=== PATIENT | male | born 1950 | race Caucasian/White ===

== ENCOUNTER 2020-12-28 03:52 | Emergency (ER) | payer MEDICARE, SELFPAY ==
--- NOTE | ~2020-12-28 | XR_ITS ---
EXAMINATION: XR CHEST, 2 VIEWS CLINICAL INFORMATION: Chest wall pain. COMPARISON: 08/09/2018 TECHNIQUE: PA and lateral views of the chest were obtained. FINDINGS: Lungs are clear. No consolidation, pneumothorax, or pleural effusion. Cardiac and mediastinal contours are normal. Pulmonary vasculature is unremarkable. Trachea is midline. Degenerative disc disease and diffuse idiopathic skeletal hyperostosis are evident in the thoracic spine. Chest wall appears intact. XR/XR chest 2V IMPRESSION: No acute cardiopulmonary findings.
[2020-12-28 03:58] VITALS: BP 173/79; PULSE 88; RESP 16; TEMP 36.6; O2SAT 87; BMI 29.4
--- NOTE | 2020-12-28 04:06 | ECG_ITS ---
Test Reason : FEVER Blood Pressure : / mmHG Vent. Rate : 078 BPM Atrial Rate : 078 BPM P-R Int : 200 ms QRS Dur : 082 ms QT Int : 374 ms P-R-T Axes : 055 006 034 degrees QTc Int : 426 ms Normal sinus rhythm Normal ECG When compared with ECG of 09-AUG-2018 10:19, No significant change was found Referred By: Generic ED Physician Electronically Signed By:JASON OLVERA MD
[2020-12-28 04:59] VITALS: RESP 16; TEMP 36.4; O2SAT 98
--- NOTE | 2020-12-28 05:00 | PC.NURSE ---
PT C/O MERI SHOULDER PAIN AND PAIN LIFTING UP ARM X WEEKS. PT ALSO C/O FEVER. PT'S TEMP WAS 97.5 ORAL UPON ARRIVAL. PT A&OX3, SKIN WARM/DRY, RESPIRATIONS N/L. AT BEDSIDE WITH PT..
--- NOTE | 2020-12-28 05:01 | PC.NURSE ---
PT TO XRAY FOR CXR.
--- NOTE | 2020-12-28 05:28 | PC.NURSE ---
EKG OBTAINED TO MD AND LABS DRAWN TO LAB. VS OBTAINED. PT IN NAD.
[2020-12-28 05:42] LABS: MANUAL DIFF FLAG NO
[2020-12-28 05:43] LABS: Basophils Absolute Auto 0.1 X10*3/uL (0.0-0.2); Basophils Percent Auto 0.7 % (0-2); Eosinophils Absolute Auto 0.1 X10*3/uL (0.0-0.4); Hematocrit 44.9 % (42-52); Hemoglobin 15.1 g/dl (14.0-18.0); Imm Gran Abs Auto 0.01 X10*3/uL (0.00-0.03); Imm Gran Pct Auto 0.1 % (0.0-0.4); Lymphocytes Absolute Auto 1.8 X10*3/uL (1.2-4.9); Lymphocytes Percent Auto 25.6 % (20-40); Mean Corpuscular HGB Conc 33.6 g/dl (31.0-36.0); Mean Corpuscular Hemoglobin 31.6 pg (27.0-33.0); Mean Corpuscular Volume 93.9 fL (80-98); Mean Platelet Volume 8.8 fL (9.4-12.4); Monocytes Absolute Auto 0.6 X10*3/uL (0.1-1.2); Monocytes Percent Auto 8.1 % (2-11); Neutrophils Absolute Auto 4.4 X10*3/uL (2.0-8.3); Neutrophils Percent Auto 63.5 % (45-73); Platelet Count 227 X10*3/uL (160-400); Red Blood Count 4.78 X10*6/uL (4.60-5.80); White Blood Count 6.9 X10*3/uL (4.8-10.8)
[2020-12-28 06:09] VITALS: BP 156/86; PULSE 77; RESP 16; O2SAT 97
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
[2020-12-28 06:39] LABS: Anion Gap 14 (12-20); Calcium 9.2 mg/dL (8.4-10.2); Carbon Dioxide 26 mmol/L (22-29); Chloride 107 mmol/L (96-108); Sodium 142 mmol/L (135-145)
[2020-12-28 06:51] LABS: Blood Urea Nitrogen 18 mg/dL (9-16); Creatinine Clr Calc Pharmacy 81.7; Estimated Glomerular Filt Rate > 60; Glucose Random 133 mg/dL (60-115)
[2020-12-28 06:55] LABS: Glucose Urine UA NEG (NEG); Leukocyte Esterase Urine NEG (NEG); Nitrite Urine NEG (NEG); Specific Gravity - Urine 1.025 (1.005-1.025); Urine Blood TRACE (NEG); Urine Ketones NEG (NEG); Urine Protein NEG (NEG-TRACE)
[2020-12-28 06:56] LABS: Alanine Aminotransferase 25 U/L (0-40); Albumin Level 4.3 g/dL (3.5-5.0); Alkaline Phosphatase 73 U/L (39-117); Aspartate Amino Transferase 19 U/L (5-37); Bilirubin Direct 0.3 mg/dL (0.0-0.5); Bilirubin Total 0.8 mg/dL (0.0-1.0); Total Protein 6.7 g/dL (6.5-8.0)
[2020-12-28 06:56] LABS: Appearance Urine CLEAR; Color Urine YELLOW
[2020-12-28 07:01] VITALS: BP 146/88; PULSE 75; RESP 16; TEMP 36.8; O2SAT 97
--- NOTE | 2020-12-28 07:03 | PC.NURSE ---
report taken from Angelique BAKER. patient resting on stretcher comfortably. reports he is feeling improved. vitals updated. waiting re eval from .
[2020-12-28 07:10] LABS: COVID-19 Test Negative (Negative); IDNOW Serial# 9DD0AD1C
[2020-12-28 07:17] LABS: Mucus Urine 2+ /LPF; WBC Urine 0 /HPF (0-4)
== END 2020-12-28 07:58 | disposition home or self-care (01) ==
PROVIDERS: Emergency Provider Emergency Medicine Emergency Medical Services; PCP Internal Medicine
DX: B34.9 Viral infection, unspecified (principal); Z20.822 Contact with and (suspected) exposure to COVID-19; R50.9 Fever, unspecified
CPT/HCPCS: 36415; 71046; 80048; 80076; 81001; 85025; 87635; 93005; 99283; 99284

== ENCOUNTER 2021-12-03 13:59 | Emergency (ER) | payer MEDICARE, SELFPAY ==
[2021-12-03 14:03] VITALS: BP 140/69; PULSE 90; RESP 18; TEMP 36; O2SAT 99; BMI 29.4
--- NOTE | 2021-12-03 14:06 | ECG_ITS ---
Test Reason : diff breathing Blood Pressure : / mmHG Vent. Rate : 087 BPM Atrial Rate : 087 BPM P-R Int : 188 ms QRS Dur : 094 ms QT Int : 366 ms P-R-T Axes : 063 022 041 degrees QTc Int : 440 ms Normal sinus rhythm Normal ECG When compared with ECG of 28-DEC-2020 05:24, No significant change was found Referred By: Generic ED Physician Electronically Signed By:JEWEL PINEDA
== END 2021-12-03 19:23 | disposition left against medical advice (07) ==
PROVIDERS: Emergency Provider Emergency Medicine; PCP Hospitalist
DX: R06.02 Shortness of breath (principal); I10 Essential (primary) hypertension; Z87.891 Personal history of nicotine dependence
CPT/HCPCS: 93005; 99282; 99283

== ENCOUNTER 2021-12-04 15:06 | Outpatient (REF) | payer MEDICARE, SELFPAY ==
--- NOTE | ~2021-12-04 | XR_ITS ---
EXAMINATION: XR CHEST CLINICAL INFORMATION: Shortness of breath COMPARISON: 12/28/2020 TECHNIQUE: Frontal view of the chest was obtained. FINDINGS: The lungs are well expanded. There is no focal consolidation, edema, or effusion. No pneumothorax. The cardiomediastinal silhouette is within normal limits. No acute osseous abnormality. Degenerative changes of the spine. XR/XR chest 1V IMPRESSION: No acute pulmonary finding.
[2021-12-04 15:51] LABS: Hematocrit 44.8 % (42.0-52.0); Hemoglobin 15.4 g/dl (14.0-18.0); Mean Corpuscular HGB Conc 34.4 g/dl (31.0-36.0); Mean Corpuscular Hemoglobin 31.4 pg (27.0-33.0); Mean Corpuscular Volume 91.2 fL (80.0-98.0); Mean Platelet Volume 8.9 fL (9.4-12.4); Platelet Count 285 X10*3/uL (160-400); Red Blood Count 4.91 X10*6/uL (4.60-5.80); Red Cell Distribution Width 12.9 % (11.0-16.0); White Blood Count 8.4 X10*3/uL (4.8-10.8)
[2021-12-04 16:16] LABS: Alanine Aminotransferase 29 U/L (0-40); Albumin Level 4.4 g/dL (3.5-5.0); Alkaline Phosphatase 85 U/L (39-117); Anion Gap 13 (12-20); Aspartate Amino Transferase 23 U/L (5-37); Bilirubin Total 1.4 mg/dL (0.0-1.0); Blood Urea Nitrogen 13 mg/dL (9-16); Calcium 9.4 mg/dL (8.4-10.2); Carbon Dioxide 27 mmol/L (22-29); Chloride 104 mmol/L (96-108); Estimated Glomerular Filt Rate > 60; Glucose Random 126 mg/dL (60-115); Potassium 4.3 mmol/L (3.3-5.1); Sodium 140 mmol/L (135-145); Total Protein 6.9 g/dL (6.5-8.0)
[2021-12-04 16:36] LABS: TSH reflex Free T4 0.81 uIU/mL (0.32-4.0)
== END 2021-12-04 15:07 | disposition home or self-care (01) ==
LOC: HO.LAB 15:06
PROVIDERS: Visit Provider Hospitalist
DX: R06.02 Shortness of breath (principal); E03.9 Hypothyroidism, unspecified
CPT/HCPCS: 36415; 71045; 80053; 84443; 85027

== ENCOUNTER 2022-01-28 08:55 | Outpatient (REF) | payer MEDICARE, SELFPAY ==
[2022-01-28 14:36] LABS: TSH reflex Free T4 0.57 uIU/mL (0.32-4.0)
[2022-01-28 15:16] LABS: Cholesterol 213 mg/dL; HDL Cholesterol 43 mg/dL; LDL Cholesterol Calculated 137 mg/dl; Triglycerides 165 mg/dL
== END 2022-01-28 08:56 | disposition home or self-care (01) ==
LOC: HO.WFDLDS 08:55
PROVIDERS: Visit Provider Hospitalist
DX: I10 Essential (primary) hypertension (principal); E03.9 Hypothyroidism, unspecified; Z87.891 Personal history of nicotine dependence
CPT/HCPCS: 36415; 80061; 84443

== ENCOUNTER 2022-04-29 12:26 | Outpatient (REF) | payer MEDICARE, SELFPAY ==
[2022-04-29 15:19] LABS: TSH reflex Free T4 0.39 uIU/mL (0.32-4.0)
== END 2022-04-29 12:27 | disposition home or self-care (01) ==
LOC: HO.WFDLDS 12:26
PROVIDERS: Visit Provider Hospitalist
DX: E03.9 Hypothyroidism, unspecified (principal)
CPT/HCPCS: 36415; 84443

== ENCOUNTER 2022-05-19 08:30 | Emergency (ER) | payer MEDICARE, SELFPAY ==
--- NOTE | ~2022-05-19 | MR_ITS ---
MRI OF THE BRAIN WITHOUT IV CONTRAST INDICATION: Dizziness. Rule out stroke. COMPARISON: Head CT 05/19/2022. TECHNIQUE: Multiplanar multisequence MR imaging of the brain was obtained without IV contrast. FINDINGS: Artifact versus a punctate acute infarct within the upper right insular ribbon on image 22 of series 3. There is no mass effect and there is no hemorrhagic transformation. No posterior fossa infarcts. There is no hydrocephalus, extra-axial surface collection, or herniation. The major flow voids at the skull base are preserved. 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 The midline structures are normal. The cerebellar tonsils are normally positioned. The cerebellum and brainstem are normal. The craniocervical junction is normal. Osseous marrow signal intensity is homogenous. The visualized soft tissues are unremarkable. MR/MR head/brain wo con IMPRESSION: - Artifact versus a punctate acute infarct within the upper right insular ribbon on image 22 of series 3. There is no mass effect and there is no hemorrhagic transformation. No posterior fossa infarcts. - There is global cerebral volume loss and there is mild chronic microangiopathy. 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
--- NOTE | ~2022-05-19 | CT_ITS ---
CT HEAD WITHOUT CONTRAST CLINICAL INFORMATION: Dizziness and near-syncope. COMPARISON: Brain MRI 05/19/2022. TECHNIQUE: Contiguous axial imaging was performed from the skull base to vertex without intravenous administration of contrast. This CT examination was performed using dose optimization techniques as appropriate, variously including the following: *Automated exposure control *Adjustment of mA and/or kV according to patient size (this includes techniques or standardized protocols for targeted exams where dose is matched to indication/reason for exam; i.e. extremities or head) *Use of iterative reconstruction technique FINDINGS: There is no intracranial hemorrhage, hydrocephalus, extra-axial surface collection, midline shift, or other herniation pattern. Ro to white matter differentiation is diffusely maintained without evidence of an evolved acute territorial infarct. The basilar cisterns are preserved. No significant soft tissue abnormality. No acute osseous abnormality. There is mild mucosal thickening within the left maxillary sinus and the remaining paranasal sinuses are well-aerated. The mastoid air cells are clear. CT/CT head/brain wo IV con IMPRESSION: No acute intracranial abnormality.
--- NOTE | ~2022-05-19 | CT_ITS ---
EXAMINATION: CT ANGIOGRAM NECK WITH CONTRAST CT ANGIOGRAM BRAIN WITH CONTRAST CLINICAL INFORMATION: Dizziness. Abnormal MRI. COMPARISON: Head CT and brain MRI 05/19/2022. TECHNIQUE: Test bolus sequences followed by intravenous administration 70 mL of Omnipaque 350. Helical imaging was performed in the axial plane from the thoracic inlet to the skull vertex. Delayed postcontrast imaging of the head was also performed. The data was processed at the dairy manufacturing technologist workstation for generation of MIP sequences. Angled MIPs and volume rendered reformatted images were also generated at an offline 3D workstation under concurrent supervision. Stenoses are assessed in accordance with NASCET criteria unless otherwise indicated. This CT examination was performed using dose optimization techniques as appropriate, variously including the following: *Automated exposure control *Adjustment of mA and/or kV according to patient size (this includes techniques or standardized protocols for targeted exams where dose is matched to indication/reason for exam; i.e. extremities or head) *Use of iterative reconstruction technique FINDINGS: BRAIN: Artifact versus a punctate acute infarct within the upper right insular ribbon is better demonstrated on the earlier MRI of the brain. 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 There is no intracranial hemorrhage, hydrocephalus, extra-axial surface collection, midline shift, or other herniation pattern. Ro to white matter differentiation is diffusely maintained without evidence of an evolved acute territorial infarct. The basilar cisterns are preserved. No significant soft tissue abnormality. No acute osseous abnormality. The paranasal sinuses and the mastoid air cells are well aerated.] CERVICAL SOFT TISSUES AND LUNG APICES: Imaged upper lungs are clear. Advanced multilevel cervical spondylosis. No significant soft tissue findings are appreciated within the neck. NECK CTA: [There is a classic 3 vessel configuration of the aortic arch. Proximal arch vessels are non-stenotic. The vertebral arteries are codominant. No significant ostial stenosis is visualized on either side. Both vertebral arteries are widely patent throughout their extracranial cervical course. 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 BRAIN CTA: [There is normal opacification of major intracranial arteries. No focal flow-limiting stenosis nor discrete proximal large artery occlusion. No aneurysm. Timing of the contrast bolus allows assessment of the major dural venous sinuses, which all opacify normally] CT/CT angio head neck IMPRESSION: - Artifact versus a punctate acute infarct within the upper right insular ribbon is better demonstrated on the earlier MRI of the brain. - There is global cerebral volume loss and there is mild chronic microangiopathy. - No acute arterial occlusions and no significant arterial stenoses within the head or neck. 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
--- NOTE | ~2022-05-19 | XR_ITS ---
EXAMINATION: XR CHEST CLINICAL INFORMATION: Near syncope COMPARISON: None TECHNIQUE: Frontal view of the chest was obtained. FINDINGS: The lungs are well-expanded and clear. The heart size and pulmonary vascularity is normal. There is moderate spondylosis dorsal spine. XR/XR chest 1V IMPRESSION: Unremarkable chest examination.
[2022-05-19 08:33] VITALS: BP 179/98; PULSE 96; RESP 18; TEMP 36.1; O2SAT 97; BMI 27.9
--- NOTE | 2022-05-19 08:54 | ECG_ITS ---
Test Reason : NEAR SYNC Blood Pressure : / mmHG Vent. Rate : 085 BPM Atrial Rate : 085 BPM P-R Int : 200 ms QRS Dur : 084 ms QT Int : 368 ms P-R-T Axes : 060 004 043 degrees QTc Int : 437 ms Normal sinus rhythm Normal ECG When compared with ECG of 03-DEC-2021 14:02, No significant change was found Referred By: Justin Santos Electronically Signed By:JOÃO BISHOP MD
--- NOTE | 2022-05-19 08:56 | ED.DIZZY ---
HPI - Dizziness General Chief Complaint: Dizziness Stated Complaint: Dizziness Time Seen by Provider: 05/19/22 08:44 Source: patient and family (Spouse) Mode of arrival: ambulatory Limitations: no limitations History of Present Illness HPI Narrative: 72-year-old male came in with his family for evaluation of being dizzy. Patient last known normal was last night went to bed when he woke up trying to get out of bed felt dizzy and lightheaded, patient had near syncopal episode but never syncopized, no CP, no shortness of breath. Patient never had these symptoms in the past. Patient now is complaining of no dizziness, no weakness, no numbness. Related Data Home Medications Medication Instructions Recorded Confirmed levothyroxine 137 mcg capsule 137 mcg PO DAILY 12/04/21 05/04/22 Previous Rx's Medication Instructions Recorded albuterol sulfate 90 mcg/actuation 2 puff inhalation Q4-6H PRN 12/04/21 aerosol inhaler (ProAir HFA) shortness of breath or wheezing 1 month #8.5 grams blood pressure monitor #1 ea 12/10/21 cyclobenzaprine 10 mg tablet 10 mg PO BID PRN muscle spasm 10 02/20/22 days #14 tabs gabapentin 100 mg capsule 100 mg PO BID 3 months #180 caps 03/30/22 losartan 25 mg tablet 50 mg PO DAILY #30 tabs 04/17/22 cephalexin 500 mg capsule 500 mg PO Q12H 7 days #14 caps 05/04/22 Allergies Allergy/AdvReac Type Severity Reaction Status Date / Time amoxicillin [From AUGMENTIN] Allergy Intermediate RASH Verified 05/04/22 10:50 clavulanic acid Allergy Intermediate RASH Verified 05/04/22 10:50 [From AUGMENTIN] Sulfa (Sulfonamide AdvReac Intermediate Rash Verified 05/04/22 10:50 Antibiotics) Review of Systems Review of Systems: All other systems are reviewed and are negative Constitutional: Reports as per HPI and Reports no additional constitutional complaints Eyes: Reports as per HPI and Reports no additional eye complaints Reports system reviewed and no additional complaints, except as documented Cardiovascular: Reports as per HPI and Reports no additional cardiovascular complaints Respiratory: Reports as per HPI and Reports no additional respiratory complaints Gastrointestinal: Reports as per HPI and Reports no additional gastrointestinal complaints Genitourinary: Reports no additional female genitourinary complaints Musculoskeletal: Reports no additional musculoskeletal complaints Skin/Breast: Reports system reviewed and no additional complaints, except as docu Psychiatric: Reports no additional psychiatric complaints Endocrine: Reports no additional endocrine complaints Hematologic/Lymphatic: Reports no additional hematologic/lymphatic complaints Allergic/Immunologic: Reports no additional allergic/immunologic complaints Reports system reviewed and no additional complaints, except as documented and Reports Abnormal speech present [facility] Past Medical History Medical History Anxiety Hypothyroid Pericarditis Social History Social History Housing: House Patient Tobacco Use Status: Former Tobacco user e-Cigarette/Vaping Use: Never Used Second Hand Smoke Exposure: No Advance Directives: Yes Advance Directives Information Provided: Yes Advance Directives on File: No service: Yes Current occupational status: retired Current occupational exposures/hazards: No Cognitive needs: No Hearing needs: No Vision needs: Yes Physical Exam Vital Signs: Vital Signs: Last Vital Signs Temp 98.2 F 05/19/22 13:57 Pulse 94 05/19/22 13:57 Resp 14 05/19/22 13:57 BP 162/90 H 05/19/22 13:57 Pulse Ox 98 05/19/22 13:57 O2 Del Method 05/19/22 13:57 BMI result Body Mass Index 27.9 Vital signs have been reviewed as appeared to be correct. Blood pressure normal. Heart rate normal. Respiration rate normal. Temperature normal. Oxygen saturation normal. Appearance: Alert. Oriented X3. No acute distress. Head: Normal external exam. Normocephalic. Atraumatic. No Nixon signs noted. No raccoon eyes noted Eyes: PERRLA. EOMI. Conjunctiva and sclera normal. Eyelids normal. ENT: TM's Normal. Pharynx normal. Uvula midline. Moist mucous membranes. No trismus noted. No drooling noted. No muffled voice noted. Neck: Normal inspection. Neck supple. FROM. No adenopathy. Thyroid Normal. No meningeal signs. No neck mass noted. CVS: Normal heart rate and rhythm. Heart sound normal. No murmurs noted. Pulses normal throughout. Respiratory: No respiratory distress. Painless inspiration. Breath sounds normal. No wheezes/rales/rhonchi noted. Chest nontender. No accessory muscle usage noted or decreased air movement noted. Abdomen: Soft and nontender. Bowel sounds normal in all 4 quadrants. No distention noted. No organomegaly noted. No visible injury noted. Back: No CVA tenderness. Full range of motion noted. Skin: Skin warm and dry. Normal skin color. Normal skin turgor. No rashes/lesions/lacerations noted. Extremities: No lower extremity edema. Extremities exhibit normal range of motion. Extremities nontender. Neuro: Oriented X 3. Cranial nerve exam: II-XII are grossly intact No motor deficit. No sensory deficit. Reflexes normal. NIH Stroke Scale Level of Consciousness: Alert Level of Consciousness Questions: Answers both questions correctly Level of Consciousness Commands: Performs both tasks correctly Best Gaze: Normal Visual: No visual loss Facial Palsy: Normal Motor Arm (Right): No drift Motor Arm (Left): No drift Motor Leg (Right): No drift Motor Leg (Left): No drift Limb Ataxia: Absent Sensory: Normal Best Language: No aphasia Dysarthia: Normal Extinction and Inattention: No abnormality Score: 0 Course Course Course Narrative: 72-year-old male came in for evaluation of dizziness that raised concern of acute stroke, patient's symptoms has improved while in the emergency department, there was a concern of acute infarction on the MRI, the case and concerns was discussed with Dr. Parker who recommended CT angiogram of head and neck which appears to be unremarkable, no indication for tPA at this point and patient is not a candidate for tPA therapy for equivocal minor neurological symptoms with normal neuro exam and unclear onset of symptoms. Patient received aspirin in the emergency department, patient will be seen by Dr. Parker. Disposition is pending after Dr. Parker evaluation in the emergency department. Medications Administered Discontinued Medications Generic Name Dose Route Start Last Admin Trade Name Freq PRN Reason Stop Dose Admin Aspirin 81 mg 05/19/22 11:44 05/19/22 11:59 Aspirin Enteric Coated 81 Mg Tablet. PO 05/19/22 11:45 81 mg ONCE ONE Administration Sodium Chloride 1,000 mls @ 999 mls/hr 05/19/22 08:50 05/19/22 11:48 Ns IV 05/19/22 09:50 Infused .Q1H1M ONE Infusion Iohexol 70 ml 05/19/22 12:25 05/19/22 12:26 Iohexol 350 Mg/Ml 100 Ml Infus..Btl IV 05/19/22 12:26 70 ml ONCE ONE Administration Meclizine HCl 25 mg 05/19/22 11:41 05/19/22 11:59 Meclizine Hcl 25 Mg Tablet PO 05/19/22 11:42 25 mg ONCE ONE Administration MDM - Dizziness Medical Records Attestation: I reviewed the patient's medical records. Lab Data Attestation: I reviewed the patient's lab results. Result diagrams: 05/19/22 09:32 05/19/22 09:32 Labs: Lab Results 05/19/22 05/19/22 05/19/22 Range/Units 09:32 09:32 09:32 WBC 9.8 (4.8-10.8) X10*3/uL RBC 5.04 (4.60-5.80) X10*6/uL Hgb 15.5 (14.0-18.0) g/dl Hct 46.0 (42.0-52.0) % MCV 91.3 (80.0-98.0) fL MCH 30.8 (27.0-33.0) pg MCHC 33.7 (31.0-36.0) g/dl RDW 13.1 (11.0-16.0) % Plt Count 257 (160-400) X10*3/uL MPV 8.8 L (9.4-12.4) fL Immature Gran % (Auto) 0.2 (0.0-0.4) % Neut % (Auto) 72.6 (45-73) % Lymph % (Auto) 19.3 L (20-40) % [place] % (Auto) 6.1 (2-11) % Eos % (Auto) 1.3 (0-4) % Baso % (Auto) 0.5 (0-2) % Lymph # (Auto) 1.9 (1.2-4.9) X10*3/uL [place] # (Auto) 0.6 (0.1-1.2) X10*3/uL Eos # (Auto) 0.1 (0.0-0.4) X10*3/uL Baso # (Auto) 0.1 (0.0-0.2) X10*3/uL Abs Immat Gran (auto) 0.02 (0.00-0.03) X10*3/uL Absolute Neuts (auto) 7.1 (2.0-8.3) x10*3/uL Absolute Nucleated RBC 0.000 (0.0-0.012) X10*3/uL Nucleated RBC % (auto) 0.0 (0.0-0.2) /100WBC Sodium 140 (135-145) mmol/L Potassium 4.4 (3.3-5.1) mmol/L Chloride 104 (96-108) mmol/L Carbon Dioxide 26 (22-29) mmol/L Anion Gap 14 (12-20) BUN 13 (9-16) mg/dL Creatinine 0.86 (0.5-1.4) mg/dL Estim Creat Clear Calc 85.6 Estimated GFR > 60 Random Glucose 113 (60-115) mg/dL Calcium 9.4 (8.4-10.2) mg/dL Total Bilirubin 1.4 H (0.0-1.0) mg/dL Direct Bilirubin 0.4 (0.0-0.5) mg/dL AST 19 (5-37) U/L ALT 21 (0-40) U/L Alkaline Phosphatase 84 (39-117) U/L Troponin I High Sens < 3.5 (<3.5-35.0) ng/L B-Natriuretic Peptide (<100) pg/mL Total Protein 6.8 (6.5-8.0) g/dL Albumin 4.3 (3.5-5.0) g/dL Lipase 43 (8-78) U/L Urine Color Urine Appearance Urine pH (5.0-9.0) Ur Specific [place] (1.005-1.025) Urine Protein (Neg-Trace) mg/dL Urine Glucose (UA) (Negative) mg/dL Urine Ketones (Negative) mg/dL Urine Blood (Negative) Urine Nitrite (Negative) Ur Leukocyte Esterase (Negative) 05/19/22 05/19/22 Range/Units 09:32 11:02 WBC (4.8-10.8) X10*3/uL RBC (4.60-5.80) X10*6/uL Hgb (14.0-18.0) g/dl Hct (42.0-52.0) % MCV (80.0-98.0) fL MCH (27.0-33.0) pg MCHC (31.0-36.0) g/dl RDW (11.0-16.0) % Plt Count (160-400) X10*3/uL MPV (9.4-12.4) fL Immature Gran % (Auto) (0.0-0.4) % Neut % (Auto) (45-73) % Lymph % (Auto) (20-40) % [place] % (Auto) (2-11) % Eos % (Auto) (0-4) % Baso % (Auto) (0-2) % Lymph # (Auto) (1.2-4.9) X10*3/uL [place] # (Auto) (0.1-1.2) X10*3/uL Eos # (Auto) (0.0-0.4) X10*3/uL Baso # (Auto) (0.0-0.2) X10*3/uL Abs Immat Gran (auto) (0.00-0.03) X10*3/uL Absolute Neuts (auto) (2.0-8.3) x10*3/uL Absolute Nucleated RBC (0.0-0.012) X10*3/uL Nucleated RBC % (auto) (0.0-0.2) /100WBC Sodium (135-145) mmol/L Potassium (3.3-5.1) mmol/L Chloride (96-108) mmol/L Carbon Dioxide (22-29) mmol/L Anion Gap (12-20) BUN (9-16) mg/dL Creatinine (0.5-1.4) mg/dL Estim Creat Clear Calc Estimated GFR Random Glucose (60-115) mg/dL Calcium (8.4-10.2) mg/dL Total Bilirubin (0.0-1.0) mg/dL Direct Bilirubin (0.0-0.5) mg/dL AST (5-37) U/L ALT (0-40) U/L Alkaline Phosphatase (39-117) U/L Troponin I High Sens (<3.5-35.0) ng/L B-Natriuretic Peptide < 10 (<100) pg/mL Total Protein (6.5-8.0) g/dL Albumin (3.5-5.0) g/dL Lipase (8-78) U/L Urine Color Yellow Urine Appearance Clear Urine pH 7.5 (5.0-9.0) Ur Specific [place] 1.010 (1.005-1.025) Urine Protein Negative (Neg-Trace) mg/dL Urine Glucose (UA) Negative (Negative) mg/dL Urine Ketones Negative (Negative) mg/dL Urine Blood Negative (Negative) Urine Nitrite Negative (Negative) Ur Leukocyte Esterase Negative (Negative) Imaging Data CT scan - head: Attestation: I personally reviewed and interpreted this imaging study as follows: Radiologist's impression: No acute intracranial abnormality. Chest x-ray: Attestation: I personally reviewed and interpreted this imaging study as follows: Radiologist's impression: Unremarkable chest examination. Brain MRI: Attestation: I personally reviewed and interpreted this imaging study as follows: Radiologist's impression: - Artifact versus a punctate acute infarct within the upper right insular ribbon on image 22 of series 3. There is no mass effect and there is no hemorrhagic transformation. No posterior fossa infarcts. ? - There is global cerebral volume loss and there is mild chronic microangiopathy. ? 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 ECG Data Attestation: I personally reviewed and interpreted this ECG as follows: Interpretation: Normal sinus rhythm at 85 beats per minutes, normal intervals, no ST-T changes. Discharge Plan Discharge Clinical Impression: Dizziness Patient Disposition: Home, Self-Care Instructions: Lightheadedness (ED), Dizziness (ED) Prescriptions: No Action gabapentin 100 mg capsule 100 mg PO BID 90 Days Qty: 180 1RF losartan 25 mg tablet 50 mg PO DAILY Qty: 30 4RF levothyroxine 137 mcg capsule 137 mcg PO DAILY albuterol sulfate [ProAir HFA] 90 mcg/actuation HFA aerosol inhaler 2 puff inhalation Q4-6H PRN (Reason: shortness of breath or wheezing) 30 Days Qty: 8.5 0RF (DME) blood pressure monitor Kit See Rx Instructions .Route Qty: 1 0RF Rx Instructions: As directed cyclobenzaprine 10 mg tablet 10 mg PO BID PRN (Reason: muscle spasm) 10 Days Qty: 14 0RF cephalexin 500 mg capsule 500 mg PO Q12H 7 Days Qty: 14 0RF Referrals: Bailee Swartz, [employer] [Primary Care Provider] -
[2022-05-19 09:20] VITALS: BP 139/85; PULSE 83; RESP 14; TEMP 36.7; O2SAT 96
[2022-05-19] MEDS: 0.9 % Sodium Chloride 1,000 ML 999 ML IV (09:35)
[2022-05-19 09:38] LABS: MANUAL DIFF FLAG NO
[2022-05-19 09:40] LABS: Basophils Absolute Auto 0.1 X10*3/uL (0.0-0.2); Basophils Percent Auto 0.5 % (0-2); Eosinophils Absolute Auto 0.1 X10*3/uL (0.0-0.4); Eosinophils Percent Auto 1.3 % (0-4); Hemoglobin 15.5 g/dl (14.0-18.0); Imm Gran Abs Auto 0.02 X10*3/uL (0.00-0.03); Imm Gran Pct Auto 0.2 % (0.0-0.4); Lymphocytes Absolute Auto 1.9 X10*3/uL (1.2-4.9); Lymphocytes Percent Auto 19.3 % (20-40); Mean Corpuscular HGB Conc 33.7 g/dl (31.0-36.0); Mean Corpuscular Hemoglobin 30.8 pg (27.0-33.0); Mean Corpuscular Volume 91.3 fL (80.0-98.0); Mean Platelet Volume 8.8 fL (9.4-12.4); Monocytes Absolute Auto 0.6 X10*3/uL (0.1-1.2); Monocytes Percent Auto 6.1 % (2-11); Neutrophils Absolute Auto 7.1 x10*3/uL (2.0-8.3); Neutrophils Percent Auto 72.6 % (45-73); Platelet Count 257 X10*3/uL (160-400); Red Blood Count 5.04 X10*6/uL (4.60-5.80); Red Cell Distribution Width 13.1 % (11.0-16.0); White Blood Count 9.8 X10*3/uL (4.8-10.8)
[2022-05-19 09:49] VITALS: BP 152/72
--- NOTE | 2022-05-19 09:54 | PC.NURSE ---
PT [facility] 8A, ATAXIA, PASSED NURSING SWALLOW, MRI SCREENING FORM FAXED [phone]
[2022-05-19 09:58] LABS: Alanine Aminotransferase 21 U/L (0-40); Albumin Level 4.3 g/dL (3.5-5.0); Alkaline Phosphatase 84 U/L (39-117); Anion Gap 14 (12-20); Aspartate Amino Transferase 19 U/L (5-37); Bilirubin Direct 0.4 mg/dL (0.0-0.5); Bilirubin Total 1.4 mg/dL (0.0-1.0); Blood Urea Nitrogen 13 mg/dL (9-16); Calcium 9.4 mg/dL (8.4-10.2); Carbon Dioxide 26 mmol/L (22-29); Chloride 104 mmol/L (96-108); Creatinine Clr Calc Pharmacy 85.6; Estimated Glomerular Filt Rate > 60; Glucose Random 113 mg/dL (60-115); Lipase 43 U/L (8-78); Potassium 4.4 mmol/L (3.3-5.1); Sodium 140 mmol/L (135-145); Total Protein 6.8 g/dL (6.5-8.0)
--- NOTE | 2022-05-19 10:02 | MHC.STROKE ---
Addendum entered by Charline Abdi RN 05/19/22 14:46: I REMAINED WITH THE PATIENT THROUGHOUT THE MRI, DR. MADDEN AND I REVIEWED THE MRI, ? ARTIFACT VS INFARCT, NO TPA-ALTEPLASE DUE TO LOW NIHSS AND MILD NON-DISABLING SYMPTOMS. DR. MADDEN SPOKE WITH DR. HALL. CTA H/N ORDERED AND DONE, NO LVO, SEE REPORT. I AMBULATED THE PATIENT AGAIN, SLOW BUT DOING MUCH BETTER WITH STANDBY SUPERVISION. HE DID MENTION THAT HE HAS NOT BEEN TAKING HIS BP MEDICATION LORSARTAN SINCE WHEN HE HAD A SKIN CANCER REMOVED FROM HIS NOSE. I REPORTED THIS TO DR. HALL AND DR. MADDEN. WE ARE DETERMINING IF THE PATIENT HAS TO ADMITTED OR NOT. NEUROLOGY CONSULT ENTERED AND DR MADDEN WILL SEE THE PATIENT AND COMMENT. PATIENT WAS SCREENED AND PASSED SWALLOW SCREEN PRIOR TO ANY PO, A DIET WAS ORDERED AND I CONFIRMED WITH THE PATIENT NO DIETARY RESTRICTIONS OR SPECIFIC DIET AND CONTACT THE KITCHEN. Original Note: WALK-IN AT 0830. PATIENT STATES HE WENT TO BED AT 2130. WAOKE AT 0600 AND LAYED IN BED WATCHING TV. GOT UP AT 0800 AND LIFTED THE SHADE AND HAD SUDDEN ONSET DIZZINESS. CAME TO THE ED. THIS DID HAPPEN ONCE BEFORE ACCORDING TO HIS . I WALKED HIM IN THE WELCH AND HE WAS UNABLE TO DO TOE TO HEAL, NIHSS = 2. CT DONE AND STAT MRI BEING DONE TO R/O CEREBELLAR STROKE.
--- NOTE | 2022-05-19 10:04 | PC.NURSE ---
CURRENTLY GOING TO MRI
[2022-05-19 10:05] LABS: B Type Natriuretic Peptide < 10 pg/mL (<100)
[2022-05-19 10:24] LABS: Troponin-I High Sensitivity < 3.5 ng/L (<3.5-35.0)
[2022-05-19 11:11] LABS: Appearance Urine Clear; Color Urine Yellow; Glucose Urine UA Negative (Negative); Leukocyte Esterase Urine Negative (Negative); Nitrite Urine Negative (Negative); PH 7.5 (5.0-9.0); Urine Blood Negative (Negative); Urine Ketones Negative (Negative); Urine Protein Negative (Neg-Trace)
[2022-05-19] MEDS: Meclizine HCl 25 MG TABLET PO (11:59)
[2022-05-19] MEDS: Aspirin Enteric Coated 81 MG TABLET.DR PO (11:59)
[2022-05-19] MEDS: iohexoL 350 MG/ML 100 ML INFUS..BTL 70 ML IV (12:26)
[2022-05-19 12:47] VITALS: BP 162/91; PULSE 94; RESP 14; TEMP 36.9; O2SAT 96
[2022-05-19 13:57] VITALS: BP 162/90; PULSE 94; RESP 14; TEMP 36.8; O2SAT 98
[2022-05-19 17:08] VITALS: BP 165/100
--- NOTE | 2022-05-19 17:12 | P.CNNE_ITS ---
History of Present Illness Data of Consult Service Date: 05/19/22 Primary Care Provider: Bailee Swartz NP HPI Reason for consult: dizziness and ataxia This is a 70-year-old male who presented to the emergency department for evaluation of Dizziness with vertigo and disequilibrium that came on suddenly shortly after he got up and was pulling the shades down. The room started to spin and he had to grab onto something to keep from falling. His symptoms continued but got gradually better and now he feels much better. He had an MRI of the brain which I reviewed and thought that it was normal although there may have been some punctate diffusion abnormality in the right insular cortex. There was no posterior fossa abnormality. He had a CTA of the head and neck which did not reveal any vertebrobasilar disease. He's had one similar episode of vertigo many years ago. His hearing is intact and he has no tinnitus. Review of Systems Review of Systems: All other systems are reviewed and are negative Constitutional: Reports as per HPI and Reports no additional constitutional complaints Eyes: Reports as per HPI and Reports no additional eye complaints Reports system reviewed and no additional complaints, except as documented Cardiovascular: Reports as per HPI and Reports no additional cardiovascular complaints Respiratory: Reports as per HPI and Reports no additional respiratory complaints Gastrointestinal: Reports as per HPI and Reports no additional gastrointestinal complaints Genitourinary: Reports no additional female genitourinary complaints Musculoskeletal: Reports no additional musculoskeletal complaints Skin/Breast: Reports system reviewed and no additional complaints, except as docu Psychiatric: Reports no additional psychiatric complaints Endocrine: Reports no additional endocrine complaints Hematologic/Lymphatic: Reports no additional hematologic/lymphatic complaints Allergic/Immunologic: Reports no additional allergic/immunologic complaints Reports system reviewed and no additional complaints, except as documented and Reports Abnormal speech present [facility] Past Medical History Medical History Anxiety Hypothyroid Pericarditis Social History Social History Housing: House Patient Tobacco Use Status: Former Tobacco user e-Cigarette/Vaping Use: Never Used Second Hand Smoke Exposure: No Advance Directives: Yes Advance Directives Information Provided: Yes Advance Directives on File: No service: Yes Current occupational status: retired Current occupational exposures/hazards: No Cognitive needs: No Hearing needs: No Vision needs: Yes Meds Allergies Allergy/AdvReac Type Severity Reaction Status Date / Time amoxicillin [From AUGMENTIN] Allergy Intermediate RASH Verified 05/04/22 10:50 clavulanic acid Allergy Intermediate RASH Verified 05/04/22 10:50 [From AUGMENTIN] Sulfa (Sulfonamide AdvReac Intermediate Rash Verified 05/04/22 10:50 Antibiotics) Home Medications Medication Instructions Recorded Confirmed Last Taken Type levothyroxine 137 mcg capsule 137 mcg PO DAILY 12/04/21 05/04/22 Unknown History Physical Exam Vital Signs: Vital Signs: Last Vital Signs Temp 98.2 F 05/19/22 13:57 Pulse 94 05/19/22 13:57 Resp 14 05/19/22 13:57 BP 165/100 H 05/19/22 17:08 Pulse Ox 98 05/19/22 13:57 O2 Del Method 05/19/22 13:57 BMI result Body Mass Index 27.9 Neuro: Other: Alert and oriented with normal intellectual functions. No nystagmus. Full visual triplett. Muscle tone and strength are normal. Aidynp-rb-rqpi test jbjq-aufg-wydi tests are normal. There is minimal truncal ataxia on tandem walking only Results Labs CBC & Chem 7: 05/19/22 09:32 05/19/22 09:32 Labs: Short CBC 05/19/22 Range/Units 09:32 WBC 9.8 (4.8-10.8) X10*3/uL Hgb 15.5 (14.0-18.0) g/dl Hct 46.0 (42.0-52.0) % Plt Count 257 (160-400) X10*3/uL BMP 05/19/22 09:32 Sodium 140 Potassium 4.4 Chloride 104 Carbon Dioxide 26 BUN 13 Creatinine 0.86 Calcium 9.4 Liver Function 05/19/22 Range/Units 09:32 Total Bilirubin 1.4 H (0.0-1.0) mg/dL Direct Bilirubin 0.4 (0.0-0.5) mg/dL AST 19 (5-37) U/L ALT 21 (0-40) U/L Alkaline Phosphatase 84 (39-117) U/L Albumin 4.3 (3.5-5.0) g/dL Urine 05/19/22 Range/Units 11:02 Urine Color Yellow Urine Appearance Clear Urine pH 7.5 (5.0-9.0) Ur Specific [place] 1.010 (1.005-1.025) Urine Protein Negative (Neg-Trace) mg/dL Urine Glucose (UA) Negative (Negative) mg/dL Assessment and Plan (1) Dizziness: Status: Acute Probable labyrinthine dysfunction. No evidence of vascular disease or acute vertebral basilar syndrome. Recommendation he can be discharged on meclizine 25 mg twice a day. He can restart his valsartan 50 mg a day. Procedures Date of Service Date of Service: 05/19/22
--- NOTE | 2022-05-20 09:52 | MHC.STROKE ---
I RECEIVED A CALL FROM THE PATIENT REGARDING A PRESCRIPTION HE DID NOT GET. I DID CLARIFY WITH DR MADDEN THAT THE PATIENT SHOULD BE ON MECLIZINE. I COMMUNICATED THIS TO DR GATICA, CONFIRMED THE PHARMACY WITH THE PATIENT, DR GATICA ELECTRONICALLY SENT THE SCRIPT AND I DID CALL THE PATIENT AND LET HIM KNOW THE PRESCRIPTION WILL BE AT HIS [facility] ON [facility].
== END 2022-05-19 17:13 | disposition home or self-care (01) ==
PROVIDERS: Emergency Provider Emergency Medicine; PCP Hospitalist
DX: R42 Dizziness and giddiness (principal); R06.02 Shortness of breath; M54.2 Cervicalgia; R51.9 Headache, unspecified; Z79.899 Other long term (current) drug therapy
CPT/HCPCS: 36415; 70450; 70496; 70498; 70551; 71045; 80048; 80076; 81003; 83690; 83880; 84484; 85025; 93005; 96360; 96361; 99284; 99285; Q9967

== ENCOUNTER 2022-07-15 13:40 | Emergency (ER) | payer MEDICARE, SELFPAY ==
[2022-07-15] VITALS (7 sets, daily range): BP systolic 127–168; BP diastolic 70–88; PULSE 85–110; RESP 15–19; TEMP 36.6–36.8; O2SAT 96–98; BMI 27.9
--- NOTE | ~2022-07-15 | CT_ITS ---
EXAMINATION: CT ANGIOGRAM OF THE CHEST WITH AND WITHOUT CONTRAST (CT PULMONARY ANGIOGRAM FOR PE) CLINICAL INFORMATION: Dyspnea COMPARISON: CXR from 07/15/2022 TECHNIQUE: Prior to contrast administration, noncontrast localization images were obtained. Subsequently, multidetector volumetric imaging was performed from the thoracic inlet to below the diaphragms following the administration of 65 mL Omnipaque 350 intravenous contrast. Sagittal, coronal, and MIP oblique sagittal reformatted images were obtained on the CT workstation, uploaded to PACS, and reviewed. This CT examination was performed using dose optimization techniques as appropriate, variously including the following: *Automated exposure control *Adjustment of mA and/or kV according to patient size (this includes techniques or standardized protocols for targeted exams where dose is matched to indication/reason for exam; i.e. extremities or head) *Use of iterative reconstruction technique Total exam dose-length product 341 mGy-cm FINDINGS: LUNGS AND PLEURA: Mild paraseptal emphysema at the lung apices. A few linear opacities of mild atelectasis are present in lower lung zones. No pulmonary consolidation or pleural effusion. No suspicious lung nodule or mass. QUALITY OF STUDY/CONTRAST BOLUS: Satisfactory. CARDIOVASCULAR: The pulmonary arteries are normal in size. No embolic filling defects are identified within the main, lobar or segmental vessels. The heart size is normal. No pericardial effusion. Mild atherosclerotic calcification of the thoracic aorta without aneurysm or dissection. MEDIASTINUM/LOWER NECK: No mediastinal mass. The esophagus has normal wall thickness. Thyroid gland is not well seen and is either chronically severely atrophied or absent. LYMPHATICS: No pathologic sized axillary, hilar or mediastinal lymph nodes. UPPER ABDOMEN: Cholecystectomy. No acute abnormalities in the visualized upper abdomen. Adrenal glands are unremarkable. There is mild atrophy, partial fatty replacement of the pancreas. 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 No suspicious bone lesions. CT/CT angio chest PE protocol IMPRESSION: * No evidence of pulmonary embolism. * No acute pulmonary abnormality. No pulmonary edema, pneumonia or pleural effusion.
--- NOTE | ~2022-07-15 | XR_ITS ---
EXAMINATION: XR CHEST CLINICAL INFORMATION: Cough with shortness of breath and palpitations. COMPARISON: May 19, 2022 TECHNIQUE: 2 views of the chest were obtained. FINDINGS: There is no evidence of significant acute parenchymal disease, pneumothorax, or pleural effusion. Heart normal size. No evidence of pulmonary edema. There is calcification of the anterior longitudinal ligament throughout the thoracic spine consistent with DISH. XR/XR chest 2V IMPRESSION: No significant acute parenchymal disease.
--- NOTE | 2022-07-15 13:42 | ED_ITS ---
HPI - SOB/Dyspnea General Chief Complaint: Upper Respiratory Symptoms Stated Complaint: Heavy breathing/Low o2 Time Seen by Provider: 07/15/22 14:12 Related Data Home Medications Medication Instructions Recorded Confirmed fluorouracil 5 % topical cream appl topical 3XW 06/15/22 06/15/22 Previous Rx's Medication Instructions Recorded albuterol sulfate 90 mcg/actuation 2 puff inhalation Q4-6H PRN 12/04/21 aerosol inhaler (ProAir HFA) shortness of breath or wheezing 1 month #8.5 grams blood pressure monitor #1 ea 12/10/21 cyclobenzaprine 10 mg tablet 10 mg PO BID PRN muscle spasm 10 02/20/22 days #14 tabs gabapentin 100 mg capsule 100 mg PO BID 3 months #180 caps 03/30/22 losartan 25 mg tablet 50 mg PO DAILY #30 tabs 04/17/22 cephalexin 500 mg capsule 500 mg PO Q12H 7 days #14 caps 05/04/22 meclizine 25 mg tablet 25 mg PO TID PRN dizziness #20 tabs 05/20/22 levothyroxine 137 mcg capsule 137 mcg PO DAILY 30 days #30 caps 06/08/22 meloxicam 7.5 mg tablet 7.5 mg PO DAILY 14 days #14 tabs 06/15/22 albuterol sulfate 90 mcg/actuation 1 inh inhalation QID PRN shortness 07/15/22 aerosol inhaler of breath or wheezing #8.5 grams prednisone 20 mg tablet 40 mg PO DAILY #10 tabs 07/15/22 Allergies Allergy/AdvReac Type Severity Reaction Status Date / Time amoxicillin [From AUGMENTIN] Allergy Intermediate RASH Verified 06/15/22 15:26 clavulanic acid Allergy Intermediate RASH Verified 06/15/22 15:26 [From AUGMENTIN] Sulfa (Sulfonamide AdvReac Intermediate Rash Verified 06/15/22 15:26 Antibiotics) [facility] Past Medical History Medical History Anxiety Hypothyroid Pericarditis Social History Social History Housing: House Alcohol intake: former Patient Tobacco Use Status: Former Tobacco user Smoked in Last 30 Days: No e-Cigarette/Vaping Use: Never Used Second Hand Smoke Exposure: No Advance Directives: Yes Advance Directives Information Provided: Yes Advance Directives on File: No service: Yes Current occupational status: retired Current occupational exposures/hazards: No Cognitive needs: No Hearing needs: No Vision needs: Yes Physical Exam Vital Signs: Vital Signs: Last Vital Signs Temp 97.8 F 07/15/22 19:56 Pulse 92 07/15/22 19:56 Resp 16 07/15/22 19:56 BP 127/81 07/15/22 19:56 Pulse Ox 97 07/15/22 19:56 O2 Del Method 07/15/22 19:56 BMI result Body Mass Index 27.9 Course Course Course Narrative: RME- 13:50pm 72yoM c PMHx c PMHx of HTN, prediabetic, thyroid disease, anxiety and skin cancer presenting to the ED c c/o 1 week of SOB, fast heart rate sensation with associated epigastric abd discomfort/chest discomfort c an intermittent cough. Is currently on topical skin cancer medication. Not on radiation or chemo. Denies having any other cancer. Denies fevers, DONNELLY, Orthopnea, leg swelling, calf tenderness, recent travel, hx of DNH or DVT or PE. Plan: Labs, CXR, EKG pt sent to to be evaluated in the ED. Medications Administered Discontinued Medications Generic Name Dose Route Start Last Admin Trade Name Freq PRN Reason Stop Dose Admin Albuterol Sulfate 5 mg/ 0 mg 07/15/22 16:46 07/15/22 17:09 Ipratropium [place] 0.5 mg INHALE 07/15/22 16:47 2.5 each ONCE ONE Administration Iohexol 100 ml 07/15/22 15:49 07/15/22 15:49 Iohexol 350 Mg/Ml 100 Ml Infus..Btl IV 07/15/22 15:50 65 ml ONCE ONE Administration Methylprednisolone Sodium Succinate 125 mg 07/15/22 16:46 07/15/22 19:00 Methylprednisolone Sod Succ 125 Mg/2 Ml Vial IVPUSH 07/15/22 16:47 125 mg ONCE ONE Administration Medical Decision Making Lab Data 07/15/22 13:54 07/15/22 13:54 Labs: Lab Results 07/15/22 07/15/22 07/15/22 Range/Units 13:53 13:53 13:54 WBC 10.1 (4.8-10.8) X10*3/uL RBC 5.21 (4.60-5.80) X10*6/uL Hgb 15.7 (14.0-18.0) g/dl Hct 47.1 (42.0-52.0) % MCV 90.4 (80.0-98.0) fL MCH 30.1 (27.0-33.0) pg MCHC 33.3 (31.0-36.0) g/dl RDW 12.6 (11.0-16.0) % Plt Count 293 (160-400) X10*3/uL MPV 8.7 L (9.4-12.4) fL Immature Gran % (Auto) 0.2 (0.0-0.4) % Neut % (Auto) 68.0 (45-73) % Lymph % (Auto) 21.6 (20-40) % [place] % (Auto) 8.6 (2-11) % Eos % (Auto) 0.9 (0-4) % Baso % (Auto) 0.7 (0-2) % Lymph # (Auto) 2.2 (1.2-4.9) X10*3/uL [place] # (Auto) 0.9 (0.1-1.2) X10*3/uL Eos # (Auto) 0.1 (0.0-0.4) X10*3/uL Baso # (Auto) 0.1 (0.0-0.2) X10*3/uL Abs Immat Gran (auto) 0.02 (0.00-0.03) X10*3/uL Absolute Neuts (auto) 6.9 (2.0-8.3) x10*3/uL Absolute Nucleated RBC 0.000 (0.0-0.012) X10*3/uL Nucleated RBC % (auto) 0.0 (0.0-0.2) /100WBC PT (10.0-13.1) SEC INR (0.9-1.1) Sodium (135-145) mmol/L Potassium (3.3-5.1) mmol/L Chloride (96-108) mmol/L Carbon Dioxide (22-29) mmol/L Anion Gap (12-20) BUN (9-16) mg/dL Creatinine (0.5-1.4) mg/dL Estim Creat Clear Calc Estimated GFR Random Glucose (60-115) mg/dL Calcium (8.4-10.2) mg/dL Magnesium (1.6-2.6) mg/dL Total Bilirubin (0.0-1.0) mg/dL AST (5-37) U/L ALT (0-40) U/L Alkaline Phosphatase (39-117) U/L Troponin I High Sens (<3.5-35.0) ng/L B-Natriuretic Peptide < 10 (<100) pg/mL Total Protein (6.5-8.0) g/dL Albumin (3.5-5.0) g/dL TSH (0.32-4.0) uIU/mL Influenza Type A (PCR) NEGATIVE (Negative) Influenza Type B (PCR) NEGATIVE (Negative) RSV RNA Qual (PCR) NEGATIVE (Negative) SARS-CoV-2 RNA (RT-PCR) NEGATIVE (Negative) 07/15/22 07/15/22 07/15/22 Range/Units 13:54 13:54 13:54 WBC (4.8-10.8) X10*3/uL RBC (4.60-5.80) X10*6/uL Hgb (14.0-18.0) g/dl Hct (42.0-52.0) % MCV (80.0-98.0) fL MCH (27.0-33.0) pg MCHC (31.0-36.0) g/dl RDW (11.0-16.0) % Plt Count (160-400) X10*3/uL MPV (9.4-12.4) fL Immature Gran % (Auto) (0.0-0.4) % Neut % (Auto) (45-73) % Lymph % (Auto) (20-40) % [place] % (Auto) (2-11) % Eos % (Auto) (0-4) % Baso % (Auto) (0-2) % Lymph # (Auto) (1.2-4.9) X10*3/uL [place] # (Auto) (0.1-1.2) X10*3/uL Eos # (Auto) (0.0-0.4) X10*3/uL Baso # (Auto) (0.0-0.2) X10*3/uL Abs Immat Gran (auto) (0.00-0.03) X10*3/uL Absolute Neuts (auto) (2.0-8.3) x10*3/uL Absolute Nucleated RBC (0.0-0.012) X10*3/uL Nucleated RBC % (auto) (0.0-0.2) /100WBC PT 11.2 (10.0-13.1) SEC INR 1.0 (0.9-1.1) Sodium 142 (135-145) mmol/L Potassium 4.3 (3.3-5.1) mmol/L Chloride 104 (96-108) mmol/L Carbon Dioxide 27 (22-29) mmol/L Anion Gap 15 (12-20) BUN 16 (9-16) mg/dL Creatinine 1.03 (0.5-1.4) mg/dL Estim Creat Clear Calc 71.5 Estimated GFR > 60 Random Glucose 118 H (60-115) mg/dL Calcium 9.9 (8.4-10.2) mg/dL Magnesium 2.3 (1.6-2.6) mg/dL Total Bilirubin 1.5 H (0.0-1.0) mg/dL AST 22 (5-37) U/L ALT 28 (0-40) U/L Alkaline Phosphatase 91 (39-117) U/L Troponin I High Sens < 3.5 (<3.5-35.0) ng/L B-Natriuretic Peptide (<100) pg/mL Total Protein 6.9 (6.5-8.0) g/dL Albumin 4.3 (3.5-5.0) g/dL TSH (0.32-4.0) uIU/mL Influenza Type A (PCR) (Negative) Influenza Type B (PCR) (Negative) RSV RNA Qual (PCR) (Negative) SARS-CoV-2 RNA (RT-PCR) (Negative) 07/15/22 Range/Units 13:54 WBC (4.8-10.8) X10*3/uL RBC (4.60-5.80) X10*6/uL Hgb (14.0-18.0) g/dl Hct (42.0-52.0) % MCV (80.0-98.0) fL MCH (27.0-33.0) pg MCHC (31.0-36.0) g/dl RDW (11.0-16.0) % Plt Count (160-400) X10*3/uL MPV (9.4-12.4) fL Immature Gran % (Auto) (0.0-0.4) % Neut % (Auto) (45-73) % Lymph % (Auto) (20-40) % [place] % (Auto) (2-11) % Eos % (Auto) (0-4) % Baso % (Auto) (0-2) % Lymph # (Auto) (1.2-4.9) X10*3/uL [place] # (Auto) (0.1-1.2) X10*3/uL Eos # (Auto) (0.0-0.4) X10*3/uL Baso # (Auto) (0.0-0.2) X10*3/uL Abs Immat Gran (auto) (0.00-0.03) X10*3/uL Absolute Neuts (auto) (2.0-8.3) x10*3/uL Absolute Nucleated RBC (0.0-0.012) X10*3/uL Nucleated RBC % (auto) (0.0-0.2) /100WBC PT (10.0-13.1) SEC INR (0.9-1.1) Sodium (135-145) mmol/L Potassium (3.3-5.1) mmol/L Chloride (96-108) mmol/L Carbon Dioxide (22-29) mmol/L Anion Gap (12-20) BUN (9-16) mg/dL Creatinine (0.5-1.4) mg/dL Estim Creat Clear Calc Estimated GFR Random Glucose (60-115) mg/dL Calcium (8.4-10.2) mg/dL Magnesium (1.6-2.6) mg/dL Total Bilirubin (0.0-1.0) mg/dL AST (5-37) U/L ALT (0-40) U/L Alkaline Phosphatase (39-117) U/L Troponin I High Sens (<3.5-35.0) ng/L B-Natriuretic Peptide (<100) pg/mL Total Protein (6.5-8.0) g/dL Albumin (3.5-5.0) g/dL TSH 0.36 (0.32-4.0) uIU/mL Influenza Type A (PCR) (Negative) Influenza Type B (PCR) (Negative) RSV RNA Qual (PCR) (Negative) SARS-CoV-2 RNA (RT-PCR) (Negative) Discharge Plan Discharge Clinical Impression: Upper respiratory infection, Acute dyspnea Patient Disposition: Home, Self-Care Instructions: Upper Respiratory Infection (ED), Dyspnea (ED) Additional Instructions: Your workup in the emergency department today was reassuring. It showed no signs of heart attack or blood clots or other life-threatening condition. If symptoms persist, be sure to follow-up with her PCP. In the meantime I am starting you on prednisone which is a steroid for inflammation and inhaler to help open up your airways. Prescriptions: New albuterol sulfate 90 mcg/actuation HFA aerosol inhaler 1 inh inhalation QID PRN (Reason: shortness of breath or wheezing) Qty: 8.5 0RF prednisone 20 mg tablet 40 mg PO DAILY Qty: 10 0RF No Action gabapentin 100 mg capsule 100 mg PO BID 90 Days Qty: 180 1RF losartan 25 mg tablet 50 mg PO DAILY Qty: 30 4RF levothyroxine 137 mcg capsule 137 mcg PO DAILY 30 Days Qty: 30 3RF meclizine 25 mg tablet 25 mg PO TID PRN (Reason: dizziness) Qty: 20 0RF albuterol sulfate [ProAir HFA] 90 mcg/actuation HFA aerosol inhaler 2 puff inhalation Q4-6H PRN (Reason: shortness of breath or wheezing) 30 Days Qty: 8.5 0RF (DME) blood pressure monitor Kit See Rx Instructions .Route Qty: 1 0RF Rx Instructions: As directed cyclobenzaprine 10 mg tablet 10 mg PO BID PRN (Reason: muscle spasm) 10 Days Qty: 14 0RF cephalexin 500 mg capsule 500 mg PO Q12H 7 Days Qty: 14 0RF fluorouracil 5 % cream topical 3XW meloxicam 7.5 mg tablet 7.5 mg PO DAILY 14 Days Qty: 14 0RF
--- NOTE | 2022-07-15 13:42 | ECG_ITS ---
Test Reason : sob Blood Pressure : / mmHG Vent. Rate : 105 BPM Atrial Rate : 105 BPM P-R Int : 186 ms QRS Dur : 082 ms QT Int : 328 ms P-R-T Axes : 056 005 059 degrees QTc Int : 433 ms Sinus tachycardia Inferior infarct , age undetermined Cannot rule out Anterior infarct , age undetermined Abnormal ECG When compared with ECG of 19-MAY-2022 09:58, No significant change was found Referred By: Maddi Montes Electronically Signed By:JASON OLVERA MD
[2022-07-15 14:05] LABS: MANUAL DIFF FLAG NO
[2022-07-15 14:08] LABS: Basophils Absolute Auto 0.1 X10*3/uL (0.0-0.2); Basophils Percent Auto 0.7 % (0-2); Eosinophils Absolute Auto 0.1 X10*3/uL (0.0-0.4); Eosinophils Percent Auto 0.9 % (0-4); Hematocrit 47.1 % (42.0-52.0); Hemoglobin 15.7 g/dl (14.0-18.0); Imm Gran Abs Auto 0.02 X10*3/uL (0.00-0.03); Imm Gran Pct Auto 0.2 % (0.0-0.4); Lymphocytes Absolute Auto 2.2 X10*3/uL (1.2-4.9); Lymphocytes Percent Auto 21.6 % (20-40); Mean Corpuscular HGB Conc 33.3 g/dl (31.0-36.0); Mean Corpuscular Hemoglobin 30.1 pg (27.0-33.0); Mean Corpuscular Volume 90.4 fL (80.0-98.0); Mean Platelet Volume 8.7 fL (9.4-12.4); Monocytes Absolute Auto 0.9 X10*3/uL (0.1-1.2); Monocytes Percent Auto 8.6 % (2-11); Neutrophils Absolute Auto 6.9 x10*3/uL (2.0-8.3); Platelet Count 293 X10*3/uL (160-400); Red Blood Count 5.21 X10*6/uL (4.60-5.80); Red Cell Distribution Width 12.6 % (11.0-16.0); White Blood Count 10.1 X10*3/uL (4.8-10.8)
[2022-07-15 14:15] LABS: Prothrombin Time 11.2 SEC (10.0-13.1)
[2022-07-15 14:25] LABS: Alanine Aminotransferase 28 U/L (0-40); Albumin Level 4.3 g/dL (3.5-5.0); Alkaline Phosphatase 91 U/L (39-117); Anion Gap 15 (12-20); Aspartate Amino Transferase 22 U/L (5-37); Bilirubin Total 1.5 mg/dL (0.0-1.0); Blood Urea Nitrogen 16 mg/dL (9-16); Calcium 9.9 mg/dL (8.4-10.2); Carbon Dioxide 27 mmol/L (22-29); Chloride 104 mmol/L (96-108); Creatinine Clr Calc Pharmacy 71.5; Estimated Glomerular Filt Rate > 60; Glucose Random 118 mg/dL (60-115); Magnesium 2.3 mg/dL (1.6-2.6); Potassium 4.3 mmol/L (3.3-5.1); Sodium 142 mmol/L (135-145); Total Protein 6.9 g/dL (6.5-8.0)
[2022-07-15 14:29] LABS: B Type Natriuretic Peptide < 10 pg/mL (<100)
--- NOTE | 2022-07-15 14:39 | ED_ITS ---
HPI - General Adult General Chief complaint: Upper Respiratory Symptoms Stated complaint: Heavy breathing/Low o2 Time Seen by Provider: 07/15/22 14:12 Source: patient and old records reviewed Limitations: no limitations History of Present Illness HPI narrative: Patient presents with shortness of breath starting approximately 1 week ago. It has been getting progressively worse. No chest pain other than mild discomfort when he presses on his xiphoid process area. No prior history of similar issues. Some cough in the beginning but no sputum production. No fevers or chills. No extremity swelling. No precipitating factors of which he is aware. No recent known respiratory infections. No change to diet or activity. No history of cardiac disease. No history of COPD, bronchitis, asthma. Former smoker but quit 40 years ago. He states he is typically fairly active and walks 2 miles a day. But now he is short of breath on minimal ambulation. He takes levothyroxine, gabapentin, losartan. No other medications chronically. His last hospitalization was in April, 3 months ago with an episode of dizziness. He had a stroke workup at that time which was negative. Related Data Home Medications Medication Instructions Recorded Confirmed fluorouracil 5 % topical cream appl topical 3XW 06/15/22 06/15/22 Previous Rx's Medication Instructions Recorded albuterol sulfate 90 mcg/actuation 2 puff inhalation Q4-6H PRN 12/04/21 aerosol inhaler (ProAir HFA) shortness of breath or wheezing 1 month #8.5 grams blood pressure monitor #1 ea 12/10/21 cyclobenzaprine 10 mg tablet 10 mg PO BID PRN muscle spasm 10 02/20/22 days #14 tabs gabapentin 100 mg capsule 100 mg PO BID 3 months #180 caps 03/30/22 losartan 25 mg tablet 50 mg PO DAILY #30 tabs 04/17/22 cephalexin 500 mg capsule 500 mg PO Q12H 7 days #14 caps 05/04/22 meclizine 25 mg tablet 25 mg PO TID PRN dizziness #20 tabs 05/20/22 levothyroxine 137 mcg capsule 137 mcg PO DAILY 30 days #30 caps 06/08/22 meloxicam 7.5 mg tablet 7.5 mg PO DAILY 14 days #14 tabs 06/15/22 albuterol sulfate 90 mcg/actuation 1 inh inhalation QID PRN shortness 01/18/23 aerosol inhaler of breath or wheezing #8.5 grams prednisone 20 mg tablet 40 mg PO DAILY #10 tabs 07/15/22 Allergies Allergy/AdvReac Type Severity Reaction Status Date / Time amoxicillin [From AUGMENTIN] Allergy Intermediate RASH Verified 06/15/22 15:26 clavulanic acid Allergy Intermediate RASH Verified 06/15/22 15:26 [From AUGMENTIN] Sulfa (Sulfonamide AdvReac Intermediate Rash Verified 06/15/22 15:26 Antibiotics) Review of Systems Constitutional: Comments: No fevers chills or malaise Cardiovascular: Comments: Mild discomfort when he presses on his xiphoid area but no other chest pain noted. He does feel like his heart is racing however. His fit bit told him his heart rate was 130 prior to arrival Respiratory: Comments: Dyspnea as described Gastrointestinal: Comments: No GI symptoms Musculoskeletal: Comments: No calf pain or peripheral edema Integumentary/Breasts: Comments: No rash or skin change Neurologic: Comments: No weakness numbness or paresthesias [facility] Past Medical History Medical History Anxiety Hypothyroid Pericarditis Social History Social History Housing: House Alcohol intake: former Patient Tobacco Use Status: Former Tobacco user Smoked in Last 30 Days: No e-Cigarette/Vaping Use: Never Used Second Hand Smoke Exposure: No Advance Directives: Yes Advance Directives Information Provided: Yes Advance Directives on File: No service: Yes Current occupational status: retired Current occupational exposures/hazards: No Cognitive needs: No Hearing needs: No Vision needs: Yes Physical Exam ED Vital Signs: Vital Signs - 24 hr 07/15/22 13:42 07/15/22 14:11 07/15/22 14:28 Temperature 98 F 97.9 F Pulse Rate 110 H 97 Respiratory Rate 19 15 Blood Pressure 140/86 H 168/88 H Pulse Oximetry 96 97 97 Oxygen Delivery Method Room Air Room Air Room Air 07/15/22 16:00 Temperature 97.8 F Pulse Rate 93 Respiratory Rate 16 Blood Pressure 136/77 Pulse Oximetry 97 Oxygen Delivery Method Room Air BMI result Body Mass Index 27.9 Const Other: Awake and alert. Mildly tachypneic. Mildly tachycardic. No acute distress Chest Other: Xiphoid area tenderness. No other abnormality Resp Other: Clear and equal bilaterally without wheezes rales or rhonchi Cardio Other: Mildly tachycardic. Regular rhythm. No murmurs rubs or gallops GI Other: Soft nontender nondistended Skin Other: Warm pink and dry without rash Neuro Other: Neurologically nonfocal Extrem Other: No pedal edema Medications Administered Discontinued Medications Generic Name Dose Route Start Last Admin Trade Name Jordanq PRN Reason Stop Dose Admin Iohexol 100 ml 07/15/22 15:49 07/15/22 15:49 Iohexol 350 Mg/Ml 100 Ml Infus..Btl IV 07/15/22 15:50 65 ml ONCE ONE Administration Medical Decision Making Medical Decision Making MDM Narrative: Dyspnea progressively worse over 1 week. Differential diagnosis would include Pneumonia Bronchitis Viral respiratory infection Reactive airways Congestive heart failure Dysrhythmia Pulmonary embolism EKG shows sinus tachycardia without other dysrhythmia or ischemia Labs show a normal CBC. Chemistry significant for normal BNP. Troponin is normal. TSH is pending. Remainder of chemistries with no significant abnormalities. Await chest x-ray. If normal, will order CT angiography 15:19. Chest x-ray is normal on my interpretation. Still awaiting Radiology interpretation. In the meantime will order a chest CT angiography to rule out thromboembolic cause of his dyspnea 16:50. CT scan is negative for pulmonary embolism or infiltrate. Will at this point treat with a nebulizer and Solu-Medrol. If feeling okay will discharge home to follow-up with PCP Lab Data 07/15/22 13:54 07/15/22 13:54 Labs: Lab Results 07/15/22 07/15/22 07/15/22 Range/Units 13:53 13:53 13:54 WBC 10.1 (4.8-10.8) X10*3/uL RBC 5.21 (4.60-5.80) X10*6/uL Hgb 15.7 (14.0-18.0) g/dl Hct 47.1 (42.0-52.0) % MCV 90.4 (80.0-98.0) fL MCH 30.1 (27.0-33.0) pg MCHC 33.3 (31.0-36.0) g/dl RDW 12.6 (11.0-16.0) % Plt Count 293 (160-400) X10*3/uL MPV 8.7 L (9.4-12.4) fL Immature Gran % (Auto) 0.2 (0.0-0.4) % Neut % (Auto) 68.0 (45-73) % Lymph % (Auto) 21.6 (20-40) % [place] % (Auto) 8.6 (2-11) % Eos % (Auto) 0.9 (0-4) % Baso % (Auto) 0.7 (0-2) % Lymph # (Auto) 2.2 (1.2-4.9) X10*3/uL [place] # (Auto) 0.9 (0.1-1.2) X10*3/uL Eos # (Auto) 0.1 (0.0-0.4) X10*3/uL Baso # (Auto) 0.1 (0.0-0.2) X10*3/uL Abs Immat Gran (auto) 0.02 (0.00-0.03) X10*3/uL Absolute Neuts (auto) 6.9 (2.0-8.3) x10*3/uL Absolute Nucleated RBC 0.000 (0.0-0.012) X10*3/uL Nucleated RBC % (auto) 0.0 (0.0-0.2) /100WBC PT (10.0-13.1) SEC INR (0.9-1.1) Sodium (135-145) mmol/L Potassium (3.3-5.1) mmol/L Chloride (96-108) mmol/L Carbon Dioxide (22-29) mmol/L Anion Gap (12-20) BUN (9-16) mg/dL Creatinine (0.5-1.4) mg/dL Estim Creat Clear Calc Estimated GFR Random Glucose (60-115) mg/dL Calcium (8.4-10.2) mg/dL Magnesium (1.6-2.6) mg/dL Total Bilirubin (0.0-1.0) mg/dL AST (5-37) U/L ALT (0-40) U/L Alkaline Phosphatase (39-117) U/L Troponin I High Sens (<3.5-35.0) ng/L B-Natriuretic Peptide < 10 (<100) pg/mL Total Protein (6.5-8.0) g/dL Albumin (3.5-5.0) g/dL TSH (0.32-4.0) uIU/mL Influenza Type A (PCR) NEGATIVE (Negative) Influenza Type B (PCR) NEGATIVE (Negative) RSV RNA Qual (PCR) NEGATIVE (Negative) SARS-CoV-2 RNA (RT-PCR) NEGATIVE (Negative) 07/15/22 07/15/22 07/15/22 Range/Units 13:54 13:54 13:54 WBC (4.8-10.8) X10*3/uL RBC (4.60-5.80) X10*6/uL Hgb (14.0-18.0) g/dl Hct (42.0-52.0) % MCV (80.0-98.0) fL MCH (27.0-33.0) pg MCHC (31.0-36.0) g/dl RDW (11.0-16.0) % Plt Count (160-400) X10*3/uL MPV (9.4-12.4) fL Immature Gran % (Auto) (0.0-0.4) % Neut % (Auto) (45-73) % Lymph % (Auto) (20-40) % [place] % (Auto) (2-11) % Eos % (Auto) (0-4) % Baso % (Auto) (0-2) % Lymph # (Auto) (1.2-4.9) X10*3/uL [place] # (Auto) (0.1-1.2) X10*3/uL Eos # (Auto) (0.0-0.4) X10*3/uL Baso # (Auto) (0.0-0.2) X10*3/uL Abs Immat Gran (auto) (0.00-0.03) X10*3/uL Absolute Neuts (auto) (2.0-8.3) x10*3/uL Absolute Nucleated RBC (0.0-0.012) X10*3/uL Nucleated RBC % (auto) (0.0-0.2) /100WBC PT 11.2 (10.0-13.1) SEC INR 1.0 (0.9-1.1) Sodium 142 (135-145) mmol/L Potassium 4.3 (3.3-5.1) mmol/L Chloride 104 (96-108) mmol/L Carbon Dioxide 27 (22-29) mmol/L Anion Gap 15 (12-20) BUN 16 (9-16) mg/dL Creatinine 1.03 (0.5-1.4) mg/dL Estim Creat Clear Calc 71.5 Estimated GFR > 60 Random Glucose 118 H (60-115) mg/dL Calcium 9.9 (8.4-10.2) mg/dL Magnesium 2.3 (1.6-2.6) mg/dL Total Bilirubin 1.5 H (0.0-1.0) mg/dL AST 22 (5-37) U/L ALT 28 (0-40) U/L Alkaline Phosphatase 91 (39-117) U/L Troponin I High Sens < 3.5 (<3.5-35.0) ng/L B-Natriuretic Peptide (<100) pg/mL Total Protein 6.9 (6.5-8.0) g/dL Albumin 4.3 (3.5-5.0) g/dL TSH (0.32-4.0) uIU/mL Influenza Type A (PCR) (Negative) Influenza Type B (PCR) (Negative) RSV RNA Qual (PCR) (Negative) SARS-CoV-2 RNA (RT-PCR) (Negative) 07/15/22 Range/Units 13:54 WBC (4.8-10.8) X10*3/uL RBC (4.60-5.80) X10*6/uL Hgb (14.0-18.0) g/dl Hct (42.0-52.0) % MCV (80.0-98.0) fL MCH (27.0-33.0) pg MCHC (31.0-36.0) g/dl RDW (11.0-16.0) % Plt Count (160-400) X10*3/uL MPV (9.4-12.4) fL Immature Gran % (Auto) (0.0-0.4) % Neut % (Auto) (45-73) % Lymph % (Auto) (20-40) % [place] % (Auto) (2-11) % Eos % (Auto) (0-4) % Baso % (Auto) (0-2) % Lymph # (Auto) (1.2-4.9) X10*3/uL [place] # (Auto) (0.1-1.2) X10*3/uL Eos # (Auto) (0.0-0.4) X10*3/uL Baso # (Auto) (0.0-0.2) X10*3/uL Abs Immat Gran (auto) (0.00-0.03) X10*3/uL Absolute Neuts (auto) (2.0-8.3) x10*3/uL Absolute Nucleated RBC (0.0-0.012) X10*3/uL Nucleated RBC % (auto) (0.0-0.2) /100WBC PT (10.0-13.1) SEC INR (0.9-1.1) Sodium (135-145) mmol/L Potassium (3.3-5.1) mmol/L Chloride (96-108) mmol/L Carbon Dioxide (22-29) mmol/L Anion Gap (12-20) BUN (9-16) mg/dL Creatinine (0.5-1.4) mg/dL Estim Creat Clear Calc Estimated GFR Random Glucose (60-115) mg/dL Calcium (8.4-10.2) mg/dL Magnesium (1.6-2.6) mg/dL Total Bilirubin (0.0-1.0) mg/dL AST (5-37) U/L ALT (0-40) U/L Alkaline Phosphatase (39-117) U/L Troponin I High Sens (<3.5-35.0) ng/L B-Natriuretic Peptide (<100) pg/mL Total Protein (6.5-8.0) g/dL Albumin (3.5-5.0) g/dL TSH 0.36 (0.32-4.0) uIU/mL Influenza Type A (PCR) (Negative) Influenza Type B (PCR) (Negative) RSV RNA Qual (PCR) (Negative) SARS-CoV-2 RNA (RT-PCR) (Negative) Discharge Plan Discharge Clinical Impression: Upper respiratory infection, Acute dyspnea Patient Disposition: Home, Self-Care Instructions: Upper Respiratory Infection (ED), Dyspnea (ED) Additional Instructions: Your workup in the emergency department today was reassuring. It showed no signs of heart attack or blood clots or other life-threatening condition. If symptoms persist, be sure to follow-up with her PCP. In the meantime I am starting you on prednisone which is a steroid for inflammation and inhaler to help open up your airways. Prescriptions: New albuterol sulfate 90 mcg/actuation HFA aerosol inhaler 1 inh inhalation QID PRN (Reason: shortness of breath or wheezing) Qty: 8.5 0RF prednisone 20 mg tablet 40 mg PO DAILY Qty: 10 0RF No Action gabapentin 100 mg capsule 100 mg PO BID 90 Days Qty: 180 1RF losartan 25 mg tablet 50 mg PO DAILY Qty: 30 4RF levothyroxine 137 mcg capsule 137 mcg PO DAILY 30 Days Qty: 30 3RF meclizine 25 mg tablet 25 mg PO TID PRN (Reason: dizziness) Qty: 20 0RF albuterol sulfate [ProAir HFA] 90 mcg/actuation HFA aerosol inhaler 2 puff inhalation Q4-6H PRN (Reason: shortness of breath or wheezing) 30 Days Qty: 8.5 0RF (DME) blood pressure monitor Kit See Rx Instructions .Route Qty: 1 0RF Rx Instructions: As directed cyclobenzaprine 10 mg tablet 10 mg PO BID PRN (Reason: muscle spasm) 10 Days Qty: 14 0RF cephalexin 500 mg capsule 500 mg PO Q12H 7 Days Qty: 14 0RF fluorouracil 5 % cream topical 3XW meloxicam 7.5 mg tablet 7.5 mg PO DAILY 14 Days Qty: 14 0RF
[2022-07-15 14:40] LABS: Troponin-I High Sensitivity < 3.5 ng/L (<3.5-35.0)
[2022-07-15 14:46] LABS: TSH reflex Free T4 0.36 uIU/mL (0.32-4.0)
[2022-07-15 14:48] LABS: Influenza A PCR NEGATIVE (Negative); Influenza B PCR NEGATIVE (Negative); Resp Syncy Virus RNA Qual PCR NEGATIVE (Negative); SARS COV2 PCR INHOUSE NEGATIVE (Negative)
--- NOTE | 2022-07-15 15:39 | PC.NURSE ---
Patient to C.T for images . patient aware of plan of care .
[2022-07-15] MEDS: iohexoL 350 MG/ML 100 ML INFUS..BTL IV (15:49)
--- NOTE | 2022-07-15 17:00 | PC.NURSE ---
patient a/ox4 . sidney . heart rate regular at 92 beats per minute . breathing even and slightly labored . patient reports labored breathing started a week ago . lungs clear throughout . abdomen soft . non tender . skin pink warm and dry . patient on case monitor . IV . placed in right A.C . patient aware of plan of care.
[2022-07-15] MEDS: methylPREDNISolone Sod Succ 125 MG/2 ML VIAL IVPUSH (19:00)
--- NOTE | 2022-07-15 19:15 | PC.NURSE ---
This nurse just got the assessment, Melissa lily's spouse [phone].
== END 2022-07-15 21:11 | disposition home or self-care (01) ==
PROVIDERS: Physician Assistant Medical; Emergency Provider Emergency Medicine; PCP Hospitalist
DX: J06.9 Acute upper respiratory infection, unspecified (principal); R06.00 Dyspnea, unspecified; R06.02 Shortness of breath; R00.0 Tachycardia, unspecified; Z20.822 Contact with and (suspected) exposure to COVID-19; Z20.828 Contact with and (suspected) exposure to other viral communicable diseases; Z87.891 Personal history of nicotine dependence; Z86.711 Personal history of pulmonary embolism
CPT/HCPCS: 0241U; 36415; 71046; 71275; 80053; 83735; 83880; 84443; 84484; 85025; 85610; 93005; 94640; 96374; 99284; 99285; J2930; Q9967

== ENCOUNTER 2022-11-10 09:23 | Outpatient (REF) | payer MEDICARE, SELFPAY ==
[2022-11-10 11:48] LABS: Alanine Aminotransferase 54 U/L (0-40); Albumin Level 4.7 g/dL (3.5-5.0); Alkaline Phosphatase 98 U/L (39-117); Anion Gap 13 (12-20); Aspartate Amino Transferase 36 U/L (5-37); Bilirubin Total 1.7 mg/dL (0.0-1.0); Blood Urea Nitrogen 11 mg/dL (9-16); Calcium 10.3 mg/dL (8.4-10.2); Carbon Dioxide 28 mmol/L (22-29); Chloride 105 mmol/L (96-108); Estimated Glomerular Filt Rate > 60; Glucose Random 122 mg/dL (60-115); Potassium 5.1 mmol/L (3.3-5.1); Sodium 141 mmol/L (135-145); Total Protein 7.3 g/dL (6.5-8.0)
[2022-11-10 11:55] LABS: B Type Natriuretic Peptide < 10 pg/mL (<100)
== END 2022-11-10 09:24 | disposition home or self-care (01) ==
LOC: HO.HMGCLDS 09:23
PROVIDERS: PCP Hospitalist; Visit Provider Physician Assistant
DX: R60.0 Localized edema (principal)
CPT/HCPCS: 36415; 80053; 83880

== ENCOUNTER 2022-11-26 08:04 | Outpatient (REF) | payer MEDICARE, SELFPAY ==
[2022-11-26 11:37] LABS: Alanine Aminotransferase 39 U/L (0-40)
== END 2022-11-26 08:05 | disposition home or self-care (01) ==
LOC: HO.WFDLDS 08:04
PROVIDERS: Visit Provider Nurse Practitioner Family
DX: R74.01 Elevation of levels of liver transaminase levels (principal)
CPT/HCPCS: 36415; 84460

== ENCOUNTER 2023-02-22 07:00 | Emergency (ER) | payer MEDICARE, SELFPAY ==
--- NOTE | ~2023-02-22 | CT_ITS ---
EXAMINATION: CT ANGIOGRAM OF THE CHEST WITH AND WITHOUT CONTRAST (CT PULMONARY ANGIOGRAM FOR PE) CLINICAL INFORMATION: Reason for Exam r/o PE pleuritic chest pain COMPARISON: 07/15/2022 TECHNIQUE: Prior to contrast administration, noncontrast localization images were obtained. Subsequently, multidetector volumetric imaging was performed from the thoracic inlet to below the diaphragms following the administration of 65 mL Omnipaque 350 intravenous contrast. No contrast reaction reported Sagittal, coronal, and MIP oblique sagittal reformatted images were obtained on the CT workstation, uploaded to PACS, and reviewed. This CT examination was performed using dose optimization techniques as appropriate, variously including the following: *Automated exposure control *Adjustment of mA and/or kV according to patient size (this includes techniques or standardized protocols for targeted exams where dose is matched to indication/reason for exam; i.e. extremities or head) *Use of iterative reconstruction technique Total exam dose-length product 265 mGy-cm FINDINGS: QUALITY OF STUDY/CONTRAST BOLUS: Satisfactory. PULMONARY ARTERIES: No pulmonary emboli. THORACIC AORTA: No aneurysm. LUNG: No focal consolidation, nodules or masses. There is linear atelectasis in the right lower lobe PLEURA: No pleural effusion or pneumothorax. MEDIASTINUM: Normal heart size. No pericardial effusion. No hilar or mediastinal lymphadenopathy. No evidence of septal bowing or right heart strain. CORONARY ARTERY CALCIFICATION: None visualized on this study. CHEST WALL/AXILLA: No axillary or internal mammary lymphadenopathy. 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 CT/CT angio chest PE protocol IMPRESSION: No abnormal findings including no evidence of pulmonary embolism to explain chest pain VTE: negative
[2023-02-22 07:18] VITALS: BP 144/80; PULSE 103; RESP 20; TEMP 36.6; O2SAT 95; BMI 26.3
--- NOTE | 2023-02-22 07:24 | ECG_ITS ---
Test Reason : chest pain Blood Pressure : / mmHG Vent. Rate : 100 BPM Atrial Rate : 100 BPM P-R Int : 196 ms QRS Dur : 086 ms QT Int : 340 ms P-R-T Axes : 065 030 060 degrees QTc Int : 438 ms Normal sinus rhythm Normal ECG When compared with ECG of 15-JUL-2022 13:57, Criteria for Inferior infarct are no longer Present Referred By: Generic ED Physician Electronically Signed By:CHRISTIAN WEISS
--- NOTE | 2023-02-22 07:46 | ED.CHESTPAIN ---
HPI - Chest Pain General Chief Complaint: Chest Pain Stated Complaint: SOB Time Seen by Provider: 02/22/23 07:36 Source: patient Mode of arrival: ambulatory Limitations: no limitations History of Present Illness HPI narrative: This is a 72 years old male with history of hypertension presented to the emergency department with a chief complaint of pleuritic chest pain since last night. Denies any diaphoresis denies any exertional symptoms. Pain is worse when he takes a deep breath. complaint: chest pain Onset (ago): day(s) (1) Timing of current episode: constant Onset: during rest Pain location: left chest Pain radiation: back Quality: sharp Relieving factors: nothing Exacerbating factors: inspiration Risk Factors Coronary artery disease risk factors: none Thoracic aortic dissection risk factors: none Related Data Home Medications Medication Instructions Recorded Confirmed albuterol sulfate 90 mcg/actuation 1 inh inhalation QID 10/15/22 11/17/22 aerosol inhaler aspirin 81 mg tablet,delayed 81 mg PO DAILY 10/15/22 11/17/22 release Previous Rx's Medication Instructions Recorded blood pressure monitor #1 ea 12/10/21 amlodipine 5 mg tablet 5 mg PO DAILY 90 days #90 tabs 09/17/22 levothyroxine 137 mcg capsule 137 mcg PO DAILY 90 days #90 caps 09/17/22 gabapentin 100 mg capsule See Rx Instructions PO BID 90 days 11/30/22 #360 caps Allergies Allergy/AdvReac Type Severity Reaction Status Date / Time amoxicillin [From AUGMENTIN] Allergy Intermediate RASH Verified 02/22/23 07:18 clavulanic acid Allergy Intermediate RASH Verified 02/22/23 07:18 [From AUGMENTIN] losartan AdvReac Severe Shortness Verified 02/22/23 07:18 of Breath Sulfa (Sulfonamide AdvReac Intermediate Rash Verified 02/22/23 07:18 Antibiotics) Review of Systems Constitutional: Constitutional: Reports no additional constitutional complaints ENT: Reports system reviewed and no additional complaints, except as documented Cardiovascular: Cardiovascular: Reports no additional cardiovascular complaints Respiratory: Respiratory: Reports no additional respiratory complaints PMFSH Past Medical History Medical History Anxiety Hypothyroid Pericarditis Social History Social History Housing: House Alcohol intake: former Patient Tobacco Use Status: Former Tobacco user Smoked in Last 30 Days: No e-Cigarette/Vaping Use: Never Used Second Hand Smoke Exposure: No Use of substances other than those prescribed or required for medical reasons: No Advance Directives: Yes Advance Directives Information Provided: No Advance Directives on File: No service: Yes Current occupational status: retired Current occupational exposures/hazards: No Cognitive needs: No Hearing needs: No Vision needs: No Physical Exam Vital Signs: Vital Signs: Last Vital Signs Temp 97.7 F 02/22/23 08:40 Pulse 92 02/22/23 08:40 Resp 16 02/22/23 08:40 BP 130/80 02/22/23 08:40 Pulse Ox 95 02/22/23 08:40 O2 Del Method Room Air 02/22/23 08:40 BMI result Body Mass Index 26.3 Const: General: cooperative and healthy appearing Nutritional Appearance: average body habitus and well nourished Orientation/consciousness: patient oriented x3 Limitations: no limitations HEENT: Head: Yes normal to inspection Ears: hearing grossly normal bilaterally General nose exam: Normal external nose present Face and sinus: Yes normal facial exam Mouth: Normal oral and palatal mucosa present Throat: Yes posterior oropharynx normal Neck: Neck: Yes normal visual inspection Chest: Chest palpation & inspection: normal inspection of the chest Resp: Effort & Inspection: normal respiratory effort Auscultation: clear to auscultation bilaterally Cardio: Jugular venous distension: no JVD Rate: regular rate Rhythm: regular rhythm GI: Inspection: Yes normal to inspection Palpation (GI): Soft to palpation, not firm, nontender and no guarding Auscultation: normal bowel sounds Skin: General skin exam: no rashes or lesions noted Lesions: no lesions Rashes: no rashes Neuro: General: patient oriented x3 Cranial nerves: Yes CN's II-XII intact bilaterally Motor exam (neuro): 5/5 motor strength present throughout Course Reevaluation(s) Reevaluation #1: Doing much better CTA negative troponin is normal will discharge home Time: 10:41 Medications Administered Discontinued Medications Generic Name Dose Route Start Last Admin Trade Name Eric PRN Reason Stop Dose Admin Iohexol 100 ml 02/22/23 09:20 02/22/23 09:21 Iohexol 350 Mg/Ml 100 Ml Infus..Btl IV 02/22/23 09:21 65 ml ONCE ONE Administration Medical Decision Making Medical Decision Making [facility] Narrative: Patient presented with pleuritic chest pain he has a normal electrocardiogram a pain is since last night we could do a CTA, which will do a high sensitive troponin. @12:41 AM patient is doing much better pain is gone patient was pleuritic in nature, CTA was negative for PE /dissection. Negative high sensitive troponin after 1 day of chest pain unlikely ACS Differential Diagnosis Differential Diagnoses: The differential diagnosis associated with the presentation includes Pulmonary emboli/dissecting aortic aneurysm/ ACS unlikely Admission/Observation Consideration of admission/observation: Escalation of care including admission/observation considered Lab Data [facility] Lab Attestation statement: I reviewed the patient's lab results. 02/22/23 07:46 02/22/23 07:46 Labs: Lab Results 02/22/23 02/22/23 02/22/23 Range/Units 07:46 07:46 07:46 WBC 12.0 H (4.8-10.8) X10*3/uL RBC 5.50 (4.60-5.80) X10*6/uL Hgb 16.8 (14.0-18.0) g/dl Hct 49.6 (42.0-52.0) % MCV 90.2 (80.0-98.0) fL MCH 30.5 (27.0-33.0) pg MCHC 33.9 (31.0-36.0) g/dl RDW 12.9 (11.0-16.0) % Plt Count 273 (160-400) X10*3/uL MPV 8.8 L (9.4-12.4) fL Immature Gran % (Auto) 0.2 (0.0-0.4) % Neut % (Auto) 67.1 (45-73) % Lymph % (Auto) 24.6 (20-40) % Swain % (Auto) 7.1 (2-11) % Eos % (Auto) 0.7 (0-4) % Baso % (Auto) 0.3 (0-2) % Lymph # (Auto) 3.0 (1.2-4.9) X10*3/uL Swain # (Auto) 0.9 (0.1-1.2) X10*3/uL Eos # (Auto) 0.1 (0.0-0.4) X10*3/uL Baso # (Auto) 0.0 (0.0-0.2) X10*3/uL Abs Immat Gran (auto) 0.03 (0.00-0.03) X10*3/uL Absolute Neuts (auto) 8.1 (2.0-8.3) x10*3/uL Absolute Nucleated RBC 0.000 (0.0-0.012) X10*3/uL Nucleated RBC % (auto) 0.0 (0.0-0.2) /100WBC Sodium 141 (135-145) mmol/L Potassium 4.1 (3.3-5.1) mmol/L Chloride 104 (96-108) mmol/L Carbon Dioxide 26 (22-29) mmol/L Anion Gap 15 (12-20) BUN 11 (9-16) mg/dL Creatinine 0.82 (0.5-1.4) mg/dL Estim Creat Clear Calc 82.8 Estimated GFR > 60 Random Glucose 129 H (60-115) mg/dL Calcium 10.1 (8.4-10.2) mg/dL Total Bilirubin 1.8 H (0.0-1.0) mg/dL AST 20 (5-37) U/L ALT 29 (0-40) U/L Alkaline Phosphatase 102 (39-117) U/L Troponin I High Sens < 2.7 (<3.5-35.0) ng/L Total Protein 7.8 (6.5-8.0) g/dL Albumin 4.7 (3.5-5.0) g/dL Independent Interpretation I performed an independent interpretation of an: EKG (Normal sinus rhythm a no ST-T changes) and CT Scan (No PE by CT scan) Radiology Impression Discussion of test interpretation with radiology: I have reviewed the radiologist's reading. Independent Historian MEDIASTINUM: Normal heart size.? No pericardial effusion.? No hilar or mediastinal lymphadenopathy.? No evidence of septal bowing or right heart strain. CORONARY ARTERY CALCIFICATION: None visualized on this study. CHEST WALL/AXILLA: No axillary or internal mammary lymphadenopathy. 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 UPPER ABDOMEN: Patient is status post cholecystectomy? No reflux of contrast into the hepatic veins to suggest elevated right heart pressures. CT/CT angio chest PE protocol IMPRESSION: No abnormal findings including no evidence of pulmonary embolism to explain chest pain ? VTE: negative Dictated By: Scar Morales MD Signed By: <Electronically signed by Scar Morales MD in OV> 02/22/23 0954 External Record Review External record reviewed: Inpatient record Discharge Plan Discharge Clinical Impression: Chest pain, pleuritic Patient Disposition: Home, Self-Care Instructions: Chest Pain (ED) Additional Instructions: Follow-up with your primary care physician return to the emergency room if you are worse any concern Prescriptions: No Action gabapentin 100 mg capsule See Rx Instructions PO BID 90 Days Qty: 360 2RF Rx Instructions: 100mg AM and 300mg PM orally 2 times a day; amlodipine 5 mg tablet 5 mg PO DAILY 90 Days Qty: 90 2RF Rx Instructions: hold for bp of less than 100/50 levothyroxine 137 mcg capsule 137 mcg PO DAILY 90 Days Qty: 90 3RF aspirin 81 mg tablet,delayed release (DR/EC) 81 mg PO DAILY albuterol sulfate 90 mcg/actuation HFA aerosol inhaler 1 inh inhalation QID (DME) blood pressure monitor Kit See Rx Instructions .Route Qty: 1 0RF Rx Instructions: As directed Referrals: Bailee Swartz NP [Primary Care Provider] - 2 days
[2023-02-22 08:21] LABS: MANUAL DIFF FLAG NO
[2023-02-22 08:25] LABS: Basophils Percent Auto 0.3 % (0-2); Eosinophils Absolute Auto 0.1 X10*3/uL (0.0-0.4); Eosinophils Percent Auto 0.7 % (0-4); Hematocrit 49.6 % (42.0-52.0); Hemoglobin 16.8 g/dl (14.0-18.0); Imm Gran Abs Auto 0.03 X10*3/uL (0.00-0.03); Imm Gran Pct Auto 0.2 % (0.0-0.4); Lymphocytes Percent Auto 24.6 % (20-40); Mean Corpuscular HGB Conc 33.9 g/dl (31.0-36.0); Mean Corpuscular Hemoglobin 30.5 pg (27.0-33.0); Mean Corpuscular Volume 90.2 fL (80.0-98.0); Mean Platelet Volume 8.8 fL (9.4-12.4); Monocytes Absolute Auto 0.9 X10*3/uL (0.1-1.2); Monocytes Percent Auto 7.1 % (2-11); Neutrophils Absolute Auto 8.1 x10*3/uL (2.0-8.3); Neutrophils Percent Auto 67.1 % (45-73); Platelet Count 273 X10*3/uL (160-400); Red Cell Distribution Width 12.9 % (11.0-16.0)
[2023-02-22 08:40] VITALS: BP 130/80; PULSE 92; RESP 16; TEMP 36.5; O2SAT 95
[2023-02-22 08:52] LABS: Alanine Aminotransferase 29 U/L (0-40); Albumin Level 4.7 g/dL (3.5-5.0); Alkaline Phosphatase 102 U/L (39-117); Anion Gap 15 (12-20); Aspartate Amino Transferase 20 U/L (5-37); Bilirubin Total 1.8 mg/dL (0.0-1.0); Blood Urea Nitrogen 11 mg/dL (9-16); Calcium 10.1 mg/dL (8.4-10.2); Carbon Dioxide 26 mmol/L (22-29); Chloride 104 mmol/L (96-108); Creatinine Clr Calc Pharmacy 82.8; Estimated Glomerular Filt Rate > 60; Glucose Random 129 mg/dL (60-115); Potassium 4.1 mmol/L (3.3-5.1); Sodium 141 mmol/L (135-145); Total Protein 7.8 g/dL (6.5-8.0)
[2023-02-22] MEDS: iohexoL 350 MG/ML 100 ML INFUS..BTL IV (09:21)
[2023-02-22 09:43] LABS: Troponin-I High Sensitivity < 2.7 ng/L (<3.5-35.0)
== END 2023-02-22 11:02 | disposition home or self-care (01) ==
PROVIDERS: Emergency Provider Emergency Medicine; PCP Hospitalist
DX: R07.89 Other chest pain (principal); R07.81 Pleurodynia; I10 Essential (primary) hypertension; Z79.899 Other long term (current) drug therapy
CPT/HCPCS: 36415; 71275; 80053; 84484; 85025; 93005; 99284; 99285; Q9967

== ENCOUNTER 2023-03-02 08:09 | Outpatient (AMB) | payer MEDICARE, SELFPAY ==
--- NOTE | 2023-03-02 08:15 | A.OFFPC_ITS ---
Vital Signs 03/02/23 08:21 Height 5 ft 10 in Weight 187 lb 2 oz BMI 26.8 BP 132/70 Blood Pressure Location Lt brachial Position Sitting Respiration 14 Pulse 101 H Pulse Source Pulse Oximeter Temp 98.6 F Temp Source Oral Pulse Oximetry (%) 96 Oxygen Delivery Method Room Air Intake Visit Reasons: 3 month follow up , [facility] [place] follow up 02/22/23 Intake Note: Patient is here today for a 3 month follow up, however patient reveals he was seen in the ER at [facility] [place] on 02/22/23 for difficulty breathing. Patient reports he was diagnosed with pleurisy and he was not educated very well on how to manage this. Patient also reports he went to refill his amlodipine through the pharmacy and was unable to do this as pharmacy informed him they did not have any refills left. Patient's primary care provider is Bailee Swartz DNP. Demolitionist Required: No Accompanied by: Self / Same As Patient Allergies amoxicillin [From AUGMENTIN] Allergy (Intermediate, Verified 03/02/23 08:49) RASH clavulanic acid [From AUGMENTIN] Allergy (Intermediate, Verified 03/02/23 08:49) RASH losartan Adverse Reaction (Severe, Verified 03/02/23 08:49) Shortness of Breath Sulfa (Sulfonamide Antibiotics) Adverse Reaction (Intermediate, Verified 03/02/23 08:49) Rash Medication List - Last Reconciled 03/02/23 by Jaimie Topete CNP albuterol sulfate 90 mcg/actuation 1 inh inhalation QID amlodipine 5 mg PO DAILY 90 days aspirin 81 mg PO DAILY blood pressure monitor As directed gabapentin 100mg AM and 300mg PM orally 2 times a day; 90 days levothyroxine 137 mcg PO DAILY 90 days Tobacco use date assessed: 03/02/23 Fall risk assessment: No Falls in past year Last assessed Fall Risk: 03/02/23 Dental Screening Dental Screen Date: 03/02/23 Did you have a dental visit in the last 12 months?: Yes Did you have a dental problem in the last 6 months where you did not have access to dental care?: No Was dental information given to patient?: Patient has dentist HPI HPI Comments History of Present Illness Details 73-year-old male presents for a complete physical exam. He is on albuterol inhaler, amlodipine, aspirin, gabapentin, and levothyroxine. He notes he takes his medications as prescribed. He reports intermittent nonproductive cough for the past 2 days. He was evaluated at [facility] [place] ED on 02/22/2023 for complaints of chest pain. EKG, labs, and chest CT were unrevealing. He was diagnosed with pleuritic chest pain and discharged home with self-care instructions. He states that his symptoms have completely resolved. He notes that his last colonoscopy was 3-4 years ago: normal. He states he was advised he no longer needs to have colonoscopy. He is unsure if he had the PNA vaccines. He states he never had the shingrix vaccines. He notes he has an appointment to establish with a new PCP at [facility] [place], [facility]. [facility] Medical History Anxiety Hypothyroid Pericarditis Social History Housing: House Alcohol intake: former Patient Tobacco Use Status: Former Tobacco user e-Cigarette/Vaping Use: Never Used Second Hand Smoke Exposure: No service: Yes Current occupational status: retired Current occupational exposures/hazards: No Cognitive needs: No Hearing needs: No Vision needs: No Questionnaire Thrive Questionnaire Date Thrive assessed: 12/10/21 DOMINGO-7 AMB Questionnaire DOMINGO-7 Date DOMINGO - 7 assessed: 08/07/22 Source: Developed by Drs. Danis Witt, Mavis Emaunel, Mike Nelson and colleagues, with an educational paolo from [employer]. Review of Systems Const Details: Denies chills, Denies fatigue, Denies fever(s), Denies headache(s) and Denies weakness HEENT Denies change in vision, Denies dizziness, Denies headache(s), Denies hearing loss, Denies nasal congestion, Denies sinus pain, Denies sinus pressure and Denies sore throat Card Denies chest pain, Denies lightheadedness, Denies dyspnea and Denies other (palpitations) Resp Reports cough, Denies dyspnea and Denies wheezing GI Denies abdominal pain, Denies melena, Denies hematochezia, Denies change in bowel habits, Denies dyspepsia and Denies nausea Denies hematuria and Denies dysuria Musc Denies abnormal gait, Denies myalgias, Denies arthralgias, Denies numbness and Denies tingling Skin/Breast Denies rash, Denies unusual bruising and Denies wounds Neuro Denies abnormal gait, Denies dizziness, Denies headache(s), Denies memory loss, Denies numbness, Denies Sensory deficit (Neuro), Denies tingling and Denies weakness Psych Denies anxiety, Denies depression and Denies memory loss Endo Denies cold intolerance, Denies fatigue, Denies heat intolerance, Denies polydipsia and Denies polyuria Ronald/Lymph Denies easy bleeding and Denies easy bruising Aller/Immun Denies wheezing Physical exam (Primary Care) Vital Signs: Last Vital Signs Temp 98.6 F 03/02/23 08:21 Pulse 101 H 03/02/23 08:21 Resp 14 03/02/23 08:21 BP 132/70 03/02/23 08:21 Pulse Ox 96 03/02/23 08:21 Oxygen Delivery Method Room Air 03/02/23 08:21 BMI result Body Mass Index 26.8 Tobacco/Smoking Status: Tobacco use Status Tobacco use date assessed 03/02/23 03/02/23 08:26 Patient Tobacco Use Status Former Tobacco user 03/02/23 08:17 e-Cigarette/Vaping Use Never Used 03/02/23 08:17 Thrive Assessment: Date of Thrive Assessment Date Thrive assessed 12/10/21 03/02/23 08:17 Const Other: General: no acute distress, well developed, alert and awake Nutritional Appearance: well nourished Orientation/consciousness: patient oriented x3 HENMT Head: Yes normocephalic and Yes atraumatic Ears: hearing grossly normal bilaterally and TM's normal bilaterally General nose exam: Normal external nose present and Normal nares present Mouth: Normal oral and palatal mucosa present and moist mucous membranes Teeth and gingiva: dentition normal Throat: Yes oropharynx normal Eyes Pupils: Equal, round and reactive pupils present and Pupil accommodation reflex normal EOM: EOMs intact bilaterally Neck Neck: Yes normal visual inspection, Yes no lymphadenopathy and Yes trachea midline Thyroid: Thyroid normal Carotids: no bruits Lymphatic: no lymphadenopathy noted Chest Chest palpation & inspection: normal inspection of the chest Resp Effort & Inspection: normal respiratory effort Auscultation: clear to auscultation bilaterally Cardio Rate: regular rate Rhythm: regular rhythm Heart sounds: S1 normal heart sound present, S2 normal heart sound present, no gallops, no murmurs and no rubs Bruits: no abdominal aortic bruits and no carotid bruits GI Palpation (GI): No Abdominal aortic bruit present, Soft to palpation, nontender, No hepatosplenomegaly present and No Rebound tenderness present Auscultation: normal bowel sounds General: Yes no CVA tenderness Back/Spine/Pelvis Back: no CVA tenderness Cervical Spine: cervical ROM normal and No Cervical spine tenderness Thoracic/Lumbar Spine: thoraco-lumbar ROM normal, No pain with thoraco-lumbar ROM, No thoracic spinal tenderness and No lumbar spinal tenderness Skin General: warm and dry. Normal skin color. Normal skin turgor Lesions: no lesions Rashes: no rashes Trauma: no lacerations or abrasions Wounds: no wounds Nails: normal Neuro General: patient oriented x3, gait normal and CN's II-XI intact bilaterally Cranial nerves: Yes Equal, round and reactive pupils present Cognition (Neuro): normal cognition Gait exam (Neuro): Normal gait present Motor exam (neuro): 5/5 motor strength present throughout Sensory Exam: No Sensory deficit (Neuro) Deep tendon reflexes (DTR's): Right patellar reflex intensity grade: 2+ and Left patellar reflex intensity grade: 2+ Extrem General: Yes normal to inspection, No edema and No calf tenderness Psych Appearance: grossly normal Affect: normal affect Attitude: cooperative Thought process: Normal thought process present Assessment and Plan Assessment & Plan (1) Normal physical exam: Code(s): Z00.00 - Encounter for general adult medical examination without abnormal findings Plan: No significant physical restrictions or limitations noted Recent lab results are unremarkable except for slightly elevated WBC which may be due to pleurisy at the time Will check PSA, TSH/T4, and lipid levels Follow-up with new PCP as planned Verbalized understanding and agreed with the treatment plan. (2) HTN (hypertension): Code(s): I10 - Essential (primary) hypertension Plan: Blood pressures control, 132/70, within goal of less than 140/90 Continue to take amlodipine as prescribed Low-sodium diet encouraged Follow-up with new PCP as planned Verbalized understanding and agreed with treatment plan. (3) Cough: Code(s): R05.9 - Cough, unspecified Plan: Reports intermittent nonproductive cough for the past 2 days Lung sounds clear bilaterally May be attributed to allergies Benzonatate as prescribed Adequate hydration encouraged Follow-up with new PCP as planned Return with new or worsening symptoms Verbalized understanding and agreed with treatment plan. (4) Vaccine counseling: Code(s): Z71.85 - Encounter for immunization safety counseling Plan: He notes he has never had the Shingrix vaccines. He is unsure whether he had pneumonia vaccines Instructed on the importance of vaccinations and encouraged to be vaccinated against shingles and pneumonia Verbalized understanding and agreed with treatment plan. Orders: Orders PSA, Ultra Sensitive Today Z00.00 - Encounter for general adult medical examination without abnormal findings TSH reflex Free T4 Today Z00.00 - Encounter for general adult medical examination without abnormal findings Lipid Panel Today Z00.00 - Encounter for general adult medical examination without abnormal findings Medications: New benzonatate 200 mg PO BID PRN 20 caps 0RF cough Coding Level of Care Code Est Pt Prev Care >65y(64086) Diagnoses Normal physical exam Z00.00 HTN (hypertension) I10 Cough R05.9 Vaccine counseling Z71.85
[2023-03-02 08:21] VITALS: BP 132/70; PULSE 101; RESP 14; TEMP 37; O2SAT 96; BMI 26.8
== END 2023-03-02 09:11 | disposition home or self-care (01) ==
PROVIDERS: PCP Hospitalist; Visit Provider Nurse Practitioner Family
DX: I10 Essential (primary) hypertension (principal); R05.9 Cough, unspecified; Z71.85 Encounter for immunization safety counseling
CPT/HCPCS: 99214

== ENCOUNTER 2023-03-02 09:12 | Outpatient (REF) | payer MEDICARE, SELFPAY ==
[2023-03-02 14:42] LABS: Cholesterol 185 mg/dL (<200); HDL Cholesterol 46 mg/dL (>40); LDL Cholesterol Calculated 114 mg/dL (<100); Triglycerides 128 mg/dL (<150)
[2023-03-02 15:03] LABS: TSH reflex Free T4 0.11 uIU/mL (0.32-4.0)
[2023-03-06 18:49] LABS: PSA, Ultra Sensitive 0.27 ng/mL
== END 2023-03-02 09:13 | disposition home or self-care (01) ==
LOC: HO.WFDLDS 09:12
PROVIDERS: Visit Provider Nurse Practitioner Family
DX: Z00.00 Encounter for general adult medical examination without abnormal findings (principal); Z12.5 Encounter for screening for malignant neoplasm of prostate
CPT/HCPCS: 36415; 80061; 84153; 84439; 84443

== ENCOUNTER 2023-03-22 10:54 | Outpatient (AMB) | payer MEDICARE, SELFPAY ==
--- NOTE | 2023-03-22 10:49 | A.OFFVIS_ITS ---
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 Pain on both legs-confirmed Intake Note: NPV for Neuropathy bilateral legs Funeral Home Assistant Required: No Allergies amoxicillin [From AUGMENTIN] Allergy (Intermediate, Verified 03/22/23 10:50) RASH clavulanic acid [From AUGMENTIN] Allergy (Intermediate, Verified 03/22/23 10:50) RASH losartan Adverse Reaction (Severe, Verified 03/22/23 10:50) Shortness of Breath Sulfa (Sulfonamide Antibiotics) Adverse Reaction (Intermediate, Verified 03/22/23 10:50) Rash Medication List - Last Reconciled 03/22/23 by Rosemary Moulton MD albuterol sulfate 90 mcg/actuation 1 inh inhalation QID amlodipine 5 mg PO DAILY 90 days aspirin 81 mg PO DAILY blood pressure monitor As directed gabapentin 100mg AM and 300mg PM orally 2 times a day; 90 days levothyroxine 137 mcg PO DAILY HPI HPI Comments History of Present Illness Details 73y/o male comes for evaluation of bilat eral feet and leg pain. It started over 9 years ago and it was mild but has worsened. It is usually activity . He walks 3-4 miles in AM and 1-2 miles later in the day .It starts usually after he walks a mile. He describes the sensation as burning in his lower leg and feet. sometimes he also has numbness. Rest usually helps.He has chronic back issues. No shooting pain from his back.No paresthesias or creepy crawly sensation. Now he has noticed numbness in his feet and has some abnormal leg movements. He is using a patch with magnesium which is helping.He is on gabapentin 400mg bid and is not sure if its helping. [facility] Medical History (Updated 03/22/23 @ 11:19 by Rosemary Moulton MD) Neurogenic claudication Pericarditis Hypothyroid Anxiety Surgical History Hx of cholecystectomy Social History Housing: House Alcohol intake: former Patient Tobacco Use Status: Former Tobacco user e-Cigarette/Vaping Use: Never Used Second Hand Smoke Exposure: No service: Yes Current occupational status: retired Current occupational exposures/hazards: No Cognitive needs: No Hearing needs: No Vision needs: No Review of Systems Const Details: Denies chills, Denies fatigue, Denies fever(s), Denies headache(s) and Denies weakness HEENT Denies change in vision, Denies dizziness, Denies headache(s), Denies hearing loss, Denies nasal congestion, Denies sinus pain, Denies sinus pressure and Denies sore throat Card Denies chest pain, Denies lightheadedness, Denies dyspnea and Denies other (palpitations) Resp Reports cough, Denies dyspnea and Denies wheezing GI Denies abdominal pain, Denies melena, Denies hematochezia, Denies change in bowel habits, Denies dyspepsia and Denies nausea Denies hematuria and Denies dysuria Musc Denies abnormal gait, Denies myalgias, Denies arthralgias, Denies numbness and Denies tingling Skin/Breast Denies rash, Denies unusual bruising and Denies wounds Neuro Denies abnormal gait, Denies dizziness, Denies headache(s), Denies memory loss, Denies numbness, Denies Sensory deficit (Neuro), Denies tingling and Denies weakness Psych Denies anxiety, Denies depression and Denies memory loss Endo Denies cold intolerance, Denies fatigue, Denies heat intolerance, Denies polydipsia and Denies polyuria Ronald/Lymph Denies easy bleeding and Denies easy bruising Aller/Immun Denies wheezing Physical Exam Vital Signs: Last Vital Signs Pulse 89 03/22/23 10:53 BP 120/60 03/22/23 10:53 Pulse Ox 98 03/22/23 10:53 Oxygen Delivery Method Room Air 03/22/23 10:53 BMI result Body Mass Index 26.3 Const General: cooperative, healthy appearing and comfortable Nutritional Appearance: average body habitus Orientation/consciousness: patient oriented x3 Eyes Pupils: Equal, round and reactive pupils present Neuro Other: restricted range of motion in his neck Gait- mild slowness with antalgic gait General: patient oriented x3 and moves all extremities Cranial nerves: Yes Facial sensation intact/muscles of mastication intact, Yes Equal, round and reactive pupils present, Yes Bilaterally intact EOM present, Yes Nystagmus not present, Yes Normal facial strength present and Yes Midline tongue present Cognition (Neuro): normal cognition Gait exam (Neuro): Antalgic gait present Motor exam (neuro): 5/5 motor strength present throughout and Normal motor muscle tone present throughout Deep tendon reflexes (DTR's): Right triceps reflex intensity grade: 3+, Left triceps reflex intensity grade: 3+, Rt Biceps (C5, C6): 3+, Left biceps reflex intensity grade: 3+, Right brachioradialis reflex intensity grade: 3+, Left brachioradialis reflex intensity grade: 3+, Right patellar reflex intensity grade: 4+, Left patellar reflex intensity grade: 4+, Right ankle reflex intensity grade: 0 and Left ankle reflex intensity grade: 3+ Coordination: [id number] test normal Assessment & Plan Assessment & Plan (1) Neurogenic claudication: Code(s): R29.818 - Other symptoms and signs involving the nervous system (2) Neuropathic pain of both legs: Code(s): G57.93 - Unspecified mononeuropathy of bilateral lower limbs Plan I will do a MRI LS spine to r/o spinal stenosis ? cord compression - patient is claustrophobic and needs an OPEN MRI continue gabapentin 400mg bid EMG NCS LE Orders: Orders MR lumbar spine wo con 03/22/23 I73.9 - Peripheral vascular disease, unspecified, G57.93 - Unspecified mononeuropathy of bilateral lower limbs, M54.9 - Dorsalgia, unspecified Rosemary Moulton MD NE electromyogram (EMG) 03/22/23 G57.93 - Unspecified mononeuropathy of bilateral lower limbs Rosemary Moulton MD Medications: New lorazepam 1 tab 60 min prior to MRI can repeat in 30minutes 0.5 mg PO DAILY PRN 2 tabs 0RF anxiety Rosemary Moulton MD Changed From levothyroxine 125 mcg PO DAILY 30 days 30 tabs 2RF To levothyroxine 137 mcg PO DAILY Sherine Longoria CNP Coding Level of Care Code New Pt Level 4 (70743) Diagnoses Neurogenic claudication R29.818 Neuropathic pain of both legs G57.93
[2023-03-22 10:53] VITALS: BP 120/60; PULSE 89; O2SAT 98; BMI 26.3
== END 2023-03-22 11:25 | disposition home or self-care (01) ==
PROVIDERS: Visit Provider Psychiatry & Neurology Neurology
DX: R29.818 Other symptoms and signs involving the nervous system (principal); G57.93 Unspecified mononeuropathy of bilateral lower limbs
CPT/HCPCS: 99204

== ENCOUNTER → 2023-03-22 10:54 | Outpatient (BNVA) | payer MEDICARE, SELFPAY | PROVIDERS: Visit Provider Psychiatry & Neurology Neurology ==

== ENCOUNTER 2023-03-29 09:32 | Outpatient (REF) | payer MEDICARE, SELFPAY ==
[2023-03-29 10:59] LABS: TSH reflex Free T4 0.31 uIU/mL (0.32-4.0)
[2023-03-29 12:12] LABS: Free T4 (Free Thyroxine) 1.54 ng/dL (0.71-1.85)
== END 2023-03-29 09:33 | disposition home or self-care (01) ==
LOC: HO.LAB 09:32
PROVIDERS: PCP Nurse Practitioner Family; Visit Provider Nurse Practitioner Family
DX: E03.9 Hypothyroidism, unspecified (principal)
CPT/HCPCS: 36415; 84439; 84443

== ENCOUNTER 2023-04-13 12:23 | Outpatient (AMB) | payer MEDICARE, SELFPAY ==
[2023-04-13 13:07] VITALS: BP 120/68; PULSE 68; TEMP 36.7; O2SAT 96; BMI 26.3
--- NOTE | 2023-04-13 13:07 | MHC.OFFWIV ---
Intake Vital Signs 04/13/23 13:07 Height 5 ft 10 in Weight 183 lb BMI 26.3 BP 120/68 Blood Pressure Location Lt brachial Position Sitting Pulse 68 Pulse Source Pulse Oximeter Temp 98.0 F Temp Source Temporal Artery Scan Pulse Oximetry (%) 96 Intake Visit Reasons: EP, cough, congestion (masked) Intake Note: pt is here for c/o cough and congestion Patient Tobacco Use Status: Former Tobacco user Allergies amoxicillin [From AUGMENTIN] Allergy (Intermediate, Verified 04/13/23 13:08) RASH clavulanic acid [From AUGMENTIN] Allergy (Intermediate, Verified 04/13/23 13:08) RASH losartan Adverse Reaction (Severe, Verified 04/13/23 13:08) Shortness of Breath Sulfa (Sulfonamide Antibiotics) Adverse Reaction (Intermediate, Verified 04/13/23 13:08) Rash Do you need a note to return to daycare/school/sports/work: Yes HPI HPI Comments History of Present Illness Details This is a 73-year-old male with past medical history of arthritis, hypertension and hypothyroidism presenting for evaluation of rhinorrhea and a cough this started over 7 days ago. Patient states that his had similar symptoms and hers have now resolved. Patient has been taking Mucinex only without relief of his symptoms. Patient denies having any fevers, chills, ear pain, chest pain or shortness of breath. Patient has tested for COVID-19 and has been negative at home. [facility] Medical History Neurogenic claudication Pericarditis Hypothyroid Anxiety Surgical History Hx of cholecystectomy Social History Housing: House Alcohol intake: former Patient Tobacco Use Status: Former Tobacco user e-Cigarette/Vaping Use: Never Used Second Hand Smoke Exposure: No service: Yes Current occupational status: retired Current occupational exposures/hazards: No Cognitive needs: No Hearing needs: No Vision needs: No Review of Systems Const Denies chills, Denies fatigue and Denies fever(s) Eyes Reports no additional complaints ENT Reports nasal congestion ( With rhinorrhea), Denies post nasal drip, Denies sinus pain and Reports sore throat Card Reports no additional complaints and Denies dyspnea Resp Reports cough, Denies hemoptysis and Denies dyspnea Musc Reports no additional complaints Neuro Reports no additional complaints Endo Denies fatigue Physical Exam Const General: cooperative, healthy appearing, comfortable, no acute distress and well developed Nutritional Appearance: average body habitus Orientation/consciousness: patient oriented x3 Limitations: no limitations HEENT Head: Yes normal to inspection and Yes normocephalic Ears: hearing grossly normal bilaterally, external ears normal, EAC's normal and TM abnormal bulging bilateral; not erythematous and with no fluid behind the TM General nose exam: Normal external nose present Face and sinus: Yes normal facial exam Mouth: Normal oral and palatal mucosa present and moist mucous membranes Throat: Yes posterior oropharynx normal Neck Lymphatic: no lymphadenopathy noted Resp Effort & Inspection: normal respiratory effort, able to speak in complete sentences, no cough, no respiratory distress and no stridor Auscultation: clear to auscultation bilaterally Cardio Rate: regular rate Rhythm: regular rhythm Neuro General: patient oriented x3 Psych Appearance: grossly normal Mental Status: mental status grossly normal Insight: Good insight present (Psych) Judgement: Good judgement present (Psych) Assessment & Plan Assessment & Plan (1) Upper respiratory infection: Comment: patient will continue to use Mucinex and increase his fluids daily. Code(s): J06.9 - Acute upper respiratory infection, unspecified (2) Acute sinusitis: Comment: Patient will obtain loratadine to take daily for the next 10-14 days. Patient is to follow up with his primary care physician within 2 weeks if his symptoms persist. Code(s): J01.90 - Acute sinusitis, unspecified Coding Level of Care Code Est Pt Level 3 (26575) Diagnoses Upper respiratory infection J06.9 Acute sinusitis J01.90 Time Spent (min) 20
== END 2023-04-13 14:08 | disposition home or self-care (01) ==
PROVIDERS: PCP Nurse Practitioner Family; Visit Provider Physician Assistant
DX: J06.9 Acute upper respiratory infection, unspecified (principal); J01.90 Acute sinusitis, unspecified
CPT/HCPCS: 99213

== ENCOUNTER 2023-04-21 12:41 | Outpatient (REF) | payer MEDICARE, SELFPAY ==
--- NOTE | 2023-04-21 | EMG_ITS ---
Chief complaint: Chronic several years of bilateral feet pain, numbness, burning. Back pain. No footdrop on exam. No previous diagnosis of diabetes. Reason for referral: Evaluate for neuropathy versus radiculopathy Referred by: Dr. Moulton Procedure done: Bilateral lower extremity NCS/EMG Precautions and/or limitations: None The limb temperature was monitored continuously and remained between 32-36 degrees C during the performance of the NCS. Nerve Conduction Studies Anti Sensory Summary Table ?Stim Site NR Onset (ms) Norm Onset (ms) Peak (ms) Norm Peak (ms) O-P Amp (?V) Norm O-P Amp Site1 Site2 Delta-0 (ms) Dist (cm) Santo (m/s) Norm Santo (m/s) Left Sural Anti Sensory (Lat Mall) Calf ? 2.7 3.0 <4.0 2.0 >5.0 Calf Lat Mall 2.7 14.0 52 Right Sural Anti Sensory (Lat Mall) Calf NR <4.0 >5.0 Calf Lat Mall 14.0 Motor Summary Table ?Stim Site NR Onset (ms) Norm Onset (ms) O-P Amp (mV) Norm O-P Amp iAmp (mV) Amp (1st) (%) Site1 Site2 Delta-0 (ms) Dist (cm) Santo (m/s) Norm Santo (m/s) Left Peroneal Motor (Ext Dig Brev) Ankle NR <4.0 >2.5 Ankle Ext Dig Brev 0.0 B Fib NR B Fib Ankle 0.0 >40 Poplt NR Poplt B Fib 0.0 >40 Right Peroneal Motor (Ext Dig Brev) Ankle NR <4.0 >2.5 Ankle Ext Dig Brev 0.0 B Fib NR B Fib Ankle 0.0 >40 Poplt ? 13.8 0.0 0.0 Poplt B Fib 0.0 >40 Left Tibial Motor (Abd Novoa Brev) Ankle NR <5 >2.5 Ankle Abd Novoa Brev 0.0 Knee NR Knee Ankle 0.0 >40 Right Tibial Motor (Abd Novoa Brev) Ankle NR <5 >2.5 Ankle Abd Novoa Brev 0.0 Knee NR Knee Ankle 0.0 >40 EMG ?Side Muscle Nerve Root Ins Act Fibs Psw Amp Dur Poly Recrt Int Pat Comment Right AbdHallucis MedPlantar S1-2 Nml Nml Nml Nml Nml 0 Nml Complete Right AntTibialis Dp Br Peron L4-5 Nml Nml Nml Nml Nml 0 Nml Complete Right PostTibialis Tibial L5, S1 Nml Nml Nml Nml Nml 0 Nml Complete Right MedGastroc Tibial S1-2 Nml Nml Nml Incr Incr 0 Nml Complete Right VastusMed Femoral L2-4 Nml Nml Nml Nml Nml 0 Nml Complete Left AbdHallucis MedPlantar S1-2 Nml Nml Nml Nml Nml 0 Nml Complete Left AntTibialis Dp Br Peron L4-5 Nml Nml Nml Incr Incr 1+ Nml Complete Left PostTibialis Tibial L5, S1 Nml Nml Nml Nml Nml 0 Nml Complete Left MedGastroc Tibial S1-2 Nml Nml Nml Nml Nml 1+ Nml Complete Left VastusMed Femoral L2-4 Nml Nml Nml Nml Nml 0 Nml Complete Paraspinal EMG ?Side Muscle Nerve Root Ins Act Fibs Psw Comment Right Lumbar Upper Rami Nml Nml Nml Right Lumbar Mid Rami Nml Nml Nml Right Lumbar Lower Rami Nml Nml Nml Left Lumbar Upper Rami Nml Nml Nml Left Lumbar Mid Rami Nml Nml Nml Left Lumbar Lower Rami Nml Nml Nml FINDINGS: Could not get any responses from any motor or sensory nerves tested in both lower extremities except for left sural nerve. Left sural nerve was present but showed small amplitude. Concentric needle EMG was performed in selected muscles of the bilateral lower extremity and lumbar paraspinals. Study revealed Signs of electric abnormalities as shown in the table below. Right medial gastrocnemius showed increased duration and amplitude. Left tibialis anterior showed increased duration and amplitude, polyphasia. Left gastrocnemius showed polyphasia. IMPRESSION: 1. This is an abnormal study. 2. There is electrodiagnostic findings showing a combination of sensorimotor polyneuropathy and chronic L5-S1 radiculopathy. CLINICAL COMMENT: Advise caution interpreting results of NCS due to age. Leaning towards radiculopathy since more motor abnormalities were seen rather than sensory. Findings appear chronic. Thank you for your kind referral. Brittany Yanez MD, ALIVIA Board Certified, [place] [employer] and [employer] (ABPMR) Board Certified, [place] Board [employer] Electrodiagnostic [employer] (ABEM) CODIN [id number] x 2 MTDD
== END 2023-04-21 12:42 | disposition home or self-care (01) ==
LOC: HO.NEURO 12:41
PROVIDERS: PCP Nurse Practitioner Family; Visit Provider Psychiatry & Neurology Neurology
DX: G57.93 Unspecified mononeuropathy of bilateral lower limbs (principal)
CPT/HCPCS: 95886; 95909

== ENCOUNTER → 2023-04-21 12:44 | Outpatient (BNV) | payer MEDICARE, SELFPAY | PROVIDERS: PCP Nurse Practitioner Family; Visit Provider Physical Medicine & Rehabilitation | DX: G62.9 Polyneuropathy, unspecified (principal); M54.17 Radiculopathy, lumbosacral region | CPT/HCPCS: 95886; 95909 ==

== ENCOUNTER 2023-05-25 15:48 | Outpatient (AMB) | payer MEDICARE, SELFPAY ==
[2023-05-25 15:50] VITALS: BP 112/64; PULSE 96; RESP 13; TEMP 36.6; O2SAT 99; BMI 27.2
--- NOTE | 2023-05-25 15:50 | MHC.PC.OV ---
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 Required: No Accompanied by: Self / Same As Patient Allergies amoxicillin [From AUGMENTIN] Allergy (Intermediate, Verified 05/25/23 15:56) RASH clavulanic acid [From AUGMENTIN] Allergy (Intermediate, Verified 05/25/23 15:56) RASH losartan Adverse Reaction (Severe, Verified 05/25/23 15:56) Shortness of Breath Sulfa (Sulfonamide Antibiotics) Adverse Reaction (Intermediate, Verified 05/25/23 15:56) Rash Tobacco use date assessed: 03/02/23 Last assessed Fall Risk: 05/25/23 Dental Screening Dental Screen Date: 05/25/23 Did you have a dental visit in the last 12 months?: Yes Did you have a dental problem in the last 6 months where you did not have access to dental care?: No Was dental information given to patient?: Patient has dentist HPI HPI Comments History of Present Illness Details 73-year-old male presents for review of blood work His last office visit was on 03/20/2023. PSA, TSH, and lipid panel were ordered He [place] an appointment to [place] [facility] [place] He is followed by Neurology and has a appointment in June. An MRI of the lumbar spine was ordered by Neurology and done on 02/2023. He notes that he also had nerve conduction study done. [facility] Medical History Neurogenic claudication Pericarditis Hypothyroid Anxiety Surgical History Hx of cholecystectomy Social History Housing: House Alcohol intake: former Patient Tobacco Use Status: Former Tobacco user e-Cigarette/Vaping Use: Never Used Second Hand Smoke Exposure: No service: Yes Current occupational status: retired Current occupational exposures/hazards: No Cognitive needs: No Hearing needs: No Vision needs: No Questionnaire Thrive Questionnaire Date Thrive assessed: 12/10/21 DOMINGO-7 AMB Questionnaire DOMINGO-7 Date DOMINGO - 7 assessed: 08/07/22 Source: Developed by Drs. Danis Witt, Mavis Emanuel, Mike Nelson and colleagues, with an educational paolo from [employer]. Review of Systems Const Details: Const Denies chills, Denies fatigue, Denies fever(s), Denies headache(s) and Denies weakness ENT Denies dizziness and Denies headache(s) Card Denies chest pain, Denies lightheadedness, Denies dyspnea and Denies other (Palpitations) Resp Denies cough, Denies dyspnea, Denies wheezing and Denies other ( shortness of breath) GI Denies abdominal pain, Denies melena, Denies hematochezia, Denies change in bowel habits, Denies dyspepsia and Denies nausea Denies hematuria and Denies dysuria Musc Denies abnormal gait, Denies myalgias, Denies arthralgias, Denies numbness and Denies tingling Skin/Breast Denies rash, Denies unusual bruising and Denies wounds Neuro Denies abnormal gait, Denies dizziness, Denies headache(s), Denies memory loss, Denies numbness, Denies Sensory deficit (Neuro), Denies tingling and Denies weakness Psych Denies anxiety, Denies depression, Denies memory loss Endo Denies cold intolerance, Denies fatigue, Denies heat intolerance, Denies polydipsia and Denies polyuria Aller/Immun Denies wheezing Physical exam (Primary Care) Vital Signs: Last Vital Signs Temp 97.8 F 05/25/23 15:50 Pulse 96 05/25/23 15:50 Resp 13 05/25/23 15:50 BP 112/64 05/25/23 15:50 Pulse Ox 99 05/25/23 15:50 Oxygen Delivery Method Room Air 05/25/23 15:50 BMI result Body Mass Index 27.2 Tobacco/Smoking Status: Tobacco use Status Tobacco use date assessed 03/02/23 05/25/23 15:55 Patient Tobacco Use Status Former Tobacco user 05/25/23 15:55 e-Cigarette/Vaping Use Never Used 05/25/23 15:55 Thrive Assessment: Date of Thrive Assessment Date Thrive assessed 12/10/21 05/25/23 15:55 Const Other: General: no acute distress and well developed Nutritional Appearance: well nourished Orientation/consciousness: patient oriented x3 [facility] Head: Yes normocephalic and Yes atraumatic Eyes General: appearance normal, both eyes and all related structures Pupils: Equal, round and reactive pupils present EOM: EOMs intact bilaterally Resp Effort & Inspection: normal respiratory effort Auscultation: clear to auscultation bilaterally Cardio Rate: regular rate Rhythm: regular rhythm Heart sounds: S1 normal heart sound present, S2 normal heart sound present, no gallops, no murmurs and no rubs GI Palpation (GI): No Abdominal aortic bruit present, Soft to palpation, nontender, No hepatosplenomegaly present and No Rebound tenderness present Auscultation: normal bowel sounds General: Yes no CVA tenderness Back/Spine/Pelvis Back: no CVA tenderness Cervical Spine: cervical ROM normal and No Cervical spine tenderness Thoracic/Lumbar Spine: thoraco-lumbar ROM normal, No pain with thoraco-lumbar ROM, No thoracic spinal tenderness and No lumbar spinal tenderness Extrem General: Yes normal to inspection, No edema and No calf tenderness Skin General: warm and dry. Normal skin color. Normal skin turgor Lesions: no lesions Rashes: no rashes Trauma: no lacerations or abrasions Wounds: no wounds Nails: normal Neuro General: patient oriented x3, gait normal and no focal neuro deficit Cranial nerves: Yes Equal, round and reactive pupils present Cognition (Neuro): normal cognition Gait exam (Neuro): Normal gait present Sensory Exam: No Sensory deficit (Neuro) Psych Appearance: grossly normal Affect: normal affect Attitude: cooperative Thought process: Normal thought process present Assessment and Plan Assessment & Plan (1) Hypothyroid: Code(s): E03.9 - Hypothyroidism, unspecified Plan: Recent labs reviewed with the patient. Recent PSA and TSH levels were normal His TSH in February of was low, 0.11, free T4 was normal. Levothyroxine was decreased to 125 mcg daily. Recent TSH in March was low, 0.31, free T4 was normal He notes his appointment to establish with his new PCP was canceled Advised to get repeat TSH/T4 blood work done. Will review results and make changes as needed Continue current treatment regimen Verbalized understanding and agreed with treatment plan Advised to follow-up with Neurology for review of MRI and nerve conduction study results Coding Level of Care Code Est Pt Level 3 (47303) Diagnoses Hypothyroid E03.9
== END 2023-05-25 16:24 | disposition home or self-care (01) ==
PROVIDERS: PCP Nurse Practitioner Family; Visit Provider Nurse Practitioner Family
DX: E03.9 Hypothyroidism, unspecified (principal)
CPT/HCPCS: 99213

== ENCOUNTER 2023-05-26 06:52 | Outpatient (REF) | payer MEDICARE, SELFPAY ==
[2023-05-26 08:30] LABS: TSH reflex Free T4 0.31 uIU/mL (0.32-4.0)
[2023-05-26 09:05] LABS: Free T4 (Free Thyroxine) 1.47 ng/dL (0.71-1.85)
== END 2023-05-26 06:53 | disposition home or self-care (01) ==
LOC: HO.LAB 06:52
PROVIDERS: PCP Nurse Practitioner Family; Visit Provider Nurse Practitioner Family
DX: E03.9 Hypothyroidism, unspecified (principal); M54.16 Radiculopathy, lumbar region
CPT/HCPCS: 36415; 84439; 84443; 99212

== ENCOUNTER 2023-05-26 12:50 | Outpatient (AMB) | payer MEDICARE, SELFPAY ==
--- NOTE | 2023-05-26 13:03 | MHC.OFFVIS ---
Intake Vital Signs 05/26/23 13:04 Height 5 ft 10 in Weight 188 lb 2 oz BMI 27.0 BP 128/72 Blood Pressure Location Lt brachial Position Sitting Respiration 16 Pulse 87 Pulse Source Pulse Oximeter Pulse Oximetry (%) 97 Oxygen Delivery Method Room Air Intake Visit Reasons: 3 mo f/u -Neuropathy on both legs Intake Note: Pt presents for 3 month follow up for neuropathy. 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 EMG of lower extremities result was combination of sensorimotor polyneuropathy and chronic L5-S1 radiculopathy. Pt reports the burning sensation in lower extremities starts after he walks a mile. Rest usually helps to relieve the burning pain. He walks 3-4 miles in AM and 1-2 miles later in the day. He takes gabapentin 100 mg, 1-4 capsules daily, mostly at night time. His legs and feet jumps at night and it bothers his sleep mostly. [facility] Medical History Neurogenic claudication Pericarditis Hypothyroid Anxiety Surgical History Hx of cholecystectomy Social History Housing: House Alcohol intake: former Patient Tobacco Use Status: Former Tobacco user e-Cigarette/Vaping Use: Never Used Second Hand Smoke Exposure: No service: Yes Current occupational status: retired Current occupational exposures/hazards: No Cognitive needs: No Hearing needs: No Vision needs: No Review of Systems Const All systems reviewed & are unremarkable except as noted in HPI and below Physical Exam Vital Signs: Last Vital Signs Pulse 87 05/26/23 13:04 Resp 16 05/26/23 13:04 BP 128/72 05/26/23 13:04 Pulse Ox 97 05/26/23 13:04 Oxygen Delivery Method Room Air 05/26/23 13:04 BMI result Body Mass Index 27.0 Const General: cooperative, healthy appearing and comfortable Nutritional Appearance: average body habitus Orientation/consciousness: patient oriented x3 Eyes Pupils: Equal, round and reactive pupils present Neuro Other: restricted range of motion in his neck Gait- mild slowness with antalgic gait General: patient oriented x3 and moves all extremities Cranial nerves: Yes Facial sensation intact/muscles of mastication intact, Yes Equal, round and reactive pupils present, Yes Bilaterally intact EOM present, Yes Nystagmus not present, Yes Normal facial strength present and Yes Midline tongue present Cognition (Neuro): normal cognition Gait exam (Neuro): Antalgic gait present Motor exam (neuro): 5/5 motor strength present throughout and Normal motor muscle tone present throughout Deep tendon reflexes (DTR's): Right triceps reflex intensity grade: 3+, Left triceps reflex intensity grade: 3+, Rt Biceps (C5, C6): 3+, Left biceps reflex intensity grade: 3+, Right brachioradialis reflex intensity grade: 3+, Left brachioradialis reflex intensity grade: 3+, Right patellar reflex intensity grade: 4+, Left patellar reflex intensity grade: 4+, Right ankle reflex intensity grade: 0 and Left ankle reflex intensity grade: 3+ Coordination: [id number] test normal Assessment & Plan Assessment & Plan (1) Lumbar radiculopathy: Code(s): M54.16 - Radiculopathy, lumbar region (2) Neuropathic pain of both legs: Code(s): G57.93 - Unspecified mononeuropathy of bilateral lower limbs Plan Advised patient to try gabapentin 300 mg qHS for leg and feet abnormal movement and help him sleep. Try gabapentin 100 mg, 1-3 capsules as needed for burning pain during daytime. Monitor the side effects, drowsiness or mood changes. Refer patient to physical therapy and pain management for back pain and leg burning pain. Orders: Orders PT Evaluation and Treatment 12 Weeks G57.93 - Unspecified mononeuropathy of bilateral lower limbs, M54.16 - Radiculopathy, lumbar region Referrals Pain Management Referral G57.93 - Unspecified mononeuropathy of bilateral lower limbs, M54.16 - Radiculopathy, lumbar region Medications: Discontinued levothyroxine Discontinued Reason: Doctor's Order 125 mcg PO DAILY 30 days 30 tabs 2RF Coding Level of Care Code Est Pt Level 3 (64143) Diagnoses Lumbar radiculopathy M54.16 Neuropathic pain of both legs G57.93
[2023-05-26 13:04] VITALS: BP 128/72; PULSE 87; RESP 16; O2SAT 97; BMI 27.0
== END 2023-05-26 13:34 | disposition home or self-care (01) ==
PROVIDERS: Absent Provider Nurse Practitioner Family; PCP Hospitalist; Visit Provider Nurse Practitioner Family
DX: M54.16 Radiculopathy, lumbar region (principal)
CPT/HCPCS: 99213

== ENCOUNTER 2023-06-12 09:51 | Emergency (ER) | payer MEDICARE, SELFPAY ==
--- NOTE | ~2023-06-12 | XR_ITS ---
EXAMINATION: XR CHEST CLINICAL INFORMATION: SOB. COMPARISON: Chest x-ray 07/15/2022 TECHNIQUE: Frontal view of the chest was obtained. FINDINGS: Both lungs are fairly well-expanded and clear. The heart size and pulmonary vascularity is normal. There is mild right para midline spondylosis throughout dorsal spine. No aggressive lytic or sclerotic process seen. XR/XR chest 1V IMPRESSION: Unremarkable chest examination.
[2023-06-12 10:04] VITALS: BP 151/80; PULSE 93; RESP 18; TEMP 36.3; O2SAT 98; BMI 27.0
--- NOTE | 2023-06-12 10:18 | ECG_ITS ---
Test Reason : SOB Blood Pressure : / mmHG Vent. Rate : 090 BPM Atrial Rate : 090 BPM P-R Int : 214 ms QRS Dur : 086 ms QT Int : 358 ms P-R-T Axes : 060 004 046 degrees QTc Int : 437 ms Sinus rhythm with 1st degree A-V block Possible Left atrial enlargement Cannot rule out Inferior infarct , age undetermined Abnormal ECG When compared with ECG of 22-FEB-2023 07:28, Minimal criteria for Inferior infarct are now Present Referred By: Rosina Pitt Electronically Signed By:Baron Conway
--- NOTE | 2023-06-12 10:20 | ED.GENADULT ---
HPI - General Adult General Chief complaint: General Medical Stated complaint: SOB Time Seen by Provider: 06/12/23 10:20 Source: patient Mode of arrival: ambulatory Limitations: no limitations History of Present Illness HPI narrative: 73 year old male with pmhx significant for HTN and hypothyroid presents to the ED for evaluation of dyspnea on exertion x1 day. Patient states that while on a walk yesterday began to feel short of breath. He looked down at his watch in his heart rate was noted to be elevated and he began to have chest palpitations which only lasted a few seconds. Since this time he has had anxiety surrounding the shortness of breath. States that it occurs every time he exerts himself. Does not have any complaints at present. Denies headache, dizziness, fever, chest pain, wheezing, cough, hemoptysis, nausea, vomiting, lower extremity pain or swelling. Denies recent travel or long car rides. Patient states that he was evaluated by his primary care provider so. His TSH was noted to be low and as a result his PCP decreased his dose of levothyroxine. Patient does not remember what dose he is currently taking. Related Data Home Medications Medication Instructions Recorded Confirmed albuterol sulfate 90 mcg/actuation 1 inh inhalation QID 10/15/22 03/22/23 aerosol inhaler aspirin 81 mg tablet,delayed 81 mg PO DAILY 10/15/22 03/22/23 release Previous Rx's Medication Instructions Recorded blood pressure monitor #1 ea 12/10/21 gabapentin 100 mg capsule See Rx Instructions PO BID 90 days 11/30/22 #360 caps amlodipine 5 mg tablet 5 mg PO DAILY 90 days #90 tabs 03/02/23 levothyroxine 112 mcg capsule 112 mcg PO DAILY 30 days #30 caps 05/26/23 Allergies Allergy/AdvReac Type Severity Reaction Status Date / Time amoxicillin [From AUGMENTIN] Allergy Intermediate RASH Verified 06/12/23 10:03 clavulanic acid Allergy Intermediate RASH Verified 06/12/23 10:03 [From AUGMENTIN] losartan AdvReac Severe Shortness Verified 06/12/23 10:03 of Breath Sulfa (Sulfonamide AdvReac Intermediate Rash Verified 06/12/23 10:03 Antibiotics) Review of Systems Review of Systems: Constitutional: No fever, chills, fatigue, night sweats, weight changes ENT/Mouth: No ear pain, hearing loss, nasal congestion, sinus pain, rhinorrhea, sore throat Eyes: No eye pain, swelling, redness, vision changes, discharge Cardio: No chest pain, palpitations, +DONNELLY, No orthopnea, peripheral edema Pulm: No SOB, cough, sputum, wheezing, dyspnea, hemoptysis GI: No nausea, vomiting, hematemesis, abdominal pain, diarrhea, constipation, hematochezia, melena : No irregular bleeding, dysuria, frequency, urgency, hesitancy, hematuria, flank pain, urinary flow changes, urinary incontinence or retention MSK: No back pain, neck pain, joint pain, myalgias Skin: No lesions, rashes Neuro: No weakness, numbness, paresthesias, LOC, dizziness, headache All other systems reviewed and are negative. [facility] Past Medical History Attestation statement: The following information was validated with the patient. Source: old records reviewed and nursing notes reviewed Medical History Neurogenic claudication Pericarditis Hypothyroid Anxiety Surgical History Hx of cholecystectomy Social History Social History Housing: House Unable to assess alcohol history related to: Unknown Alcohol intake: former Patient Tobacco Use Status: Former Tobacco user Smoked in Last 30 Days: No e-Cigarette/Vaping Use: Never Used Second Hand Smoke Exposure: No Use of substances other than those prescribed or required for medical reasons: Unknown Advance Directives: No Advance Directives Information Provided: No service: Yes Current occupational status: retired Current occupational exposures/hazards: No Cognitive needs: No Hearing needs: No Vision needs: No Physical Exam ED Vital Signs: Vital Signs - 24 hr 06/12/23 10:04 Temperature 97.3 F Pulse Rate 93 Respiratory Rate 18 Blood Pressure 151/80 H Pulse Oximetry 98 Oxygen Delivery Method Room Air BMI result Body Mass Index 27.0 Vital signs stable, not tachycardic. Const General: cooperative, healthy appearing, comfortable, no acute distress, alert and awake Orientation/consciousness: patient oriented x3 Limitations: no limitations HENMT Head: Yes normal to inspection Ears: hearing grossly normal bilaterally Eyes General: appearance normal, both eyes and all related structures Conjunctivae: conjunctivae normal Sclerae: sclerae normal Pupils: Equal, round and reactive pupils present EOM: EOMs intact bilaterally Direct Ophthalmoscopy: normal light reflex, no photophobia and no papilledema Neck Neck: Yes normal visual inspection, Yes full ROM, Yes no lymphadenopathy and Yes no JVD Resp Effort & Inspection: normal respiratory effort, able to speak in complete sentences, no respiratory distress, no tripod positioning and no use of accessory muscles Auscultation: clear to auscultation bilaterally and no wheezes Cardio Jugular venous distension: no JVD Rate: regular rate Rhythm: regular rhythm Heart sounds: no rubs Peripheral pulses: radial pulses present GI Inspection: Yes normal to inspection Palpation (GI): Soft to palpation, nontender, no pulsatile masses and no aortic enlargement Skin General skin exam: no rashes or lesions noted Neuro Other: + appears anxious, perseverating over heart rate, staring at monitor. General: patient oriented x3, gait normal and moves all extremities Cranial nerves: Yes Equal, round and reactive pupils present Extrem General: Yes normal to inspection and Yes full ROM Course Course Course Narrative: CBC without leukocytosis or anemia. Chemistry without acute electrolyte abnormality requiring intervention. TSH noted to be low > likely secondary to patient's levothyroxine. D-dimer undetectable > unlikely DVT/PE. Serology negative for flu, RSV, COVID. Chest x-ray unremarkable. EKG showing sinus rhythm with 1st degree AV block, rate of 90 beats per minute, QT 358, no acute ischemic changes or ST elevations. Troponin undetectable > unlikely acute coronary syndrome. > discussed unremarkable results with patient. Informed him that his TSH is low. He states that his primary care provider is aware of this as he recently had lab work drawn and his medications adjusted. I informed him that he needs to follow up with his primary care provider regarding low TSH. States he has an upcoming appointment with him next week. Patient has remained stable throughout ED visit today. Discussed strict return precautions. All questions answered at this time. Patient is agreeable with disposition and stable for discharge. Medical Decision Making Medical Decision Making [facility] Narrative: 73 year old male with pmhx significant for HTN and hypothyroid presents to the ED for evaluation of dyspnea on exertion x1 day. Vital signs stable. Not tachycardic. Patient is nontoxic appearing in no acute distress. Lying comfortably in bed. Thyroid WNL. RRR. Lungs CTA b/l. Speaking in full sentences. No signs of respiratory distress. No JVD. No calf tenderness bilaterally. Ambulating with steady gait. Clinical concern for arrhythmia, ACS, PE, electrolyte abnormality, anemia, hyperthyroid. Plan for labs, trop, D-dimer, EKG, chest x-ray. Differential Diagnosis Differential Diagnoses: The differential diagnosis associated with the presentation includes As above Admission/Observation Not indicated. Lab Data MDM Lab Attestation statement: I reviewed the patient's lab results. As above 06/12/23 11:12 06/12/23 11:12 Labs: Lab Results 06/12/23 06/12/23 Range/Units 10:19 11:12 WBC 8.7 (4.8-10.8) X10*3/uL RBC 4.96 (4.60-5.80) X10*6/uL Hgb 15.4 (14.0-18.0) g/dl Hct 44.9 (42.0-52.0) % MCV 90.5 (80.0-98.0) fL MCH 31.0 (27.0-33.0) pg MCHC 34.3 (31.0-36.0) g/dl RDW 13.2 (11.0-16.0) % Plt Count 251 (160-400) X10*3/uL MPV 9.0 L (9.4-12.4) fL Immature Gran % (Auto) 0.2 (0.0-0.4) % Neut % (Auto) 74.5 H (45-73) % Lymph % (Auto) 17.7 L (20-40) % Carlton % (Auto) 6.3 (2-11) % Eos % (Auto) 0.7 (0-4) % Baso % (Auto) 0.6 (0-2) % Lymph # (Auto) 1.5 (1.2-4.9) X10*3/uL Carlton # (Auto) 0.6 (0.1-1.2) X10*3/uL Eos # (Auto) 0.1 (0.0-0.4) X10*3/uL Baso # (Auto) 0.1 (0.0-0.2) X10*3/uL Abs Immat Gran (auto) 0.02 (0.00-0.03) X10*3/uL Absolute Neuts (auto) 6.5 (2.0-8.3) x10*3/uL Absolute Nucleated RBC 0.000 (0.0-0.012) X10*3/uL Nucleated RBC % (auto) 0.0 (0.0-0.2) /100WBC PT 11.1 (11.1-13.3) SEC INR 0.9 (0.9-1.1) D-Dimer High Sensitivty < 150 NG/ML Sodium 142 (135-145) mmol/L Potassium 4.2 (3.3-5.1) mmol/L Chloride 106 (96-108) mmol/L Carbon Dioxide 27 (22-29) mmol/L Anion Gap 13 (12-20) BUN 15 (9-16) mg/dL Creatinine 0.98 (0.5-1.4) mg/dL Estim Creat Clear Calc 68.2 Estimated GFR > 60 Random Glucose 153 H (60-115) mg/dL Calcium 9.5 (8.4-10.2) mg/dL Magnesium 2.4 (1.6-2.6) mg/dL Troponin I High Sens < 2.7 (<3.5-35.0) ng/L Lipase 24 (8-78) U/L TSH 0.27 L (0.32-4.0) uIU/mL Free T4 1.39 (0.71-1.85) ng/dL Influenza Type A (PCR) NEGATIVE (Negative) Influenza Type B (PCR) NEGATIVE (Negative) RSV RNA Qual (PCR) NEGATIVE (Negative) SARS-CoV-2 RNA (RT-PCR) NEGATIVE (Negative) Independent Interpretation I performed an independent interpretation of an: EKG Interpretation: EKG showing sinus rhythm with 1st degree AV block with a rate of 90 beats per minute, QT 358, no acute ischemic changes or ST elevations. Chest x-ray without infiltrate or consolidation, agree with radiologist's interpretation. Radiology Impression Discussion of test interpretation with radiology: I have reviewed the radiologist's reading. Radiologist Impression: XR chest 1V IMPRESSION: Unremarkable chest examination. External Record Review External record reviewed: Inpatient record Chronic Conditions Patient?s care impacted by: Other (Hypothyroidism) Critical Care Time Critical Care Time Critical Care Time: No Discharge Plan Discharge Clinical Impression: Hyperthyroidism Patient Disposition: Home, Self-Care Instructions: Hyperthyroidism (ED) Additional Instructions: Your EKG showed a first-degree AV block. Present treatment for this and is likely not the cause of your symptoms. Your cardiac enzyme was within normal limits. Your chest x-ray was normal. Your TSH was low. This may indicate too much levothyroxine for your hypothyroidism. Your primary care physician is managing this and recently lowered your dose of levothyroxine. Continue taking this new lower dose. Call your PCP on Wednesday and let them know that you were evaluated in the ED. You have also been provided a referral to a lean six sigma black belt. You may call them to make an appointment. They will not call you. If symptoms persist or worsen please return to the emergency department. The case of an emergency call 911. Prescriptions: No Action gabapentin 100 mg capsule See Rx Instructions PO BID 90 Days Qty: 360 2RF Rx Instructions: 100mg AM and 300mg PM orally 2 times a day; levothyroxine 112 mcg capsule 112 mcg PO DAILY 30 Days Qty: 30 3RF aspirin 81 mg tablet,delayed release (DR/EC) 81 mg PO DAILY albuterol sulfate 90 mcg/actuation HFA aerosol inhaler 1 inh inhalation QID (DME) blood pressure monitor Kit See Rx Instructions .Route Qty: 1 0RF Rx Instructions: As directed amlodipine 5 mg tablet 5 mg PO DAILY 90 Days Qty: 90 1RF Rx Instructions: hold for bp of less than 100/50 Referrals: [facility] Cardiovascular Services [Provider Group] Interventions: ED Discharge Assessment Last Done: 06/12/23 13:02 Discharge Date/Time: 06/12/23 13:02
--- NOTE | 2023-06-12 10:22 | PC.NURSE ---
Pt reporting starting 2 days ago he developed a heaviness in his chest which in turn is causing SOB, denies CP/Santiago/N/V/D. Pt reporting even if he sits down he has an increase in time it takes him to recover. Pt also reporting when he was feeling SOB walking his fitbit was showing HR or 120-150. Pt currently 98% on RA, able to talk in full sentences. Hr 100-105 EKG ordered, nasal swab obtained and sent to lab at this time.
[2023-06-12 11:04] LABS: Influenza A PCR NEGATIVE (Negative); Influenza B PCR NEGATIVE (Negative); Resp Syncy Virus RNA Qual PCR NEGATIVE (Negative); SARS COV2 PCR INHOUSE NEGATIVE (Negative)
[2023-06-12 11:19] LABS: MANUAL DIFF FLAG NO
[2023-06-12 11:21] LABS: Basophils Absolute Auto 0.1 X10*3/uL (0.0-0.2); Basophils Percent Auto 0.6 % (0-2); Eosinophils Absolute Auto 0.1 X10*3/uL (0.0-0.4); Eosinophils Percent Auto 0.7 % (0-4); Hematocrit 44.9 % (42.0-52.0); Hemoglobin 15.4 g/dl (14.0-18.0); Imm Gran Abs Auto 0.02 X10*3/uL (0.00-0.03); Imm Gran Pct Auto 0.2 % (0.0-0.4); Lymphocytes Absolute Auto 1.5 X10*3/uL (1.2-4.9); Lymphocytes Percent Auto 17.7 % (20-40); Mean Corpuscular HGB Conc 34.3 g/dl (31.0-36.0); Mean Corpuscular Volume 90.5 fL (80.0-98.0); Monocytes Absolute Auto 0.6 X10*3/uL (0.1-1.2); Monocytes Percent Auto 6.3 % (2-11); Neutrophils Absolute Auto 6.5 x10*3/uL (2.0-8.3); Neutrophils Percent Auto 74.5 % (45-73); Platelet Count 251 X10*3/uL (160-400); Red Blood Count 4.96 X10*6/uL (4.60-5.80); Red Cell Distribution Width 13.2 % (11.0-16.0); White Blood Count 8.7 X10*3/uL (4.8-10.8)
[2023-06-12 11:34] LABS: INTERNATIONAL NORM RATIO 0.9 (0.9-1.1); Prothrombin Time 11.1 SEC (11.1-13.3)
[2023-06-12 11:40] LABS: D Dimer High Sensitivity < 150 NG/ML
[2023-06-12 11:55] LABS: Anion Gap 13 (12-20); Blood Urea Nitrogen 15 mg/dL (9-16); Calcium 9.5 mg/dL (8.4-10.2); Carbon Dioxide 27 mmol/L (22-29); Chloride 106 mmol/L (96-108); Creatinine Clr Calc Pharmacy 68.2; Estimated Glomerular Filt Rate > 60; Glucose Random 153 mg/dL (60-115); Lipase 24 U/L (8-78); Magnesium 2.4 mg/dL (1.6-2.6); Potassium 4.2 mmol/L (3.3-5.1); Sodium 142 mmol/L (135-145)
[2023-06-12 12:04] LABS: Troponin-I High Sensitivity < 2.7 ng/L (<3.5-35.0)
[2023-06-12 12:16] LABS: TSH reflex Free T4 0.27 uIU/mL (0.32-4.0)
[2023-06-12 12:53] LABS: Free T4 (Free Thyroxine) 1.39 ng/dL (0.71-1.85)
== END 2023-06-12 13:02 | disposition home or self-care (01) ==
PROVIDERS: Physician Assistant Medical; Emergency Provider Emergency Medicine; PCP Nurse Practitioner Family
DX: E05.90 Thyrotoxicosis, unspecified without thyrotoxic crisis or storm (principal); I44.0 Atrioventricular block, first degree; R06.02 Shortness of breath; I10 Essential (primary) hypertension; Z87.891 Personal history of nicotine dependence; Z20.822 Contact with and (suspected) exposure to COVID-19; Z20.828 Contact with and (suspected) exposure to other viral communicable diseases; Z79.82 Long term (current) use of aspirin; Z79.899 Other long term (current) drug therapy
CPT/HCPCS: 0241U; 36415; 71045; 80048; 83690; 83735; 84439; 84443; 84484; 85025; 85379; 85610; 93005; 99283; 99284

== ENCOUNTER → 2023-06-12 10:18 | Outpatient (BNV) | payer MEDICARE, SELFPAY | PROVIDERS: Emergency Provider Emergency Medicine; PCP Nurse Practitioner Family; Visit Provider Internal Medicine Cardiovascular Disease | DX: R06.02 Shortness of breath (principal) | CPT/HCPCS: 93010 ==

== ENCOUNTER 2023-06-22 12:44 | Outpatient (AMB) | payer MEDICARE, SELFPAY ==
--- NOTE | 2023-06-22 12:47 | MHC.PC.OV ---
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 Required: No Accompanied by: Self / Same As Patient Allergies amoxicillin [From AUGMENTIN] Allergy (Intermediate, Verified 06/22/23 13:05) RASH clavulanic acid [From AUGMENTIN] Allergy (Intermediate, Verified 06/22/23 13:05) RASH losartan Adverse Reaction (Severe, Verified 06/22/23 13:05) Shortness of Breath Sulfa (Sulfonamide Antibiotics) Adverse Reaction (Intermediate, Verified 06/22/23 13:05) Rash Medication List - Last Reconciled 06/22/23 by Jaimie Topete CNP albuterol sulfate 90 mcg/actuation 1 inh inhalation QID amlodipine 5 mg PO DAILY 90 days aspirin 81 mg PO DAILY blood pressure monitor As directed gabapentin 100mg AM and 300mg PM orally 2 times a day; 90 days levothyroxine 112 mcg PO DAILY 30 days Tobacco use date assessed: 03/02/23 Fall risk assessment: No Falls in past year Last assessed Fall Risk: 06/22/23 Dental Screening Dental Screen Date: 06/22/23 Did you have a dental visit in the last 12 months?: Yes Did you have a dental problem in the last 6 months where you did not have access to dental care?: No Was dental information given to patient?: Patient has dentist HPI HPI Comments History of Present Illness Details 73-year-old male presents for follow-up visit He was evaluated at [facility] on 06/12/2023 for dyspnea with exertion and associated palpitations Labs and chest x-ray were unremarkable. EKG revealed NSR with first-degree AV block He was discharged home with recommendations to follow up with Cardiology and his PCP He admits to taking his medications as prescribed without adverse reactions He offers no complaints and denies acute symptoms at this time [facility] Medical History Neurogenic claudication Pericarditis Hypothyroid Anxiety Surgical History Hx of cholecystectomy Social History Housing: House Unable to assess alcohol history related to: Unknown Alcohol intake: former Patient Tobacco Use Status: Former Tobacco user e-Cigarette/Vaping Use: Never Used Second Hand Smoke Exposure: No service: Yes Current occupational status: retired Current occupational exposures/hazards: No Cognitive needs: No Hearing needs: No Vision needs: No Questionnaire Thrive Questionnaire Date Thrive assessed: 12/10/21 DOMINGO-7 AMB Questionnaire DOMINGO-7 Date DOMINGO - 7 assessed: 08/07/22 Source: Developed by Drs. Danis Witt, Mavis Emanuel, Mike Nelson and colleagues, with an educational paolo from [employer]. Review of Systems Const Details: Const Denies chills, Denies fatigue, Denies fever(s), Denies headache(s) and Denies weakness ENT Denies dizziness and Denies headache(s) Card Denies chest pain, Denies lightheadedness, Denies dyspnea and Denies other (Palpitations) Resp Denies cough, Denies dyspnea, Denies wheezing and Denies other ( shortness of breath) GI Denies abdominal pain, Denies melena, Denies hematochezia, Denies change in bowel habits, Denies dyspepsia and Denies nausea Denies hematuria and Denies dysuria Musc Denies abnormal gait, Denies myalgias, Denies arthralgias, Denies numbness and Denies tingling Skin/Breast Denies rash, Denies unusual bruising and Denies wounds Neuro Denies abnormal gait, Denies dizziness, Denies headache(s), Denies memory loss, Denies numbness, Denies Sensory deficit (Neuro), Denies tingling and Denies weakness Psych Denies anxiety, Denies depression, Denies memory loss Endo Denies cold intolerance, Denies fatigue, Denies heat intolerance, Denies polydipsia and Denies polyuria Aller/Immun Denies wheezing Physical exam (Primary Care) Vital Signs: Last Vital Signs Temp 97.1 F 06/22/23 12:48 Pulse 83 06/22/23 12:48 BP 132/66 06/22/23 12:48 Pulse Ox 99 06/22/23 12:48 Oxygen Delivery Method Room Air 06/22/23 12:48 BMI result Body Mass Index 27.4 Tobacco/Smoking Status: Tobacco use Status Tobacco use date assessed 03/02/23 06/22/23 12:54 Patient Tobacco Use Status Former Tobacco user 06/22/23 12:54 e-Cigarette/Vaping Use Never Used 06/22/23 12:54 Thrive Assessment: Date of Thrive Assessment Date Thrive assessed 12/10/21 06/22/23 12:54 Const Other: General: no acute distress and well developed Nutritional Appearance: well nourished Orientation/consciousness: patient oriented x3 HENMT Head: Yes normocephalic and Yes atraumatic Eyes General: appearance normal, both eyes and all related structures Pupils: Equal, round and reactive pupils present EOM: EOMs intact bilaterally Resp Effort & Inspection: normal respiratory effort Auscultation: clear to auscultation bilaterally Cardio Rate: regular rate Rhythm: regular rhythm Heart sounds: S1 normal heart sound present, S2 normal heart sound present, no gallops, no murmurs and no rubs GI Palpation (GI): No Abdominal aortic bruit present, Soft to palpation, nontender, No hepatosplenomegaly present and No Rebound tenderness present Auscultation: normal bowel sounds General: Yes no CVA tenderness Back/Spine/Pelvis Back: no CVA tenderness Cervical Spine: cervical ROM normal and No Cervical spine tenderness Thoracic/Lumbar Spine: thoraco-lumbar ROM normal, No pain with thoraco-lumbar ROM, No thoracic spinal tenderness and No lumbar spinal tenderness Extrem General: Yes normal to inspection, No edema and No calf tenderness Skin General: warm and dry. Normal skin color. Normal skin turgor Neuro General: patient oriented x3, gait normal and no focal neuro deficit Cranial nerves: Yes Equal, round and reactive pupils present Cognition (Neuro): normal cognition Gait exam (Neuro): Normal gait present Sensory Exam: No Sensory deficit (Neuro) Psych Appearance: grossly normal Affect: normal affect Attitude: cooperative Thought process: Normal thought process present Assessment and Plan Assessment & Plan (1) Palpitations: Code(s): R00.2 - Palpitations Plan: No acute symptoms at this time Referred to Cardiology for follow-up Advised to get TSH/T4 blood work done in 2 weeks. Will review results and make changes as needed Follow-up with PCP as planned or return sooner with worsening or new symptoms Verbalized understanding and agreed with treatment plan Orders: Referrals Cardiology Referral R00.2 - Palpitations Coding Level of Care Code Est Pt Level 3 (17454) Diagnoses Palpitations R00.2
[2023-06-22 12:48] VITALS: BP 132/66; PULSE 83; TEMP 36.2; O2SAT 99; BMI 27.4
== END 2023-06-22 13:18 | disposition home or self-care (01) ==
PROVIDERS: PCP Nurse Practitioner Family; Visit Provider Nurse Practitioner Family
DX: R00.2 Palpitations (principal)
CPT/HCPCS: 99213

== ENCOUNTER 2023-07-07 10:53 | Outpatient (AMB) | payer MEDICARE, SELFPAY ==
--- NOTE | 2023-07-07 10:59 | MHC.OFFVIS ---
Intake Vital Signs 07/07/23 11:00 Height 5 ft 10 in Weight 188 lb 6 oz BMI 27.0 BP 136/90 H Blood Pressure Location Lt brachial Position Sitting Respiration 12 Pulse 102 H Pulse Source Pulse Oximeter Pulse Oximetry (%) 97 Oxygen Delivery Method Room Air Intake Visit Reasons: Radiculopathy, lumbar region/lvm Intake Note: Patient comes in for initial visit was referred by [facility] Neurology. Reports pain level 2-3/10. Allergies amoxicillin [From AUGMENTIN] Allergy (Intermediate, Verified 07/07/23 11:01) RASH clavulanic acid [From AUGMENTIN] Allergy (Intermediate, Verified 07/07/23 11:01) RASH losartan Adverse Reaction (Severe, Verified 07/07/23 11:01) Shortness of Breath Sulfa (Sulfonamide Antibiotics) Adverse Reaction (Intermediate, Verified 07/07/23 11:01) Rash HPI HPI Comments History of Present Illness Details Arturo is very pleasant 73 years old gentleman who presents in my office with complains on pain on the right side of the lower back without radiation into the right lower extremity and with the sensation of burning in the left calf as well as numbing sensation in the left lower extremity and and sharp intermittent pain sensation in the left foot. All pain sensations are intermittent in nature. At the moment of the exam patient reports pain in the back to to 3/10 and pain in the leg 2/10. He reports that burning sensation in the calf appears only when he is walking more than 3 miles. He can sleep normally. He can do activities of daily living. He can take care of himself he can not function normally. He is self mobile. 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 The Gauri severe pain he feels at night. It he reports his pain sensation as hot burning aching numbing sensation. He tried gabapentin and NSAIDs for his pain with no significant results. He tried physical therapy and received significant alleviation of his pain. He had x-rays and MRIs of the lumbar spine as well as EMG by Neurology office who referred patient to us. In past medical history he reports only gallstones, he had surgeries for gallbladder and skin graft. [facility] Medical History Neurogenic claudication Pericarditis Hypothyroid Anxiety Surgical History Hx of cholecystectomy Social History Housing: House Unable to assess alcohol history related to: Unknown Alcohol intake: former Patient Tobacco Use Status: Former Tobacco user e-Cigarette/Vaping Use: Never Used Second Hand Smoke Exposure: No service: Yes Current occupational status: retired Current occupational exposures/hazards: No Cognitive needs: No Hearing needs: No Vision needs: No Review of Systems Const Denies chills and Denies fever(s) Eyes Denies blurry vision, Denies exophthalmos and Denies diplopia ENT Reports Normal hearing present, Denies vertigo and Denies dizziness Card Denies chest pain, Denies chest pain at rest, Denies chest pain with activity, Reports diaphoresis, Denies syncope, Denies rapid heart rate, Denies pedal edema and Denies edema Resp Denies chest congestion, Denies cough, Denies hemoptysis, Denies excessive phlegm production, Denies pain on inspiration and Denies pain with cough GI Denies abdominal pain, Denies belching, Denies melena and Denies bloating Denies urinary incontinence Musc Denies as per HPI, Denies back pain and Denies tingling Neuro Reports Normal hearing present, Denies Abnormal speech present, Denies vertigo, Denies dizziness, Denies syncope, Denies lack of coordination, Denies Sensory deficit (Neuro) and Denies tingling Psych Denies no additional complaints Physical Exam Vital Signs: Last Vital Signs Pulse 102 H 07/07/23 11:00 Resp 12 07/07/23 11:00 BP 136/90 H 07/07/23 11:00 Pulse Ox 97 07/07/23 11:00 Oxygen Delivery Method Room Air 07/07/23 11:00 BMI result Body Mass Index 27.0 Const General: no acute distress Orientation/consciousness: patient oriented x3 Eyes General: appearance normal, both eyes and all related structures Pupils: Equal, round and reactive pupils present EOM: EOMs intact bilaterally Neck Neck: Yes full ROM Chest Chest palpation & inspection: normal inspection of the chest Resp Effort & Inspection: normal respiratory effort, able to speak in complete sentences, normal respiratory pattern, no audible wheezes and no cough Cardio Jugular venous distension: no JVD GI Inspection: Yes normal to inspection Back/Spine/Pelvis Other: Able to stand on bilateral tiptoes and bilateral heels without difficulty. Able to lift the great toe bilaterally in separation of the rest of the toes however with significant difficulty. This may point out on to bilateral L4 radiculopathy. Pedro Pablo test, Gaenslen test negative bilaterally. Stinchfield test is negative bilaterally. SLR test is negative bilaterally. Lassegue is negative bilaterally. Loading test is positive on the left. There is tenderness on palpation in paraspinal region of the left lumbar spine. Flexing forward and flexing backwards aggravate pain minimally but flexing backwards aggravate pain more than flexing forward. Neuro General: patient oriented x3 and gait normal Cranial nerves: Yes CN's II-XII intact bilaterally, Yes Equal, round and reactive pupils present, Yes Normal hearing present and Yes Ability to bilaterally elevate shoulders present Speech: No Abnormal speech present Gait exam (Neuro): Normal gait present Motor exam (neuro): 5/5 motor strength present throughout Sensory Exam: No Sensory deficit (Neuro) Extrem Other: On the examination of the left lower extremity I detected very strong and distinctive popliteal pulse however dorsalis pedis and posterior tibial pulses a hardly palpable at all. General: No pedal edema Psych Speech and movement: Normal speech and movement present Affect: normal affect Attitude: cooperative Thought process: Normal thought process present Thought content: Normal thought content present Insight: Good insight present (Psych) Judgement: Good judgement present (Psych) Results Reviewed Results Reviewed: In referral note there is a mention of radiculopathy of L5 without indications of whether this radiculopathy is bilateral or unilateral left. Assessment & Plan Assessment & Plan (1) Spondylosis of lumbar region without myelopathy or radiculopathy: Code(s): M47.816 - Spondylosis without myelopathy or radiculopathy, lumbar region (2) Arterial insufficiency of lower extremity: Code(s): I73.9 - Peripheral vascular disease, unspecified Plan: Plan Physical exam revealed that pain in the lower back on the right side most likely related to spondylosis of lumbar spine. Patient himself is not sure and therefore it is unlikely that burning sensation in the left lower extremity related to the pain in the right lower back. The burning sensation appears to be only when patient performs prolonged walking more than 3 miles. Absence of PT and DP pulses on physical exam make me think about peripheral vascular disease. History of previous minor stroke possibly indicate on some arterial abnormalities as well. Considering those diagnoses I offered the patient diagnostic medial branch block L2-L3 L4 does ramus L5 on the right. Also offered him to sent for arterial Doppler study of the left lower extremity to rule out or confirm peripheral vascular insufficiency. However patient stated that he is not very sure he would go to any of those procedures. He reported that physical therapy brought him some moderate to significant pain relief. He continues home exercise program. I told him if he changes his mind he may come back to us and we will start from where we ended today. Patient Instructions: I here by testify that I spent 45 minutes in conversation with this patient as well as evaluating his prior records, as well as planning this note. Coding Level of Care Code New Pt Level 4 (59724) Diagnoses Spondylosis of lumbar region without myelopathy or radiculopathy M47.816 Arterial insufficiency of lower extremity I73.9
[2023-07-07 11:00] VITALS: BP 136/90; PULSE 102; RESP 12; O2SAT 97; BMI 27.0
== END 2023-07-07 11:35 | disposition home or self-care (01) ==
PROVIDERS: PCP Nurse Practitioner Family; Visit Provider Anesthesiology
DX: M47.816 Spondylosis without myelopathy or radiculopathy, lumbar region (principal); I73.9 Peripheral vascular disease, unspecified
CPT/HCPCS: 99204

== ENCOUNTER → 2023-07-07 10:53 | Outpatient (BNVA) | payer MEDICARE, SELFPAY | PROVIDERS: PCP Nurse Practitioner Family; Visit Provider Anesthesiology | DX: M47.816 Spondylosis without myelopathy or radiculopathy, lumbar region (principal); I73.9 Peripheral vascular disease, unspecified | CPT/HCPCS: 99202 ==

== ENCOUNTER 2023-07-08 13:51 | Outpatient (REF) | payer MEDICARE, SELFPAY ==
[2023-07-08 16:32] LABS: TSH reflex Free T4 0.96 uIU/mL (0.32-4.0)
== END 2023-07-08 13:52 | disposition home or self-care (01) ==
LOC: HO.LAB 13:51
PROVIDERS: Visit Provider Nurse Practitioner Family
DX: E03.9 Hypothyroidism, unspecified (principal)
CPT/HCPCS: 36415; 84443

== ENCOUNTER 2023-07-15 14:00 | Outpatient (RCR) | payer MEDICARE, SELFPAY ==
--- NOTE | 2023-06-10 15:25 | MHC.PT.EP ---
[facility] [place] Office [place] [facility] [place] Office [address] Leila Valadez [address] [phone] F: [phone] F: [phone] F: [phone] F: [phone] Physical Therapy Plan of Care Date of Evaluation: 06/10/23 Date of Surgery: Diagnosis: lumbar radiculopathy Assessment: 73 y/o male referred to PT with lumbar radiculopathy. S/s consistent with lumbar derangement resulting in difficulty with driving long distances, walking, lifting, and transitional movements secondary to decreased lumbar/hip AROM, decreased hip/core strength, decreased HS/piriformis length, and impaired gait pattern. Of note, he has 4+ B patella reflexes and neurological gait pattern; he has had brain and lumbar MRI and neurology is aware; pt also denies saddle anesthesia of bowel/bladder changes. At this time, recommend PT 2x/week for 5 weeks to address impairments, implement HEP, and optimize functional mobility. Frequency and Duration: The patient will be seen 2x/week for 5 weeks Short Term Goals: 3 weeks Pt will demonstrate compliance with HEP Pt will demonstrate decrease in pain by 50% (IR 5/10) Half-Way Goals: 5 weeks I with HEP and self management of sx Pt will demonstrate more symmetrical arm swing and normal balance strategies during gait Pt will demonstrate HS length to 30/90 (IR 40/90) Treatment Plan: Modalities to reduce pain, spasms and effusion. Manual therapy to restore motion and function. Therapeutic exercise to improve strength and flexibility. Neuromuscular re-education for posture and balance. Therapeutic activities to return to functional activities of daily living. Electronically signed by: Angelina Watson PT Please sign and return to therapist. Thank you for your referral.
--- NOTE | 2023-07-28 08:20 | MHC.PT.DC ---
[facility] [place] Office [place] Office [place] Office [address] Leila Valadez [address] [phone] F: [phone] F: [phone] F: [phone] F: [phone] Physical Therapy Discharge Report Diagnosis: lumbar radiculopathy Date of Surgery: Date of Evaluation: 06/10/23 Date of Discharge: 07/28/23 Treatments to Date: 8 Cancellations to Date: 0 No Shows to Date: 0 Discharge Status: Improved Function Independent with HEP Discharge Summary: Pt reports feeling better overall and he feels ready for d/c. At this time, he is I with HEP and has no further questions. Electronically signed by: Angelina Watson PT Please sign and return to therapist. Thank you for your referral.
== END 2023-07-28 08:20 | disposition home or self-care (01) ==
LOC: HO.PT 14:00
PROVIDERS: PCP Nurse Practitioner Family; Visit Provider Nurse Practitioner Family
DX: M54.16 Radiculopathy, lumbar region (principal)
CPT/HCPCS: 97110; 97162

== ENCOUNTER 2023-07-29 13:49 | Outpatient (AMB) | payer MEDICARE, SELFPAY ==
--- NOTE | 2023-07-29 14:10 | MHC.PC.OV ---
Vital Signs 07/29/23 14:11 Height 5 ft 10 in Weight 193 lb 8 oz BMI 27.8 BP 150/82 H Blood Pressure Location Lt brachial Position Sitting Pulse 98 Pulse Source Pulse Oximeter Pulse Oximetry (%) 95 Oxygen Delivery Method Room Air Intake Visit Reasons: Transfer [facility]/Neuropathy, HTN Intake Note: Pt is transferring from [employer] [place] Allergies amoxicillin [From AUGMENTIN] Allergy (Intermediate, Verified 07/29/23 14:14) RASH clavulanic acid [From AUGMENTIN] Allergy (Intermediate, Verified 07/29/23 14:14) RASH losartan Adverse Reaction (Severe, Verified 07/29/23 14:14) Shortness of Breath Sulfa (Sulfonamide Antibiotics) Adverse Reaction (Intermediate, Verified 07/29/23 14:14) Rash Tobacco use date assessed: 07/29/23 Fall risk assessment: No Falls in past year Last assessed Fall Risk: 07/29/23 Dental Screening Dental Screen Date: 07/29/23 Did you have a dental visit in the last 12 months?: Yes Did you have a dental problem in the last 6 months where you did not have access to dental care?: No Was dental information given to patient?: Patient has dentist HPI Transfer Ef[place]/Neuropathy, HTN HPI Details New pt is here to establish care. Pt reports ongoing neuropathy. He is taking gabapentin for this. Recommended trying OTC vitamin B complex. He is seeing neurology as well, upcoming appt. HTN: Blood pressure is managed with amlodipine 5mg. BP is elevated today. Will have pt monitor his blood pressure at home and drop off readings in a few weeks. Denies chest pain, shortness of breath, headache, dizziness, and blurred vision. Pt has an upcoming appointment with cardiology. [facility] Medical History Neurogenic claudication Pericarditis Hypothyroid Anxiety Surgical History Hx of cholecystectomy Social History Housing: House Unable to assess alcohol history related to: Unknown Alcohol intake: former Patient Tobacco Use Status: Former Tobacco user e-Cigarette/Vaping Use: Never Used Second Hand Smoke Exposure: No service: Yes Current occupational status: retired Current occupational exposures/hazards: No Cognitive needs: No Hearing needs: No Vision needs: No Questionnaire PHQ-9 Over the last 2 weeks, how often have you been bothered by any of the following problems? 1. Little interest or pleasure in doing things: not at all 2. Feeling down, depressed, or hopeless: not at all 3. Trouble falling or staying asleep, or sleeping too much: not at all 4. Feeling tired or having little energy: not at all 5. Poor appetite or overeating: not at all 6. Feeling bad about yourself - or that you are a failure or have let yourself or your family down: not at all 7. Trouble concentrating on things, such as reading the newspaper or watching television: not at all 8. Moving or speaking so slowly that other people could have noticed. Or the opposite - being so fidgety or restless that you have been moving around a lot more than usual: not at all 9. Thoughts that you would be better off or of hurting yourself in some way: not at all Total score: 0 Source: Developed by Drs. Danis Witt, Mavis Emanuel, Mike Nelson and colleagues, with an educational paolo from [employer]. Thrive Questionnaire Date Thrive assessed: 07/29/23 I am a: Patient What is your living situation today?: I have a steady place to live Within the past 12 months, did the food you bought not last and you didn't have the money to get more?: Never true Within the past 12 months, did you worry whether your food would run out before you got money to buy more?: Never true Do you have trouble paying for medicines?: No Do you have trouble getting transportation to medical appointments?: No Do you have trouble paying your heating and electricity bill?: No Do you have trouble taking care of your child, family member or friend?: No Do you have trouble with day-to-day activities such as bathing, preparing meals, shopping, managing finances, etc.?: No Are you currently unemployed and looking for a job?: No Are you interested in more education?: No THRIVE Score: 0 AUDIT C Alcohol Use Questionnaire (AUDIT-C) 1. How often do you have a drink containing alcohol?: Never Total Score: 0 Score Reviewed/Action Taken: Yes DOMINGO-7 AMB Questionnaire DOMINGO-7 Date DOMINGO - 7 assessed: 07/29/23 Feeling nervous, anxious, or on edge: 0 = Not at all Not being able to stop or control worryin = Not at all Worrying too much about different things: 0 = Not at all Trouble relaxin = Not at all Being so restless that it is hard to sit still: 0 = Not at all Becoming easily annoyed or irritable: 0 = Not at all Feeling afraid as if something awful might happen: 0 = Not at all Total DOMINGO-7 score (0-4 normal; 5-9 mild; 10-14 moderate; 15-21 severe): 0 Source: Developed by Drs. Danis Witt, Mavis Emanuel, Mike Nelson and colleagues, with an educational paolo from [employer]. DOMINGO-7 Assessment Billing DOMINGO-7 Assessment Tool: DOMINGO-7 Assessment 36872 Review of Systems Const Reports as per HPI Physical exam (Primary Care) Vital Signs: Last Vital Signs Pulse 98 07/29/23 14:11 BP 150/82 H 07/29/23 14:11 Pulse Ox 95 07/29/23 14:11 Oxygen Delivery Method Room Air 07/29/23 14:11 BMI result Body Mass Index 27.8 Tobacco/Smoking Status: Tobacco use Status Tobacco use date assessed 07/29/23 07/29/23 14:16 Patient Tobacco Use Status Former Tobacco user 07/29/23 14:16 e-Cigarette/Vaping Use Never Used 07/29/23 14:16 PHQ-9: PHQ-9 Score PHQ-9: Total score 0 07/29/23 14:49 Thrive Assessment: Date of Thrive Assessment Date Thrive assessed 07/29/23 07/29/23 14:36 Const General: cooperative Orientation/consciousness: patient oriented x3 Resp Effort & Inspection: normal respiratory effort Auscultation: clear to auscultation bilaterally Cardio Rate: regular rate Rhythm: regular rhythm Heart sounds: S1 normal heart sound present and S2 normal heart sound present Neuro General: patient oriented x3 Extrem Right lower extremity: no edema Left lower extremity: no edema Psych Appearance: grossly normal Mental Status: mental status grossly normal Speech and movement: Normal speech and movement present Affect: normal affect Attitude: cooperative Thought process: Normal thought process present Thought content: Normal thought content present Insight: Good insight present (Psych) Judgement: Good judgement present (Psych) Assessment and Plan Assessment & Plan (1) Neuropathic pain of both legs: Code(s): G57.93 - Unspecified mononeuropathy of bilateral lower limbs Plan: Recommended vitamin B complex, will be seeing neurology (2) HTN (hypertension): Code(s): I10 - Essential (primary) hypertension Plan: Pt will monitor his BP at home Plan The patient agreed to the use of a director of medical review for this encounter. Scribed for LAURYN Gomez-DORCAS by La Tang director of medical review, on 07/29/2023 at 14:40 EST. Coding Level of Care Code New Pt Level 3 (18245) Diagnoses Neuropathic pain of both legs G57.93 HTN (hypertension) I10 Additional Codes DOMINGO-7 Assessment Billing - DOMINGO-7 Assessment Tool: DOMINGO-7 Assessment [id number] ([id number])
[2023-07-29 14:11] VITALS: BP 150/82; PULSE 98; O2SAT 95; BMI 27.8
== END 2023-07-29 14:55 | disposition home or self-care (01) ==
PROVIDERS: PCP Nurse Practitioner Family; Visit Provider Nurse Practitioner Family
DX: G57.93 Unspecified mononeuropathy of bilateral lower limbs (principal); I10 Essential (primary) hypertension
CPT/HCPCS: 99213

== ENCOUNTER 2023-08-12 10:33 | Outpatient (AMB) | payer MEDICARE, SELFPAY ==
[2023-08-12 10:39] VITALS: BP 142/80; PULSE 102; TEMP 36.6; O2SAT 98; BMI 27.5
--- NOTE | 2023-08-12 10:39 | MHC.OFFWIV ---
Intake Vital Signs 08/12/23 10:39 Height 5 ft 10 in Weight 191 lb 8 oz BMI 27.5 BP 142/80 H Blood Pressure Location Lt brachial Position Sitting Pulse 102 H Pulse Source Pulse Oximeter Temp 97.9 F Temp Source Oral Pulse Oximetry (%) 98 Intake Visit Reasons: EP groin injury lifting Intake Note: pt is here for c/o groin pain/discomfort due to lifting dishes a few days ago Patient Tobacco Use Status: Former Tobacco user Allergies amoxicillin [From AUGMENTIN] Allergy (Intermediate, Verified 08/12/23 10:40) RASH clavulanic acid [From AUGMENTIN] Allergy (Intermediate, Verified 08/12/23 10:40) RASH losartan Adverse Reaction (Severe, Verified 08/12/23 10:40) Shortness of Breath Sulfa (Sulfonamide Antibiotics) Adverse Reaction (Intermediate, Verified 08/12/23 10:40) Rash Do you need a note to return to daycare/school/sports/work: No HPI HPI Comments History of Present Illness Details This is a 73-year-old male with a past medical history of hypertension, hypothyroidism and peripheral neuropathy presenting for evaluation of right groin pain. The patient states that 2 days ago he was helping his organize the house and he bent down to pick a heavy box off the ground resulting in pain in his right inguinal region that was worse the next day. Patient has been using ice at 20 minute intervals with moderate relief of his discomfort. The patient noticed this morning after walking [address] [place] [address] [place], that his discomfort persists. Patient reports an aching pain in his right inguinal region that does not radiate. Patient has not used any [id number] medication for treatment of his discomfort. [facility] Medical History Neurogenic claudication Pericarditis Hypothyroid Anxiety Surgical History Hx of cholecystectomy Social History Housing: House Unable to assess alcohol history related to: Unknown Alcohol intake: former Patient Tobacco Use Status: Former Tobacco user e-Cigarette/Vaping Use: Never Used Second Hand Smoke Exposure: No service: Yes Current occupational status: retired Current occupational exposures/hazards: No Cognitive needs: No Hearing needs: No Vision needs: No Review of Systems Const All systems reviewed & are unremarkable except as noted in HPI and below Denies chills, Denies fever(s) and Denies malaise GI Reports no additional complaints Musc Reports no additional complaints and Reports other (right inguinal pain) Skin/Breast Reports system reviewed and no additional complaints, except as documented Physical Exam Vital Signs: Last Vital Signs Temp 97.9 F 08/12/23 10:39 Pulse 102 H 08/12/23 10:39 BP 142/80 H 08/12/23 10:39 Pulse Ox 98 08/12/23 10:39 BMI result Body Mass Index 27.5 HR 88 bpm on re.evaluation. Const General: cooperative, healthy appearing, comfortable, no acute distress, well developed, alert and awake Nutritional Appearance: average body habitus Orientation/consciousness: patient oriented x3 Limitations: no limitations Cardio Rate: regular rate Rhythm: regular rhythm GI Palpation (GI): Soft to palpation, nontender (no RLQ or suprapubic tenderness.), no guarding, not rigid and no hernias Neuro General: patient oriented x3 Extrem Right lower extremity: normal to inspection, full ROM and hip/thigh Details: tenderness (right inguinal region) and normal ROM (minimal discomfort with hip flexion against resistance; no limitations of ROM right hip); no swelling Psych Appearance: grossly normal Mental Status: mental status grossly normal Insight: Good insight present (Psych) Judgement: Good judgement present (Psych) Assessment & Plan Assessment & Plan (1) Strain of right groin: Comment: There is no clinical evidence of a hernia and no further imaging is warranted at this time. Code(s): S76.211A - Strain of adductor muscle, fascia and tendon of right thigh, initial encounter Plan: Naprosyn 500 mg b.i.d. times 10 days; patient will continue to use ice at 20 minute intervals following activity. Medications: New naproxen (Naprosyn) 500 mg PO BID 20 tabs 0RF Coding Level of Care Code Est Pt Level 3 (65952) Diagnoses Strain of right groin S76.211A Time Spent (min) 20
== END 2023-08-12 10:53 | disposition home or self-care (01) ==
PROVIDERS: PCP Nurse Practitioner Family; Visit Provider Physician Assistant
DX: S76.211A Strain of adductor muscle, fascia and tendon of right thigh, initial encounter (principal)
CPT/HCPCS: 99213

== ENCOUNTER 2023-09-20 10:45 | Outpatient (AMB) | payer MEDICARE, SELFPAY ==
--- NOTE | 2023-09-20 11:39 | MHC.OFFWIV ---
Intake Vital Signs 09/20/23 11:40 Height 5 ft 10 in Weight 192 lb 2 oz BMI 27.6 BP 136/84 Blood Pressure Location Rt brachial Position Sitting Pulse 106 H Pulse Source Pulse Oximeter Temp 97.6 F Temp Source Oral Pulse Oximetry (%) 97 Oxygen Delivery Method Room Air Intake Visit Reasons: fell Mar 2023 neck pain, head pain,loss of balance Intake Note: Pt presents to the office today for neck pain,head pain, and loss of balance. Pt states this started a few days ago. Pt states he his having head pressure and bad neck pain. Pt states yesterday he got dizzy a few times while walking and his states that she has noticed that his balance has been off for a few days. Pt denies any injury to his head and he states he didnt hit his head during his fall in Mar 2023. Patient Tobacco Use Status: Former Tobacco user Allergies amoxicillin [From AUGMENTIN] Allergy (Intermediate, Verified 09/20/23 12:35) RASH clavulanic acid [From AUGMENTIN] Allergy (Intermediate, Verified 09/20/23 12:35) RASH losartan Adverse Reaction (Severe, Verified 09/20/23 12:35) Shortness of Breath Sulfa (Sulfonamide Antibiotics) Adverse Reaction (Intermediate, Verified 09/20/23 12:35) Rash Medication List - Last Reconciled 09/20/23 by Patrick Maurice MD albuterol sulfate 90 mcg/actuation 1 inh inhalation QID amlodipine 5 mg PO DAILY 90 days aspirin 81 mg PO DAILY blood pressure monitor As directed cyclobenzaprine 10 mg PO BEDTIME gabapentin 200mg AM and 300mg PM orally 2 times a day; 90 days levothyroxine 112 mcg PO DAILY 30 days HPI fell Mar 2023 neck pain, head pain,loss of balance HPI Details 73-year-old male presents to the office for a sick visit. Patient is reporting symptoms of neck pain in the past 3 days. Moving his head [id number] is eliciting pain. No recent fall or injury. Patient had a fall in March. Slightly out of balance in the last 3 days. PFSH Medical History Neurogenic claudication Pericarditis Hypothyroid Anxiety Surgical History Hx of cholecystectomy Social History Housing: House Unable to assess alcohol history related to: Unknown Alcohol intake: former Patient Tobacco Use Status: Former Tobacco user e-Cigarette/Vaping Use: Never Used Second Hand Smoke Exposure: No service: Yes Current occupational status: retired Current occupational exposures/hazards: No Cognitive needs: No Hearing needs: No Vision needs: No Physical Exam Vital Signs: Last Vital Signs Temp 97.6 F 09/20/23 11:40 Pulse 106 H 09/20/23 11:40 BP 136/84 09/20/23 11:40 Pulse Ox 97 09/20/23 11:40 Oxygen Delivery Method Room Air 09/20/23 11:40 BMI result Body Mass Index 27.6 Const General: cooperative and healthy appearing Nutritional Appearance: well nourished Orientation/consciousness: patient oriented x3 Limitations: no limitations HEENT Other: Head: No scalp tenderness. Head: Yes normal to inspection Eyes Other: No nystagmus. General: appearance normal, both eyes and all related structures Neck Other: Neck: Bilateral trapezius muscles are tender. Limited kogv-og-fkmy motion of the head. Neck: Yes normal visual inspection Chest Chest palpation & inspection: normal palpation of entire chest wall Resp Effort & Inspection: normal respiratory effort Neuro General: patient oriented x3 Assessment & Plan Assessment & Plan (1) Strain of neck muscle: Code(s): S16.1XXA - Strain of muscle, fascia and tendon at neck level, initial encounter Plan: Cyclobenzaprine added to the regimen. After the fall in March patient has had an MRI of the brain. Current condition unrelated to the October injury. If symptoms do not improve to follow-up here. 20 minutes spent in reviewing previous imaging studies. Medications: New cyclobenzaprine 10 mg PO BEDTIME 14 tabs 0RF Coding Level of Care Code Est Pt Level 4 (72457) Diagnoses Strain of neck muscle S16.1XXA
[2023-09-20 11:40] VITALS: BP 136/84; PULSE 106; TEMP 36.4; O2SAT 97; BMI 27.6
== END 2023-09-20 14:44 | disposition home or self-care (01) ==
PROVIDERS: PCP Nurse Practitioner Family; Visit Provider Internal Medicine
DX: S16.1XXA Strain of muscle, fascia and tendon at neck level, initial encounter (principal)
CPT/HCPCS: 99214

== ENCOUNTER 2023-09-23 10:49 | Outpatient (AMB) | payer MEDICARE, SELFPAY ==
[2023-09-23 10:51] VITALS: BP 118/80; PULSE 89; O2SAT 96; BMI 27.8
--- NOTE | 2023-09-23 10:51 | MHC.OFFVIS ---
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 EMG of lower extremities result was combination of sensorimotor polyneuropathy and chronic L5-S1 radiculopathy. Pt tried gabapentin 300 mg qHS and 200 mg qAM. It helped to reduce the leg movement, pain and he can sleep better. The bilateral burning pain is not too bad, once in a while. Pt reports the burning sensation in lower extremities starts after he walks a mile. Rest usually helps to relieve the burning pain. He walks 3-4 miles in AM and 1-2 miles later in the day. He had physical therapy done and his back pain has improved a lot. [facility] Medical History Neurogenic claudication Pericarditis Hypothyroid Anxiety Surgical History Hx of cholecystectomy Social History Housing: House Unable to assess alcohol history related to: Unknown Alcohol intake: former Patient Tobacco Use Status: Former Tobacco user e-Cigarette/Vaping Use: Never Used Second Hand Smoke Exposure: No service: Yes Current occupational status: retired Current occupational exposures/hazards: No Cognitive needs: No Hearing needs: No Vision needs: No Review of Systems Const All systems reviewed & are unremarkable except as noted in HPI and below Physical Exam Vital Signs: Last Vital Signs Pulse 89 03/28/24 10:51 BP 118/80 09/23/23 10:51 Pulse Ox 96 09/23/23 10:51 Oxygen Delivery Method Room Air 09/23/23 10:51 BMI result Body Mass Index 27.8 Const General: cooperative and healthy appearing Nutritional Appearance: well nourished Orientation/consciousness: patient oriented x3 Limitations: no limitations HEENT Other: Head: No scalp tenderness. Head: Yes normal to inspection Eyes Other: No nystagmus. General: appearance normal, both eyes and all related structures Neck Other: Neck: Bilateral trapezius muscles are tender. Limited qhsb-ig-mejx motion of the head. Neck: Yes normal visual inspection Chest Chest palpation & inspection: normal palpation of entire chest wall Resp Effort & Inspection: normal respiratory effort Neuro General: patient oriented x3 Assessment & Plan Assessment & Plan (1) Lumbar radiculopathy: Code(s): M54.16 - Radiculopathy, lumbar region (2) Neuropathic pain of both legs: Code(s): G57.93 - Unspecified mononeuropathy of bilateral lower limbs Plan Continue to take gabapentin 300 mg qHS for leg and feet burning pain, abnormal movement and help him sleep. Continue gabapentin 200 mg, as needed for burning pain during daytime. Monitor the side effects, drowsiness or mood changes. Advised patient to continue to do home physical therapy for back pain. Coding Level of Care Code Est Pt Level 3 (52548) Diagnoses Lumbar radiculopathy M54.16 Neuropathic pain of both legs G57.93
== END 2023-09-23 11:11 | disposition home or self-care (01) ==
PROVIDERS: PCP Nurse Practitioner Family; Visit Provider Nurse Practitioner Family
DX: M54.16 Radiculopathy, lumbar region (principal); G57.93 Unspecified mononeuropathy of bilateral lower limbs
CPT/HCPCS: 99213

== ENCOUNTER → 2023-09-23 10:49 | Outpatient (BNVA) | payer MEDICARE, SELFPAY | PROVIDERS: PCP Nurse Practitioner Family; Visit Provider Nurse Practitioner Family | DX: M54.16 Radiculopathy, lumbar region (principal); G57.93 Unspecified mononeuropathy of bilateral lower limbs | CPT/HCPCS: 99212 ==

== ENCOUNTER 2023-09-27 11:14 | Outpatient (AMB) | payer MEDICARE, SELFPAY ==
[2023-09-27 11:23] VITALS: BP 118/68; PULSE 78; BMI 27.8
--- NOTE | 2023-09-27 11:23 | MHC.OFFVIS ---
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 Allergies amoxicillin [From AUGMENTIN] Allergy (Intermediate, Verified 09/23/23 10:56) RASH clavulanic acid [From AUGMENTIN] Allergy (Intermediate, Verified 09/23/23 10:56) RASH losartan Adverse Reaction (Severe, Verified 09/23/23 10:56) Shortness of Breath Sulfa (Sulfonamide Antibiotics) Adverse Reaction (Intermediate, Verified 09/23/23 10:56) Rash Medication List - Last Reconciled 09/27/23 by Torsten Chaudhary MD albuterol sulfate 90 mcg/actuation 1 inh inhalation QID amlodipine 5 mg PO DAILY 90 days aspirin 81 mg PO DAILY blood pressure monitor As directed cyclobenzaprine 10 mg PO BEDTIME gabapentin 200mg AM and 300mg PM orally 2 times a day; 90 days levothyroxine 112 mcg PO DAILY HPI HPI Comments History of Present Illness Details Arturo is here for consultation. The referral states palpitations but when I questioned him regarding symptoms, he states he has absolutely no cardiac symptoms at all. No angina or shortness of breath or palpitations or in fact anything cardiac sounding. No previous history of any cardiac issues either. No coronary disease or myocardial infarction or cardiomyopathy. Unlimited exercise tolerance with normal lifestyle otherwise. [facility] Medical History Neurogenic claudication Pericarditis Hypothyroid Anxiety Surgical History Hx of cholecystectomy Family History Father No problems noted. Social History Housing: House Unable to assess alcohol history related to: Unknown Alcohol intake: former Patient Tobacco Use Status: Former Tobacco user e-Cigarette/Vaping Use: Never Used Second Hand Smoke Exposure: No service: Yes Current occupational status: retired Current occupational exposures/hazards: No Cognitive needs: No Hearing needs: No Vision needs: No Review of Systems Const Denies weakness ENT Denies dizziness Card Denies chest pain, Denies chest pain with activity, Denies syncope, Denies rapid heart rate, Denies pedal edema, Denies edema, Denies leg edema, Denies lightheadedness, Denies palpitations, Denies dyspnea, Denies dyspnea on exertion and Denies orthopnea Resp Denies cough, Denies dyspnea and Denies dyspnea on exertion GI Denies hematochezia and Denies change in stool character Musc Denies abnormal gait, Denies muscle cramps, Denies muscle weakness, Denies numbness, Denies radiating pain into limb and Denies tingling Neuro Denies abnormal gait, Denies dizziness, Denies syncope, Denies numbness, Denies tingling and Denies weakness Endo Denies palpitations Physical Exam Vital Signs: Last Vital Signs Pulse 78 09/27/23 11:23 BP 118/68 09/27/23 11:23 BMI result Body Mass Index 27.8 Const General: comfortable and no acute distress Orientation/consciousness: patient oriented x3 HEENT Other: Unremarkable Head: Yes normal to inspection Neck Neck: Yes normal visual inspection Chest Chest palpation & inspection: normal inspection of the chest Resp Auscultation: clear to auscultation bilaterally Cardio Palpation: normal PMI Heart sounds: S1 normal heart sound present, S2 normal heart sound present, no gallops, no murmurs and no rubs GI Palpation (GI): Soft to palpation Back/Spine/Pelvis Other: unremarkable Skin General skin exam: no rashes or lesions noted Neuro General: patient oriented x3 Extrem General: Yes normal to inspection Psych Mental Status: mental status grossly normal Assessment & Plan Assessment & Plan (1) First degree heart block: Code(s): I44.0 - Atrioventricular block, first degree (2) Abnormal EKG: Code(s): R94.31 - Abnormal electrocardiogram [ECG] [EKG] Plan EKG from May with sinus rhythm at 90/Min; NV prolongation 214 millisecond; normal corrected QT. cannot exclude old inferior infarct. However, that change has been present for many years. Possible left atrial enlargement. On review of many EKGs from the last 10 years or so, no major changes. Echocardiogram from 2017-LVEF of 60-65%. No wall motion abnormalities and otherwise unremarkable. Last myocardial perfusion imaging study from 2017 showed normal perfusion. Clinically, he has got absolutely no symptoms. Overall, in the absence of symptoms, stable EKG findings for many years, can follow clinically. If any concerns, advised him to contact us. Coding Level of Care Code New Pt Level 3 (51100) Diagnoses First degree heart block I44.0 Abnormal EKG R94.31
== END 2023-09-27 11:47 | disposition home or self-care (01) ==
PROVIDERS: PCP Nurse Practitioner Family; Visit Provider Internal Medicine
DX: I44.0 Atrioventricular block, first degree (principal); R94.31 Abnormal electrocardiogram [ECG] [EKG]
CPT/HCPCS: 99213

== ENCOUNTER → 2023-09-27 11:14 | Outpatient (BNVA) | payer MEDICARE, SELFPAY | PROVIDERS: PCP Nurse Practitioner Family; Visit Provider Internal Medicine | DX: R00.2 Palpitations (principal); I44.0 Atrioventricular block, first degree; R94.31 Abnormal electrocardiogram [ECG] [EKG] | CPT/HCPCS: 99212 ==

== ENCOUNTER 2023-10-23 09:03 | Outpatient (AMB) | payer MEDICARE, SELFPAY ==
[2023-10-23 09:05] VITALS: BP 134/78; PULSE 94; TEMP 36.5; O2SAT 96; BMI 27.8
--- NOTE | 2023-10-23 09:05 | AM.OFFWIN_ITS ---
Intake Vital Signs 3 10/23/23 09:05 Height 5 ft 10 in Weight 194 lb BMI 27.8 BP 134/78 Blood Pressure Location Rt brachial Position Sitting Pulse 94 Pulse Source Pulse Oximeter Temp 97.7 F Temp Source Oral Pulse Oximetry (%) 96 Oxygen Delivery Method Room Air Intake Visit Reasons: EP groin area red inflamed Intake Note: Pt is here today c/o Rt groin area inflammed Patient Tobacco Use Status: Former Tobacco user Allergies amoxicillin [From AUGMENTIN] Allergy (Intermediate, Verified 10/23/23 09:20) RASH clavulanic acid [From AUGMENTIN] Allergy (Intermediate, Verified 10/23/23 09:20) RASH losartan Adverse Reaction (Severe, Verified 10/23/23 09:20) Shortness of Breath Sulfa (Sulfonamide Antibiotics) Adverse Reaction (Intermediate, Verified 10/23/23 09:20) Rash Medication List - Last Reconciled 10/23/23 by Sarah Medina, INSTRUCTIONAL SERVICES SPECIALIST- albuterol sulfate 90 mcg/actuation 1 inh inhalation QID amlodipine 5 mg PO DAILY 90 days aspirin 81 mg PO DAILY blood pressure monitor As directed gabapentin 200mg AM and 300mg PM orally 2 times a day; 90 days levothyroxine 112 mcg PO DAILY HPI HPI Comments 2 History of Present Illness0 Details Here today with complaints of a red inflamed rash on the inside of his right thigh that he noticed yesterday while showering. He has not tried any at home treatments. Denies any constitutional symptoms. [facility] Medical History Neurogenic claudication Pericarditis Hypothyroid Anxiety Surgical History Hx of cholecystectomy Family History (Updated 09/27/23 @ 11:42 by Torsten Chaudhary MD) Father No problems noted. Social History Housing: House Unable to assess alcohol history related to: Unknown Alcohol intake: former Patient Tobacco Use Status: Former Tobacco user e-Cigarette/Vaping Use: Never Used Second Hand Smoke Exposure: No service: Yes Current occupational status: retired Current occupational exposures/hazards: No Cognitive needs: No Hearing needs: No Vision needs: No Review of Systems Const All systems reviewed & are unremarkable except as noted in HPI and below Physical Exam Vital Signs: Last Vital Signs Temp 97.7 F 10/23/23 09:05 Pulse 94 10/23/23 09:05 BP 134/78 10/23/23 09:05 Pulse Ox 96 10/23/23 09:05 Oxygen Delivery Method Room Air 10/23/23 09:05 BMI result Body Mass Index 27.8 Skin Full body images: 2 1. Tinea cruris noted Assessment & Plan Assessment & Plan (1) Tinea cruris: Code(s): B35.6 - Tinea cruris Plan: . Medications: New 2 nystatin (Nystop) 1 appl topical BID 30 grams 2RF nystatin apply to affected area 1 appl topical TID 30 days 30 grams 2RF Patient Instructions: Advised to keep skin clean and dry. Apply the topical cream 3 times a day until healed. No vtyf-lvr-nfzjatz powders. Okay to use the nystatin powder during the day if the cream is bothersome. Discontinue use of the cream and powder once the area is healed. Educated about recurrence and reasons to return to the office for further evaluation and treatment. Coding Level of Care Code Est Pt Level 3 (11354) Diagnoses Tinea cruris B35.6
== END 2023-10-23 09:19 | disposition home or self-care (01) ==
PROVIDERS: PCP Nurse Practitioner Family; Visit Provider Nurse Practitioner Family
DX: B35.6 Tinea cruris (principal)
CPT/HCPCS: 99213

== ENCOUNTER 2023-11-17 14:56 | Outpatient (AMB) | payer MEDICARE, SELFPAY ==
--- NOTE | 2023-11-17 15:00 | MHC.OFFWIV ---
Intake Vital Signs 11/17/23 15:01 Height 5 ft 10 in Weight 194 lb BMI 27.8 BP 132/80 Blood Pressure Location Rt brachial Position Sitting Pulse 76 Pulse Source Pulse Oximeter Temp 99.0 F Temp Source Oral Pulse Oximetry (%) 96 Oxygen Delivery Method Room Air Intake Visit Reasons: est/inf on right pointer fngr(lobby) Intake Note: pt is here for infection on right pointer finger Patient Tobacco Use Status: Former Tobacco user Allergies amoxicillin [From AUGMENTIN] Allergy (Intermediate, Verified 11/17/23 15:01) RASH clavulanic acid [From AUGMENTIN] Allergy (Intermediate, Verified 11/17/23 15:01) RASH losartan Adverse Reaction (Severe, Verified 11/17/23 15:01) Shortness of Breath Sulfa (Sulfonamide Antibiotics) Adverse Reaction (Intermediate, Verified 11/17/23 15:01) Rash Do you need a note to return to daycare/school/sports/work: No HPI HPI Comments History of Present Illness Details 73 y/o male patient who presents to walk in clinic with c/o injury to the right index finger ~ 1 week ago. He was working on his Yard, cutting grass and injured himself. He has been doing wound care at home and looks like wound is healing well. He recently noticed that his right hand and fingers swelling. Denies any pain. [facility] Medical History Neurogenic claudication Pericarditis Hypothyroid Anxiety Surgical History Hx of cholecystectomy Family History (Updated 09/27/23 @ 11:42 by Torsten Chaudhary MD) Father No problems noted. Social History Housing: House Unable to assess alcohol history related to: Unknown Alcohol intake: former Patient Tobacco Use Status: Former Tobacco user e-Cigarette/Vaping Use: Never Used Second Hand Smoke Exposure: No service: Yes Current occupational status: retired Current occupational exposures/hazards: No Cognitive needs: No Hearing needs: No Vision needs: No Review of Systems Const All systems reviewed & are unremarkable except as noted in HPI and below Physical Exam Vital Signs: Last Vital Signs Temp 99.0 F 11/17/23 15:01 Pulse 76 11/17/23 15:01 BP 132/80 11/17/23 15:01 Pulse Ox 96 11/17/23 15:01 Oxygen Delivery Method Room Air 11/17/23 15:01 BMI result Body Mass Index 27.8 Const General: comfortable and no acute distress Nutritional Appearance: well nourished Orientation/consciousness: patient oriented x3 Neuro General: patient oriented x3, gait normal and moves all extremities Extrem Right upper extremity: Extremity exam: right hand Details: normal capillary refill, normal ROM of fingers, swelling Location: of the dorsal hand and laceration (well healed scar on right index finger. Wound well approximated, no redness no drainage.) Left upper extremity: normal to inspection and full ROM Psych Speech and movement: Normal speech and movement present Assessment & Plan Assessment & Plan (1) Cellulitis of right index finger: Code(s): L03.011 - Cellulitis of right finger Plan: - Prescribed Abx - Continue with wound care at home - RTC if pain and drainage from hand Medications: New doxycycline hyclate 100 mg PO BID 7 days 14 caps 0RF L03.011 - Cellulitis of right finger Coding Level of Care Code Est Pt Level 3 (14663) Diagnoses Cellulitis of right index finger L03.011 Time Spent (min) 15
[2023-11-17 15:01] VITALS: BP 132/80; PULSE 76; TEMP 37.2; O2SAT 96; BMI 27.8
== END 2023-11-17 15:39 | disposition home or self-care (01) ==
PROVIDERS: PCP Nurse Practitioner Family; Visit Provider Nurse Practitioner Family
DX: L03.011 Cellulitis of right finger (principal)
CPT/HCPCS: 99213

== ENCOUNTER 2023-11-24 08:04 | Outpatient (AMB) | payer MEDICARE, SELFPAY ==
[2023-11-24 08:14] VITALS: BP 140/88; PULSE 95; TEMP 36.4; O2SAT 95; BMI 28.0
--- NOTE | 2023-11-24 08:14 | AM.OFFWIN_ITS ---
Intake Vital Signs 3 11/24/23 08:14 Height 5 ft 10 in Weight 195 lb BMI 28.0 BP 140/88 H Blood Pressure Location Lt brachial Position Sitting Pulse 95 Pulse Source Pulse Oximeter Temp 97.5 F Temp Source Temporal Artery Scan Pulse Oximetry (%) 95 Oxygen Delivery Method Room Air Intake Visit Reasons: EST/rash on outside of both legs(lobby) Intake Note: pt is here today for on outside of both legs started yesterday Patient Tobacco Use Status: Former Tobacco user Allergies amoxicillin [From AUGMENTIN] Allergy (Intermediate, Verified 11/24/23 08:16) RASH clavulanic acid [From AUGMENTIN] Allergy (Intermediate, Verified 11/24/23 08:16) RASH losartan Adverse Reaction (Severe, Verified 11/24/23 08:16) Shortness of Breath Sulfa (Sulfonamide Antibiotics) Adverse Reaction (Intermediate, Verified 11/24/23 08:16) Rash Do you need a note to return to daycare/school/sports/work: No HPI HPI Comments 2 History of Present Illness0 Details 73 y/o male patient who presents to walk in clinic with c/o Rash on his lower legs. pt reports noticing this rash this morning. Denies itching or pain. [facility] Medical History Neurogenic claudication Pericarditis Hypothyroid Anxiety Surgical History Hx of cholecystectomy Family History (Updated 09/27/23 @ 11:42 by Torsten Chaudhary MD) Father No problems noted. Social History Housing: House Unable to assess alcohol history related to: Unknown Alcohol intake: former Patient Tobacco Use Status: Former Tobacco user e-Cigarette/Vaping Use: Never Used Second Hand Smoke Exposure: No service: Yes Current occupational status: retired Current occupational exposures/hazards: No Cognitive needs: No Hearing needs: No Vision needs: No Review of Systems Const All systems reviewed & are unremarkable except as noted in HPI and below Physical Exam Vital Signs: Last Vital Signs Temp 97.5 F 11/24/23 08:14 Pulse 95 11/24/23 08:14 BP 140/88 H 11/24/23 08:14 Pulse Ox 95 11/24/23 08:14 Oxygen Delivery Method Room Air 11/24/23 08:14 BMI result Body Mass Index 28.0 Const General: comfortable and no acute distress Orientation/consciousness: patient oriented x3 Skin General skin exam: dry skin and erythema Rashes: rashes noted (Left/right lower legs, small skin area of erythema. ) Full body images: 2 1. Small skin area with erythema and dry 2. Small skin area with erythema and dry Neuro General: patient oriented x3, gait normal and moves all extremities Psych Speech and movement: Normal speech and movement present Assessment & Plan Assessment & Plan (1) Rash and nonspecific skin eruption: Code(s): R21 - Rash and other nonspecific skin eruption Plan: - Apply cream BID for 7 days - Keep area clean and dry - Dermatitis vs Fungal vs Eczema. Medications: New 2 clotrimazole-betamethasone 1-0.05 % 1 appl topical BID 45 grams 0RF 2 weeks R21 - Rash and other nonspecific skin eruption Coding Level of Care Code Est Pt Level 3 (09069) Diagnoses Rash and nonspecific skin eruption R21 Time Spent (min) 5
== END 2023-11-24 08:40 | disposition home or self-care (01) ==
PROVIDERS: PCP Nurse Practitioner Family; Visit Provider Nurse Practitioner Family
DX: R21 Rash and other nonspecific skin eruption (principal)
CPT/HCPCS: 99213

== ENCOUNTER 2023-12-01 09:23 | Outpatient (AMB) | payer MEDICARE, SELFPAY ==
--- NOTE | 2023-12-01 09:35 | MHC.PC.OV ---
Vital Signs 12/01/23 09:38 Height 5 ft 10 in Weight 196 lb BMI 28.1 BP 118/74 Blood Pressure Location Rt brachial Position Sitting Pulse 88 Pulse Source Pulse Oximeter Pulse Oximetry (%) 98 Oxygen Delivery Method Room Air Intake Visit Reasons: 4 month follow up Intake Note: Patient here for HTN f/u. Allergies amoxicillin [From AUGMENTIN] Allergy (Intermediate, Verified 12/01/23 10:20) RASH clavulanic acid [From AUGMENTIN] Allergy (Intermediate, Verified 12/01/23 10:20) RASH losartan Adverse Reaction (Severe, Verified 12/01/23 10:20) Shortness of Breath Sulfa (Sulfonamide Antibiotics) Adverse Reaction (Intermediate, Verified 12/01/23 10:20) Rash Medication List - Last Reconciled 12/01/23 by LAURYN Muñiz-DORCAS albuterol sulfate 90 mcg/actuation 1 inh inhalation QID amlodipine 5 mg PO DAILY 90 days aspirin 81 mg PO DAILY blood pressure monitor As directed clotrimazole-betamethasone 1-0.05 % 1 appl topical BID 2 weeks gabapentin 200mg AM and 300mg PM orally 2 times a day; 90 days levothyroxine 112 mcg PO DAILY nystatin (Nystop) 1 appl topical BID nystatin 1 appl topical TID 30 days Tobacco use date assessed: 07/29/23 Fall risk assessment: No Falls in past year Last assessed Fall Risk: 12/01/23 Dental Screening Dental Screen Date: 07/29/23 HPI 4 month follow up HPI Details HTN: Blood pressure is stable, managed with amlodipine 5mg. Denies chest pain, shortness of breath, headache, dizziness, and blurred vision. Pt c/o cervical neck pain. He reports pain with turning his head, though denies any radicular symptoms down his BUE. Will order XR. Pt started taking Nervive for approximately 2 months. He is not sure if this is helping his neuropathy. Encouraged pt to keep taking this for 2 months and reassess. Pt is following up with neurology. NOTE: pt reports he no longer needs colon screens, that's what the gi doctor told me . [facility] Medical History Neurogenic claudication Pericarditis Hypothyroid Anxiety Surgical History Hx of cholecystectomy Family History (Updated 09/27/23 @ 11:42 by Torsten Chaudhary MD) Father No problems noted. Social History Housing: House Unable to assess alcohol history related to: Unknown Alcohol intake: former Patient Tobacco Use Status: Former Tobacco user e-Cigarette/Vaping Use: Never Used Second Hand Smoke Exposure: No service: Yes Current occupational status: retired Current occupational exposures/hazards: No Cognitive needs: No Hearing needs: No Vision needs: No Questionnaire PHQ-9 Over the last 2 weeks, how often have you been bothered by any of the following problems? 53948 - PHQ-9 Billing: Patient declined-do not bill Source: Developed by Drs. Danis Witt, Mike Wan and colleagues, with an educational paolo from [employer]. Thrive Questionnaire Date Thrive assessed: 07/29/23 DOMINGO-7 AMB Questionnaire DOMINGO-7 Date DOMINGO - 7 assessed: 07/29/23 Source: Developed by Drs. Danis Witt, Mavis Emanuel, Mike Nelson and colleagues, with an educational paolo from [employer]. DOMINGO-7 Assessment Billing DOMINGO-7 Assessment Tool: pt declined-do not bill Review of Systems Const Reports as per HPI Physical exam (Primary Care) Vital Signs: Last Vital Signs Pulse 88 12/01/23 09:38 BP 118/74 12/01/23 09:38 Pulse Ox 98 12/01/23 09:38 Oxygen Delivery Method Room Air 12/01/23 09:38 BMI result Body Mass Index 28.1 Tobacco/Smoking Status: Tobacco use Status Tobacco use date assessed 07/29/23 12/01/23 09:36 Patient Tobacco Use Status Former Tobacco user 12/01/23 09:36 e-Cigarette/Vaping Use Never Used 12/01/23 09:36 Thrive Assessment: Date of Thrive Assessment Date Thrive assessed 07/29/23 12/01/23 09:36 Const General: cooperative Orientation/consciousness: patient oriented x3 Resp Effort & Inspection: normal respiratory effort Auscultation: clear to auscultation bilaterally Cardio Rate: regular rate Rhythm: regular rhythm Heart sounds: S1 normal heart sound present and S2 normal heart sound present Back/Spine/Pelvis Other: cervical neck pain exacerbated with neck flexion and turning head side to side, - spurlings Neuro General: patient oriented x3 Psych Appearance: grossly normal Mental Status: mental status grossly normal Speech and movement: Normal speech and movement present Affect: normal affect Attitude: cooperative Thought process: Normal thought process present Thought content: Normal thought content present Insight: Good insight present (Psych) Judgement: Good judgement present (Psych) Assessment and Plan Assessment & Plan (1) Diabetic neuropathy: Code(s): E11.40 - Type 2 diabetes mellitus with diabetic neuropathy, unspecified Plan: Continue nervive (2) HTN (hypertension): Code(s): I10 - Essential (primary) hypertension Plan: Stable (3) Cervicalgia: Code(s): M54.2 - Cervicalgia Plan: XR ordered (4) Screening PSA (prostate specific antigen): Code(s): Z12.5 - Encounter for screening for malignant neoplasm of prostate Plan The patient agreed to the use of a durable medical equipment technician for this encounter. Scribed for JACE Gomez by [employer] durable medical equipment technician, on 12/01/2023 at 09:45 EST. Orders: Orders Lipid Panel Today E11.40 - Type 2 diabetes mellitus with diabetic neuropathy, unspecified, I10 - Essential (primary) hypertension Prostate Specific Antigen Scr Today Z12.5 - Encounter for screening for malignant neoplasm of prostate XR cervical spine 2V Today M54.2 - Cervicalgia Complete Blood Count Auto Diff Today E11.40 - Type 2 diabetes mellitus with diabetic neuropathy, unspecified, I10 - Essential (primary) hypertension Comprehensive [place]. Panel Fast Today E11.40 - Type 2 diabetes mellitus with diabetic neuropathy, unspecified, I10 - Essential (primary) hypertension TSH reflex Free T4 Today E11.40 - Type 2 diabetes mellitus with diabetic neuropathy, unspecified, I10 - Essential (primary) hypertension UA CC w/rflx Micro + Cult Today E11.40 - Type 2 diabetes mellitus with diabetic neuropathy, unspecified, I10 - Essential (primary) hypertension Coding Level of Care Code Est Pt Level 3 (38566) Diagnoses Diabetic neuropathy E11.40 HTN (hypertension) I10 Cervicalgia M54.2 Screening PSA (prostate specific antigen) Z12.5
[2023-12-01 09:38] VITALS: BP 118/74; PULSE 88; O2SAT 98; BMI 28.1
== END 2023-12-01 10:23 | disposition home or self-care (01) ==
PROVIDERS: PCP Nurse Practitioner Family; Visit Provider Nurse Practitioner Family
DX: E11.40 Type 2 diabetes mellitus with diabetic neuropathy, unspecified (principal); I10 Essential (primary) hypertension; M54.2 Cervicalgia; Z12.5 Encounter for screening for malignant neoplasm of prostate
CPT/HCPCS: 99214

== ENCOUNTER 2023-12-01 10:06 | Outpatient (REF) | payer MEDICARE, SELFPAY ==
--- NOTE | ~2023-12-01 | XR_ITS ---
EXAMINATION: XR CERVICAL SPINE CLINICAL INFORMATION: Cervalgia. COMPARISON: CT neck 05/19/2022. TECHNIQUE: 4 views of the cervical spine were obtained. FINDINGS: Severe degenerative changes are seen with disc space narrowing at C5-C6, C6-C7 and C7-T1. Anterior osteophytes are present at all levels. No prevertebral soft tissue swelling, fractures or subluxations seen. When comparison is made to 05/19/2022 CT scan, there has been no significant interval change. XR/XR cervical spine 2V IMPRESSION: Severe degenerative changes in the cervical spine as described above.
== END 2023-12-01 10:07 | disposition home or self-care (01) ==
LOC: HO.HMGCX 10:06
PROVIDERS: PCP Nurse Practitioner Family; Visit Provider Nurse Practitioner Family
DX: M54.2 Cervicalgia (principal)
CPT/HCPCS: 72040

== ENCOUNTER 2023-12-02 07:15 | Outpatient (REF) | payer MEDICARE, SELFPAY ==
[2023-12-02 07:38] LABS: MANUAL DIFF FLAG NO
[2023-12-02 08:20] LABS: Basophils Absolute Auto 0.1 X10*3/uL (0.0-0.2); Basophils Percent Auto 0.8 % (0-2); Eosinophils Absolute Auto 0.1 X10*3/uL (0.0-0.4); Eosinophils Percent Auto 1.8 % (0-4); Hematocrit 45.8 % (42.0-52.0); Hemoglobin 15.6 g/dl (14.0-18.0); Imm Gran Abs Auto 0.02 X10*3/uL (0.00-0.03); Imm Gran Pct Auto 0.3 % (0.0-0.4); Lymphocytes Absolute Auto 2.5 X10*3/uL (1.2-4.9); Lymphocytes Percent Auto 33.5 % (20-40); Mean Corpuscular HGB Conc 34.1 g/dl (31.0-36.0); Mean Corpuscular Hemoglobin 31.5 pg (27.0-33.0); Mean Corpuscular Volume 92.5 fL (80.0-98.0); Mean Platelet Volume 8.8 fL (9.4-12.4); Monocytes Absolute Auto 0.6 X10*3/uL (0.1-1.2); Monocytes Percent Auto 7.9 % (2-11); Neutrophils Absolute Auto 4.2 x10*3/uL (2.0-8.3); Neutrophils Percent Auto 55.7 % (45-73); Platelet Count 285 X10*3/uL (160-400); Red Blood Count 4.95 X10*6/uL (4.60-5.80); Red Cell Distribution Width 13.7 % (11.0-16.0); White Blood Count 7.6 X10*3/uL (4.8-10.8)
[2023-12-02 09:06] LABS: Alanine Aminotransferase 35 U/L (0-40); Albumin Level 4.3 g/dL (3.5-5.0); Alkaline Phosphatase 83 U/L (39-117); Anion Gap 14 (12-20); Aspartate Amino Transferase 29 U/L (5-37); Bilirubin Total 1.2 mg/dL (0.0-1.0); Blood Urea Nitrogen 11 mg/dL (9-16); Calcium 9.2 mg/dL (8.4-10.2); Carbon Dioxide 23 mmol/L (22-29); Chloride 109 mmol/L (96-108); Cholesterol 196 mg/dL (<200); Estimated Glomerular Filt Rate > 60; Glucose Fasting 113 mg/dL (60-99); HDL Cholesterol 52 mg/dL (>40); LDL Cholesterol Calculated 123 mg/dL (<100); Potassium 4.2 mmol/L (3.3-5.1); Sodium 142 mmol/L (135-145); Triglycerides 105 mg/dL (<150)
[2023-12-02 09:21] LABS: TSH reflex Free T4 7.75 uIU/mL (0.32-4.0)
[2023-12-02 09:22] LABS: Prostate Specific Antigen Scr 0.31 ng/mL (<0.05-4.0)
[2023-12-02 10:03] LABS: Free T4 (Free Thyroxine) 1.17 ng/dL (0.71-1.85)
== END 2023-12-02 07:16 | disposition home or self-care (01) ==
LOC: HO.LAB 07:15
PROVIDERS: PCP Nurse Practitioner Family; Visit Provider Nurse Practitioner Family
DX: E11.40 Type 2 diabetes mellitus with diabetic neuropathy, unspecified (principal); I10 Essential (primary) hypertension; Z12.5 Encounter for screening for malignant neoplasm of prostate
CPT/HCPCS: 36415; 80053; 80061; 84153; 84439; 84443; 85025

== ENCOUNTER 2023-12-17 16:19 | Emergency (ER) | payer MEDICARE, SELFPAY ==
--- NOTE | 2023-12-17 16:30 | ED.GENADULT ---
HPI - General Adult General Chief complaint: General Medical Stated complaint: Lightheaded, pain in back of head Time Seen by Provider: 12/17/23 18:13 History of Present Illness HPI narrative: The patient is a 73-year-old male who has been having problems with pain in the back of his neck for about 8 months. He says that in March of 2023 he was doing some outdoor work at his house when he tripped and landed on his hands. He says that he did not strike his head because he jerked his head back as he was going down to the ground landing on his front. He was able to avoid striking his head but feels that he strained his neck at the time. Ever since then he has had problems with pain in both sides of the posterior aspect of his neck. Because of this pain going on for several months he saw his primary care doctor and had plain films of his cervical spine 2 weeks ago which showed significant degenerative changes of the C-spine that were similar to findings on a CT scan of 05/19/2022. The patient says that this morning he was working at his computer at around 10:30 when he felt lightheaded. He says that he has trouble describing exactly what he means by lightheaded. Does not really feel that he felt like he was going to faint and he did not really feel like he was particularly dizzy or that things were spinning. He thought that perhaps he was dehydrated and got up and drank a big glass of water. Sometime later he and his went to jehovah[employer] witness. He felt that there was some discomfort in the back of his head as well as the back of his neck. Ultimately he decided to come to the emergency room for evaluation. He took some ibuprofen an hour prior to arrival. He is feeling somewhat better. Patient reports that he has a neuropathy in his legs and that he has a chronically mildly abnormal gait. He does not feel that he has any new problems moving his arms or his legs. He has no facial asymmetry. No speech difficulty. No fever, sweats, chills. Related Data Home Medications ?Medication ?Instructions ?Recorded ?Confirmed albuterol sulfate 90 mcg/actuation 1 inh inhalation QID 10/15/22 12/01/23 aerosol inhaler aspirin 81 mg tablet,delayed 81 mg PO DAILY 10/15/22 12/01/23 release Previous Rx's ?Medication ?Instructions ?Recorded blood pressure monitor #1 ea 12/10/21 gabapentin 100 mg capsule See Rx Instructions PO BID 90 days 08/28/23 #450 caps nystatin 100,000 unit/gram topical 1 appl topical TID 30 days #30 10/23/23 cream grams nystatin 100,000 unit/gram topical 1 appl topical BID #30 grams 10/23/23 powder (Nystop) amlodipine 5 mg tablet 5 mg PO DAILY 90 days #90 tabs 11/15/23 clotrimazole-betamethasone 1 1 appl topical BID 2 weeks #45 11/24/23 %-0.05 % topical cream grams levothyroxine 125 mcg tablet 125 mcg PO DAILY #30 tabs 12/02/23 Allergies Allergy/AdvReac Type Severity Reaction Status Date / Time amoxicillin [From AUGMENTIN] Allergy Intermediate RASH Verified 12/17/23 16:31 clavulanic acid Allergy Intermediate RASH Verified 12/17/23 16:31 [From AUGMENTIN] losartan AdvReac Severe Shortness Verified 12/17/23 16:31 of Breath Sulfa (Sulfonamide AdvReac Intermediate Rash Verified 12/17/23 16:31 Antibiotics) Review of Systems Review of Systems: Yes all other systems are reviewed and are negative PMFSH Past Medical History Medical History Neurogenic claudication Pericarditis Hypothyroid Anxiety Surgical History Hx of cholecystectomy Family History Family History (Updated 09/27/23 @ 11:42 by Torsten Chaudhary MD) Father No problems noted. Social History Social History Housing: House Unable to assess alcohol history related to: Unknown Alcohol intake: former Patient Tobacco Use Status: Former Tobacco user e-Cigarette/Vaping Use: Never Used Second Hand Smoke Exposure: No Advance Directives: No Advance Directives Information Provided: No Do you have a plan to hurt others: No Plan service: Yes Current occupational status: retired Current occupational exposures/hazards: No Cognitive needs: No Hearing needs: No Vision needs: No Physical Exam ED Vital Signs: Vital Signs - 24 hr 12/17/23 16:31 12/17/23 18:26 12/17/23 18:49 Temperature 98.0 F 97.7 F 97.7 F Pulse Rate 101 H 80 80 Respiratory Rate 18 15 15 Blood Pressure 149/80 H 158/83 H 158/83 H Pulse Oximetry 97 97 97 Oxygen Delivery Method Room Air Room Air Room Air BMI result Body Mass Index 28.1 Const Other: The patient is awake and alert. He looks like a fairly healthy 73-year-old. He has a somewhat anxious demeanor. He does not seem in acute distress. HENMT Other: Face is symmetrical. Mucous membranes moist. Tongue is midline. There is some occipital scalp tenderness. Eyes Other: Pupils are round equal, conjunctivae are clear, extraocular movements are intact, there is no nystagmus. Neck Other: The patient seems to have bilateral paraspinous muscular tenderness. Resp Effort & Inspection: normal respiratory effort Auscultation: clear to auscultation bilaterally Cardio Rate: regular rate Rhythm: regular rhythm Heart sounds: S1 normal heart sound present and S2 normal heart sound present Skin Other: The skin is dry and unremarkable Neuro Other: The patient is awake and alert with a normal mental status. He is pleasant and cooperative. Pupils are round equal, extraocular movements are intact, there is no nystagmus, his face is symmetrical, his speech is clear, his strength is intact in all 4 extremities. There is no pronator drift. He has a mildly abnormal gait but this is apparently chronic for him. Seems to be at his neurological baseline. Extrem Other: No lower extremity swelling Course Course Course Narrative: RME performed by Yen Mccullough PA-C. Patient is a 73 year old assigned male at presenting to the emergency department with neck pain and lightheadedness. Patient states that he is feeling weak, lightheaded, and having neck pain. Detailed physical exam and review of systems are deferred to the township clerk. EKG, labs, and swabs ordered. Patient placed back in the waiting room pending room availability and results. Medical Decision Making Medical Decision Making MDM Narrative: The patient is a 73-year-old male who describes having chronic neck pains since March of 2023 (approximately 8 months ago) after a fall in which he strained his neck but did not hit his head. Cervical spine x-rays done 2 weeks ago shows significant degenerative changes in the cervical spine but these have been chronic since a CT scan of 2022. Today the patient felt lightheaded while working at his computer. Found it difficult to describe exactly what he meant by lightheadedness. He also developed an occipital head discomfort that does not sound like a thunderclap headache. Clinically the patient seems to be at his neurological baseline. He does not seem acutely ill or seem to have any acute neurological problem. I think it is unlikely that his symptoms today could be the result of something like a vertebral artery dissection. His pain in his neck and his occipital scalp is definitely bilateral and his neck pain seems reproducible with palpation of the paraspinous muscles bilaterally. His EKG is unchanged. His troponin is undetectable after many hours of discomfort. Other labs are unremarkable. I do not see any clear indication for additional imaging or workup in the emergency room. Think the patient may be discharged to follow up with his regular doctor. I spoke to the patient and his about pain management with the acetaminophen and ibuprofen. Lab Data 12/17/23 17:49 12/17/23 17:49 Labs: Lab Results 12/17/23 Range/Units 17:49 WBC 8.2 (4.8-10.8) X10*3/uL RBC 4.88 (4.60-5.80) X10*6/uL Hgb 15.5 (14.0-18.0) g/dl Hct 44.8 (42.0-52.0) % MCV 91.8 (80.0-98.0) fL MCH 31.8 (27.0-33.0) pg MCHC 34.6 (31.0-36.0) g/dl RDW 13.4 (11.0-16.0) % Plt Count 266 (160-400) X10*3/uL MPV 8.8 L (9.4-12.4) fL Immature Gran % (Auto) 0.2 (0.0-0.4) % Neut % (Auto) 65.5 (45-73) % Lymph % (Auto) 23.1 (20-40) % [place] % (Auto) 8.5 (2-11) % Eos % (Auto) 1.8 (0-4) % Baso % (Auto) 0.9 (0-2) % Lymph # (Auto) 1.9 (1.2-4.9) X10*3/uL [place] # (Auto) 0.7 (0.1-1.2) X10*3/uL Eos # (Auto) 0.2 (0.0-0.4) X10*3/uL Baso # (Auto) 0.1 (0.0-0.2) X10*3/uL Abs Immat Gran (auto) 0.02 (0.00-0.03) X10*3/uL Absolute Neuts (auto) 5.3 (2.0-8.3) x10*3/uL Absolute Nucleated RBC 0.000 (0.0-0.012) X10*3/uL Nucleated RBC % (auto) 0.0 (0.0-0.2) /100WBC Sodium 142 (135-145) mmol/L Potassium 3.9 (3.3-5.1) mmol/L Chloride 107 (96-108) mmol/L Carbon Dioxide 24 (22-29) mmol/L Anion Gap 15 (12-20) BUN 12 (9-16) mg/dL Creatinine 0.90 (0.5-1.4) mg/dL Estim Creat Clear Calc 80.7 Estimated GFR > 60 Random Glucose 119 H (60-115) mg/dL Calcium 9.4 (8.4-10.2) mg/dL Magnesium 2.5 (1.6-2.6) mg/dL Total Bilirubin 1.1 H (0.0-1.0) mg/dL AST 37 (5-37) U/L ALT 46 H (0-40) U/L Alkaline Phosphatase 90 (39-117) U/L Troponin I High Sens < 2.7 (<3.5-35.0) ng/L Total Protein 7.4 (6.5-8.0) g/dL Albumin 4.5 (3.5-5.0) g/dL Influenza Type A (PCR) NEGATIVE (Negative) Influenza Type B (PCR) NEGATIVE (Negative) RSV RNA Qual (PCR) NEGATIVE (Negative) SARS-CoV-2 RNA (RT-PCR) NEGATIVE (Negative) Independent Interpretation I performed an independent interpretation of an: EKG Interpretation: EKG at 17:39 shows normal sinus rhythm at 86 beats per minute. There are no acute ischemic changes. No significant change from previous EKG. Discharge Plan Discharge Clinical Impression: Headache, Neck pain, Lightheadedness Patient Disposition: Home, Self-Care Additional Instructions: I think your testing in the emergency room today seems reassuring. I think making a plan to see physical therapy for your neck pain is a good idea. I would recommend taking 2 extra-strength acetaminophen (Tylenol) up to 3 times a day has a baseline treatment for your neck discomfort. In addition to the acetaminophen you may also take occasional ibuprofen as well. Please follow through with a plan to see physical therapy. Stay in touch with your regular doctor's office as needed for other questions. Follow up with your regular doctor. If at any point you are significantly worse please return to the emergency room for additional evaluation. Prescriptions: No Action gabapentin 100 mg capsule See Rx Instructions PO BID 90 Days Qty: 450 2RF Rx Instructions: 200mg AM and 300mg PM orally 2 times a day; amlodipine 5 mg tablet 5 mg PO DAILY 90 Days Qty: 90 1RF Rx Instructions: hold for bp of less than 100/50 levothyroxine 125 mcg tablet 125 mcg PO DAILY Qty: 30 2RF aspirin 81 mg tablet,delayed release (DR/EC) 81 mg PO DAILY albuterol sulfate 90 mcg/actuation HFA aerosol inhaler 1 inh inhalation QID (DME) blood pressure monitor Kit See Rx Instructions .Route Qty: 1 0RF Rx Instructions: As directed nystatin 100,000 unit/gram cream 1 appl topical TID 30 Days Qty: 30 2RF Rx Instructions: apply to affected area nystatin [Nystop] 100,000 unit/gram powder 1 appl topical BID Qty: 30 2RF clotrimazole-betamethasone 1-0.05 % cream 1 appl topical BID 14 Days Qty: 45 0RF Referrals: Sergei Lu, [employer] [Primary Care Provider] - (Neck pain, lightheadedness) Interventions: ED Discharge Assessment Last Done: 12/17/23 18:49 Discharge Date/Time: 12/17/23 18:51 Print Language: Tongan
[2023-12-17 16:31] VITALS: BP 149/80; PULSE 101; RESP 18; TEMP 36.7; O2SAT 97; BMI 28.1
--- NOTE | 2023-12-17 16:33 | ECG_ITS ---
Test Reason : neck pain Blood Pressure : / mmHG Vent. 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
[2023-12-17 17:55] LABS: Basophils Absolute Auto 0.1 X10*3/uL (0.0-0.2); Basophils Percent Auto 0.9 % (0-2); Eosinophils Absolute Auto 0.2 X10*3/uL (0.0-0.4); Eosinophils Percent Auto 1.8 % (0-4); Hematocrit 44.8 % (42.0-52.0); Hemoglobin 15.5 g/dl (14.0-18.0); Imm Gran Abs Auto 0.02 X10*3/uL (0.00-0.03); Imm Gran Pct Auto 0.2 % (0.0-0.4); Lymphocytes Absolute Auto 1.9 X10*3/uL (1.2-4.9); Lymphocytes Percent Auto 23.1 % (20-40); MANUAL DIFF FLAG NO; Mean Corpuscular HGB Conc 34.6 g/dl (31.0-36.0); Mean Corpuscular Hemoglobin 31.8 pg (27.0-33.0); Mean Corpuscular Volume 91.8 fL (80.0-98.0); Mean Platelet Volume 8.8 fL (9.4-12.4); Monocytes Absolute Auto 0.7 X10*3/uL (0.1-1.2); Monocytes Percent Auto 8.5 % (2-11); Neutrophils Absolute Auto 5.3 x10*3/uL (2.0-8.3); Neutrophils Percent Auto 65.5 % (45-73); Platelet Count 266 X10*3/uL (160-400); Red Blood Count 4.88 X10*6/uL (4.60-5.80); Red Cell Distribution Width 13.4 % (11.0-16.0); White Blood Count 8.2 X10*3/uL (4.8-10.8)
[2023-12-17 18:12] LABS: Alanine Aminotransferase 46 U/L (0-40); Albumin Level 4.5 g/dL (3.5-5.0); Alkaline Phosphatase 90 U/L (39-117); Anion Gap 15 (12-20); Aspartate Amino Transferase 37 U/L (5-37); Bilirubin Total 1.1 mg/dL (0.0-1.0); Blood Urea Nitrogen 12 mg/dL (9-16); Calcium 9.4 mg/dL (8.4-10.2); Carbon Dioxide 24 mmol/L (22-29); Chloride 107 mmol/L (96-108); Creatinine Clr Calc Pharmacy 80.7; Estimated Glomerular Filt Rate > 60; Glucose Random 119 mg/dL (60-115); Magnesium 2.5 mg/dL (1.6-2.6); Potassium 3.9 mmol/L (3.3-5.1); Sodium 142 mmol/L (135-145); Total Protein 7.4 g/dL (6.5-8.0)
[2023-12-17 18:26] VITALS: BP 158/83; PULSE 80; RESP 15; TEMP 36.5; O2SAT 97
[2023-12-17 18:27] LABS: Troponin-I High Sensitivity < 2.7 ng/L (<3.5-35.0)
[2023-12-17 18:33] LABS: Influenza A PCR NEGATIVE (Negative); Influenza B PCR NEGATIVE (Negative); Resp Syncy Virus RNA Qual PCR NEGATIVE (Negative); SARS COV2 PCR INHOUSE NEGATIVE (Negative)
[2023-12-17 18:49] VITALS: BP 158/83; PULSE 80; RESP 15; TEMP 36.5; O2SAT 97
== END 2023-12-17 18:51 | disposition home or self-care (01) ==
PROVIDERS: Physician Assistant Medical; Emergency Provider Emergency Medicine; PCP Nurse Practitioner Family
DX: R42 Dizziness and giddiness (principal); R51.9 Headache, unspecified; M54.2 Cervicalgia; R94.31 Abnormal electrocardiogram [ECG] [EKG]; Z03.818 Encounter for observation for suspected exposure to other biological agents ruled out; Z79.899 Other long term (current) drug therapy
CPT/HCPCS: 0241U; 80053; 83735; 84484; 85025; 93005; 99283; 99284

== ENCOUNTER → 2023-12-17 16:33 | Outpatient (BNV) | payer MEDICARE, SELFPAY | PROVIDERS: Emergency Provider Emergency Medicine; PCP Nurse Practitioner Family; Visit Provider Internal Medicine Cardiovascular Disease | DX: R94.31 Abnormal electrocardiogram [ECG] [EKG] (principal) | CPT/HCPCS: 93010 ==

== ENCOUNTER 2024-01-31 07:36 | Outpatient (REF) | payer MEDICARE, SELFPAY ==
[2024-01-31 10:11] LABS: TSH reflex Free T4 3.59 uIU/mL (0.32-4.0)
[2024-01-31 15:21] LABS: Appearance Urine Clear; Color Urine Yellow; Glucose Urine UA Negative (Negative); Leukocyte Esterase Urine Negative (Negative); Nitrite Urine Negative (Negative); PH 5.5 (5.0-9.0); Specific Gravity - Urine 1.015 (1.005-1.025); Urine Blood Negative (Negative); Urine Ketones Trace mg/dL (Negative); Urine Protein Negative (Neg-Trace)
== END 2024-01-31 07:37 | disposition home or self-care (01) ==
LOC: HO.LAB 07:36
PROVIDERS: PCP Nurse Practitioner Family; Visit Provider Nurse Practitioner Family
DX: E03.9 Hypothyroidism, unspecified (principal); E11.40 Type 2 diabetes mellitus with diabetic neuropathy, unspecified; I10 Essential (primary) hypertension
CPT/HCPCS: 36415; 81003; 84443

== ENCOUNTER 2024-02-04 13:53 | Outpatient (AMB) | payer MEDICARE, SELFPAY ==
--- NOTE | 2024-02-04 13:57 | AM.OFFWIN_ITS ---
Intake Vital Signs 02/04/24 13:58 Height 5 ft 10 in Weight 198 lb BMI 28.4 BP 118/80 Blood Pressure Location Lt brachial Position Sitting Pulse 77 Pulse Source Pulse Oximeter Temp 98.1 F Temp Source Oral Pulse Oximetry (%) 98 Oxygen Delivery Method Room Air Intake Visit Reasons: Head pressure Intake Note: pt c/o head pressure. Intermittent ongoing. Patient Tobacco Use Status: Former Tobacco user Allergies amoxicillin [From AUGMENTIN] Allergy (Intermediate, Verified 02/04/24 13:57) RASH clavulanic acid [From AUGMENTIN] Allergy (Intermediate, Verified 02/04/24 13:57) RASH losartan Adverse Reaction (Severe, Verified 02/04/24 13:57) Shortness of Breath Sulfa (Sulfonamide Antibiotics) Adverse Reaction (Intermediate, Verified 02/04/24 13:57) Rash Do you need a note to return to daycare/school/sports/work: No HPI HPI Comments History of Present Illness Details Patient is a 73-year-old male complaining of pressure in the back of his head which is worse when he moves left or right. He explains he has degenerative spine disease and he had an injury last March. He has been going to physical therapy a couple of times a week since then which has helped a little bit. But he says today he has this pressure in the back of his head and little lightheaded earlier but that resolved on its own head he denies any changes in vision or hearing, he denies any dizziness or feeling like he is going to pass out. [facility] Medical History Neurogenic claudication Pericarditis Hypothyroid Anxiety Surgical History Hx of cholecystectomy Family History (Updated 09/27/23 @ 11:42 by Torsten Chaudhary MD) Father No problems noted. Social History Housing: House Unable to assess alcohol history related to: Unknown Alcohol intake: former Patient Tobacco Use Status: Former Tobacco user e-Cigarette/Vaping Use: Never Used Second Hand Smoke Exposure: No service: Yes Current occupational status: retired Current occupational exposures/hazards: No Cognitive needs: No Hearing needs: No Vision needs: No Review of Systems Const All systems reviewed & are unremarkable except as noted in HPI and below Physical Exam Vital Signs: Last Vital Signs Temp 98.1 F 02/04/24 13:58 Pulse 77 02/04/24 13:58 BP 118/80 02/04/24 13:58 Pulse Ox 98 02/04/24 13:58 Oxygen Delivery Method Room Air 02/04/24 13:58 BMI result Body Mass Index 28.4 Const General: cooperative, healthy appearing, comfortable, no acute distress and well developed Orientation/consciousness: patient oriented x3 Limitations: no limitations HEENT Head: Yes normal to inspection, Yes normocephalic and Yes atraumatic Ears: hearing grossly normal bilaterally, external ears normal and TM's normal bilaterally General nose exam: Normal external nose present Face and sinus: Yes normal facial exam Eyes General: appearance normal, both eyes and all related structures Neck Neck: Yes normal visual inspection, Yes full ROM, Yes trachea midline and Yes supple Resp Effort & Inspection: normal respiratory effort and able to speak in complete sentences Back/Spine/Pelvis Cervical Spine: cervical ROM normal, pain with cervical ROM (with turning to left or right, opposite side cervical muscular pain) and No Cervical spine tenderness Thoracic/Lumbar Spine: thoracic and lumbar spine normal to inspection, No paraspinal muscle tenderness and No thoracic spinal tenderness Skin General skin exam: no rashes or lesions noted Neuro General: patient oriented x3 Extrem General: Yes normal to inspection Assessment & Plan Assessment & Plan (1) Cervicalgia: Code(s): M54.2 - Cervicalgia Plan: Advised will send diclofenac to pharmacy, if this works, recommended he try the diclofenac gel to see if that is enough medication to be effective for his pain. Gave him red flag warning signs and when to go to the emergency department. Plan See above Medications: New diclofenac potassium 50 mg PO TID PRN 10 tabs 0RF pain Coding Level of Care Code Est Pt Level 3 (68562) Diagnoses Cervicalgia M54.2
[2024-02-04 13:58] VITALS: BP 118/80; PULSE 77; TEMP 36.7; O2SAT 98; BMI 28.4
== END 2024-02-04 14:19 | disposition home or self-care (01) ==
PROVIDERS: PCP Nurse Practitioner Family; Visit Provider Physician Assistant
DX: M54.2 Cervicalgia (principal)
CPT/HCPCS: 99213

== ENCOUNTER 2024-02-16 10:00 | Outpatient (RCR) | payer MEDICARE, SELFPAY ==
--- NOTE | 2024-01-07 15:55 | MHC.PT.EP ---
[facility] [place] Office [place] Office [place] Office [address] Leila Valadez [address] [phone] F: [phone] F: [phone] F: [phone] F: [phone] Physical Therapy Plan of Care Date of Evaluation: 01/07/24 Date of Surgery: Diagnosis: cervicalgia. Assessment: Pt is a 73 y/o male referred to PT for cervicalgia who reports worsening 2 years of cervical pain after tripping over his garden hose and landed on his arms w/o head strike which is resulting in decreased tolerance for heavy HH chores and yard work, driving, as well as RODRIGUEZ, and AM cervical pain. Pt is deemed an appropriate candidate to receive skilled PT services to address their physical impairments in order to improve their functional ability. Frequency and Duration: The patient will be seen 2 x/ wk 3 wks. Short Term Goals: initiate home program. Pt will report only intermittent pain; initial: constant 2-3/10 pain. [place] Goals: I with home program. Pt will no longer have AM cervical pain. Pt will no longer be painful while driving. Treatment Plan: Modalities to reduce pain, spasms and effusion. Manual therapy to restore motion and function. Therapeutic exercise to improve strength and flexibility. Neuromuscular re-education for posture and balance. Therapeutic activities to return to functional activities of daily living. Electronically signed by: Vlad Mortensen PT. Please sign and return to therapist. Thank you for your referral.
--- NOTE | 2024-02-16 11:56 | MHC.PT.DC ---
[place] Office [place] Office [place] Office [address] Leila Valadez [address] [phone] F: [phone] F: [phone] F: [phone] F: [phone] Physical Therapy Discharge Report Diagnosis: cervicalgia. Date of Surgery: Date of Evaluation: 01/07/24 Date of Discharge: 02/16/24 Treatments to Date: 8 Cancellations to Date: No Shows to Date: Discharge Status: Achieved Goals Improved Function Independent with HEP Discharge Summary: Arturo has been an active participant in his therapy with good home program compliance. We are in agreement with DC today as he has met all of his therapeutic goals, is managed of his initial symptoms, and is independent with his home program for self management. Electronically signed by: Vlad Mortensen PT. Please sign and return to therapist. Thank you for your referral.
== END 2024-02-16 11:55 | disposition home or self-care (01) ==
LOC: HO.PT 10:00
PROVIDERS: PCP Nurse Practitioner Family; Visit Provider Nurse Practitioner Family
DX: M54.2 Cervicalgia (principal)
CPT/HCPCS: 97110; 97112; 97140; 97161

== ENCOUNTER 2024-03-20 11:21 | Outpatient (AMB) | payer MEDICARE, SELFPAY ==
--- NOTE | 2024-03-20 11:32 | A.OFFVIS_ITS ---
Vital Signs 03/20/24 11:34 Height 5 ft 10 in Weight 195 lb BMI 28.0 BP 130/82 Blood Pressure Location Rt brachial Position Sitting Intake Visit Reasons: 6 mo f/u Intake Note: Patient presents for 6 month follow up. pcp put him on nervive treatment per our recommendation but it did not do anything for him so he went back on the B complex Allergies amoxicillin [From AUGMENTIN] Allergy (Intermediate, Verified 03/20/24 11:35) RASH clavulanic acid [From AUGMENTIN] Allergy (Intermediate, Verified 03/20/24 11:35) RASH losartan Adverse Reaction (Severe, Verified 03/20/24 11:35) Shortness of Breath Sulfa (Sulfonamide Antibiotics) Adverse Reaction (Intermediate, Verified 03/20/24 11:35) Rash Medication List - Last Reconciled 03/20/24 by LAURYN Herrera albuterol sulfate 90 mcg/actuation 1 inh inhalation QID amlodipine 5 mg PO DAILY 90 days aspirin 81 mg PO DAILY blood pressure monitor As directed clotrimazole-betamethasone 1-0.05 % 1 appl topical BID 2 weeks diclofenac potassium 50 mg PO TID PRN gabapentin 200mg AM and 300mg PM orally 2 times a day; 90 days levothyroxine 125 mcg PO DAILY nystatin (Nystop) 1 appl topical BID nystatin 1 appl topical TID 30 days HPI Comments Details: 74-yr-old female presents for f/u visit of neuropathy. Pt was previously seen by our former colleague, Sherine Longoria NP. Pt denies any significant interval medical changes. Pt continues to have burning sensation in left calf. He can feel the ground when walking. States his low back is good. Denies weakness, numbness. [place] almost 3 miles [place] or in the [place]. He uses Gabapentin 200mg in and 300mg qhs- helps some. Tried Nervive nerve releief x's 4 months w/o effect. PT has helped in the past. Uses a foot vibration device at hime- helps some. Did see [facility] in Jun 2022- offered diagnotic intervention tx and/or LLE vascular study however pt declined. 04/21/23, LLE EMG/NCS: IMPRESSION: 1. This is an abnormal study. 2. There is electrodiagnostic findings showing a combination of sensorimotor polyneuropathy and chronic L5-S1 radiculopathy. CLINICAL COMMENT: Advise caution interpreting results of NCS due to age. Leaning towards radiculopathy since more motor abnormalities were seen rather than sensory. Findings appear chronic. 03/25/23, Lumbar MRI w/o: IMPRESSION: Mild lumbar dextroscoliotic curvature. Straightening of normal lumbar lordosis. Spondylotic changes and facet arthrosis. No findings of fracture or significant listhesis. No findings to suggest an acute posterior disc protrusion. Varying degrees of relative chronic appearing central stenosis and foraminal narrowing as detailed above. No priors are available for comparison. [facility] Medical History Neurogenic claudication Pericarditis Hypothyroid Anxiety Surgical History Hx of cholecystectomy Family History Father No problems noted. Social History Housing: House Unable to assess alcohol history related to: Unknown Alcohol intake: former Patient Tobacco Use Status: Former Tobacco user e-Cigarette/Vaping Use: Never Used Second Hand Smoke Exposure: No service: Yes Current occupational status: retired Current occupational exposures/hazards: No Cognitive needs: No Hearing needs: No Vision needs: No Physical Exam Vital Signs: Last Vital Signs BP 130/82 03/20/24 11:34 BMI result Body Mass Index 28.0 Const General: cooperative and no acute distress Orientation/consciousness: patient oriented x3 Resp Effort & Inspection: normal respiratory effort and able to speak in complete sentences Neuro General: patient oriented x3 Cranial nerves: Yes CN's II-XII intact bilaterally Cognition (Neuro): normal cognition Motor exam (neuro): 5/5 motor strength present throughout Deep tendon reflexes (DTR's): Right patellar reflex intensity grade: 2+ and Left patellar reflex intensity grade: 2+ Psych Appearance: grossly normal Mental Status: mental status grossly normal Speech and movement: Normal speech and movement present Affect: normal affect Attitude: cooperative Results Reviewed Results Reviewed: Exam Date:?03/25/2023 PROCEDURE: MR SPINE LUMBAR without CONTRAST INDICATION: Claudication of both lower extremities, neuropathic pain of bilateral legs and back pain. Symptoms for several months. Fall last year. TECHNIQUE: Unenhanced multiplanar, multisequence MR imaging of the lumbar spine. COMPARISON: None Available. FINDINGS: There is a mild lumbar dextroscoliotic curvature. Straightening of normal lumbar lordosis. No significant listhesis is identified. Loss of intervertebral disc space height throughout with prominent marginal osteophyte formation and facet arthrosis. T2 hyperintensity of the L1-L2 disc material and question a anterior disc protrusion. No associated central stenosis or foraminal narrowing. Mild edematous changes of the L5-S1 endplates of a degenerative nature. Conus and cauda equina of normal appearance. The conus tip L1-L2. No acute paraspinal abnormality identified. Examination through the L1-L2 intervertebral level revealing mild facet arthrosis and prominence of ligamentum flavum with posterior disc osteophyte. There is a mild central stenosis with mild RIGHT lateral recess encroachment. Moderate bilateral foraminal narrowing. Examination through the L2-L3 intervertebral level revealing facet arthrosis. Posterior disc osteophyte. Mild central stenosis. Bilateral lateral recess encroachment. Mild RIGHT foraminal narrowing. Moderate to severe LEFT foraminal narrowing. Examination through the L3-L4 intervertebral level revealing facet arthrosis. Prominence of ligamentum flavum. Posterior disc osteophyte. Mild to moderate central stenosis with bilateral lateral recess encroachment. Severe LEFT foraminal narrowing. Moderate RIGHT foraminal narrowing. Examination through the L4-L5 intervertebral level revealing facet arthrosis and prominence of ligamentum flavum. Posterior disc osteophyte. Minimal central stenosis. Bilateral lateral recess encroachment. Moderate bilateral foraminal narrowing. Examination through the L5-S1 intervertebral level revealing facet arthrosis. Posterior disc osteophyte. No significant central stenosis. Bilateral lateral recess encroachment, RIGHT greater than LEFT. Severe RIGHT foraminal narrowing. Moderate LEFT foraminal narrowing. IMPRESSION: Mild lumbar dextroscoliotic curvature. Straightening of normal lumbar lordosis. Spondylotic changes and facet arthrosis. No findings of fracture or significant listhesis. No findings to suggest an acute posterior disc protrusion. Varying degrees of relative chronic appearing central stenosis and foraminal narrowing as detailed above. No priors are available for comparison. Anton Alvarez MD Signed by Anton Alvarez MD Assessment & Plan Assessment & Plan (1) Lumbar radiculopathy: Code(s): M54.16 - Radiculopathy, lumbar region Category: Medical (2) Spondylosis of lumbar region without myelopathy or radiculopathy: Code(s): M47.816 - Spondylosis without myelopathy or radiculopathy, lumbar region Category: Medical Plan Trial increasing Gabapentin from 200mg in am and 300mg qhs to 200mg bid and 300mg qhs. Note pt does does not have prescription drug coverage. May try OTC neuropathy lotions/creams- such as capsaicin tx's or salon-pas. Continue daily walks and vibration device. Future considerations- LLE vascular studies, referral back to pain management. Pt to follow-up in 6 months or sooner prn. Medications: Changed From gabapentin 200mg AM and 300mg PM orally 2 times a day; 90 days 450 caps 2RF To gabapentin 200mg BID and 300mg qhs orally 90 days 630 caps 2RF Coding Level of Care Code Est Pt Level 4 (92024) Diagnoses Lumbar radiculopathy M54.16 Spondylosis of lumbar region without myelopathy or radiculopathy M47.816
[2024-03-20 11:34] VITALS: BP 130/82; BMI 28.0
== END 2024-03-20 12:29 | disposition home or self-care (01) ==
PROVIDERS: PCP Nurse Practitioner Family; Visit Provider Nurse Practitioner Family
DX: M54.16 Radiculopathy, lumbar region (principal); M47.816 Spondylosis without myelopathy or radiculopathy, lumbar region
CPT/HCPCS: 99214

== ENCOUNTER → 2024-03-20 11:21 | Outpatient (BNVA) | payer MEDICARE, SELFPAY | PROVIDERS: PCP Nurse Practitioner Family; Visit Provider Nurse Practitioner Family | DX: M47.26 Other spondylosis with radiculopathy, lumbar region (principal) | CPT/HCPCS: 99212 ==

== ENCOUNTER 2024-03-25 12:32 | Emergency (ER) | payer MEDICARE, SELFPAY ==
--- NOTE | ~2024-03-25 | CT_ITS ---
EXAMINATION: CT HEAD WITHOUT CONTRAST CT CERVICAL SPINE WITHOUT CONTRAST CLINICAL INFORMATION: Trauma. Pain. COMPARISON: None. TECHNIQUE: Imaging was performed from the skull base to vertex without intravenous administration of contrast. In addition, helical noncontrast CT imaging was acquired through the cervical spine and source images were reviewed along with axial reconstructions and sagittal and coronal MPRs. [This CT examination was performed using dose optimization techniques as appropriate, variously including the following: *Automated exposure control *Adjustment of mA and/or kV according to patient size (this includes techniques or standardized protocols for targeted exams where dose is matched to indication/reason for exam; i.e. extremities or head) *Use of iterative reconstruction technique] DLP: 1240 mGy-cm FINDINGS: HEAD: No intracranial mass, hemorrhage, or midline shift is visualized. The ventricles and sulci are proportional. No extra-axial collections are identified. The paranasal sinuses and mastoid air cells are well aerated. CERVICAL SPINE: There is no evidence of acute cervical spine fracture. Vertebral bodies remain normal in height. Cervical vertebrae have normal alignment. There is multilevel degenerative spondylosis of the cervical spine with disc height narrowing and endplate spurs and facet joint arthrosis No pre- or paravertebral soft tissue abnormality is identified. Limited assessment of the lung apices is unremarkable. CT/CT cervical spine wo IV con IMPRESSION: 1. No acute intracranial pathology. 2. No CT evidence of acute cervical spine fracture or traumatic subluxation Electronically signed by: Henrique Pickering MD 03/25/2024 05:58 PM EDT
--- NOTE | ~2024-03-25 | CT_ITS ---
EXAMINATION: CT HEAD WITHOUT CONTRAST CT CERVICAL SPINE WITHOUT CONTRAST CLINICAL INFORMATION: Trauma. Pain. COMPARISON: None. TECHNIQUE: Imaging was performed from the skull base to vertex without intravenous administration of contrast. In addition, helical noncontrast CT imaging was acquired through the cervical spine and source images were reviewed along with axial reconstructions and sagittal and coronal MPRs. [This CT examination was performed using dose optimization techniques as appropriate, variously including the following: *Automated exposure control *Adjustment of mA and/or kV according to patient size (this includes techniques or standardized protocols for targeted exams where dose is matched to indication/reason for exam; i.e. extremities or head) *Use of iterative reconstruction technique] DLP: 1240 mGy-cm FINDINGS: HEAD: No intracranial mass, hemorrhage, or midline shift is visualized. The ventricles and sulci are proportional. No extra-axial collections are identified. The paranasal sinuses and mastoid air cells are well aerated. CERVICAL SPINE: There is no evidence of acute cervical spine fracture. Vertebral bodies remain normal in height. Cervical vertebrae have normal alignment. There is multilevel degenerative spondylosis of the cervical spine with disc height narrowing and endplate spurs and facet joint arthrosis No pre- or paravertebral soft tissue abnormality is identified. Limited assessment of the lung apices is unremarkable. CT/CT head/brain wo IV con IMPRESSION: 1. No acute intracranial pathology. 2. No CT evidence of acute cervical spine fracture or traumatic subluxation Electronically signed by: Henrique Pickering MD 03/25/2024 05:58 PM EDT
[2024-03-25 12:34] VITALS: BP 142/84; PULSE 96; RESP 16; TEMP 36.6; O2SAT 99; BMI 28.3
--- NOTE | 2024-03-25 12:38 | ED.GENADULT ---
HPI - General Adult General Chief complaint: Weakness Stated complaint: weakness-burning in back of head Time Seen by Provider: 03/25/24 16:20 Source: patient Limitations: no limitations History of Present Illness ED Provider: Shasha Ortiz PA-C HPI narrative: 74-year-old male with a history of hypertension, hyperlipidemia, hypothyroidism, diabetes with neuropathy, peripheral arterial disease, presents with ongoing neck pain with new right posterior headache since earlier today. Patient states he fell during the summer, x-rays were obtained, he was noted to have significant arthritis of the cervical spine. Today, patient has developed a right-sided posterior headache. The pain originates in the right side of the neck and radiates upward. Pain worse with movement of the neck. Denies visual changes, dizziness, nausea, vomiting. Denies weakness of upper extremity or paresthesia. Patient has not had additional neck trauma. No recent cough cold symptoms or fever. Related Data Home Medications ?Medication ?Instructions ?Recorded ?Confirmed albuterol sulfate 90 mcg/actuation 1 inh inhalation QID 10/15/22 03/20/24 aerosol inhaler aspirin 81 mg tablet,delayed 81 mg PO DAILY 10/15/22 03/20/24 release Previous Rx's ?Medication ?Instructions ?Recorded blood pressure monitor #1 ea 12/10/21 nystatin 100,000 unit/gram topical 1 appl topical TID 30 days #30 10/23/23 cream grams nystatin 100,000 unit/gram topical 1 appl topical BID #30 grams 10/23/23 powder (Nystop) amlodipine 5 mg tablet 5 mg PO DAILY 90 days #90 tabs 11/15/23 clotrimazole-betamethasone 1 1 appl topical BID 2 weeks #45 11/24/23 %-0.05 % topical cream grams levothyroxine 125 mcg tablet 125 mcg PO DAILY #90 tabs 01/31/24 diclofenac potassium 50 mg tablet 50 mg PO TID PRN pain #10 tabs 02/04/24 gabapentin 100 mg capsule See Rx Instructions PO .COMPLEX 90 03/20/24 days #630 caps methocarbamol 750 mg tablet 750 mg PO QID PRN pain #20 tabs 03/25/24 methylprednisolone 4 mg tablets in 4 mg PO QAM #1 ea 03/25/24 a dose pack (Medrol ([place])) Allergies Allergy/AdvReac Type Severity Reaction Status Date / Time amoxicillin [From AUGMENTIN] Allergy Intermediate RASH Verified 03/25/24 12:37 clavulanic acid Allergy Intermediate RASH Verified 03/25/24 12:37 [From AUGMENTIN] losartan AdvReac Severe Shortness Verified 03/25/24 12:37 of Breath Sulfa (Sulfonamide AdvReac Intermediate Rash Verified 03/25/24 12:37 Antibiotics) Review of Systems Review of Systems: No all other systems are reviewed and are negative Constitutional: Constitutional: Denies fever(s) and Reports headache(s) ENT: Reports headache(s) and Reports neck pain Cardiovascular: Cardiovascular: Denies chest pain and Denies dyspnea Respiratory: Respiratory: Denies cough and Denies dyspnea Gastrointestinal: Gastrointestinal: Denies abdominal pain, Denies nausea and Denies vomiting Musculoskeletal: Musculoskeletal: Reports neck pain and Denies radiating pain into limb Neurologic: Reports headache(s) and Denies paresthesias REPLACED BY [facility] Past Medical History Attestation statement: The following information was validated with the patient. Medical History Neurogenic claudication Pericarditis Hypothyroid Anxiety Surgical History Hx of cholecystectomy Family History Family History Father No problems noted. Social History Social History Housing: House Unable to assess alcohol history related to: Unknown Alcohol intake: former Patient Tobacco Use Status: Former Tobacco user e-Cigarette/Vaping Use: Never Used Second Hand Smoke Exposure: No Use of substances other than those prescribed or required for medical reasons: No Advance Directives: No Advance Directives Information Provided: Yes Do you have a plan to hurt others: No Plan service: Yes Current occupational status: retired Current occupational exposures/hazards: No Cognitive needs: No Hearing needs: No Vision needs: No Physical Exam ED Vital Signs: Vital Signs - 24 hr 03/25/24 12:34 03/25/24 13:41 03/25/24 16:20 Temperature 97.9 F 97.5 F 98.2 F Pulse Rate 96 81 78 Respiratory Rate 16 18 16 Blood Pressure 142/84 H 153/78 H 134/78 Pulse Oximetry 99 96 99 Oxygen Delivery Method Room Air Room Air Room Air BMI result Body Mass Index 28.3 Const Other: Alert, overall well in appearance Orientation/consciousness: patient oriented x3 Neck Other: Pain elicited with range of motion of the neck, however he has full range of motion, no meningeal signs on exam Resp Effort & Inspection: normal respiratory effort Cardio Other: Normal peripheral perfusion Skin Other: Warm dry no rash Neuro General: patient oriented x3, gait normal, no focal motor deficits and CN's II-XI intact bilaterally Extrem Other: Strength 5/5 bilateral upper extremities Psych Other: Calm cooperative Course Course Course Narrative: This is an RME: Additional HPI, ROS, PE not included below will be deferred to primary provider. RME assessment and note performed by: Lidia Gutierrez PA-C This is a [id number], with a hx of neurogenic claudication, pericarditis, hypothyroid, and anxiety, who presents to the ER with complaints of generalized weakness and fatigue upon wakening this morning. No chest pain or shortness for breath. No neurologic focal deficits on examination. He reports a burning sensation to the back of his head Plan: Labs, EKG, viral swabs Medications Administered Discontinued Medications Generic Name Dose Route Start Last Admin Trade Name Freq PRN Reason Stop Dose Admin Methocarbamol 750 mg 03/25/24 16:40 03/25/24 16:50 Methocarbamol 750 Mg Tablet PO 03/25/24 16:41 750 mg ONCE ONE Administration Prednisone 60 mg 03/25/24 16:40 03/25/24 16:50 Prednisone 20 Mg Tablet PO 03/25/24 16:41 60 mg ONCE ONE Administration Medical Decision Making Medical Decision Making [facility] Narrative: 74-year-old male with a history of hypertension, hyperlipidemia, hypothyroidism, diabetes with neuropathy, peripheral arterial disease, presents with ongoing neck pain with new right posterior headache since earlier today. Patient states he fell during the summer, x-rays were obtained, he was noted to have significant arthritis of the cervical spine. Today, patient has developed a right-sided posterior headache. The pain originates in the right side of the neck and radiates upward. Pain worse with movement of the neck. Denies visual changes, dizziness, nausea, vomiting. Denies weakness of upper extremity or paresthesia. Patient has not had additional neck trauma. Problem: Known neck injury, diabetes, age History: Per patient I have considered the following differential diagnoses: Cervical radiculopathy, herniated disc, tension headache, meningitis, intracranial hemorrhage, VAD, Plan: The patient's symptoms are somewhat chronic, however the headache is new. I am considering VAD, however there was not a preceding lifting injury today, he is not having visual changes, no dizziness or nausea, and he is neurologically intact. He is also not having radicular symptoms. Perhaps he has developed a compression fracture, I will be scanning his head and neck. I do not think this is intracranial hemorrhage, again he is not altered, he is neurologically intact, no trauma today and he is not on thinners. Thought about meningitis given concurrent headache and neck pain, however again no meningeal signs, he is afebrile he is not altered and he has full range of motion of the neck. The headache is likely a tension headache from his arthritic changes in the neck. We will be giving Methocarbamol and steroid. I have independently reviewed the following tests: CT brain and cervical spine:CT HEAD WITHOUT CONTRAST CT CERVICAL SPINE WITHOUT CONTRAST CLINICAL INFORMATION: Trauma. Pain. COMPARISON: None. TECHNIQUE: Imaging was performed from the skull base to vertex without intravenous administration of contrast. In addition, helical noncontrast CT imaging was acquired through the cervical spine and source images were reviewed along with axial reconstructions and sagittal and coronal MPRs. [This CT examination was performed using dose optimization techniques as appropriate, variously including the following: *Automated exposure control *Adjustment of mA and/or kV according to patient size (this includes techniques or standardized protocols for targeted exams where dose is matched to indication/reason for exam; i.e. extremities or head) *Use of iterative reconstruction technique] DLP: 1240 mGy-cm FINDINGS: HEAD: No intracranial mass, hemorrhage, or midline shift is visualized. The ventricles and sulci are proportional. No extra-axial collections are identified. The paranasal sinuses and mastoid air cells are well aerated. CERVICAL SPINE: There is no evidence of acute cervical spine fracture. Vertebral bodies remain normal in height. Cervical vertebrae have normal alignment. There is multilevel degenerative spondylosis of the cervical spine with disc height narrowing and endplate spurs and facet joint arthrosis No pre- or paravertebral soft tissue abnormality is identified. Limited assessment of the lung apices is unremarkable. CT/CT cervical spine wo IV con IMPRESSION: 1. No acute intracranial pathology. 2. No CT evidence of acute cervical spine fracture or traumatic subluxation Electronically signed by: Henrique Pickering MD 03/25/2024 05:58 PM EDT RP Discussed findings with the patient, I advised that he likely requires an MRI as an outpatient. He will likely have physical therapy as well. He is in agreement with the plan, we will send with a steroid taper and muscle relaxant, he notes that the muscle relaxant was helpful Lab Data 03/25/24 12:51 03/25/24 12:51 Labs: Lab Results 03/25/24 Range/Units 12:51 WBC 9.4 (4.8-10.8) X10*3/uL RBC 5.02 (4.60-5.80) X10*6/uL Hgb 15.8 (14.0-18.0) g/dl Hct 46.0 (42.0-52.0) % MCV 91.6 (80.0-98.0) fL MCH 31.5 (27.0-33.0) pg MCHC 34.3 (31.0-36.0) g/dl RDW 13.1 (11.0-16.0) % Plt Count 279 (160-400) X10*3/uL MPV 8.5 L (9.4-12.4) fL Immature Gran % (Auto) 0.2 (0.0-0.4) % Neut % (Auto) 68.6 (45-73) % Lymph % (Auto) 22.9 (20-40) % [place] % (Auto) 6.7 (2-11) % Eos % (Auto) 1.1 (0-4) % Baso % (Auto) 0.5 (0-2) % Lymph # (Auto) 2.2 (1.2-4.9) X10*3/uL [place] # (Auto) 0.6 (0.1-1.2) X10*3/uL Eos # (Auto) 0.1 (0.0-0.4) X10*3/uL Baso # (Auto) 0.1 (0.0-0.2) X10*3/uL Abs Immat Gran (auto) 0.02 (0.00-0.03) X10*3/uL Absolute Neuts (auto) 6.5 (2.0-8.3) x10*3/uL Absolute Nucleated RBC 0.000 (0.0-0.012) X10*3/uL Nucleated RBC % (auto) 0.0 (0.0-0.2) /100WBC ESR 5 (0-15) MM/HR PT 10.8 L (10.9-12.4) SEC INR 0.9 (0.9-1.1) APTT 28.3 (26.0-36.8) SEC Sodium 140 (135-145) mmol/L Potassium 3.9 (3.3-5.1) mmol/L Chloride 104 (96-108) mmol/L Carbon Dioxide 26 (22-29) mmol/L Anion Gap 14 (12-20) BUN 11 (9-16) mg/dL Creatinine 0.96 (0.5-1.4) mg/dL Estim Creat Clear Calc 74.8 Estimated GFR > 60 Random Glucose 162 H (60-115) mg/dL Calcium 9.9 (8.4-10.2) mg/dL Magnesium 2.5 (1.6-2.6) mg/dL Total Bilirubin 1.3 H (0.0-1.0) mg/dL Direct Bilirubin 0.4 (0.0-0.5) mg/dL AST 32 (5-37) U/L ALT 50 H (0-40) U/L Alkaline Phosphatase 93 (39-117) U/L Troponin I High Sens < 2.7 (<3.5-35.0) ng/L C-Reactive Protein 0.56 H (< or = 0.50) mg/dL Total Protein 7.6 (6.5-8.0) g/dL Albumin 4.7 (3.5-5.0) g/dL Influenza Type A (PCR) NEGATIVE (Negative) Influenza Type B (PCR) NEGATIVE (Negative) RSV RNA Qual (PCR) NEGATIVE (Negative) SARS-CoV-2 RNA (RT-PCR) NEGATIVE (Negative) Discharge Plan Discharge Clinical Impression: Degenerative disc disease, cervical Patient Disposition: Home, Self-Care Instructions: Degenerative Disc Disease (ED) Additional Instructions: The CT scan of your brain was normal, you were found to have degenerative disc disease associated with your cervical spine, in addition to the arthritic changes you were already aware of. The next step would be for you to have an MRI as an outpatient. Call your primary care provider for follow-up. Use the Medrol Dosepak as directed, this is the steroid taper. Use of methocarbamol as needed for your discomfort. To note this medication can cause drowsiness, do not drive or operate machinery while taking the medication. To note, you were given 750 mg today in the emergency department which helped your discomfort. If you develop further discomfort, it will be appropriate for you to take 2 tablets. Prescriptions: New methylprednisolone [Medrol ([place])] 4 mg tablets,dose pack 4 mg PO QAM Qty: 1 0RF Rx Instructions: take per package instructions methocarbamol 750 mg tablet 750 mg PO QID PRN (Reason: pain) Qty: 20 0RF No Action amlodipine 5 mg tablet 5 mg PO DAILY 90 Days Qty: 90 1RF Rx Instructions: hold for bp of less than 100/50 levothyroxine 125 mcg tablet 125 mcg PO DAILY Qty: 90 1RF aspirin 81 mg tablet,delayed release (DR/EC) 81 mg PO DAILY albuterol sulfate 90 mcg/actuation HFA aerosol inhaler 1 inh inhalation QID (DME) blood pressure monitor Kit See Rx Instructions .Route Qty: 1 0RF Rx Instructions: As directed nystatin 100,000 unit/gram cream 1 appl topical TID 30 Days Qty: 30 2RF Rx Instructions: apply to affected area nystatin [Nystop] 100,000 unit/gram powder 1 appl topical BID Qty: 30 2RF clotrimazole-betamethasone 1-0.05 % cream 1 appl topical BID 14 Days Qty: 45 0RF diclofenac potassium 50 mg tablet 50 mg PO TID PRN (Reason: pain) Qty: 10 0RF gabapentin 100 mg capsule See Rx Instructions PO .COMPLEX 90 Days Qty: 630 2RF Rx Instructions: 200mg BID and 300mg qhs orally Interventions: ED Discharge Assessment Last Done: 03/25/24 18:38 Discharge Date/Time: 03/25/24 18:41 Print Language: Macanese
--- NOTE | 2024-03-25 12:41 | ECG_ITS ---
Test Reason : fatigue Blood Pressure : / mmHG Vent. Rate : 088 BPM Atrial Rate : 088 BPM P-R Int : 196 ms QRS Dur : 088 ms QT Int : 350 ms P-R-T Axes : 062 005 050 degrees QTc Int : 423 ms Normal sinus rhythm Inferior infarct (cited on or before 12-JUN-2023) Cannot rule out Anterior infarct , age undetermined Abnormal ECG When compared with ECG of 17-DEC-2023 17:39, No significant change was found Referred By: Liida Gutierrez Electronically Signed By:CHRISTIAN WEISS
[2024-03-25 12:59] LABS: MANUAL DIFF FLAG NO
[2024-03-25 13:04] LABS: Basophils Absolute Auto 0.1 X10*3/uL (0.0-0.2); Basophils Percent Auto 0.5 % (0-2); Eosinophils Absolute Auto 0.1 X10*3/uL (0.0-0.4); Eosinophils Percent Auto 1.1 % (0-4); Hemoglobin 15.8 g/dl (14.0-18.0); Imm Gran Abs Auto 0.02 X10*3/uL (0.00-0.03); Imm Gran Pct Auto 0.2 % (0.0-0.4); Lymphocytes Absolute Auto 2.2 X10*3/uL (1.2-4.9); Lymphocytes Percent Auto 22.9 % (20-40); Mean Corpuscular HGB Conc 34.3 g/dl (31.0-36.0); Mean Corpuscular Hemoglobin 31.5 pg (27.0-33.0); Mean Corpuscular Volume 91.6 fL (80.0-98.0); Mean Platelet Volume 8.5 fL (9.4-12.4); Monocytes Absolute Auto 0.6 X10*3/uL (0.1-1.2); Monocytes Percent Auto 6.7 % (2-11); Neutrophils Absolute Auto 6.5 x10*3/uL (2.0-8.3); Neutrophils Percent Auto 68.6 % (45-73); Platelet Count 279 X10*3/uL (160-400); Red Blood Count 5.02 X10*6/uL (4.60-5.80); Red Cell Distribution Width 13.1 % (11.0-16.0); White Blood Count 9.4 X10*3/uL (4.8-10.8)
[2024-03-25 13:15] LABS: Alanine Aminotransferase 50 U/L (0-40); Albumin Level 4.7 g/dL (3.5-5.0); Alkaline Phosphatase 93 U/L (39-117); Anion Gap 14 (12-20); Aspartate Amino Transferase 32 U/L (5-37); Bilirubin Direct 0.4 mg/dL (0.0-0.5); Bilirubin Total 1.3 mg/dL (0.0-1.0); Blood Urea Nitrogen 11 mg/dL (9-16); C Reactive Protein 0.56 mg/dL (< or = 0.50); Calcium 9.9 mg/dL (8.4-10.2); Carbon Dioxide 26 mmol/L (22-29); Chloride 104 mmol/L (96-108); Creatinine Clr Calc Pharmacy 74.8; Estimated Glomerular Filt Rate > 60; Glucose Random 162 mg/dL (60-115); Magnesium 2.5 mg/dL (1.6-2.6); Potassium 3.9 mmol/L (3.3-5.1); Sodium 140 mmol/L (135-145); Total Protein 7.6 g/dL (6.5-8.0)
[2024-03-25 13:23] LABS: Troponin-I High Sensitivity < 2.7 ng/L (<3.5-35.0)
[2024-03-25 13:25] LABS: INTERNATIONAL NORM RATIO 0.9 (0.9-1.1); Prothrombin Time 10.8 SEC (10.9-12.4)
[2024-03-25 13:28] LABS: Partial Thromboplastin Time 28.3 SEC (26.0-36.8)
[2024-03-25 13:41] VITALS: BP 153/78; PULSE 81; RESP 18; TEMP 36.4; O2SAT 96
[2024-03-25 13:41] LABS: Influenza A PCR NEGATIVE (Negative); Influenza B PCR NEGATIVE (Negative); Resp Syncy Virus RNA Qual PCR NEGATIVE (Negative); SARS COV2 PCR INHOUSE NEGATIVE (Negative)
--- NOTE | 2024-03-25 13:46 | PC.NURSE ---
patient presents ambulatory with steady gait through external triage, patient states he has felt generally weak for the last weak or so and he is also complaining of a burning sensation to the back of his head that radiates to the right side, states it feels as if his head is on fire but only on the right side, no rash appreciated, states he received his chicken pox vaccine when he was a child. patient alert and oriented x4, no neuro deficits appreciated, ambulatory with steady gait to ED Rm 22, patient speaking in clear and complete sentences and answering questions appropriately. patient states he has had the burning pain in the back of his head for a while now, denies any recent falls, denies fevers or chills, denies sick contacts, denies chest pain, shortness of breath, cough, difficulty or painful urination, nausea or vomiting. physical assessment WNL, patient vs WNL, changing into appropriate hospital attire, awaiting MD almaraz at this time
[2024-03-25 13:53] LABS: Erythrocyte Sedimentation Rate 5 MM/HR (0-15)
[2024-03-25 16:20] VITALS: BP 134/78; PULSE 78; RESP 16; TEMP 36.8; O2SAT 99
[2024-03-25] MEDS: predniSONE 20 MG TABLET 60 MG PO (16:50)
[2024-03-25] MEDS: methocarbamoL 750 MG TABLET PO (16:50)
[2024-03-25 18:38] VITALS: BP 134/78; PULSE 78; RESP 16; TEMP 36.8; O2SAT 99
== END 2024-03-25 18:41 | disposition home or self-care (01) ==
PROVIDERS: Physician Assistant Medical; Emergency Provider Emergency Medicine Emergency Medical Services; PCP Nurse Practitioner Family
DX: M50.30 Other cervical disc degeneration, unspecified cervical region (principal); R51.9 Headache, unspecified; E03.9 Hypothyroidism, unspecified; R53.83 Other fatigue; I10 Essential (primary) hypertension; E78.5 Hyperlipidemia, unspecified; E11.9 Type 2 diabetes mellitus without complications; Z79.899 Other long term (current) drug therapy
CPT/HCPCS: 0241U; 36415; 70450; 72125; 80048; 80076; 83735; 84484; 85025; 85610; 85652; 85730; 86140; 93005; 99284; 99285

== ENCOUNTER 2024-03-30 11:23 | Outpatient (AMB) | payer MEDICARE, SELFPAY ==
[2024-03-30 11:25] VITALS: BP 130/80; PULSE 92; O2SAT 96; BMI 28.0
--- NOTE | 2024-03-30 11:25 | MHC.PC.OV ---
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 Accompanied by: Self / Same As Patient Allergies amoxicillin [From AUGMENTIN] Allergy (Intermediate, Verified 03/30/24 11:25) RASH clavulanic acid [From AUGMENTIN] Allergy (Intermediate, Verified 03/30/24 11:25) RASH losartan Adverse Reaction (Severe, Verified 03/30/24 11:25) Shortness of Breath Sulfa (Sulfonamide Antibiotics) Adverse Reaction (Intermediate, Verified 03/30/24 11:25) Rash Medication List - Last Reconciled 03/30/24 by MIA MuñizP- albuterol sulfate 90 mcg/actuation 1 inh inhalation QID amlodipine 5 mg PO DAILY 90 days aspirin 81 mg PO DAILY blood pressure monitor As directed clotrimazole-betamethasone 1-0.05 % 1 appl topical BID 2 weeks gabapentin 200mg BID and 300mg qhs orally 90 days levothyroxine 125 mcg PO DAILY meloxicam 15 mg PO DAILY PRN 30 days methocarbamol 750 mg PO QID PRN methylprednisolone (Medrol (Burton)) 4 mg PO QAM nystatin (Nystop) 1 appl topical BID nystatin 1 appl topical TID 30 days Tobacco use date assessed: 07/29/23 Fall risk assessment: No Falls in past year Last assessed Fall Risk: 03/30/24 Dental Screening Dental Screen Date: 07/29/23 HPI 4m F/U HPI Details Pt was seen in the ER on 03/25 c/o cervical neck pain with right posterior headache. He had a previous XR which showed arthritis. CT showed no evidence of acute cervical spine fracture or traumatic subluxation. Pt was given medrol burton and methocarbamol. He reports that these are working well. Will refill methocarbamol. Will also send meloxicam. Pt has a hx of elevated liver enzymes. Encouraged pt to watch his diet and exercise. Will order US. Denies fever, chills, and dizziness. [facility] Medical History Neurogenic claudication Pericarditis Hypothyroid Anxiety Surgical History Hx of cholecystectomy Family History Father No problems noted. Social History Housing: House Unable to assess alcohol history related to: Unknown Alcohol intake: former Patient Tobacco Use Status: Former Tobacco user e-Cigarette/Vaping Use: Never Used Second Hand Smoke Exposure: No service: Yes Current occupational status: retired Current occupational exposures/hazards: No Cognitive needs: No Hearing needs: No Vision needs: No Questionnaire PHQ-9 Over the last 2 weeks, how often have you been bothered by any of the following problems? 1. Little interest or pleasure in doing things: not at all 2. Feeling down, depressed, or hopeless: not at all 3. Trouble falling or staying asleep, or sleeping too much: not at all 4. Feeling tired or having little energy: not at all 5. Poor appetite or overeating: not at all 6. Feeling bad about yourself - or that you are a failure or have let yourself or your family down: not at all 7. Trouble concentrating on things, such as reading the newspaper or watching television: not at all 8. Moving or speaking so slowly that other people could have noticed. Or the opposite - being so fidgety or restless that you have been moving around a lot more than usual: not at all 9. Thoughts that you would be better off or of hurting yourself in some way: not at all Total score: 0 Depression Screening Interpretation: Negative Depression Screening Done: Yes 52538 - PHQ-9 Billing: Yes Source: Developed by Drs. Danis Witt, Mavis Emanuel, Mike Nelson and colleagues, with an educational paolo from [employer]. Thrive Questionnaire Date Thrive assessed: 03/30/24 I am a: Patient What is your living situation today?: I have a steady place to live Within the past 12 months, did the food you bought not last and you didn't have the money to get more?: Never true Within the past 12 months, did you worry whether your food would run out before you got money to buy more?: Never true Do you have trouble paying for medicines?: No Do you have trouble getting transportation to medical appointments?: No Do you have trouble paying your heating and electricity bill?: No Do you have trouble taking care of your child, family member or friend?: No Do you have trouble with day-to-day activities such as bathing, preparing meals, shopping, managing finances, etc.?: No Are you interested in more education?: No Please select the resources that you would like help with: None Currently or been in a relationship where the following occur: No concerns reported THRIVE Score: 0 AUDIT C Alcohol Use Questionnaire (AUDIT-C) 1. How often do you have a drink containing alcohol?: Never 3. How often do you have six or more drinks on one occasion?: Never Total Score: 0 Score Reviewed/Action Taken: Yes DOMINGO-7 AMB Questionnaire DOMINGO-7 Date DOMINGO - 7 assessed: 03/30/24 Feeling nervous, anxious, or on edge: 0 = Not at all Not being able to stop or control worryin = Not at all Worrying too much about different things: 0 = Not at all Trouble relaxin = Not at all Being so restless that it is hard to sit still: 0 = Not at all Becoming easily annoyed or irritable: 0 = Not at all Feeling afraid as if something awful might happen: 0 = Not at all Total DOMINGO-7 score (0-4 normal; 5-9 mild; 10-14 moderate; 15-21 severe): 0 Source: Developed by Drs. Danis Witt, Mavis Emanuel, Mike Nelson and colleagues, with an educational paolo from [employer]. DOMINGO-7 Assessment Billing DOMINGO-7 Assessment Tool: DOMINGO-7 Assessment 99815 Review of Systems Const Reports as per HPI Physical exam (Primary Care) Vital Signs: Last Vital Signs Pulse 92 03/30/24 11:25 BP 130/80 03/30/24 11:25 Pulse Ox 96 03/30/24 11:25 BMI result Body Mass Index 28.0 Tobacco/Smoking Status: Tobacco use Status Tobacco use date assessed 07/29/23 03/30/24 11:26 Patient Tobacco Use Status Former Tobacco user 03/30/24 11:26 e-Cigarette/Vaping Use Never Used 03/30/24 11:26 PHQ-9: PHQ-9 Score PHQ-9: Total score 0 03/30/24 11:57 Depression Screening Interpretation: Negative Thrive Assessment: Date of Thrive Assessment Date Thrive assessed 03/30/24 03/30/24 11:26 Currently or been in a relationship where the following occur: No concerns reported Const General: cooperative Orientation/consciousness: patient oriented x3 Resp Effort & Inspection: normal respiratory effort Auscultation: clear to auscultation bilaterally Cardio Rate: regular rate Rhythm: regular rhythm Heart sounds: S1 normal heart sound present and S2 normal heart sound present Neuro General: patient oriented x3 Extrem Right lower extremity: no edema Left lower extremity: no edema Psych Appearance: grossly normal Mental Status: mental status grossly normal Speech and movement: Normal speech and movement present Affect: normal affect Attitude: cooperative Thought process: Normal thought process present Thought content: Normal thought content present Insight: Good insight present (Psych) Judgement: Good judgement present (Psych) Coding Level of Care Code Est Pt Level 3 (34434) Diagnoses Elevated liver enzymes R74.8 Additional Codes DOMINGO-7 Assessment Billing - DOMINGO-7 Assessment Tool: DOMINGO-7 Assessment 06803 ([id number]) Assessment & Plan Assessment & Plan (1) Elevated liver enzymes: Code(s): R74.8 - Abnormal levels of other serum enzymes Category: Medical Plan: US ordered, encouraged to watch diet and exercise Plan The patient agreed to the use of a director of medical staff services for this encounter. Scribed for JACE Gomez by La Tang director of medical staff services, on 03/30/2024 at 11:40 EST. Orders: Orders Comprehensive [place]. Panel Fast Today R74.8 - Abnormal levels of other serum enzymes TSH reflex Free T4 Today R74.8 - Abnormal levels of other serum enzymes Lipid Panel Today R74.8 - Abnormal levels of other serum enzymes US abdomen complete Today R74.8 - Abnormal levels of other serum enzymes Complete Blood Count Auto Diff Today R74.8 - Abnormal levels of other serum enzymes UA CC w/rflx Micro + Cult Today R74.8 - Abnormal levels of other serum enzymes Medications: New meloxicam 15 mg PO DAILY 30 days PRN 30 tabs 0RF pain Refilled methocarbamol 750 mg PO QID PRN 20 tabs 0RF pain
== END 2024-03-30 16:41 | disposition home or self-care (01) ==
PROVIDERS: PCP Nurse Practitioner Family; Visit Provider Nurse Practitioner Family
DX: R74.8 Abnormal levels of other serum enzymes (principal)

== ENCOUNTER → 2024-03-30 11:23 | Outpatient (BNVA) | payer MEDICARE, SELFPAY | PROVIDERS: PCP Nurse Practitioner Family; Visit Provider Nurse Practitioner Family | DX: R74.8 Abnormal levels of other serum enzymes (principal) | CPT/HCPCS: 96127; 99212 ==

== ENCOUNTER 2024-04-12 11:17 | Outpatient (REF) | payer MEDICARE, SELFPAY ==
--- NOTE | ~2024-04-12 | US_ITS ---
EXAMINATION: US ABDOMEN COMPLETE CLINICAL INFORMATION: Abnormal levels of other serum enzymes. Elevated liver enzymes. COMPARISON: CTA chest 02/14/2023. CT abdomen and pelvis 01/27/2017. TECHNIQUE: Real-time imaging of the abdominal viscera. FINDINGS: PANCREAS: Pancreas not well visualized obscured by bowel gas. ABDOMINAL AORTA: The proximal, mid, and distal segments are normal in caliber. INFERIOR VENA CAVA: Visualized portions are normal. LIVER: The liver is normal in size. The liver contour is normal. No focal hepatic lesion. There is no intrahepatic biliary duct dilatation seen. GALLBLADDER: Surgically absent. COMMON BILE DUCT: Normal in caliber measuring 0.8 cm in diameter. RIGHT KIDNEY: No hydronephrosis or renal calculi. The kidney measures 10.1 cm in maximum dimension. Cyst in the right kidney upper pole 1.4 cm. These commonly benign, no follow-up imaging is indicated. LEFT KIDNEY: Normal. No hydronephrosis. No renal calculi or focal parenchymal lesions. The kidney measures 11.6 cm in maximum dimension. SPLEEN: Normal. The spleen measures 8.7 cm in maximum dimension. FREE FLUID: None. US/US abdomen complete IMPRESSION: 1. No ultrasound explanation for patient's elevated LFTs. 2. Pancreas not well visualized obscured by bowel gas. 3. Gallbladder has been removed. 4. No ultrasound evidence of intra or extrahepatic biliary dilatation. Electronically signed by: Roberto Vizcaino MD 05/14/2024 06:50 PM MANUEL
== END 2024-04-12 11:18 | disposition home or self-care (01) ==
LOC: HO.US 11:17
PROVIDERS: Visit Provider Nurse Practitioner Family
DX: R74.8 Abnormal levels of other serum enzymes (principal)
CPT/HCPCS: 76700

== ENCOUNTER 2024-04-15 11:13 | Outpatient (AMB) | payer MEDICARE, SELFPAY ==
[2024-04-15 11:23] VITALS: BP 114/64; PULSE 90; TEMP 36.7; O2SAT 95; BMI 27.8
--- NOTE | 2024-04-15 11:23 | MHC.OFFWIV ---
Intake Vital Signs 04/15/24 11:23 Height 5 ft 10 in Weight 194 lb BMI 27.8 BP 114/64 Blood Pressure Location Rt brachial Position Sitting Pulse 90 Pulse Source Pulse Oximeter Temp 98.1 F Temp Source Oral Pulse Oximetry (%) 95 Oxygen Delivery Method Room Air Intake Visit Reasons: EP- lt foot toe nail fell Intake Note: Pt is here today Lt foot small toe nail fell Patient Tobacco Use Status: Former Tobacco user Allergies amoxicillin [From AUGMENTIN] Allergy (Intermediate, Verified 04/15/24 11:24) RASH clavulanic acid [From AUGMENTIN] Allergy (Intermediate, Verified 04/15/24 11:24) RASH losartan Adverse Reaction (Severe, Verified 04/15/24 11:24) Shortness of Breath Sulfa (Sulfonamide Antibiotics) Adverse Reaction (Intermediate, Verified 04/15/24 11:24) Rash HPI HPI Comments History of Present Illness Details Pt presents for L toe injury 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 Social History Housing: House Unable to assess alcohol history related to: Unknown Alcohol intake: former Patient Tobacco Use Status: Former Tobacco user e-Cigarette/Vaping Use: Never Used Second Hand Smoke Exposure: No service: Yes Current occupational status: retired Current occupational exposures/hazards: No Cognitive needs: No Hearing needs: No Vision needs: No Review of Systems Const Denies chills and Denies fever(s) Musc Reports numbness (chronic neuropathy), Denies stiffness and Denies tingling Skin/Breast Reports other (nail avulsion L 5th digit) Neuro Reports numbness (chronic neuropathy) and Denies tingling Physical Exam Vital Signs: Last Vital Signs Temp 98.1 F 04/15/24 11:23 Pulse 90 04/15/24 11:23 BP 114/64 04/15/24 11:23 Pulse Ox 95 04/15/24 11:23 Oxygen Delivery Method Room Air 04/15/24 11:23 BMI result Body Mass Index 27.8 General: Non-toxic, NAD. Speaking full sentences. Skin: Warm dry throughout L 5th digit: nailbed intact without bleeding, excoriations or lacerations. No active bleeding. No visualized FB. No nail present. No surrounding erythema or discharge Respiratory: No respiratory distress Cardiac: DP pulse intact L foot MSK: No bony tenderness L foot with palpation. + full ROM Neurology: A/O. No aphasia or facial droop. Gait without abnormality Psych: Good mood and affect Immunizations Boostrix Tdap 2.5 Lf unit-8 mcg-5 Lf/0.5 mL intramuscular syringe Performing Provider: Yamileth Sexton PA-C Performing Location: [facility] Administered by: Deborah Banda CMA on 04/15/24 12:00 Dose Route Admin Location Dispensed Lot Number Expiration Date NDC [employer]er 0.5 mL IM Right Deltoid 0.5 mL [id number] 05/06/26 [id number] Be my eyes VIS Given Date VIS Provided VIS Publication Date 04/15/24 Single Vaccine 21 Eligibility Eligibility Date Funding Source Not [facility] Eligible 04/15/24 Private Assessment & Plan Assessment & Plan (1) Nail avulsion of toe: Code(s): S91.209A - Unspecified open wound of unspecified toe(s) with damage to nail, initial encounter Qualifiers: Encounter type: initial encounter Qualified Code(s): S91.209A - Unspecified open wound of unspecified toe(s) with damage to nail, initial encounter Plan: Patient seen and evaluated. Verbal consent obtained and then regon clean with saline. Bactroban and xerform dressing applied with non-stick gauze. Discussed wound care instructions Monitor for signs of infection and use OTC triple antibiotic cream x 4-5 days Call with concerns Patient gave verbal understanding and had no additional questions or concerns at time of discharge All questions answered Orders: Orders TDaP Immunization Today Z23 - Encounter for immunization Coding Level of Care Code Est Pt Level 3 (99361) Diagnoses Avulsion of toenail, initial encounter S91.209A Encounter type: initial encounter
== END 2024-04-15 11:54 | disposition home or self-care (01) ==
PROVIDERS: PCP Nurse Practitioner Family; Visit Provider Physician Assistant
DX: S91.205A Unspecified open wound of left lesser toe(s) with damage to nail, initial encounter (principal)

== ENCOUNTER → 2024-04-15 11:13 | Outpatient (BNVA) | payer MEDICARE, SELFPAY | PROVIDERS: PCP Nurse Practitioner Family; Visit Provider Physician Assistant | DX: S91.205A Unspecified open wound of left lesser toe(s) with damage to nail, initial encounter (principal); X58.XXXA Exposure to other specified factors, initial encounter; Y93.9 Activity, unspecified; Y92.9 Unspecified place or not applicable; Y99.9 Unspecified external cause status; Z23 Encounter for immunization | CPT/HCPCS: 90471; 90715; 99212 ==

== ENCOUNTER 2024-05-04 14:00 | Outpatient (AMB) | payer MEDICARE, SELFPAY ==
--- NOTE | 2024-05-04 14:05 | MHC.OFFWIV ---
Intake Vital Signs 05/04/24 14:07 Weight 195 lb BP 130/80 Blood Pressure Location Lt brachial Position Sitting Pulse 84 Pulse Source Pulse Oximeter Pulse Oximetry (%) 98 Oxygen Delivery Method Room Air Intake Visit Reasons: EP severe right side lower back pain Intake Note: Patient here for severe lower back pain that has been present about 3-4 days, denies any known injuries but states he was doing yard work on Wednesday and wednesday started with pain. Patient Tobacco Use Status: Former Tobacco user Allergies amoxicillin [From AUGMENTIN] Allergy (Intermediate, Verified 05/04/24 14:08) RASH clavulanic acid [From AUGMENTIN] Allergy (Intermediate, Verified 05/04/24 14:08) RASH losartan Adverse Reaction (Severe, Verified 05/04/24 14:08) Shortness of Breath Sulfa (Sulfonamide Antibiotics) Adverse Reaction (Intermediate, Verified 05/04/24 14:08) Rash Do you need a note to return to daycare/school/sports/work: No HPI HPI Comments History of Present Illness Details Patient is a 74-year-old male complaining right-sided low back pain for the past 5 days. He tells me he was lifting heavy barrels of leaves 5 days ago in his yard. He states his pain started that evening. He tells me he has been using ice, heat and Tylenol as well as Advil with no relief. He is planning on seeing a chiropractor tomorrow for his pain. He tells me it is worse with movement or after sitting long periods of time. He currently has a Salonpas patch on the area which does not seem to be helping much. He states the pain is a throbbing pain and states it is not sharp or shooting, he denies the pain radiating in his buttocks or down the back of his legs. [facility] Medical History Neurogenic claudication Pericarditis Hypothyroid Anxiety Surgical History Hx of cholecystectomy Family History Father No problems noted. Social History Housing: House Unable to assess alcohol history related to: Unknown Alcohol intake: former Patient Tobacco Use Status: Former Tobacco user e-Cigarette/Vaping Use: Never Used Second Hand Smoke Exposure: No service: Yes Current occupational status: retired Current occupational exposures/hazards: No Cognitive needs: No Hearing needs: No Vision needs: No Review of Systems Const All systems reviewed & are unremarkable except as noted in HPI and below Physical Exam Vital Signs: Last Vital Signs Pulse 84 05/04/24 14:07 BP 130/80 05/04/24 14:07 Pulse Ox 98 05/04/24 14:07 Oxygen Delivery Method Room Air 05/04/24 14:07 Const General: cooperative, healthy appearing and comfortable Orientation/consciousness: patient oriented x3 HEENT Head: Yes normal to inspection and Yes normocephalic General nose exam: Normal external nose present Face and sinus: Yes normal facial exam Eyes General: appearance normal, both eyes and all related structures Resp Effort & Inspection: normal respiratory effort and able to speak in complete sentences Back/Spine/Pelvis Cervical Spine: normal cervical lordosis, cervical ROM normal and No Cervical spine tenderness Thoracic/Lumbar Spine: thoracic and lumbar spine normal to inspection, paraspinal muscle tenderness on the right in the lower thoracic and in the upper lumbar, thoraco-lumbar ROM limited, No thoracic spinal tenderness and No lumbar spinal tenderness Neuro General: patient oriented x3 Assessment & Plan Assessment & Plan (1) Low back pain: Code(s): M54.50 - Low back pain, unspecified Qualifiers: Chronicity: acute Back pain laterality: right Sciatica presence: without sciatica Qualified Code(s): M54.50 - Low back pain, unspecified Plan: Likely musculoskeletal, sent meloxicam to pharmacy recommended using ice and rest. If no improvement in his symptoms gradually over the next week or 2, he should follow up with his PCP Plan See above Medications: New meloxicam 15 mg PO DAILY 10 tabs 0RF Coding Level of Care Code Est Pt Level 3 (02321) Diagnoses Acute right-sided low back pain without sciatica M54.50 Chronicity: acute Back pain laterality: right Sciatica presence: without sciatica
[2024-05-04 14:07] VITALS: BP 130/80; PULSE 84; O2SAT 98
== END 2024-05-04 14:46 | disposition home or self-care (01) ==
PROVIDERS: PCP Nurse Practitioner Family; Visit Provider Physician Assistant
DX: M54.50 Low back pain, unspecified (principal)

== ENCOUNTER → 2024-05-04 14:00 | Outpatient (BNVA) | payer MEDICARE, SELFPAY | PROVIDERS: PCP Nurse Practitioner Family; Visit Provider Physician Assistant | DX: M54.50 Low back pain, unspecified (principal) | CPT/HCPCS: 99212 ==

== ENCOUNTER 2024-06-06 07:59 | Outpatient (AMB) | payer MEDICARE, SELFPAY ==
[2024-06-06 08:04] VITALS: BP 114/76; PULSE 82; O2SAT 98
--- NOTE | 2024-06-06 08:04 | MHC.OFFWIV ---
Intake Vital Signs 06/06/24 08:04 Weight 192 lb BP 114/76 Blood Pressure Location Rt brachial Position Sitting Pulse 82 Pulse Source Pulse Oximeter Pulse Oximetry (%) 98 Oxygen Delivery Method Room Air Intake Visit Reasons: EP burning sensation in both ears Intake Note: Patient here for labored breathing that started last night and hot sensation on ears and back of head. Patient Tobacco Use Status: Former Tobacco user Allergies amoxicillin [From AUGMENTIN] Allergy (Intermediate, Verified 06/06/24 08:05) RASH clavulanic acid [From AUGMENTIN] Allergy (Intermediate, Verified 06/06/24 08:05) RASH losartan Adverse Reaction (Severe, Verified 06/06/24 08:05) Shortness of Breath Sulfa (Sulfonamide Antibiotics) Adverse Reaction (Intermediate, Verified 06/06/24 08:05) Rash Do you need a note to return to daycare/school/sports/work: No HPI HPI Comments History of Present Illness Details This is a 74-year-old male with a past medical history of neuropathy, hypothyroidism and hypertension presenting for evaluation of intermittent labored breathing at night that he has had since Wednesday. Patient states that his [id number] suddenly 2 days before . Patient states he will wake up at night with ?labored breathing? that will resolve without any intervention. Patient denies having any fevers, chills, chest pain, nausea or vomiting. Patient states that he has had ?indigestion? over the past 2 days and a burning sensation in his external ears. Patient has not taken any specific medication for management of his symptoms. [facility] Medical History (Updated 06/06/24 @ 08:55 by Kristina Llanos PA-C) Neurogenic claudication Pericarditis Hypothyroid Anxiety Surgical History Hx of cholecystectomy Family History Father No problems noted. Social History Housing: House Unable to assess alcohol history related to: Unknown Alcohol intake: former Patient Tobacco Use Status: Former Tobacco user e-Cigarette/Vaping Use: Never Used Second Hand Smoke Exposure: No service: Yes Current occupational status: retired Current occupational exposures/hazards: No Cognitive needs: No Hearing needs: No Vision needs: No Review of Systems Const All systems reviewed & are unremarkable except as noted in HPI and below Denies chills, Reports fatigue and Denies fever(s) Eyes Reports no additional complaints ENT Reports no additional complaints and Reports other ( burning external ears bilaterally) Card Denies chest pain, Denies chest pain at rest, Denies chest pain with activity, Denies syncope, Denies rapid heart rate, Denies lightheadedness and Reports paroxysmal nocturnal dyspnea Resp Reports no additional complaints GI Reports no additional complaints Reports no additional complaints Musc Reports no additional complaints Skin/Breast Reports system reviewed and no additional complaints, except as documented Neuro Reports no additional complaints, Denies behavioral changes, Reports burning sensations (ears bilaterally) and Denies syncope Psych Reports anxiety, Denies behavioral changes, Denies hopelessness, Denies irritability, Denies panic attacks and Denies homicidal ideation Endo Reports no additional complaints and Reports fatigue Ronald/Lymph Reports no additional complaints Aller/Immun Reports no additional complaints Physical Exam Vital Signs: Last Vital Signs Pulse 82 06/06/24 08:04 BP 114/76 06/06/24 08:04 Pulse Ox 98 06/06/24 08:04 Oxygen Delivery Method Room Air 06/06/24 08:04 Const General: cooperative, healthy appearing, comfortable, no acute distress, well developed, alert, awake and Physically active; No acute distress or lethargic Nutritional Appearance: average body habitus Orientation/consciousness: patient oriented x3 and No lethargic Limitations: no limitations HEENT Head: Yes normal to inspection and Yes normocephalic Ears: hearing grossly normal bilaterally, external ears normal, TM's normal bilaterally, EAC's normal, mastoids normal and no periauricular adenopathy General nose exam: Normal external nose present Face and sinus: Yes normal facial exam Eyes General: appearance normal, both eyes and all related structures Resp Effort & Inspection: normal respiratory effort, able to speak in complete sentences, no audible wheezes, no pursed lip breathing, no respiratory distress and no tripod positioning Auscultation: clear to auscultation bilaterally Cardio Rate: regular rate Rhythm: regular rhythm GI Inspection: Yes normal to inspection Palpation (GI): Soft to palpation (no epigastric tenderness) and nontender Auscultation: normal bowel sounds Skin General skin exam: no rashes or lesions noted Neuro General: patient oriented x3 Psych Appearance: grossly normal Mental Status: mental status grossly normal Speech and movement: Normal speech and movement present; No Psychomotor agitation in speech present Affect: normal affect, Sad affect present and No Irritable affect present Attitude: cooperative Thought process: Normal thought process present Thought content: Normal thought content present, suicidality, no homicidality, no delusions and no hallucinations Insight: Good insight present (Psych) Judgement: Good judgement present (Psych) Results Reviewed Results Reviewed: EKG 85 bpm NSR Assessment & Plan Assessment & Plan (1) Gastroesophageal reflux disease: Code(s): K21.9 - Gastro-esophageal reflux disease without esophagitis Qualifiers: Esophagitis presence: without esophagitis Qualified Code(s): K21.9 - Gastro-esophageal reflux disease without esophagitis Plan: EKG normal sinus rhythm. (2) Anxiety: Comment: Patient reports waking up at night with shortness of breath. Patient denies having any shortness of breath at this time and has had no chest pain. Patient will be prescribed hydroxyzine. Code(s): F41.9 - Anxiety disorder, unspecified Plan: Hydroxyzine 12.5mg [id number] prn anxiety. Plan Omeprazole 40mg daily x 14 days Orders: Orders AMB EKG-In Office Today R06.00 - Dyspnea, unspecified Medications: New omeprazole 40 mg PO DAILY 14 caps 0RF hydroxyzine HCl 12.5 mg (1/2 x 25 mg) PO QID PRN 20 tabs 0RF itching Coding Level of Care Code Est Pt Level 3 (31474) Diagnoses Gastroesophageal reflux disease without esophagitis K21.9 Esophagitis presence: without esophagitis Anxiety F41.9 Time Spent (min) 25
== END 2024-06-06 09:25 | disposition home or self-care (01) ==
PROVIDERS: PCP Nurse Practitioner Family; Visit Provider Physician Assistant
DX: K21.9 Gastro-esophageal reflux disease without esophagitis (principal); F41.9 Anxiety disorder, unspecified

== ENCOUNTER → 2024-06-06 07:59 | Outpatient (BNVA) | payer MEDICARE, SELFPAY | PROVIDERS: PCP Nurse Practitioner Family; Visit Provider Physician Assistant | DX: K21.9 Gastro-esophageal reflux disease without esophagitis (principal); F41.9 Anxiety disorder, unspecified | CPT/HCPCS: 99212 ==

== ENCOUNTER 2024-09-01 15:55 | Outpatient (AMB) | payer MEDICARE, SELFPAY ==
[2024-09-01 15:57] VITALS: BP 136/80; PULSE 92; TEMP 36.6; O2SAT 97; BMI 27.5
--- NOTE | 2024-09-01 15:57 | AM.OFFWIN_ITS ---
Intake Vital Signs 09/01/24 15:57 Height 5 ft 10 in Weight 192 lb BMI 27.5 BP 136/80 Blood Pressure Location Lt brachial Position Sitting Pulse 92 Pulse Source Pulse Oximeter Temp 97.8 F Temp Source Oral Pulse Oximetry (%) 97 Intake Visit Reasons: EP Neck pain Intake Note: pt is here for neck pain Patient Tobacco Use Status: Former Tobacco user Allergies amoxicillin [From AUGMENTIN] Allergy (Intermediate, Verified 09/01/24 16:01) RASH clavulanic acid [From AUGMENTIN] Allergy (Intermediate, Verified 09/01/24 16:01) RASH losartan Adverse Reaction (Severe, Verified 09/01/24 16:01) Shortness of Breath Sulfa (Sulfonamide Antibiotics) Adverse Reaction (Intermediate, Verified 09/01/24 16:01) Rash Do you need a note to return to daycare/school/sports/work: No HPI HPI Comments History of Present Illness Details History of Present Illness - The patient is a 74-year-old male pres enting with neck pain. - The symptoms began a few days prior an d are intermittent in nature. - The patient experienced increased disc omfort after using the stairs.Denies trauma. - Previous management with ice and heat was reported, with heat being more effective. - Positional movements such as turning l eft or right exacerbate the pain, as well as flexion or extension - There is no history of recent trauma a nd the patient had a similar neck injury three years prior managed successfully with meloxicam. - No fever or muscular spasms are associ ated with the current condition. - Current medications include amlodipine , aspirin, and levothyroxine. Physical Exam General: Cooperative, healthy appearing, comfortable, no acute distress and well developed Orientation: Patient oriented x3 Limitations: Neck pain with movement, no other limitations Head: Normal to inspection Ears: Hearing grossly normal bilaterally Nose: Normal external nose present Face and sinus: Normal facial exam Eyes: Appearance normal, both eyes and all related structures Neck: full rom with pain, extension, flexion and left or right, TTP paraspinous muscles bilaterally, no spasms noted, no pain on palpation of cervical spine Respiratory: Normal respiratory effort and able to speak in complete sentences. Skin: No rashes or lesions noted Neuro: Patient oriented x3 Extremities: Normal to inspection [facility] Medical History (Updated 06/06/24 @ 08:55 by Kristina Llanos PA-C) Neurogenic claudication Pericarditis Hypothyroid Anxiety Surgical History Hx of cholecystectomy Family History Father No problems noted. Social History Housing: House Unable to assess alcohol history related to: Unknown Alcohol intake: former Patient Tobacco Use Status: Former Tobacco user e-Cigarette/Vaping Use: Never Used Second Hand Smoke Exposure: No service: Yes Current occupational status: retired Current occupational exposures/hazards: No Cognitive needs: No Hearing needs: No Vision needs: No Review of Systems Const All systems reviewed & are unremarkable except as noted in HPI and below Physical Exam Vital Signs: Last Vital Signs Temp 97.8 F 09/01/24 15:57 Pulse 92 09/01/24 15:57 BP 136/80 09/01/24 15:57 Pulse Ox 97 09/01/24 15:57 BMI result Body Mass Index 27.5 Back/Spine/Pelvis Thoracic/Lumbar Spine: No thoracic spinal tenderness and No lumbar spinal tenderness Assessment & Plan Assessment & Plan (1) Cervicalgia: Code(s): M54.2 - Cervicalgia Plan: Management includes initiating meloxicam therapy, given its previous success in managing similar neck pain. The patient is advised to use one tablet daily for a short duration of 3-4 days then use as needed. An additional muscle relaxant has been prescribed with guidance to take it around bedtime due to potential sedative effects. There is an option to obtain further imaging via cervical spine X-ray if symptoms remain unchanged. This X-ray has already been ordered to facilitate a draper follow-up process. Additional observation over the weekend is planned, with instructions to contact the primary care physician if symptoms persist. Patient was informed and verbally consented to the use of an ambient scribe for clinic note documentation during this visit. Orders: Orders XR cervical spine min 6V Today M54.2 - Cervicalgia Medications: New meloxicam 15 mg PO DAILY 15 tabs 0RF cyclobenzaprine 5 mg PO Q8H PRN 15 tabs 0RF Muscle Spasm Coding Level of Care Code Est Pt Level 4 (29179) Diagnoses Cervicalgia M54.2
== END 2024-09-01 16:41 | disposition home or self-care (01) ==
PROVIDERS: PCP Nurse Practitioner Family; Visit Provider Physician Assistant
DX: M54.2 Cervicalgia (principal)

== ENCOUNTER → 2024-09-01 15:55 | Outpatient (BNVA) | payer MEDICARE, SELFPAY | PROVIDERS: PCP Nurse Practitioner Family; Visit Provider Physician Assistant | DX: M54.2 Cervicalgia (principal) | CPT/HCPCS: 99212 ==

== ENCOUNTER 2024-09-05 08:21 | Outpatient (REF) | payer MEDICARE, SELFPAY ==
--- NOTE | ~2024-09-05 | XR_ITS ---
EXAMINATION: XR CERVICAL SPINE CLINICAL INFORMATION: M54.2 - Cervicalgia COMPARISON: CT cervical 03/17/2024. Radiographs cervical spine 12/01/2023. TECHNIQUE: 4 views of the cervical spine, inclusive of flexion and extension views, were obtained. FINDINGS: No scoliosis. Normal lordosis. No fracture, compression deformity, or suspicious bone lesion. Craniocervical junction and C1-2 articulation intact and aligned. There is a 2 mm degenerative anterolisthesis C4 on C5, unchanged. Alignment is otherwise anatomic. Multilevel disc degeneration, severe at C5-6 and C6-7. Normal facet alignment. Multilevel facet degeneration, left greater than right, at all levels. Similar multilevel uncinate spurs. Oblique views demonstrate moderate bony neural foraminal narrowing on the right at C3-4, and C5-6. Mild narrowing at C4-5. On the left, moderate bony neural foraminal narrowing at C3-4 and C5-6. Mild narrowing at C4-5, and C6-7. No prevertebral soft tissue abnormalities. Mild right carotid bulb calcifications. Lung apices clear. XR/XR cervical spine 4V IMPRESSION: 1. No acute cervical spine abnormalities. 2. Moderate degenerative spondylosis, unchanged in appearance. Electronically signed by: Boris Deras MD 09/05/2024 09:03 AM EDT
== END 2024-09-05 08:22 | disposition home or self-care (01) ==
LOC: HO.HMGCX 08:21
PROVIDERS: PCP Nurse Practitioner Family; Visit Provider Physician Assistant
DX: M54.2 Cervicalgia (principal)
CPT/HCPCS: 72050

== ENCOUNTER → 2024-09-05 08:34 | Outpatient (BNV) | payer MEDICARE, SELFPAY | PROVIDERS: PCP Nurse Practitioner Family; Visit Provider Radiology Diagnostic Radiology | DX: M54.2 Cervicalgia (principal) | CPT/HCPCS: 72050 ==

== ENCOUNTER → 2024-09-11 07:13 | Outpatient (BNV) | payer MEDICARE, SELFPAY | PROVIDERS: PCP Nurse Practitioner Family; Visit Provider Radiology Diagnostic Radiology | DX: M54.2 Cervicalgia (principal) | CPT/HCPCS: 72141 ==

== ENCOUNTER 2024-09-11 07:19 | Outpatient (REF) | payer MEDICARE, SELFPAY ==
--- NOTE | ~2024-09-11 | MR_ITS ---
EXAMINATION: MR CERVICAL SPINE WITHOUT CONTRAST CLINICAL INFORMATION: Neck pain. COMPARISON: Cervical spine 09/05/[address] cervical spine 03/17/2024. TECHNIQUE: MRI of the cervical spine was obtained using routine sequences without contrast. FINDINGS: There is mild straightening of cervical lordosis. The vertebral heights and alignment are normal. There is mild loss of C5-C6 and C6-7 disc heights with ventral spondylosis. Rest of the disc heights are normal. At C2-3 disc level there is minimal bulge without spinal canal stenosis. The neural foramina are widely patent. At C3-4 disc level there is a disc bulge/osteophyte complex with mild facet joint hypertrophic changes with minimal AP canal narrowing. The neural foramina are moderately narrowed bilaterally from uncovertebral hypertrophic changes slightly greater on the left. At C4-5 disc level there is diffuse bulge flattening the ventral thecal sac but without spinal canal stenosis. The neural foramina are narrowed bilaterally. At C5-6 disc level there is circumferential canal narrowing from combination of disc bulge/osteophyte complex resulting in mild AP canal stenosis. There is bilateral moderate to severe narrowing of neural foramina from uncovertebral hypertrophic changes. At C6-7 disc level there is a broad-based diffuse bulge/osteophyte complex flattening the ventral thecal sac and the cord and resulting in mild AP canal stenosis. There is moderate to severe left neural from narrowing and mild to moderate right neural foraminal narrowing from uncovertebral hypertrophic changes. At C7-T1 disc level there is no significant disc bulge, herniation or spinal canal stenosis. The neural foramina are bilaterally narrowed. Bone marrow signal, the cord signal and craniovertebral junction is normal. Paravertebral soft tissues are normal. MR/MR cervical spine wo con IMPRESSION: Bulge/osteophyte complex C3-4 through C6-7 disc levels with mild AP canal stenosis. Bilateral neural from narrowing from uncovertebral hypertrophic changes from C4-5 through C6/7 disc level severe bilaterally at C5-6 and on the left C6-C7 disc level disc level Electronically signed by: Lance Velasquez MD 09/12/2024 08:31 AM EDT RP
== END 2024-09-11 07:20 | disposition home or self-care (01) ==
LOC: HO.MRI 07:19
PROVIDERS: PCP Nurse Practitioner Family; Visit Provider Nurse Practitioner Family
DX: G89.29 Other chronic pain (principal); M50.30 Other cervical disc degeneration, unspecified cervical region
CPT/HCPCS: 72141

== ENCOUNTER 2024-09-15 09:13 | Outpatient (REF) | payer MEDICARE, SELFPAY ==
[2024-09-15 15:38] LABS: Influenza A PCR NEGATIVE (Negative); Influenza B PCR NEGATIVE (Negative); Resp Syncy Virus RNA Qual PCR NEGATIVE (Negative); SARS COV2 PCR INHOUSE POSITIVE (Negative)
== END 2024-09-15 09:14 | disposition home or self-care (01) ==
LOC: HO.LAB 09:13
PROVIDERS: Physician Assistant; PCP Nurse Practitioner Family
DX: J06.9 Acute upper respiratory infection, unspecified (principal); R09.89 Other specified symptoms and signs involving the circulatory and respiratory systems
CPT/HCPCS: 0241U; 99212

== ENCOUNTER 2024-09-15 09:13 | Outpatient (AMB) | payer MEDICARE, SELFPAY ==
--- NOTE | 2024-09-15 09:40 | AM.OFFWIN_ITS ---
Intake Vital Signs 09/15/24 09:42 Weight 199 lb BP 128/80 Blood Pressure Location Lt brachial Position Sitting Pulse 82 Pulse Source Pulse Oximeter Temp 97.8 F Temp Source Oral Pulse Oximetry (%) 95 Oxygen Delivery Method Room Air Intake Visit Reasons: EP-cough, body ache, sore throat Intake Note: Patient here for cough, body aches, and did have a sore throat but that has improved since wednesday. Patient Tobacco Use Status: Former Tobacco user Allergies amoxicillin [From AUGMENTIN] Allergy (Intermediate, Verified 09/15/24 09:43) RASH clavulanic acid [From AUGMENTIN] Allergy (Intermediate, Verified 09/15/24 09:43) RASH losartan Adverse Reaction (Severe, Verified 09/15/24 09:43) Shortness of Breath Sulfa (Sulfonamide Antibiotics) Adverse Reaction (Intermediate, Verified 09/15/24 09:43) Rash Do you need a note to return to daycare/school/sports/work: No HPI HPI Comments History of Present Illness Details History - The patient is a 74-year-old male pres enting with a cough x 3days - Accompanying symptoms include abdomina l soreness when coughing, sore throat without shortness of breath or wheezing. - No personal history of asthma, COPD, s moking, or vaping. - Patient's had similar symptoms, s peculated to be allergy-related but resolved independently without the use of antibiotics - Current medications include NyQuil and Dayquil and gargling with warm salt water. - Lack of expectoration or fever, with n o sinus or ear pain noted. Physical Exam General: Cooperative, healthy appearing, comfortable and no acute distress Orientation/consciousness: Patient oriented x3 Limitations: No limitations Head: Normal to inspection Ears: Hearing grossly normal bilaterally, external ears normal and TM's normal bilaterally Nose: Normal external nose present, Normal nares present and No nasal discharge present Face and sinus: Normal facial exam and Yes sinuses nontender Mouth: Normal oral and palatal mucosa present and moist mucous membranes Throat: Yes tonsils normal, Yes uvula midline. Posterior oropharynx erythema Eyes: Appearance normal, both eyes and all related structures Neck: Normal visual inspection Respiratory: Clear to auscultation bilaterally. Normal respiratory effort, able to speak in complete sentences, no respiratory distress, not tachypneic, no tripod positioning and no use of accessory muscles Cardiovascular: Regular rate and rhythm. Normal S1 and S2 Skin: No rashes or lesions noted Neuro: Patient oriented x3 Extremities: Normal to inspection and Yes no clubbing, cyanosis or edema PFSH Medical History (Updated 09/15/24 @ 10:17 by Nithya Morgan PA-C) Neurogenic claudication Pericarditis Hypothyroid Anxiety Surgical History Hx of cholecystectomy Family History Father No problems noted. Social History Housing: House Unable to assess alcohol history related to: Unknown Alcohol intake: former Patient Tobacco Use Status: Former Tobacco user e-Cigarette/Vaping Use: Never Used Second Hand Smoke Exposure: No service: Yes Current occupational status: retired Current occupational exposures/hazards: No Cognitive needs: No Hearing needs: No Vision needs: No Review of Systems Const All systems reviewed & are unremarkable except as noted in HPI and below Physical Exam Vital Signs: Last Vital Signs Temp 97.8 F 09/15/24 09:42 Pulse 82 09/15/24 09:42 BP 128/80 09/15/24 09:42 Pulse Ox 94 09/15/24 09:42 Oxygen Delivery Method Room Air 09/15/24 09:42 Assessment & Plan Assessment & Plan (1) URI, acute: Code(s): J06.9 - Acute upper respiratory infection, unspecified Plan: VSS, pt well appearing and PE unremarkable. The patient was presented with acute cough and the concern of a potential lung infection. Objective findings and clinical evaluations suggest possible viral etiology. Use of current medications such as NyQuil is encouraged, alongside prescribed cough suppressant for symptomatic relief. Influenza testing was performed, and the patient was informed about starting oseltamivir if confirmed positive. Risks and benefits, along with alternatives including Paxlovid for COVID-19, were thoroughly discussed. Radiographic examination was deemed unnecessary following a clear respiratory auscultation, focusing instead on rest, adequate hydration, and Tylenol for fever control, with instructions on when to seek further care in case of condition deterioration. Patient was informed and verbally consented to the use of an ambient scribe for clinic note documentation during this visit Plan Orders: Orders SARS-CoV2/FLU/RSV Today R09.89 - Other specified symptoms and signs involving the circulatory and respiratory systems Medications: New benzonatate 200 mg PO BEDTIME PRN 10 caps 0RF cough Coding Level of Care Code Est Pt Level 3 (94775) Diagnoses URI, acute J06.9
[2024-09-15 09:42] VITALS: BP 128/80; PULSE 82; TEMP 36.6; O2SAT 95
== END 2024-09-15 10:21 | disposition home or self-care (01) ==
PROVIDERS: PCP Nurse Practitioner Family; Visit Provider Physician Assistant
DX: J06.9 Acute upper respiratory infection, unspecified (principal)

== ENCOUNTER 2024-09-26 13:42 | Outpatient (AMB) | payer MEDICARE, SELFPAY ==
--- NOTE | 2024-09-26 13:50 | MHC.PC.OV ---
Intake Visit Reasons: SWV [id number] Allergies amoxicillin [From AUGMENTIN] Allergy (Intermediate, Verified 09/15/24 09:43) RASH clavulanic acid [From AUGMENTIN] Allergy (Intermediate, Verified 09/15/24 09:43) RASH losartan Adverse Reaction (Severe, Verified 09/15/24 09:43) Shortness of Breath Sulfa (Sulfonamide Antibiotics) Adverse Reaction (Intermediate, Verified 09/15/24 09:43) Rash Tobacco use date assessed: 07/29/23 Dental Screening Dental Screen Date: 07/29/23 [facility] Medical History (Updated 09/15/24 @ 10:17 by Nithya Morgan PA-C) Neurogenic claudication Pericarditis Hypothyroid Anxiety Surgical History Hx of cholecystectomy Family History Father No problems noted. Social History Housing: House Unable to assess alcohol history related to: Unknown Alcohol intake: former Patient Tobacco Use Status: Former Tobacco user e-Cigarette/Vaping Use: Never Used Second Hand Smoke Exposure: No service: Yes Current occupational status: retired Current occupational exposures/hazards: No Cognitive needs: No Hearing needs: No Vision needs: No Questionnaire PHQ-9 Over the last 2 weeks, how often have you been bothered by any of the following problems? 1. Little interest or pleasure in doing things: not at all 2. Feeling down, depressed, or hopeless: not at all 3. Trouble falling or staying asleep, or sleeping too much: not at all 4. Feeling tired or having little energy: not at all 5. Poor appetite or overeating: not at all 6. Feeling bad about yourself - or that you are a failure or have let yourself or your family down: not at all 7. Trouble concentrating on things, such as reading the newspaper or watching television: not at all 8. Moving or speaking so slowly that other people could have noticed. Or the opposite - being so fidgety or restless that you have been moving around a lot more than usual: not at all 9. Thoughts that you would be better off or of hurting yourself in some way: not at all Total score: 0 Source: Developed by Drs. Dnais Witt, Mavis Emanuel, Mike Nelson and colleagues, with an educational paolo from [employer]. Thrive Questionnaire Date Thrive assessed: 09/26/24 I am a: Patient What is your living situation today?: I have a steady place to live Within the past 12 months, did the food you bought not last and you didn't have the money to get more?: Never true Within the past 12 months, did you worry whether your food would run out before you got money to buy more?: Never true Do you have trouble paying for medicines?: No Do you have trouble getting transportation to medical appointments?: No Do you have trouble paying your heating and electricity bill?: No Do you have trouble taking care of your child, family member or friend?: No Do you have trouble with day-to-day activities such as bathing, preparing meals, shopping, managing finances, etc.?: No Are you interested in more education?: No Please select the resources that you would like help with: None Currently or been in a relationship where the following occur: No concerns reported THRIVE Score: 0 AUDIT C Alcohol Use Questionnaire (AUDIT-C) 3. How often do you have six or more drinks on one occasion?: Never Total Score: 0 DOMINGO-7 AMB Questionnaire DOMINGO-7 Date DOMINGO - 7 assessed: 03/30/24 Source: Developed by Drs. Danis Witt, Mavis Emanuel, Mike Nelson and colleagues, with an educational paolo from [employer]. Physical exam (Primary Care) Tobacco/Smoking Status: Tobacco use Status Tobacco use date assessed 07/29/23 05/04/24 13:58 Patient Tobacco Use Status Former Tobacco user 09/15/24 09:41 e-Cigarette/Vaping Use Never Used 05/04/24 13:58 Thrive Assessment: Date of Thrive Assessment Date Thrive assessed 09/26/24 09/26/24 13:43 Currently or been in a relationship where the following occur: No concerns reported Coding
[2024-09-26 13:51] VITALS: BP 132/86; PULSE 87; O2SAT 95; BMI 28.7
--- NOTE | 2024-09-26 13:52 | AM.OFFVISMDC ---
Intake Vital Signs 09/26/24 13:51 Height 5 ft 10 in Weight 200 lb BMI 28.7 BP 132/86 Blood Pressure Location Lt brachial Position Sitting Pulse 87 Pulse Source Pulse Oximeter Pulse Oximetry (%) 95 Intake Visit Reasons: SWV G0439 Allergies amoxicillin [From AUGMENTIN] Allergy (Intermediate, Verified 09/26/24 15:01) RASH clavulanic acid [From AUGMENTIN] Allergy (Intermediate, Verified 09/26/24 15:01) RASH losartan Adverse Reaction (Severe, Verified 09/26/24 15:01) Shortness of Breath Sulfa (Sulfonamide Antibiotics) Adverse Reaction (Intermediate, Verified 09/26/24 15:01) Rash Medication List - Last Reconciled 09/26/24 by JACE Muñiz albuterol sulfate 90 mcg/actuation 1 inh inhalation QID amlodipine 5 mg PO DAILY 90 days aspirin 81 mg PO DAILY blood pressure monitor As directed clotrimazole-betamethasone 1-0.05 % 1 appl topical BID 2 weeks gabapentin 200mg BID and 300mg qhs orally 90 days hydroxyzine HCl 12.5 mg (1/2 x 25 mg) PO QID PRN levothyroxine 125 mcg PO DAILY nystatin (Nystop) 1 appl topical BID nystatin 1 appl topical TID 30 days omeprazole 40 mg PO DAILY Do you need a note to return to daycare/school/sports/work: No HPI V G0439 HPI Details AWV: PPP in scan pile, CCC in scan pile PFSH Medical History Neurogenic claudication Pericarditis Hypothyroid Anxiety Surgical History Hx of cholecystectomy Family History Father No problems noted. Social History Housing: House Unable to assess alcohol history related to: Unknown Alcohol intake: former Patient Tobacco Use Status: Former Tobacco user e-Cigarette/Vaping Use: Never Used Second Hand Smoke Exposure: No service: Yes Current occupational status: retired Current occupational exposures/hazards: No Cognitive needs: No Hearing needs: No Vision needs: No Questionnaire Medicare Wellness Checkup [age] What gender do you identify with?: male During the past 4 weeks, how much have you been bothered by emotional problems such as feeling anxious, depressed, irritable, sad or downhearted, and blue?: slightly During the past 4 weeks, has your physical & emotional health limited your social activities with family, friends, neighbors, or groups?: not at all During the past 4 weeks, how much bodily pain have you generally had?: very mild pain During the past 4 weeks, was someone available to help you if you needed & wanted help?: yes, as much as I wanted During the past 4 weeks, what was the hardest physical activity you could do for at least 2 minutes?: heavy Can you get to places out of walking distance without help? (For eg., can you travel alone on buses, taxis or drive your car?): Yes Can you go shopping for groceries or clothes without someone's help?: Yes Can you prepare your own meals?: Yes Can you do your housework without help?: Yes Because of any health problems, do you need the help of another person with your personal care needs such as eating, bathing, dressing or getting around the house?: No Can you handle your own money without help?: Yes During the past 4 weeks, how would you rate your health in general?: good During the past 4 weeks how have things been going for you?: very well; could hardly better Are you having difficulties driving your car?: no Do you always fasten your seat belt when you are in a car?: yes, usually During past 4 weeks, have you been bothered by the following: never: Falling or dizzy when standing up, Sexual problems?, Trouble eating well?, Teeth or denture problems?, Problems using the telephone? and Tiredness or fatigue? Have you fallen 2 or more times in the past year?: No Are you afraid of falling?: No Are you a smoker?: no During the past 4 weeks, how many drinks of wine, beer, or other alcoholic beverages did you have?: no alcohol at all Do you exercise for about 20 minutes 3 or more times a week?: yes, most of the time Have you been given information to help with the following?: no: Hazards in your house that might hurt you? and no: Keeping track of your medications? How confident are you that you can control & manage most of your health problems?: very confident What is your race?: White Mini Mental State Exam (MMSE) Orientation What is the (year) (season) (date) (day) (month)?: year, season, date, day and month Where are we (state) (county) (town or city) (hospital) (floor)?: state, county, town or city, hospital/clinic and floor Registration Name of 3 unrelated objects clearly and slowly, then ask patient to repeat all 3 of them. (1st repeat determines score. Make sure they can repeat all three): object 1, object 2 and object 3 Attention & Calculation (CHOOSE ONE) Spell WORLD backwards (DLROW): 5 letters Recall Ask patient to repeat the 3 items from question #3.: object 1, object 2 and object 3 Language Show patient a wristwatch & ask what it is. Repeat for pencil.: watch and pencil Ask the patient to repeat the phrase 'No ifs, ands, or buts' after you.: correct Ask the patient to 'take a piece of paper with their right hand' 'fold paper in half' 'place paper on floor': take paper in right hand, fold paper in half and place paper on floor Print the sentence 'CLOSE YOUR EYES' on a piece. If patient actually closes eyes then score.: followed written direction Give patient a blank piece of paper & ask to write a sentence. Score if it contains a noun & verb.: sentence contains subject and verb Ask patient to copy figure of intersecting pentagons exactly. Score if all 10 angles & 2 intersects are included.: all 10 angles present & 2 are intersected Score Score: 30 Activity of Daily Living Bathing - sponge bath, tub bath or shower: receives no assistance (gets in/out by self, if usual bathing means Dressing - getting clothes from closets & drawers, including inner/outer garments & fasteners.: gets clothes & gets completely dressed without help Toileting - going to the 'toilet room' for urine/bowel elimination & cleaning self/arranging clothes: goes to toilet room, cleans self, arranges clothes without help Transfer: moves in & out of bed and chair without help (may use support object) Continence: controls urination/bowel movements completely by self Feeding: feeds self without help Total Score: 0 Information obtained from: patient Using telephone: independent Traveling: independent Shopping: independent Preparing meals: independent Housework: independent Taking medicine: independent Managing money: independent PHQ-9 Over the last 2 weeks, how often have you been bothered by any of the following problems? 1. Little interest or pleasure in doing things: not at all 2. Feeling down, depressed, or hopeless: not at all 3. Trouble falling or staying asleep, or sleeping too much: not at all 4. Feeling tired or having little energy: not at all 5. Poor appetite or overeating: not at all 6. Feeling bad about yourself - or that you are a failure or have let yourself or your family down: not at all 7. Trouble concentrating on things, such as reading the newspaper or watching television: not at all 8. Moving or speaking so slowly that other people could have noticed. Or the opposite - being so fidgety or restless that you have been moving around a lot more than usual: not at all 9. Thoughts that you would be better off or of hurting yourself in some way: not at all Total score: 0 Depression Screening Interpretation: Negative Depression Screening Done: Yes 55578 - PHQ-9 Billing: Yes Source: Developed by Drs. Danis Witt, Mavis Emanuel, Mike Nelson and colleagues, with an educational paolo from [employer]. DOMINGO-7 AMB Questionnaire DOMINGO-7 Date DOMINGO - 7 assessed: 09/26/24 Feeling nervous, anxious, or on edge: 0 = Not at all Not being able to stop or control worryin = Not at all Worrying too much about different things: 0 = Not at all Trouble relaxin = Not at all Being so restless that it is hard to sit still: 0 = Not at all Becoming easily annoyed or irritable: 0 = Not at all Feeling afraid as if something awful might happen: 0 = Not at all Total DOMINGO-7 score (0-4 normal; 5-9 mild; 10-14 moderate; 15-21 severe): 0 Source: Developed by Drs. Danis Witt, Mavis Emanuel, Mike Nelson and colleagues, with an educational paolo from [employer]. DOMINGO-7 Assessment Billing DOMINGO-7 Assessment Tool: DOMINGO-7 Assessment 74714 Physical Exam Vital Signs: Last Vital Signs Pulse 87 09/26/24 13:51 BP 132/86 09/26/24 13:51 Pulse Ox 95 09/26/24 13:51 BMI result Body Mass Index 28.7 Neuro Other: able to stand from sitting position, neg rhomberg, tandem walk was fair, passed whisper test Assessment & Plan Assessment & Plan (1) Encounter for annual wellness visit (AWV) in Medicare patient: Code(s): Z00.00 - Encounter for general adult medical examination without abnormal findings Plan . Medications: Refilled hydroxyzine HCl 12.5 mg (1/2 x 25 mg) PO QID PRN 20 tabs 3RF itching Quality Reporting (2019) Depression/Bipolar (159/160/161/177) PHQ-9: Total score: 0 Coding Level of Care Code Medicare First (G0438) Diagnoses Encounter for annual wellness visit (AWV) in Medicare patient Z00.00 CPT Codes Advance Care Planning - Time spent: 1-15 minutes, on File ([id number]) Additional Codes DOMINGO-7 Assessment Billing - DOMINGO-7 Assessment Tool: DOMINGO-7 Assessment 84185 ([id number]) PHQ-9 - 34913 - PHQ-9 Billing: Yes ([id number]) Advance Care Planning Forms completed: Health Care Proxy (in scan pile), MOLST (in scan pile) and Living will (done according to pt) Time spent: 1-15 minutes, on File Actual minutes spent: 10
--- OUTSIDE RECORDS SUMMARY | 2024-09-26 16:19 | XMS_ITS | Encounter Summary ---
Author Organization [facility] Address [address] [place] [address] Care Team Providers Care Seafood Packer Name Role Phone Ramesh Salvador MD Primary Care Provider Ramesh Salvador MD Primary Care Provider [phone] [facility], Pcp Primary Care Provider Unavailabl e Encounter Details Date Type Department Care Team Description 09/01/2001 Telephone Adult Medicine [address] [phone] Ramesh Salvador MD [address] [place] [address] [phone] Social History Tobacco Use Types Packs/Day Years Used Date Smoking Tobacco: Never Assessed Sex Assigned at Date Recorded Not on file Job Start Date Occupation Industry Not on file Not on file Not on file documented as of this encounter Plan of Treatment Not on file documented as of this encounter Visit Diagnoses Not on filedocumented in this encounter Care Teams Seafood Packer Relationship Specialty Start Date End Date Ramesh Salvador MD [address] [place] [address] [phone] PCP - General 07/23/99 04/13/11 Ramesh Salvador MD [address] [place] [id number] PCP - General Internal Medicine 04/14/11 04/09/22 [facility], [address] [address] PCP - General Internal Medicine 04/10/22 documented as of this encounter
--- OUTSIDE RECORDS SUMMARY | 2024-09-26 16:19 | XMS_ITS | Encounter Summary ---
Author Organization [facility] Address [address] [place] [address] Care Team Providers Care Laborer Beam House Name Role Phone Ramesh Salvador MD Primary Care Provider [phone] Ramesh Salvador MD Primary Care Provider [phone] [facility], Pcp Primary Care Provider Unavailabl e Encounter Details Date Type Department Care Team Description 04/15/2005 Orders Only Medical [address], [place] [phone] Narcisa Huggins, [facility] [address] [place], [place] [phone] PURE HYPERCHOLESTEROLEMIA; NODULAR PROSTATE Social History Tobacco Use Types Packs/Day Years Used Date Smoking Tobacco: Never Alcohol Use Standard Drinks/Week Comments No 0 (1 standard drink = 0.6 oz pur e alcohol) Sex Assigned at Date Recorded Not on file Job Start Date Occupation Industry Not on file Not on file Not on file documented as of this encounter Plan of Treatment Scheduled Orders Name Type Priority Associated Diagnoses Orde r Schedule VENIPUNCTURE Lab Routine Pure Hypercholesterolemia Ordered: 04/15/2005 documented as of this encounter Procedures Procedure Name Priority Date/Time Associated Diagnosis Comments FREE THYROXINE (T4) NON CASCAD Routine 04/15/2005 10:20 AM EDT PROSTATE SPEC. AG, SCREEN Routine 04/15/2005 10:20 AM EDT Nodular Prostate THYROID PROFILE W/TSH Routine 04/15/2005 10:20 AM EDT Nodular Prostate CHG LIPID PANEL Routine 04/15/2005 10:20 AM EDT Pure Hypercholesterolemia CHG COMPREHENSIVE METABOLIC PANEL Routine 04/15/2005 10:20 AM EDT Nodular Prostate documented in this encounter Results * FREE THYROXINE (T4) NON CASCAD (04/15/2005 10:20 AM EDT) FREE T4 CASCADE 1.34 0.70 - 1.80 ng/dL [facility] 04/15/2005 10:2 0 AM EDT 04/15/2005 10:21 AM EDT N[facility]isa [facility] Performing Organization Address [facility]/ZIP Co de Phone Number [facility] * PROSTATE SPEC. AG, SCREEN (04/15/2005 10:20 AM EDT) PROSTATIC SPECIFIC ANTIGEN SCR 0.4 0.0 - 4.0 ng/mL [facility] 04/15/2005 10:2 0 AM EDT 04/15/2005 10:21 AM EDT N[facility] Performing Organization Address [facility]/ZIP Co de Phone Number [facility] * (ABNORMAL) THYROID PROFILE W/TSH (04/15/2005 10:20 AM EDT) TSH CASCADE 5.12(H) 0.40 - 4.00 uIU/ml [facility] 04/15/2005 10:2 0 AM EDT 04/15/2005 10:21 AM EDT N[facility] * (ABNORMAL) LIPID PROFILE (04/15/2005 10:20 AM EDT) Cholesterol 195 0 - 200 mg/dL [facility] TRIGLYCERIDES 143 0 - 150 mg/dL [facility] HDL CHOLESTEROL 54 >40 mg/dL [facility] LDL CALCULATED 113(H) 0 - 100 mg/dL [facility] TC-HDLC RATIO 3.6 0 - 4.4 mg/dL [facility] 04/15/2005 10:2 0 AM EDT 04/15/2005 10:21 AM EDT Narcisa Huggins CLINICAL PHARMACIST LAB [facility] * COMPREHENSIVE METABOLIC PANEL (04/15/2005 10:20 AM EDT) GLUCOSE 102 70 - 110 mg/dL [facility] Blood Urea Nitrogen 15 5 - 25 mg/dL [facility] CREAT 0.9 0.7 - 1.5 mg/dL [facility] GLOMERULAR FILTRATION RATE > 60 [facility] Comment: If patient is -Monegasque, multiply result by 1.21 Chronic Kidney Disease: < 60 ml/min/1.73 square meters Kidney Failure: < 15 ml/min/1.73 square meters BUN/CREAT RATIO 16.7 6.0 - 20.0 G/dL [facility] NA 140 133 - 145 mEq/L [facility] K 4.6 3.5 - 5.2 mEq/L [facility] CL 105 96 - 108 mEq/L [facility] CARBON DIOXIDE (CO2) 28.6 21.0 - 32.0 mEq/L [facility] CALCIUM 9.7 8.5 - 10.5 mg/dL [facility] TOTAL PROTEIN (TP) 6.9 6.0 - 8.0 G/dL [facility] Albumin 4.6 3.2 - 5.6 G/dL [facility] GLOBULIN 2.3 1.9 - 4.4 G/dL [facility] A/G RATIO 2.0 1.1 - 2.3 [facility] BILIRUBIN TOTAL 1.1 0.0 - 1.4 mg/dL [facility] SGOT 27 10 - 42 U/L [facility] SGPT 32 10 - 60 U/L [facility] ALK PHOS 86 42 - 121 U/L [facility] 04/15/2005 10:2 0 AM EDT 04/15/2005 10:21 AM EDT Narcisa Huggins CLINICAL PHARMACIST LAB [facility] documented in this encounter Visit Diagnoses Diagnosis Pure hypercholesterolemia Nodular prostate documented in this encounter Care Teams Laborer Beam House Relationship Specialty Start Date End Date Ramesh Salvador MD [address] [place] [id number] PCP - General 07/23/99 04/13/11 Ramesh Salvador MD [address] [place] [address] PCP - General Internal Medicine 04/14/11 04/09/22 [facility], [address] [address] PCP - General Internal Medicine 04/10/22 documented as of this encounter
--- OUTSIDE RECORDS SUMMARY | 2024-09-26 16:19 | XMS_ITS | Encounter Summary ---
Author Organization [facility] Address [address] [place] [address] Care Team Providers Care Buggyman Name Role Phone Ramesh Salvador MD Primary Care Provider [phone] [facility], Pcp Primary Care Provider Unavailabl e Encounter Details Date Type Department Care Team Description 04/01/2014 Pt. Non Urgent Medical Question Adult Medicine [address] [phone] Ramesh Salvador MD [address] [place] [address] [phone] Social History Tobacco Use Types Packs/Day Years Used Date Smoking Tobacco: Former Cigarettes Q uit: 06/28/1976 Smokeless Tobacco: Never Comments:started smoking at 15 Alcohol Use Standard Drinks/Week Comments No 0 (1 standard drink = 0.6 oz pur e alcohol) Sex Assigned at Date Recorded Not on file Job Start Date Occupation Industry Not on file Not on file Not on file documented as of this encounter Progress Notes * Ольга Cruz M.A. - 04/02/2014 8:32 AM EDTFrom: Arturo Lopeznessey To: Ramesh Salvador MD Sent: 04/01/2014 2:50 PM EDT Subject: refill please send a refill for levothyroxine as I only have two pills left.Thank You Arturo Lopeznessey documented in this encounter Plan of Treatment Not on file documented as of this encounter Visit Diagnoses Not on filedocumented in this encounter Care Teams Buggyman Relationship Specialty Start Date End Date Ramesh Salvador MD [address] [place] [phone] PCP - General Internal Medicine 04/14/11 04/09/22 [facility], [address] [address] PCP - General Internal Medicine 04/10/22 documented as of this encounter
--- OUTSIDE RECORDS SUMMARY | 2024-09-26 16:19 | XMS_ITS | Encounter Summary ---
Author Organization [facility] Address [address] [place] [address] Care Team Providers Care Thoroughbred Horse Farm Manager Name Role Phone Ramesh Salvador MD Primary Care Provider [phone] Community, Pcp Primary Care Provider Unavailabl e Reason for Visit * Reason Onset Date Comments REFERRAL 09/06/2019 Encounter Details Date Type Department Care Team Description 09/06/2019 Telephone [facility] [address] [place] [address] RemingtonRadha, [facility] [address] [place] [address] REFERRAL Social History Tobacco Use Types Packs/Day Years Used Date Smoking Tobacco: Former Cigarettes 0.2 10 0 1966 - 06/28/1975 Smokeless Tobacco: Never Comments:started smoking at 15 Alcohol Use Standard Drinks/Week Comments No 0 (1 standard drink = 0.6 oz pur e alcohol) Sex Assigned at Date Recorded Not on file Job Start Date Occupation Industry Not on file Not on file Not on file documented as of this encounter Miscellaneous Notes * Telephone Encounter - Marlene Diaz - 09/06/2019 10:40 AM EDT FYI ONLY. Pt canx 09/12/19 sleep study and does not wish to pursue at this time. I am removing this pt's order from the sleep study schedule. Order expires 08/10/20,Medicare/Medex no auth required/pp. documented in this encounter Plan of Treatment Not on file documented as of this encounter Visit Diagnoses Not on filedocumented in this encounter Care Teams Thoroughbred Horse Farm Manager Relationship Specialty Start Date End Date Ramesh Salvador MD [address] [place] [phone] PCP - General Internal Medicine 04/14/11 04/09/[address] [address] PCP - General Internal Medicine 04/10/22 documented as of this encounter
--- OUTSIDE RECORDS SUMMARY | 2024-09-26 16:19 | XMS_ITS | Encounter Summary ---
Author Organization [facility] Address [address] [place] [address] Care Team Providers Care Pocket Builder Name Role Phone Ramesh Salvador MD Primary Care Provider [phone] [facility], Pcp [facility] Encounter Details Date Type Department Care Team Description 08/10/2017 Business Doc Medical Records [address] [place] [id number] Abstract, Provider Social History Tobacco Use Types Packs/Day Years [...] on filedocumented in this encounter Care Teams Pocket Builder Relationship Specialty Start Date End Date Ramesh Salvador MD [address] [place] [address] [phone] PCP - General Internal Medicine 04/14/11 04/09/22 [facility], Pcp [address] [place] [address] PCP - General Internal Medicine 04/10/22 documented as of this encounter
--- OUTSIDE RECORDS SUMMARY | 2024-09-26 16:19 | XMS_ITS | Encounter Summary ---
Author Organization [facility] Address [address] [place] [address] Care Team Providers Care Procedure Tech Name Role Phone Ramesh Salvador MD Primary Care Provider [phone] Community, Pcp Primary Care Provider Unavailabl e Encounter Details Date Type Department Care Team Description 07/13/2017 Orders Only Adult Medicine [address] [phone] Eboni King, PRAMOD Social History Tobacco Use Types Packs/Day Years [...] on filedocumented in this encounter Care Teams Procedure Tech Relationship Specialty Start Date End Date Ramesh Salvador MD [address] [place] [address] [phone] PCP - General Internal Medicine 04/14/11 04/09/22 [facility], [place] [address] [place] [address] PCP - General Internal Medicine 04/10/22 documented as of this encounter
--- OUTSIDE RECORDS SUMMARY | 2024-09-26 16:19 | XMS_ITS | Encounter Summary ---
Author Organization [facility] Address [address] [place] [address] Care Team Providers Care Meat Market Manager Name Role Phone Ramesh Salvador MD Primary Care Provider [phone] [facility], Pcp Primary Care Provider Unavailabl e Encounter Details Date Type Department Care Team Description 03/05/2019 Refill Adult Medicine [address] [address] Eboni King NP Social History Tobacco Use Types Packs/Day Years [...] encounter Miscellaneous Notes * Telephone Encounter - Sussy Son M.A. - 03/06/2019 7:35 AM EDT Last office visit 10/27/18 Next office visit 03/27/19 * Telephone Encounter - Sussy Son M.A. - 03/06/2019 7:35 AM EDTFrom: Arturo Rosendo LopezBernie To: Eboni King NP Sent: 03/05/2019 11:15 AM EDT Subject: Medication Renewal Request Original authorizing provider: Eboni King NP Arturo Gibbs would like a refill of the following medications: ranitidine (ZANTAC) 150 MG tablet [Eboni King NP] Preferred pharmacy: [id number] [place] [address] [place] [address] Comment: Medication renewals requested in this message routed to other providers: levothyroxine (SYNTRHOID, LEVOTHROID) 137 MCG tablet [Ramesh Salvador MD] documented in this encounter Plan of Treatment Not on file documented as of this encounter Visit Diagnoses Not on filedocumented in this encounter Care Teams Meat Market Manager Relationship Specialty Start Date End Date Ramesh Salvador MD [address] [place] [address] PCP - General Internal Medicine 04/14/11 04/09/22 [facility], [address] [address] PCP - General Internal Medicine 04/10/22 documented as of this encounter
--- OUTSIDE RECORDS SUMMARY | 2024-09-26 16:19 | XMS_ITS | Encounter Summary ---
Author Organization [facility] Address [address] [place] [address] Care Team Providers Care Brick Pitcher Name Role Phone Ramesh Salvador MD Primary Care Provider [phone] [facility], Pcp Primary [facility] Encounter Details Date Type Department Care Team Description 01/12/2012 Release of Information Medical Records [address] [place] [id number] Abstract, Provider Social History Tobacco Use Types [...] on filedocumented in this encounter Care Teams Brick Pitcher Relationship Specialty Start Date End Date Ramesh Salvador MD [address] [place] [address] PCP - General Internal Medicine 04/14/11 04/09/22 [facility], Pcp [address] [place] [phone] PCP - General Internal Medicine 04/10/22 documented as of this encounter
--- OUTSIDE RECORDS SUMMARY | 2024-09-26 16:19 | XMS_ITS | Encounter Summary ---
Author Organization [facility] Address [address] [place] [address] Care Team Providers Care Dehorner Name Role Phone Ramesh Salvador MD Primary Care Provider [phone] [facility], Pcp Primary Care Provider Unavailabl e Reason for Visit * Reason Comments E-prescribe Rx Request Encounter Details Date Type Department Care Team Description 08/18/2014 Refill Adult Medicine [address] [address] Willie Puentes PA-C E-prescribe Rx Request Social History Tobacco Use Types Packs/Day Years [...] encounter Miscellaneous Notes * Telephone Encounter - Noni Peuntes R.N. - 08/20/2014 12:43 PM EST Pt is coughing and requested cough meds, not sen in a year for this, understands he would need to be seen Advised home care following the cough Protocol. RN reinforced telephone consultation and advice. Reviewed with the patient the signs and symptoms to watch for that would require immediate attention. If symptoms change, worsen or increase in intensity, to call back immediately. * Telephone Encounter - Ольга Cruz M.A. - 08/20/2014 9:38 AM EST Pt requesting CODEINE-GUAIFENESIN (GUIATUSS AC) 100-10 MG/5ML SOLN Last filled by willie puentes 09/01/13 Please triage pt * Telephone Encounter - Elizabeth Alvarado - 08/20/2014 9:24 AM EST Patient would like script to be: E-PRESCRIBED/FAXED TO PHARMACY WHEN WAS THE PATIENT'S LAST APPOINTMENT IN ADULT MEDICINE? 08/14/14 WHEN WAS THE LAST TIME THE PATIENT SAW THEIR PCP? Same as above Does patient have an upcoming appointment? Yes 01/11/15 (THE MEDICATION REQUESTED IS ON THE MED LIST ABOVE) One or some of the medications requested were on the HISTORICAL MED list Did you check the Pharmacy information above?: YES Patient wants: 30 -day supply Is this a mail order prescription request ? NO Patients current insurance carrier is: Payor: [facility]DEMNITY / Plan: MEDEX ([facility] / Product Type: MEDICARE [id number] documented in this encounter Plan of Treatment Not on file documented as of this encounter Visit Diagnoses Not on filedocumented in this encounter Care Teams Dehorner Relationship Specialty Start Date End Date Ramesh Salvador MD [address] [place] [address] PCP - General Internal Medicine 04/14/11 04/09/[address] [address] PCP - General Internal Medicine 04/10/22 documented as of this encounter
--- OUTSIDE RECORDS SUMMARY | 2024-09-26 16:19 | XMS_ITS | Encounter Summary ---
Author Organization [facility] Address [address] [place] [address] Care Team Providers Care Mapper Name Role Phone Ramesh Salvador MD Primary Care Provider Community, Pcp Primary Care Provider Unavailabl e Encounter Details Date Type Department Care Team Description 05/15/2019 Orders Only Adult Medicine [address] [phone] Ramesh Salvador MD [address] [place] [address] [phone] Social History Tobacco Use Types Packs/Day Years [...] on filedocumented in this encounter Care Teams Mapper Relationship Specialty Start Date End Date Ramesh Salvador MD [address] [place] [address] [phone] PCP - General Internal Medicine 04/14/11 04/09/22 [facility] [address] [address] PCP - General Internal Medicine 04/10/22 documented as of this encounter
--- OUTSIDE RECORDS SUMMARY | 2024-09-26 16:19 | XMS_ITS | Encounter Summary ---
Author Organization [facility] Address [address] [place] [address] Care Team Providers Care Sulfur Chloride Operator Name Role Phone Ramesh Salvador MD Primary Care Provider [phone] Ramesh Salvador MD Primary Care Provider [phone] [facility], Pcp Primary Care Provider Unavailabl e Reason for Visit * Reason Comments medication problems [facility] Encounter Details Date Type Department Care Team Description 11/19/2003 Telephone Adult Medicine [address] [phone] Ramesh Salvador MD [address] [place] [address] [phone] medication problems ([facility] ) Social History Tobacco Use Types Packs/Day Years Used Date Smoking Tobacco: Never Assessed Sex Assigned at Date Recorded Not on file Job Start Date Occupation Industry Not on file Not on file Not on file documented as of this encounter Miscellaneous Notes * Telephone Encounter - 11/19/2003 4:25 PM EDTMessage given to sanford * Telephone Encounter - 11/19/2003 4:16 PM EDTCALL RECEIVED. Contact: [phone] GIVEN VIOXX TODAY NOT COVERED THRU [facility] INF //NEEDS PRIOR AUTH OR SUB CALL [facility] [id number] PATIENT HAS SAVI INS documented in this encounter Plan of Treatment Not on file documented as of this encounter Visit Diagnoses Not on filedocumented in this encounter Care Teams Sulfur Chloride Operator Relationship Specialty Start Date End Date Ramesh Salvador MD [address] [place] [address] PCP - General 07/23/99 04/13/11 Ramesh Salvador MD [address] [place] [address] PCP - General Internal Medicine 04/14/11 04/09/[address] [address] PCP - General Internal Medicine 04/10/22 documented as of this encounter
--- OUTSIDE RECORDS SUMMARY | 2024-09-26 16:19 | XMS_ITS | Clinical Summary ---
Author Organization [facility] Address [address] [place] [address] Care Team Providers Care Glue Mill Operator Name Role Phone Community, Pcp Primary Care Provider Unavailabl e Allergies Active Allergy Reactions Severity Noted Date Comments Augmentin Rash/Dermatitis Medium 10/28/2005 Sulfa Drugs 09/14/2013 Medications Medication Sig Dispensed Refills Start Date End Date Status SB LOW DOSE ASA EC 81 MG OR TBEC 1 TABLET DAILY 0 Active MULTIVITAMIN OR Take 1 Tab by mouth daily. 0 Active betamethasone dipropionate (DIPROLENE) 0.05 % cream Use to affected areas twice daily 35 g 5 02/08/2018 Active gabapentin (NEURONTIN) 100 MG capsuleIndications:P rimary hypertension,Periphe ral polyneuropathy,Other specified hypothyroidism,Cold hands,Anxiety state,Prediabetes Take 2 Capsules by mouth at bedtime. 180 capsule 1 09/01/2021 Active levothyroxine (Syntrhoid, Levothroid) 137 MCG tabletIndications:Pr imary hypertension,Periphe ral polyneuropathy,Other specified hypothyroidism,Cold hands,Anxiety state,Prediabetes Take 1 tablet by mouth daily. 90 tablet 3 09/01/2021 Active losartan (COZAAR) 50 MG tablet TAKE ONE TABLET BY MOUTH EVERY DAY 90 Tablet 1 10/14/2021 Active Active Problems Problem Noted Date Primary hypertension 06/03/2021 Prediabetes 08/21/2020 Peripheral polyneuropathy 03/11/2020 Diverticulitis large intestine 7 Ventral hernia 09/02/2012 Hypogonadism male 05/30/2011 Overview: 2011: Testosterone level 144 Vertigo, labyrinthine 10/17/2007 Diverticulosis of colon (without mention of hemorrhage) 04/19/2007 Snoring 11/17/2006 Esophageal reflux 08/19/2006 Anxiety state, unspecified 09/05/2004 Pure hypercholesterolemia 10/02/2003 Overview: Improvement after weight reduction Hypothyroidism 04/18/2003 Sciatica 04/14/2001 Immunizations Name Administration Dates Next Due Influenza (> 6 Months) 04/19/2016,2014,04/06/2014,05/08 Influenza Flu (PT Reported) 02/19/2020 Influenza vaccine high dose age 65 and over 03/07/2018,03/08/2017 Pneumoccoccal(Adult) Polysac charide PPSV23 08/09/2017 Pneumococcal Conjugate PCV-13 06/07/2015 TETANUS/DIPTHERIA (ADULT) 06/19/2003 Tdap 07/19/2008 Zostavax 05/05/2012 Family History Medical History Relation Name Comments Cholesterol Level Brother Hypertension Father Cancer, Other Maternal Grandfather STOMAC H RI Mother s/p [id number] 2010 Relation Name Status Comments Brother Father Maternal Grandfather Mother Social History Tobacco Use Types Packs/Day Years [...] file Not on file Not on file Last Filed Vital Signs Vital Sign Reading Time Taken Comments Blood Pressure 118/62 12/31/2021 10:07 AM EDT Pulse 94 12/31/2021 10:07 AM EDT Temperature 36 ??C (96.8 ??F) 12/31/2021 10:07 AM EDT Respiratory Rate 18 12/31/2021 10:07 AM EDT Oxygen Saturation 96% 12/31/2021 10:07 AM EDT Inhaled Oxygen Concentration - - Weight 90.8 kg (200 lb 1.6 oz) 12/31/2021 10:07 AM EDT Height 177.8 cm (5' 10 ) 12/31/2021 10:07 AM EDT Body Mass Index 28.71 12/31/2021 10:07 AM EDT Plan of Treatment Health Maintenance Due Date Last Done Comments SHINGLES VACCINE (2 of 3) 06/30/2012 05/05/2012 COLON CANCER SCREEN WITH STO OL CARD 10/08/2017 10/08/2016, 07/12/2006, 06/15/2005, Additional history exists DTAP/TDAP/TD (2 - Td or Tdap) 07/19/2018 07/19/2008 DEPRESSION SCREEN 02/08/2019 02/08/2018, , 12/18/2015 FALL RISK ASSESSMENT 09/01/2022 09/01/2021, 02/08/2018, 12/18/2015 Covid-19 Vaccine (2022-07 4 season) 2024 09/28/2020, 09/07/2020 BMI CHECK/ADVISE 06/28/2024 12/31/2021, 12/2020, 04/22/2021, Additional history exists INFLUENZA (Season Ended) 2025 020, 03/07/2018, 03/08/2017, Additional history exists CHOLESTEROL SCREENING 09/19/2025 09/19/2020 , 10/19/2018, 03/03/2017, Additional history exists HEPATITIS C SCREENING Completed 08/09/2014 PNEUMOCOCCAL VACCINE Completed 08/09/2017, 06/07/20 15 Insurance Payer Benefit Plan / Group Subscriber ID Effective Dates Phone Address Type [place] [id number] 2014-Prese [address] [place] [address] MEDICARE [id number]/INDEM NITY MEDEX (MCARE SUPP) [place] [id number] 2014-Prese nt [address] [place] [address] MEDICARE [id number] [place]/PPO POS CH/[place]/$0/ 20%/F/PPO [id number] 2010-Prese nt [address] [place] [address] PPO Foy-hsh-Qznu ice BCBSMA PPO $40 [place] [id number] 2013-Pre sent [phone] 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
--- OUTSIDE RECORDS SUMMARY | 2024-09-26 16:19 | XMS_ITS | Encounter Summary ---
Author Organization [facility] Address [address] [place] [address] Care Team Providers Care Extension Service Specialist Name Role Phone Ramesh Salvador MD Primary Care Provider Community, Pcp Primary Care Provider [facility] Encounter Details Date Type Department Care Team Description 06/11/2015 Business Doc Medical Records [address] [place] [address] Abstract, Provider Social History Tobacco Use Types [...] on filedocumented in this encounter Care Teams Extension Service Specialist Relationship Specialty Start Date End Date Ramesh Salvador MD [address] [place] [address] [phone] PCP - General Internal Medicine 04/14/11 04/09/22 [facility], Pcp [address] [place] [address] PCP - General Internal Medicine 04/10/22 documented as of this encounter
--- OUTSIDE RECORDS SUMMARY | 2024-09-26 16:19 | XMS_ITS | Encounter Summary ---
Author Organization [facility] Address [address] [place] [address] Care Team Providers Care Lead Ingot Molder Name Role Phone Ramesh Salvador MD Primary Care Provider [phone] Community, Pcp [facility] Encounter Details Date Type Department Care Team Description 08/26/2011 Release of Information Medical Records [address] [place] [phone] Abstract, Provider Social History Tobacco Use Types [...] on filedocumented in this encounter Care Teams Lead Ingot Molder Relationship Specialty Start Date End Date Ramesh Salvador MD [address] [place] [address] PCP - General Internal Medicine 04/14/11 04/09/22 [facility], Pcp [address] [place] [address] PCP - General Internal Medicine 04/10/22 documented as of this encounter
--- OUTSIDE RECORDS SUMMARY | 2024-09-26 16:19 | XMS_ITS | Encounter Summary ---
Author Organization [facility] Address [address] [place] [address] Care Team Providers Care Geek Squad Agent Name Role Phone Ramesh Salvador MD Primary Care Provider [phone] [facility], Pcp Primary Care Provider Unavailabl e Encounter Details Date Type Department Care Team Description 01/29/2018 Orders Only Adult Medicine [facility] [address] [place], [place] [phone] Ramesh Salvador MD [address] [place] [address] [phone] Hyperglycemia (Primary Dx) Social History Tobacco Use Types Packs/Day Years [...] on file documented as of this encounter Results * HEMOGLOBIN A1C (01/30/2018 9:16 AM EDT) GLYCATED HEMOGLOBIN A1C 6.3 <6.5 % 01/31/2018 10:31 AM EDT [facility] ESTIMATED AVERAGE GLUCOSE 134 mg/dL 01/31/2018 10:31 AM EDT [facility] 01/30/2018 9:16 AM EDT 01/30/2018 9:18 AM EDT Ramesh Salvador MD LAB [facility] documented in this encounter Visit Diagnoses Diagnosis Hyperglycemia- Primary Other abnormal glucose documented in this encounter Care Teams Geek Squad Agent Relationship Specialty Start Date End Date Ramesh Salvador MD [address] [place] [address] PCP - General Internal Medicine 04/14/11 04/09/22 [facility], [address] [address] PCP - General Internal Medicine 04/10/22 documented as of this encounter
--- OUTSIDE RECORDS SUMMARY | 2024-09-26 16:19 | XMS_ITS | Encounter Summary ---
Author Organization [facility] Address [address] [place] [address] Care Team Providers Care Base Remover Name Role Phone Ramesh Salvador MD Primary Care Provider [phone] Community, Pcp Primary Care Provider Unavailabl e Encounter Details Date Type Department Care Team Description 01/05/2017 Real Estate Office Supervisor Report Medical Records [address] [place] [address] Dept., [facility] Occupational & Pt Social History Tobacco Use Types Packs/Day Years [...] on filedocumented in this encounter Care Teams Base Remover Relationship Specialty Start Date End Date Ramesh Salvador MD [address] [place] [address] [phone] PCP - General Internal Medicine 04/14/11 04/09/22 Jamie Pcp [address] [place] [address] PCP - General Internal Medicine 04/10/22 documented as of this encounter
--- OUTSIDE RECORDS SUMMARY | 2024-09-26 16:19 | XMS_ITS | Encounter Summary ---
Author Organization [facility] Address [address] [place] [address] Care Team Providers Care Preparation Center Coordinator Name Role Phone Ramesh Salvador MD Primary Care Provider [phone] Community, Pcp Primary [facility] Encounter Details Date Type Department Care Team Description 10/26/2016 Hospital Medical Records [address] [place] [address] Willem Sullivan MD Social History Tobacco Use Types Packs/Day Years [...] on filedocumented in this encounter Care Teams Preparation Center Coordinator Relationship Specialty Start Date End Date Ramesh Salvador MD [address] [place] [address] [phone] PCP - General Internal Medicine 04/14/11 04/09/22 [facility], Pcp [address] [place] [address] PCP - General Internal Medicine 04/10/22 documented as of this encounter
--- OUTSIDE RECORDS SUMMARY | 2024-09-26 16:19 | XMS_ITS | Encounter Summary ---
Author Organization [facility] Address [address] [place] [address] Care Team Providers Care Transmission Tester Name Role Phone Ramesh Salvador MD Primary Care Provider [phone] [facility], Pcp Primary Care Provider Unavailabl e Encounter Details Date Type Department Care Team Description 12/30/2016 Pt. Non Urgent Medic al Question Adult Medicine [address] [address] Margie Simms PA-C Social History Tobacco Use Types Packs/Day Years [...] as of this encounter Progress Notes * Portia Butcher M.A. - 12/30/2016 10:00 AM EDTFrom: Arturo Gibbs To: Margie Simms PA-C Sent: 12/30/2016 9:51 AM EDT Subject: pt I have booked a date for p.t on january 05 at [facility] if you could please send over the information that they need.Thank You documented in this encounter Plan of Treatment Not on file documented as of this encounter Visit Diagnoses Not on filedocumented in this encounter Care Teams Transmission Tester Relationship Specialty Start Date End Date Ramesh Salvador MD [address] [place] [address] PCP - General Internal Medicine 04/14/11 04/09/22 [facility], Pcp [address] [place] [address] PCP - General Internal Medicine 04/10/22 documented as of this encounter
--- OUTSIDE RECORDS SUMMARY | 2024-09-26 16:19 | XMS_ITS | Encounter Summary ---
Author Organization [facility] Address [address] [place] [address] Care Team Providers Care Manager Gaming Name Role Phone Ramesh Salvador MD Primary Care Provider [phone] Community, Pcp Primary Care Provider [facility] Encounter Details Date Type Department Care Team Description 09/01/2013 Night Triage Doc Medical Records [address] [place] [address] Abstract, Provider Social History Tobacco Use Types [...] on filedocumented in this encounter Care Teams Manager Gaming Relationship Specialty Start Date End Date Ramesh Salvador MD [address] [place] [address] [phone] PCP - General Internal Medicine 04/14/11 04/09/22 [facility], Pcp [address] [place] [address] PCP - General Internal Medicine 04/10/22 documented as of this encounter
--- OUTSIDE RECORDS SUMMARY | 2024-09-26 16:19 | XMS_ITS | Encounter Summary ---
Author Organization [facility] Address [address] [place] [address] Care Team Providers Care Cupola Operator Name Role Phone Ramesh Salvador MD Primary Care Provider [phone] [facility], Pcp Primary Care Provider Unavailabl e Encounter Details Date Type Department Care Team Description 03/01/2017 Pt. Non Urgent Medic al Question Gastroenterology - [address] [address] Anton Lee PA-C Social History Tobacco Use Types Packs/Day [...] as of this encounter Progress Notes * Aliyah Fagan L.P.N. - 03/02/2017 7:20 AM EDTFrom: Arturo Lopeznessey To: Anton Lee PA-C Sent: 03/01/2017 10:59 AM EDT Subject: Diverticulitis I need an appointment with Rosa De La O as soon as possible on Wednesday the Feb. still having problems after 2 weeks on the medicine .Thank you Arturo Lopeznessey .phone is [phone] documented in this encounter Plan of Treatment Not on file documented as of this encounter Visit Diagnoses Not on filedocumented in this encounter Care Teams Cupola Operator Relationship Specialty Start Date End Date Ramesh Salvador MD [address] [place] [address] PCP - General Internal Medicine 04/14/11 04/09/22 [facility], Pcp [address] [place] [address] PCP - General Internal Medicine 04/10/22 documented as of this encounter
--- OUTSIDE RECORDS SUMMARY | 2024-09-26 16:19 | XMS_ITS | Encounter Summary ---
Author Organization [facility] Address [address] [place] [address] Care Team Providers Care Gis Scientist Name Role Phone Ramesh Salvador MD Primary Care Provider [phone] [facility], Pcp Primary Care Provider Unavailabl e Reason for Visit * Reason Onset Date Comments er follow up 02/07/2018 Encounter Details Date Type Department Care Team Description 02/07/2018 Telephone Adult Medicine [address] [phone] Ramesh Salvador MD [address] [place] [address] [phone] er follow up Social History Tobacco Use Types Packs/Day Years [...] encounter Miscellaneous Notes * Telephone Encounter - Franchesca Zuniga - 02/07/2018 8:49 AM EDT ER follow-up appointment booked YES 02/06/18 If ER or UC follow up, can be booked with [facility] or . If hospital admission follow up MUST be booked with a physician Appointment time: 2:45AM Provider visit is scheduled with: Ramesh Salvador MD Hospital/ center patient was treated at: [facility] Date of visit: 02/06/18 Was this only an ER/UC visit or was the patient admitted to the hospital? ER visit onlyER visit only If patient was admitted what was the date of discharge? N/A Reason/diagnosis for visit or stay: right leg cramp Was visit or stay related to an injury? NO If yes, what was the date of injury (DOI)? N/A If yes, was the injury due to N/A Tests performed: Lab: YES X-ray: YES EKG: YES Other tests. If yes, what?; N/A documented in this encounter Plan of Treatment Not on file documented as of this encounter Visit Diagnoses Not on filedocumented in this encounter Care Teams Gis Scientist Relationship Specialty Start Date End Date Ramesh Salvador MD [address] [place] [address] PCP - General Internal Medicine 04/14/11 [facility]09[facility] [address] [place] [address] PCP - General Internal Medicine 04/10/22 documented as of this encounter
--- OUTSIDE RECORDS SUMMARY | 2024-09-26 16:19 | XMS_ITS | Encounter Summary ---
Author Organization [facility] Address [address] [place] [address] Care Team Providers Care Assayer Name Role Phone Ramesh Salvador MD Primary Care Provider [phone] Community, Pcp Primary Care Provider [facility] Encounter Details Date Type Department Care Team Description 12/02/2011 School Community Relations Coordinator Report Medical Records [address] [place] [address] Social History Tobacco Use Types Packs/Day Years [...] on filedocumented in this encounter Care Teams Assayer Relationship Specialty Start Date End Date Ramesh Salvador MD [address] [place] [address] [phone] PCP - General Internal Medicine 04/14/11 04/09/22 [facility], Pcp [address] [place] [address] [place] [address] PCP - General Internal Medicine 04/10/22 documented as of this encounter
--- OUTSIDE RECORDS SUMMARY | 2024-09-26 16:19 | XMS_ITS | Encounter Summary ---
Author Organization [facility] Address [address] [place] [address] Care Team Providers Care Search Manager Name Role Phone Ramesh Salvador MD Primary Care Provider [phone] Ramesh Salvador MD Primary Care Provider [phone] Formerly [facility], Pcp Primary Care Provider Unavailabl e Encounter Details Date Type Department Care Team Description 03/09/2005 Orders Only Medical [address] [place], [place] [id number] Narcisa Huggins, SOCIAL WORK FACULTY MEMBER [address] [place], [place] [id number] ABDOMINAL PAIN, UNSPECIFIED SITE (Primary Dx) Social History Tobacco Use Types Packs/Day Years Used Date Smoking Tobacco: Never Assessed Sex Assigned at Date Recorded Not on file Job Start Date Occupation Industry Not on file Not on file Not on file documented as of this encounter Plan of Treatment Scheduled Orders Name Type Priority Associated Diagnoses Orde r Schedule VENIPUNCTURE Lab Routine Abdominal Pain, Unspecified Site Ordered: 03/09/2005 documented as of this encounter Procedures Procedure Name Priority Date/Time Associated Diagnosis Comments CHG BLOOD COUNT COMPLETE AUTO&AUTO DIFRNTL WBC Routine 03/09/2005 2:19 PM EDT Abdominal Pain, Unspecified Site CHG COMPREHENSIVE METABOLIC PANEL Routine 03/09/2005 2:19 PM EDT Abdominal Pain, Unspecified Site documented in this encounter Results * CBC (AUTO DIFF PLATELET) (03/09/2005 2:19 PM EDT) [facility] WHITE BLOOD COUNT 8.8 4.8 - 10.8 x10-3 [facility] RED BLOOD COUNT 5.1 4.5 - 5.5 x10-6 [facility] Hemoglobin 16.0 13.0 - 17.0 g/dL [facility] Hematocrit 46.3 40 - 51 % [facility] MEAN CORPUSCULAR VOLUME 90.1 79 - 98 fl [facility] MEAN CORPUSCULAR HEMOGLOBIN 31.1 27 - 32 pg [facility] MEAN CORPUSCULAR HGB CONC 34.6 32 - 37 g/dl [facility] RED CELL DISTRIBUTION WIDTH 13.0 11 - 15 % [facility] PLT COUNT 252 130 - 400 x10-3 [facility] NEUTROPHILS % 68 41 - 85 % [facility] LYMPH % 23 15 - 48 % [facility] 03/09/2005 2:19 PM EDT 03/09/2005 2:21 PM EDT Narcisa Huggins SOCIAL WORK FACULTY MEMBER LAB [facility] * COMPREHENSIVE METABOLIC PANEL (03/09/2005 2:19 PM EDT) [facility] GLUCOSE 106 70 - 110 mg/dL [facility] Blood Urea Nitrogen 16 5 - 25 mg/dL [facility] creatinine 0.9 0.7 - 1.5 mg/dL [facility] BUN/CREATININE RATIO 17.8 6.0 - 20.0 G/dL [facility] Sodium 142 133 - 145 mEq/L [facility] Potassium 4.6 3.5 - 5.2 mEq/L [facility] Chloride 104 96 - 108 mEq/L [facility] CARBON DIOXIDE (CO2) 29.2 21.0 - 32.0 mEq/L [facility] CALCIUM 10.1 8.5 - 10.5 mg/dL [facility] TOTAL PROTEIN (TP) 6.8 6.0 - 8.0 G/dL [facility] Albumin 4.5 3.2 - 5.6 G/dL [facility] GLOBULIN 2.3 1.9 - 4.4 G/dL [facility] ALBUMIN/GLOBULI N RATIO 2.0 1.1 - 2.3 [facility] BILIRUBIN TOTAL 0.9 0.0 - 1.4 mg/dL [facility] AST (SGOT) 24 10 - 42 U/L [facility] ALT (SGPT) 32 10 - 60 U/L [facility] Alk Phos 83 42 - 121 U/L [facility] 03/09/2005 2:19 PM EDT 03/09/2005 2:21 PM EDT Narcisa Huggins SOCIAL WORK FACULTY MEMBER LAB [facility] documented in this encounter Visit Diagnoses Diagnosis Abdominal pain, unspecified site- Primary documented in this encounter Care Teams Search Manager Relationship Specialty Start Date End Date Ramesh Salvador MD [address] [place] [address] PCP - General 07/23/99 04/13/11 Ramesh Salvador MD [address] [place] [address] PCP - General Internal Medicine 04/14/11 04/09/22 Formerly [facility], Pcp [address] [place] [address] PCP - General Internal Medicine 04/10/22 documented as of this encounter
--- OUTSIDE RECORDS SUMMARY | 2024-09-26 16:19 | XMS_ITS | Encounter Summary ---
Author Organization [facility] Address [address] [place] [address] Care Team Providers Care Hobber Name Role Phone Ramesh Salvador MD Primary Care Provider [phone] Community, Pcp Primary Care Provider Unavailabl e Encounter Details Date Type Department Care Team Description 02/09/2012 Powder Nipper Report Medical Records [address] [place] [address] Ami Alejandra MD [address] [place] [address] [address] [place] [address] Social History Tobacco Use Types Packs/Day Years [...] on filedocumented in this encounter Care Teams Hobber Relationship Specialty Start Date End Date Ramesh Salvador MD [address] [place] [address] PCP - General Internal Medicine 04/14/11 04/09/22 [facility], Pcp [address] [place] [address] PCP - General Internal Medicine 04/10/22 documented as of this encounter
== END 2024-09-26 15:11 | disposition home or self-care (01) ==
LOC: HO.HMCC 13:43
PROVIDERS: PCP Nurse Practitioner Family; Visit Provider Nurse Practitioner Family
DX: Z00.00 Encounter for general adult medical examination without abnormal findings (principal)

== ENCOUNTER → 2024-09-26 13:42 | Outpatient (BNVA) | payer MEDICARE, SELFPAY | PROVIDERS: PCP Nurse Practitioner Family; Visit Provider Nurse Practitioner Family | DX: Z00.00 Encounter for general adult medical examination without abnormal findings (principal) | CPT/HCPCS: 96127 ==

== ENCOUNTER 2024-09-28 09:36 | Outpatient (AMB) | payer MEDICARE, SELFPAY ==
--- NOTE | 2024-09-28 09:44 | MHC.OFFVIS ---
Vital Signs 09/28/24 09:45 Height 5 ft 10 in Weight 199 lb BMI 28.6 Intake Visit Reasons: Follow Up Intake Note: Patient presents follow up lumbar radiculopathy Allergies amoxicillin [From AUGMENTIN] Allergy (Intermediate, Verified 09/28/24 09:48) RASH clavulanic acid [From AUGMENTIN] Allergy (Intermediate, Verified 09/28/24 09:48) RASH losartan Adverse Reaction (Severe, Verified 09/28/24 09:48) Shortness of Breath Sulfa (Sulfonamide Antibiotics) Adverse Reaction (Intermediate, Verified 09/28/24 09:48) Rash Medication List - Last Reconciled 09/28/24 by LAURYN Herrera albuterol sulfate 90 mcg/actuation 1 inh inhalation QID amlodipine 5 mg PO DAILY 90 days aspirin 81 mg PO DAILY benzonatate 200 mg PO BEDTIME PRN blood pressure monitor As directed clotrimazole-betamethasone 1-0.05 % 1 appl topical BID 2 weeks gabapentin 200mg BID and 300mg qhs orally 90 days hydroxyzine HCl 12.5 mg (1/2 x 25 mg) PO QID PRN levothyroxine 125 mcg PO DAILY magnesium oxide 400 mg PO BEDTIME 30 days nystatin (Nystop) 1 appl topical BID nystatin 1 appl topical TID 30 days omeprazole 40 mg PO DAILY HPI Comments Details: 74-yr-old male presents for f/u visit of neuropathy. Pt reports he suffered a fall a few months ago, fell forward, landed on navdeep outstretched arms with his neck in extension. Since, his neck has been more sore w/o radiation.. Thus, he recently underwent c-spine XR and MR- Bulge/osteophyte complex C3-4 through C6-7 disc levels with mild AP canal stenosis. Bilateral neural from narrowing from uncovertebral hypertrophic changes from C4-5 through C6/7 disc level severe bilaterally at C5-6 and on the left C6-C7 disc level disc level He has an appoint next weak to meet with [facility] neuro[facility] clinic. Pt continues to have burning sensation in left calf- more so when walking for longer period He can feel the ground when walking. States his low back can be sore at times. Denies weakness, numbness, cramps on ambulation. Denies LE swelling, skin color changes, ulcers, hair pattern changes. He walks almost 3 miles [place]. He did increase Gabapentin to 200mg bid and 300mg qhs- has not helped much. However, today he notes that he takes the 1st am dose after returning form the 3 mile walk. Previous hx: He previously tried Nervive nerve releief x's 4 months w/o effect. PT has helped in the past. Uses a foot vibration device at him- helps some. Did see pain management in Jun 2022- offered diagnotic intervention tx and/or LLE vascular study however pt declined. 04/21/23, LLE EMG/NCS: IMPRESSION: 1. This is an abnormal study. 2. There is electrodiagnostic findings showing a combination of sensorimotor polyneuropathy and chronic L5-S1 radiculopathy. CLINICAL COMMENT: Advise caution interpreting results of NCS due to age. Leaning towards radiculopathy since more motor abnormalities were seen rather than sensory. Findings appear chronic. 03/25/23, Lumbar MRI w/o: IMPRESSION: Mild lumbar dextroscoliotic curvature. Straightening of normal lumbar lordosis. Spondylotic changes and facet arthrosis. No findings of fracture or significant listhesis. No findings to suggest an acute posterior disc protrusion. Varying degrees of relative chronic appearing central stenosis and foraminal narrowing as detailed above. No priors are available for comparison. [facility] Medical History Neurogenic claudication Pericarditis Hypothyroid Anxiety Surgical History Hx of cholecystectomy Family History Father No problems noted. Social History Housing: House Unable to assess alcohol history related to: Unknown Alcohol intake: former Patient Tobacco Use Status: Former Tobacco user e-Cigarette/Vaping Use: Never Used Second Hand Smoke Exposure: No service: Yes Current occupational status: retired Current occupational exposures/hazards: No Cognitive needs: No Hearing needs: No Vision needs: No Physical Exam Vital Signs: BMI result Body Mass Index 28.6 Const General: cooperative and no acute distress Orientation/consciousness: patient oriented x3 Resp Effort & Inspection: normal respiratory effort and able to speak in complete sentences Neuro Other: Bilateral posterior cervical tightness. Cervical ROM: limited Left Spurling: normal- however ROM limited Right Spurling: normal- however ROM limited BUE and BLE MS 10/30 General: patient oriented x3 Cranial nerves: Yes CN's II-XII intact bilaterally Cognition (Neuro): normal cognition Motor exam (neuro): 10/30 motor strength present throughout Deep tendon reflexes (DTR's): Right triceps reflex intensity grade: 2+, Left triceps reflex intensity grade: 2+, Rt Biceps (C5, C6): 2+, Left biceps reflex intensity grade: 2+, Right brachioradialis reflex intensity grade: 2+, Left brachioradialis reflex intensity grade: 2+, Right patellar reflex intensity grade: 2+ and Left patellar reflex intensity grade: 2+ Psych Appearance: grossly normal Mental Status: mental status grossly normal Speech and movement: Normal speech and movement present Affect: normal affect Attitude: cooperative Assessment & Plan Assessment & Plan (1) Pain of left calf: Code(s): M79.662 - Pain in left lower leg Category: Medical (2) Lumbar radiculopathy: Code(s): M54.16 - Radiculopathy, lumbar region Category: Medical (3) Spondylosis of lumbar region without myelopathy or radiculopathy: Code(s): M47.816 - Spondylosis without myelopathy or radiculopathy, lumbar region Category: Medical Plan Reviewed previous l-spine MRI report/images w/ pt- it may be reasonable for pt to discuss findings w/ neurosurgery team. Try adjusting Gabapentin dose so that 1st dose taken is before he takes 3-mile morning walk- Gabapentin 200mg in am and 300mg qhs to 200mg bid and 300mg qhs. Note pt does does not have prescription drug coverage. Start Magnesium 400mg qhs- may help overall muscle tightness. Continue ASA 81mg qd andanti-HTN tx. Continue try OTC neuropathy lotions/creams- such as capsaicin tx's or salon-pas. Continue daily walks and vibration device. Future considerations- LLE vascular studies, adjuncting w/ statin/anti-platelet tx. Pt to follow-up in 6 months or sooner prn. Medications: New magnesium oxide may hold for loose stools 400 mg PO BEDTIME 30 tabs 6RF 30 days Coding Level of Care Code Est Pt Level 4 (27085) Diagnoses Pain of left calf M79.662 Lumbar radiculopathy M54.16 Spondylosis of lumbar region without myelopathy or radiculopathy M47.816
[2024-09-28 09:45] VITALS: BMI 28.6
== END 2024-09-28 10:49 | disposition home or self-care (01) ==
LOC: HO.HSMS 09:37
PROVIDERS: PCP Nurse Practitioner Family; Visit Provider Nurse Practitioner Family
DX: M79.662 Pain in left lower leg (principal); M54.16 Radiculopathy, lumbar region; M47.816 Spondylosis without myelopathy or radiculopathy, lumbar region
CPT/HCPCS: 99214

== ENCOUNTER → 2024-09-28 09:36 | Outpatient (BNVA) | payer MEDICARE, SELFPAY | PROVIDERS: PCP Nurse Practitioner Family; Visit Provider Nurse Practitioner Family | DX: M79.662 Pain in left lower leg (principal); M54.16 Radiculopathy, lumbar region; M47.816 Spondylosis without myelopathy or radiculopathy, lumbar region | CPT/HCPCS: 99212 ==

== ENCOUNTER 2024-10-02 09:46 | Outpatient (AMB) | payer MEDICARE, SELFPAY ==
[2024-10-02 09:50] VITALS: BMI 28.6
--- NOTE | 2024-10-02 09:50 | A.SPINEOV_ITS ---
Vital Signs 10/02/24 09:50 Height 5 ft 10 in Weight 199 lb BMI 28.6 Intake Visit Reasons: Neck pain Intake Note: Mr. Gibbs is here today c/o neck pain. 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: No Allergies amoxicillin [From AUGMENTIN] Allergy (Intermediate, Verified 10/02/24 09:51) RASH clavulanic acid [From AUGMENTIN] Allergy (Intermediate, Verified 10/02/24 09:51) RASH losartan Adverse Reaction (Severe, Verified 10/02/24 09:51) Shortness of Breath Sulfa (Sulfonamide Antibiotics) Adverse Reaction (Intermediate, Verified 10/02/24 09:51) Rash Physical Exam Vital Signs: BMI result Body Mass Index 28.6 Assessment & Plan Assessment & Plan (1) Chronic neck pain: Code(s): M54.2 - Cervicalgia; G89.29 - Other chronic pain Category: Medical Plan Dear PRAMOD Lu, Thank you for referring Arturo to our office today. He is a pleasant 74-year-old male who comes in today with a chief complaint of posterior neck pa in. He reports this began after an inciting incident about 2 years ago when he tripped over a hose carrier and fell forward, bracing himself with his hands. Since then he has had neck pain that waxes/wanes in severity. He denies any shooting radicular pains into his bilateral upper extremities. He denies any numbness/tingling in his bilateral upper extremities. He denies any issues with dexterity, and is able to button buttons, zip his zippers, and write with a pen without issue. He denies any strength deficits in his bilateral hands. He has no nocturnal symptoms, and does not awake from sleep at night due to the pain. He has trialed several different medications in an effort to mitigate the pain, including Tylenol, ibuprofen, meloxicam, gabapentin, and pain gel/creams without significant relief of symptoms. He has completed physical therapy in an effort to help address this pain, which he also did not find was very helpful. He has not as of yet attempted cortisone injections, but is willing to consider this. PMH: Hypothyroidism, hypertension, anxiety, GERD, history of first-degree heart block, arterial insufficiency of the lower extremities, heart palpitations, hypercalcemia, prediabetes, neuropathic pain in both legs. Social hx: The patient does not smoke, reports no substance use. Medications: See [employer] list. Allergies: Sulfa, losartan, Augmentin. Physical exam: The patient has 5/5 strength in his upper and lower extremities. He ambulates well but does so rather slowly. His gait does not appear spastic or antalgic. He reports some hypoesthesia inferior to the bilateral anterior tibialis. This is worse on the left side. The rest of his sensation is intact. He has diffuse 3+ hyperreflexia. (-) bilateral straight leg raise, (-) Ku's, (-) clonus, (-) Babinski's. Imaging review: MRI of the cervical spine completed here at [facility] shows diffuse spondylosis of the cervical spine. There is what appears to be mild central canal, and moderate-severe bilateral foraminal stenosis at C5-6. The patient also requested that I review his lumbar MRI completed at [facility]. He has what appears to be longstanding stenosis of the lumbar spine. This is most pronounced on the left at L3-4 where there is severe left-sided foraminal stenosis, on right at L4-5 where there is severe right-sided foraminal stenosis, and at L5-S1 where there is severe bilateral foraminal stenosis. Impression: Arutro is a pleasant 74-year-old male who comes in today for evaluation of posterior neck pain x2 years. He does identify an inciting in cident of a fall roughly 2 years ago. He denies any radicular symptoms, or myelopathic symptoms. On examination he has no weakness, and no myelopathic reflexes. He has attempted physical therapy but has not yet been evaluated by someone from pain management to consider injections. Given that he self reports his pain as a 2/10 throughout the day, I think his best bet would be to start by addressing this via injections with our colleagues in pain management. In the absence of upper extremity radiculopathy and a low-grade neck pain, the surgical indication for fusion at the C5-6 disc space is very low. I will place a referral to pain management. We may follow up with Arturo on an as-needed basis thereafter. Thank you for allowing us to care for your patient. The total time spent with this visit with this patient was 60 minutes reviewing history, physical exam, MRI cervical and lumbar spine imaging review, and implementation of treatment plan or further diagnostic testing Bubba Mcdowell MD,PhD [facility] Orders: Referrals Pain Management Referral G89.29 - Other chronic pain, M54.2 - Cervicalgia Coding Level of Care Code New Pt Level 5 (58192) Diagnoses Chronic neck pain M54.2; G89.29
--- OUTSIDE RECORDS SUMMARY | 2024-10-02 11:19 | XMS_ITS | Encounter Summary ---
Author Organization [facility] Address [address] [place] [address] Care Team Providers Care Tamale Machine Feeder Name Role Phone Ramesh Salvador MD Primary Care Provider [phone] Formerly [facility], Pcp Primary Care Provider Unavailabl e Reason for Visit * Reason Onset Date Comments Special Procedure 05/11/2016 Encounter Details Date Type Department Care Team Description 05/11/2016 Telephone Gastroenterology - [address] [address] Kaiser Russo MD Special Procedure Social History Tobacco Use Types Packs/Day Years [...] encounter Miscellaneous Notes * Telephone Encounter - Kaiser Russo MD - 05/12/2016 6:28 PM EST I phoned him at about 6:25 PM, and discussed colonoscopy versus FIT testing. I explained that, though colonoscopy is far from perfect, it is more accurate than FIT testing statistically, and allows for taking biopsies and removing polyps. In addition, if a FIT test were to be positive, then colonoscopy would definitely be indicated. He elected to have colonoscopy. It would be due in 2016. * Telephone Encounter - Letitia Melgar - 05/11/2016 5:[address] Russo, Patient is asking if he could take a home test for his repeat colonoscopy. He would like to speak with you. documented in this encounter Plan of Treatment Not on file documented as of this encounter Visit Diagnoses Not on filedocumented in this encounter Care Teams Tamale Machine Feeder Relationship Specialty Start Date End Date Ramesh Salvador MD [address] [place] [address] PCP - General Internal Medicine 04/14/11 04/09/22 [facility], Pcp [address] [place] [address] PCP - General Internal Medicine 04/10/22 documented as of this encounter
--- OUTSIDE RECORDS SUMMARY | 2024-10-02 11:19 | XMS_ITS | Encounter Summary ---
Author Organization [facility] Address [address] [place] [address] Care Team Providers Care Floral Designer Salesperson Name Role Phone Ramesh Salvador MD Primary Care Provider [phone] Community, Pcp Primary Care Provider Unavailabl e Encounter Details Date Type Department Care Team Description 10/02/2014 RELAY MECHANIC/[facility] Report Medical Records [address] [place] [id number] Abstract, Provider Social History Tobacco Use Types [...] on filedocumented in this encounter Care Teams Floral Designer Salesperson Relationship Specialty Start Date End Date Ramesh Salvador MD [address] [place] [address] [id number] PCP - General Internal Medicine 04/14/11 04/09/22 [facility], Pcp [address] [place] [address] PCP - General Internal Medicine 04/10/22 documented as of this encounter
--- OUTSIDE RECORDS SUMMARY | 2024-10-02 11:19 | XMS_ITS | Encounter Summary ---
Author Organization [facility] Address [address] [place] [address] Care Team Providers Care Game Artist Name Role Phone Ramesh Salvador MD Primary Care Provider [phone] [facility], Pcp Primary Care Provider Unavailabl e Encounter Details Date Type Department Care Team Description 03/05/2019 [facility]ill [facility] [address] [place] [address] [phone] Ramesh Salvador MD [address] [place] [address] [phone] Social History Tobacco Use Types Packs/Day Years [...] Encounter - Sussy Son M.A. - 03/06/2019 7:34 AM EDT Last office visit 10/27/18 Next office visit 03/27/19 Lab Results Component Value Date TSH 2.17 10/19/2018 * Telephone Encounter - Sussy Son M.A. - 03/06/2019 7:34 AM EDTFrom: Arturo Gibbs To: Ramesh Salvador MD Sent: 03/05/2019 11:15 AM EDT Subject: Medication Renewal Request Original authorizing provider: MD Arturo Escoto would like a refill of the following medications: levothyroxine (SYNTRHOID, LEVOTHROID) 137 MCG tablet [Ramesh Salvador MD] Preferred pharmacy: [facility] [address] Comment: Medication renewals requested in this message routed to other providers: ranitidine (ZANTAC) 150 MG tablet [Eboni King NP] documented in this encounter Plan of Treatment Not on file documented as of this encounter Visit Diagnoses Not on filedocumented in this encounter Care Teams Game Artist Relationship Specialty Start Date End Date Ramesh Salvador MD [address] [place] [address] PCP - General Internal Medicine 04/14/11 04/09/22 [facility], Pcp [address] [place] [address] PCP - General Internal Medicine 04/10/22 documented as of this encounter
--- OUTSIDE RECORDS SUMMARY | 2024-10-02 11:19 | XMS_ITS | Encounter Summary ---
Author Organization [facility] Address [address] [place] [address] Care Team Providers Care Gamemaster Name Role Phone Ramesh Salvador MD Primary Care Provider [phone] Ramesh Salvador MD Primary Care Provider [phone] [facility], Pcp Primary Care Provider Unavailabl e Reason for Visit * Reason Onset Date Comments Hull Drafter Feedback 08/20/2006 REQUEST FOR AUTH ORIZATION FOR CT SCANS Encounter Details Date Type Department Care Team Description 08/20/2006 Telephone Adult [address] [phone] Kacy Zheng PA-C Hull Drafter Feedback (REQUEST FOR AUTHORIZATION FOR CT SCANS) Social History Tobacco Use Types Packs/Day Years Used Date Smoking Tobacco: Former Comments:30 yrs Alcohol Use Standard Drinks/Week Comments No 0 (1 standard drink = 0.6 oz pur e alcohol) Sex Assigned at Date Recorded Not on file Job Start Date Occupation Industry Not on file Not on file Not on file documented as of this encounter Miscellaneous Notes * Telephone Encounter - Evelina Kendall - 08/20/2006 2:59 PM EST FYI YOUR REQUEST FOR AUTHORIZATION FOR CT SCANS OF ABD/PEL WAS DENIED BY MEDICAL REVIEW AT [facility] BY DR JACKELIN CARLOS .THE RECOMMENDATION IS THAT THE PT HAVE EITHER AN ULTRASOUND OR A BARIUM ENDOSCOPIC EXAM DONE BEFORE PROCEDING WITH NEW CT SCANS. IF YOU HAVE ANY QUESTIONS YOU MAY CALL AND SPEAK TO A MEDICAL REVIEW DR AT [facility] documented in this encounter Plan of Treatment Not on file documented as of this encounter Visit Diagnoses Not on filedocumented in this encounter Care Teams Gamemaster Relationship Specialty Start Date End Date Ramesh Salvador MD [address] [place] [address] PCP - General 07/23/99 04/13/11 Ramesh Salvador MD [address] [place] [address] PCP - General Internal Medicine 04/14/11 04/09/[address] [address] PCP - General Internal Medicine 04/10/22 documented as of this encounter
--- OUTSIDE RECORDS SUMMARY | 2024-10-02 11:19 | XMS_ITS | Encounter Summary ---
Author Organization [facility] Address [address] [place] [address] Care Team Providers Care Supply Manager Name Role Phone Ramesh Salvador MD Primary Care Provider [phone] Community, Pcp Primary Care Provider Unavailabl e Encounter Details Date Type Department Care Team Description 01/05/2017 Parking Enforcement Specialist Report Medical Records [address] [place] [id number] Dept., [facility] Occupational & Pt Social History Tobacco Use [...] on filedocumented in this encounter Care Teams Supply Manager Relationship Specialty Start Date End Date Ramesh Salvador MD [address] [place] [address] [phone] PCP - General Internal Medicine 04/14/11 04/09/22 Jamie Pcp [address] [place] [phone] PCP - General Internal Medicine 04/10/22 documented as of this encounter
--- OUTSIDE RECORDS SUMMARY | 2024-10-02 11:19 | XMS_ITS | Encounter Summary ---
Author Organization [facility] Address [address] [place] [address] Care Team Providers Care Backrest Assembler Name Role Phone Ramesh Salvador MD Primary Care Provider [phone] Community, Pcp Primary Care Provider Unavailabl e Encounter Details Date Type Department Care Team Description 02/09/2012 Tube Pusher Report Medical Records [address] [place] [address] Ami Alejandra MD [address] [place] [address] [address] [place] [address] Social History Tobacco Use Types Packs/Day Years [...] on filedocumented in this encounter Care Teams Backrest Assembler Relationship Specialty Start Date End Date Ramesh Salvador MD [address] [place] [address] PCP - General Internal Medicine 04/14/11 04/09/22 [facility], Pcp [address] [place] [address] PCP - General Internal Medicine 04/10/22 documented as of this encounter
--- OUTSIDE RECORDS SUMMARY | 2024-10-02 11:19 | XMS_ITS | Encounter Summary ---
Author Organization [facility] Address [address] [place] [address] Care Team Providers Care Looping Machine Operator Name Role Phone Ramesh Salvador MD Primary Care Provider [phone] Ramesh Salvador MD Primary Care Provider [facility], Pcp Primary Care Provider Unavailabl e Encounter Details Date Type Department Care Team Description 04/04/2010 Wood Bucker Report Medical Records [address] [place] [address] Rasheed Martínez MD Social History Tobacco Use Types Packs/Day Years Used Date Smoking Tobacco: Former Cigarettes Q uit: 06/28/1976 Comments:started smoking at 15 Alcohol Use Standard [...] on filedocumented in this encounter Care Teams Looping Machine Operator Relationship Specialty Start Date End Date Ramesh Salvador MD [address] [place] [address] PCP - General 07/23/99 04/13/11 Ramesh Salvador MD [address] [place] [address] PCP - General Internal Medicine 04/14/11 04/09/22 [facility], [address] [address] PCP - General Internal Medicine 04/10/22 documented as of this encounter
--- OUTSIDE RECORDS SUMMARY | 2024-10-02 11:19 | XMS_ITS | Encounter Summary ---
Author Organization [facility] Address [address] [place] [address] Care Team Providers Care Loss Prevention Associate Name Role Phone Ramesh Salvador MD Primary Care Provider [phone] Ramesh Salvador MD Primary Care Provider [facility], Pcp Primary Care Provider Unavailabl e Reason for Visit * Reason Comments REFERRAL DR SALVADOR - PHYSICAL THE RAPY Cutter Operator Brick Feedback Encounter Details Date Type Department Care Team Description 08/30/2001 Telephone Adult Medicine [address] [phone] Ramesh Salvador MD [address] [place] [address] [phone] REFERRAL (DR SALVADOR - PHYSICAL THERAPY); Cutter Operator Brick Feedback Social History Tobacco Use Types Packs/Day Years Used Date Smoking Tobacco: Never Assessed Sex Assigned at Date Recorded Not on file Job Start Date Occupation Industry Not on file Not on file Not on file documented as of this encounter Miscellaneous Notes * Telephone Encounter - 09/02/2001 7:50 AM ESTLETTER TO PATIENT TO BOOK APPT AND GET BACK TO ME WITH STAT DATE SO I CAN PROCESS REFERRAL * Telephone Encounter - 09/01/2001 3:36 PM ESTPt notified that [facility]- he has script for the therapy from Dr Wyatt for neck pain/numbness-will bring this with him please process [facility] approved by Dr Salvador this note sent to Kamila Haddad in referrals- * Telephone Encounter - 09/01/2001 12:15 PM ESTSIGNED BY PCP WITH A NOTE SAYING HE CAN GO TO [facility]. GAVE TO CAMPBELL GIBSON RN COVERING FOR AMY. * Telephone Encounter - 08/30/2001 12:57 PM ESTFORWARDED TO PCP -WITH ADDENDUM- FOR SIGNATURE * Telephone Encounter - 08/30/2001 11:36 AM ESTCALL RECEIVED. Contact: [phone] PLEASE SEE ATTACHED ... We referred pt to [facility] for numbness on side of his head. [facility] , referred him for pysical therapy. documented in this encounter Plan of Treatment Not on file documented as of this encounter Visit Diagnoses Not on filedocumented in this encounter Care Teams Loss Prevention Associate Relationship Specialty Start Date End Date Ramesh Salvador MD [address] [place] [address] PCP - General 07/23/99 04/13/11 Ramesh Salvador MD [address] [place] [address] PCP - General Internal Medicine 04/14/11 04/09/22 [facility], [address] [address] PCP - General Internal Medicine 04/10/22 documented as of this encounter
--- OUTSIDE RECORDS SUMMARY | 2024-10-02 11:19 | XMS_ITS | Encounter Summary ---
Author Organization [facility] Address [address] [place] [address] Care Team Providers Care Meteorological Aide Name Role Phone Ramesh Salvador MD Primary Care Provider [phone] [facility], Pcp Primary Care Provider Unavailabl e Reason for Visit * Reason Comments E-prescribe Rx Request Encounter Details Date Type Department Care Team Description 08/18/2014 Refill Adult Medicine [address] [address] Willie Puentes PA-C E-prescribe Rx Request Social [...] Miscellaneous Notes * Telephone Encounter - Noni Puentes R.N. - 08/20/2014 12:43 PM EST Pt [...] NO Patients current insurance carrier is: Payor: [facility]/INDEMNITY / Plan: MEDEX ([facility] / Product Type: MEDICARE [id number] documented in this encounter Plan of Treatment Not on file documented as of this encounter Visit Diagnoses Not on filedocumented in this encounter Care Teams Meteorological Aide Relationship Specialty Start Date End Date Ramesh Salvador MD [address] [place] [address] PCP - General Internal Medicine 04/14/11 04/09/[address] [address] PCP - General Internal Medicine 04/10/22 documented as of this encounter
--- OUTSIDE RECORDS SUMMARY | 2024-10-02 11:19 | XMS_ITS | Encounter Summary ---
Author Organization [facility] Address [address] [place] [address] Care Team Providers Care Urologist Physician Name Role Phone Ramesh Salvador MD Primary Care Provider [facility], Pcp Primary Care Provider Unavailabl e Encounter Details Date Type Department Care Team Description 03/01/2017 Pt. Non Urgent Medic al Question Gastroenterology - [address] [address] Anton Lee PA-C Social History Tobacco Use [...] medicine .Thank you Arturo Lopeznessey .phone is [phone] documented in this encounter Plan of Treatment Not on file documented as of this encounter Visit Diagnoses Not on filedocumented in this encounter Care Teams Urologist Physician Relationship Specialty Start Date End Date Ramesh Salvador MD [address] [place] [address] PCP - General Internal Medicine 04/14/11 04/09/22 [facility], Pcp [address] [place] [address] PCP - General Internal Medicine 04/10/22 documented as of this encounter
--- OUTSIDE RECORDS SUMMARY | 2024-10-02 11:19 | XMS_ITS | Encounter Summary ---
Author Organization [facility] Address [address] [place] [address] Care Team Providers Care Pile Trimmer Name Role Phone Ramesh Salvador MD Primary Care Provider [phone] Community, Pcp Primary Care Provider [facility] Encounter Details Date Type Department Care Team Description 08/26/2011 Release of Information Medical Records [address] [place] [address] Abstract, Provider Social History Tobacco Use Types [...] on filedocumented in this encounter Care Teams Pile Trimmer Relationship Specialty Start Date End Date Ramesh Salvador MD [address] [place] [address] PCP - General Internal Medicine 04/14/11 04/09/22 [facility], Pcp [address] [place] [address] PCP - General Internal Medicine 04/10/22 documented as of this encounter
--- OUTSIDE RECORDS SUMMARY | 2024-10-02 11:19 | XMS_ITS | Encounter Summary ---
Author Organization [facility] Address [address] [place] [address] Care Team Providers Care Linux Unix Administrator Name Role Phone Ramesh Salvador MD Primary Care Provider [phone] Community, Pcp Primary Care Provider Unavailabl e Reason for Visit * Reason Onset Date Comments Appointment-Internal Referral 03/04/2017 Encounter Details Date Type Department Care Team Description 03/04/2017 Telephone General Surgery [address] [place] [address] Tavares Valadez MD [address] [place] [address] Appointment-Internal Referral Social History Tobacco Use Types Packs/Day Years [...] encounter Miscellaneous Notes * Telephone Encounter - Amrita Preston - 03/04/2017 1:08 PM EDT Patient was referred to General Surgery Re; recurrent diverticulitis unresponsive to cipro/flagyl. Allergic to Augmentin. Per My Chart patient wished to cancel appointment stating issue has resolved. FYI Patient will be removed from referral report. documented in this encounter Plan of Treatment Not on file documented as of this encounter Visit Diagnoses Not on filedocumented in this encounter Care Teams Linux Unix Administrator Relationship Specialty Start Date End Date Ramesh Salvador MD [address] [place] [address] PCP - General Internal Medicine 04/14/11 04/09/[address] [address] PCP - General Internal Medicine 04/10/22 documented as of this encounter
--- OUTSIDE RECORDS SUMMARY | 2024-10-02 11:19 | XMS_ITS | Encounter Summary ---
Author Organization [facility] Address [address] [place] [address] Care Team Providers Care Gastroenterologist Name Role Phone Ramesh Salvador MD Primary Care Provider [phone] [facility], Pcp Primary Care Provider Unavailabl e Reason for Visit * Reason Onset Date Comments pain, stomach 07/23/2016 Encounter Details Date Type Department Care Team Description 07/23/2016 Telephone Adult Medicine [address] [phone] Ramesh Salvador MD [address] [place] [address] [phone] pain, stomach Social History Tobacco Use Types Packs/Day Years [...] Telephone Encounter - Noni Puentes R.N. - 07/23/2016 8:53 AM EST Pt has had abd pain for A few days Pt has No chest pain or SOB, C/O nausea, at times but has not vomited and has been eating normally,denies any diarrhea or constipation , no black stools or blood in stools, pain is periumbilical on the right side with no radiation Rates pain as 4 /10, not increasing, , pt Has not been feeling faint or light headed, Denies any urinary symptoms, voiding QS, no blood in urine, pt is taking po with nl appetite, denies fever ( has not taken temp) Pt to see Riccardo kim at 11;15 today Advised home care following the abd pain Protocol. RN reinforced telephone consultation and advice.Reviewed with the patient the signs and symptoms to watch for that would require immediate attention. If symptoms change, worsen or increase in intensity, to call back immediately. pain * Telephone Encounter - Tamara Armstrong - 07/23/2016 8:43 AM EST Right lower stomach pain a few weeks documented in this encounter Plan of Treatment Not on file documented as of this encounter Visit Diagnoses Not on filedocumented in this encounter Care Teams Gastroenterologist Relationship Specialty Start Date End Date Ramesh Salavdor MD [address] [place] [address] PCP - General Internal Medicine 04/14/11 04/09/22 [facility], Pcp [address] [place] [address] PCP - General Internal Medicine 04/10/22 documented as of this encounter
--- OUTSIDE RECORDS SUMMARY | 2024-10-02 11:19 | XMS_ITS | Encounter Summary ---
Author Organization [facility] Address [address] [place] [address] Care Team Providers Care Marketing Pr Intern Name Role Phone Ramesh Salvador MD Primary Care Provider [phone] Community, Pcp Primary Care Provider [facility] e Encounter Details Date Type Department Care Team Description 09/01/2013 Night Triage Doc Medical Records [address] [place] [address] Abstract, Provider Social History Tobacco Use Types [...] on filedocumented in this encounter Care Teams Marketing Pr Intern Relationship Specialty Start Date End Date Ramesh Salvador MD [address] [place] [address] [phone] PCP - General Internal Medicine 04/14/11 04/09/22 [facility], Pcp [address] [place] [address] PCP - General Internal Medicine 04/10/22 documented as of this encounter
--- OUTSIDE RECORDS SUMMARY | 2024-10-02 11:19 | XMS_ITS | Encounter Summary ---
Author Organization [facility] Address [address] [place] [address] Care Team Providers Care Elementary Education Teacher Name Role Phone Ramesh Salvador MD Primary Care Provider [phone] Community, Pcp Primary Care Provider [facility] Encounter Details Date Type Department Care Team Description 01/12/2012 Release of Information Medical Records [address] [place] [address] Abstract, Provider Social History Tobacco Use Types [...] on filedocumented in this encounter Care Teams Elementary Education Teacher Relationship Specialty Start Date End Date Ramesh Salvador MD [address] [place] [address] PCP - General Internal Medicine 04/14/11 04/09/22 [facility], Pcp [address] [place] [address] PCP - General Internal Medicine 04/10/22 documented as of this encounter
--- OUTSIDE RECORDS SUMMARY | 2024-10-02 11:19 | XMS_ITS | Encounter Summary ---
Author Organization [facility] Address [address] [place] [address] Care Team Providers Care Mine Engineering Manager Name Role Phone Ramesh Salvador MD Primary Care Provider [phone] [facility], Pcp Primary Care Provider Unavailabl e Encounter Details Date Type Department Care Team Description 04/01/2014 Pt. Non Urgent Medical Question Adult Medicine [address] [phone] Ramesh Salvador MD [address] [place] [address] [phone] Social History Tobacco Use Types Packs/Day Years [...] on filedocumented in this encounter Care Teams Mine Engineering Manager Relationship Specialty Start Date End Date Ramesh Salvador MD [address] [place] [address] PCP - General Internal Medicine 04/14/11 04/09/22 [facility], [address] [address] PCP - General Internal Medicine 04/10/22 documented as of this encounter
--- OUTSIDE RECORDS SUMMARY | 2024-10-02 11:19 | XMS_ITS | Encounter Summary ---
Author Organization [facility] Address [address] [place] [address] Care Team Providers Care Bottling Line Operator Name Role Phone Ramesh Salvador MD Primary Care Provider Ramesh Salvador MD Primary Care Provider [phone] [facility], Pcp Primary Care Provider Unavailabl e Encounter Details Date Type Department Care Team Description 03/09/2005 Orders Only Medical [address] [place], [place] [phone] Narcisa Huggins, FRICTION SAW OPERATOR [address] [place], [place] [phone] ABDOMINAL PAIN, UNSPECIFIED SITE (Primary Dx) Social [...] (AUTO DIFF PLATELET) (03/09/2005 2:19 PM EDT) [facility] WHITE BLOOD COUNT 8.8 4.8 - 10.8 x10-3 [facility] RED BLOOD COUNT 5.1 4.5 - 5.5 x10-6 [facility] Hemoglobin 16.0 13.0 - 17.0 g/dL [facility] Hematocrit 46.3 40 - 51 % [facility] MEAN CORPUSCULAR VOLUME 90.1 79 - 98 fl [facility] MEAN [facility]PUS[facility]ULAR HEMOGLOBIN 31.1 27 - 32 pg [facility] MEAN [facility] HGB CONC 34.6 32 - 37 g/dl [facility] RED CELL DISTRIBUTION WIDTH 13.0 11 - 15 % [facility] PLT COUNT 252 130 - 400 x10-3 [facility] NEUTROPHILS % 68 41 - 85 % [facility] LYMPH % 23 15 - 48 % [facility] 03/09/2005 2:19 PM EDT 03/09/2005 2:21 PM EDT Narcisa Huggins FRICTION SAW OPERATOR LAB [facility] * COMPREHENSIVE METABOLIC PANEL (03/09/2005 2:19 PM EDT) [facility] GLUCOSE 106 70 - 110 mg/dL [facility] Blood Urea Nitrogen 16 5 - 25 mg/dL [facility] creatinine 0.9 0.7 - 1.5 mg/dL [facility] BUN/CREATININE RATIO 17.8 6.0 - 20.0 G/dL [facility] Sodium 142 133 - 145 mEq/L [facility] Potassium 4.6 3.5 - 5.2 mEq/L [facility] Chloride 104 96 - 108 mEq/L [facility] CARBON DIOXIDE (CO2) 29.2 21.0 - 32.0 mEq/L [facility] CALCIUM 10.1 8.5 - 10.5 mg/dL [facility] TOTAL PROTEIN (TP) 6.8 6.0 - 8.0 G/dL [facility] Albumin 4.5 3.2 - 5.6 G/dL [facility] GLOBULIN 2.3 1.9 - 4.4 G/dL [facility] ALBUMIN/GLOBULI N RATIO 2.0 1.1 - 2.3 [facility] BILIRUBIN TOTAL 0.9 0.0 - 1.4 mg/dL [facility] AST (SGOT) 24 10 - 42 U/L [facility] ALT (SGPT) 32 10 - 60 U/L [facility] Alk Phos 83 42 - 121 U/L [facility] 03/09/2005 2:19 PM EDT 03/09/2005 2:21 PM EDT Narcisa Huggins FRICTION SAW OPERATOR LAB [facility] documented in this encounter Visit Diagnoses Diagnosis Abdominal pain, unspecified site- Primary documented in this encounter Care Teams Bottling Line Operator Relationship Specialty Start Date End Date Ramesh Salvador MD [address] [place] [address] PCP - General 07/23/99 04/13/11 Ramesh Salvador MD [address] [place] [address] PCP - General Internal Medicine 04/14/11 04/09/22 [facility], Pcp [address] [place] [address] PCP - General Internal Medicine 04/10/22 documented as of this encounter
--- OUTSIDE RECORDS SUMMARY | 2024-10-02 11:19 | XMS_ITS | Encounter Summary ---
Author Organization [facility] Address [address] [place] [address] Care Team Providers Care Concrete Tester Name Role Phone Ramesh Salvador MD Primary Care Provider [phone] Community, Pcp Primary Care Provider Unavailabl e Encounter Details Date Type Department Care Team Description 04/19/2019 Pt. Non Urgent Medical Question Adult Urgent Care - [address] [address] Citlaly rUbano APRN [address] [place] [address] Social History Tobacco Use Types Packs/Day Years [...] as of this encounter Progress Notes * Maddie Garcia L.P.N. - 04/19/2019 9:57 AM EDTFrom: Arturo Gibbs To: Citlaly Urbano APRN Sent: 04/19/2019 9:52 AM EDT Subject: medicine GOOD morning could you order the steroid medicine that you talked about for my pulled muscle.Thank You documented in this encounter Plan of Treatment Not on file documented as of this encounter Visit Diagnoses Not on filedocumented in this encounter Care Teams Concrete Tester Relationship Specialty Start Date End Date Ramesh Salvador MD [address] [place] [address] PCP - General Internal Medicine 04/14/11 [facility] [address] [place] [address] PCP - General Internal Medicine 04/10/22 documented as of this encounter
--- OUTSIDE RECORDS SUMMARY | 2024-10-02 11:19 | XMS_ITS | Encounter Summary ---
Author Organization [facility] Address [address] [place] [address] Care Team Providers Care Pop Singer Name Role Phone Ramesh Salvador MD Primary Care Provider [phone] [facility], Pcp Primary Care Provider Unavailabl e Encounter Details Date Type Department Care Team Description 01/29/2018 Orders Only Adult Medicine [facility] [address] [place], [place] [phone] Ramesh Salvador MD [address] [place] [address] [phone] Hyperglycemia (Primary Dx) Social History Tobacco Use [...] AM EDT Ramesh Salvador MD LAB [facility] documented in this encounter Visit Diagnoses Diagnosis Hyperglycemia- Primary Other abnormal glucose documented in this encounter Care Teams Pop Singer Relationship Specialty Start Date End Date Ramesh Salvador MD [address] [place] [address] PCP - General Internal Medicine 04/14/11 04/09/22 [facility], [address] [address] PCP - General Internal Medicine 04/10/22 documented as of this encounter
--- OUTSIDE RECORDS SUMMARY | 2024-10-02 11:19 | XMS_ITS | Encounter Summary ---
Author Organization [facility] Address [address] [place] [address] Care Team Providers Care Materials Manager Name Role Phone Ramesh Salvador MD Primary Care Provider [phone] Community, Pcp Primary Care Provider [facility] Encounter Details Date Type Department Care Team Description 10/13/2016 Business Doc Medical Records [address] [place] [address] Abstract, Provider Social History Tobacco Use Types [...] on filedocumented in this encounter Care Teams Materials Manager Relationship Specialty Start Date End Date Ramesh Salvador MD [address] [place] [address] [phone] PCP - General Internal Medicine 04/14/11 04/09/22 [facility], Pcp [address] [place] [address] PCP - General Internal Medicine 04/10/22 documented as of this encounter
--- OUTSIDE RECORDS SUMMARY | 2024-10-02 11:19 | XMS_ITS | Clinical Summary ---
Author Organization [facility] Address [address] [place] [address] Care Team Providers Care Summer Child Caregiver Name Role Phone Community, Pcp Primary Care [...] Father Cancer, Other Maternal Grandfather STOMAC H AL Mother s/p [id number] 2010 Relation Name Status [...] Effective Dates Phone Address Type [place]IC[place] MED[place] [id number] 2014-Prese [address] [place] [address] MEDICARE [id number] ICE BC-[place]/INDEM NITY MEDEX (MCARE SUPP) NEW HOPE [id number] 2014-Prese nt [address] [place] [address] MEDICARE [id number] ICE [place]/PPO POS CH/BC-[place]/$0/ 20%/F/PPO [id number] 2010-Prese nt [address] [place] [address] PPO Jfl-qda-Pkhi ice BCBSMA PPO $40 NEW HOPE [id number] 2013-Pre sent [address] [place] [address] PPO Tfl-foa-Soon ice Advance Directives For more information, please contact: [phone] Documents on File Type Date Recorded Patient Manager [facility] Proxy 11/10/2016 11:17 AM [facility] Care Proxy Care Teams Summer Child Caregiver Relationship Specialty Start Date End Date Community, Pcp PCP - General Internal Medicine 04/10/22
== END 2024-10-02 10:39 | disposition home or self-care (01) ==
LOC: HO.HNS 09:47
PROVIDERS: PCP Nurse Practitioner Family; Referring Provider Nurse Practitioner Family; Visit Provider Physician Assistant
DX: M54.2 Cervicalgia (principal); G89.29 Other chronic pain
CPT/HCPCS: 99205

== ENCOUNTER → 2024-10-02 09:46 | Outpatient (BNVA) | payer MEDICARE, SELFPAY | PROVIDERS: PCP Nurse Practitioner Family; Referring Provider Nurse Practitioner Family; Visit Provider Physician Assistant | DX: M54.2 Cervicalgia (principal); G89.29 Other chronic pain | CPT/HCPCS: 99202 ==

== ENCOUNTER 2024-10-05 09:56 | Outpatient (AMB) | payer MEDICARE, SELFPAY ==
--- NOTE | 2024-10-05 09:58 | HO.SPINEOV ---
Intake Visit Reasons: Discuss sx Intake Note: Mr. Gibbs is here to discuss surgery. Billboard Mechanic Required: No Allergies amoxicillin [From AUGMENTIN] Allergy (Intermediate, Verified 10/05/24 09:59) RASH clavulanic acid [From AUGMENTIN] Allergy (Intermediate, Verified 10/05/24 09:59) RASH losartan Adverse Reaction (Severe, Verified 10/05/24 09:59) Shortness of Breath Sulfa (Sulfonamide Antibiotics) Adverse Reaction (Intermediate, Verified 10/05/24 09:59) Rash Assessment & Plan Assessment & Plan (1) Pain of left calf: Code(s): M79.662 - Pain in left lower leg Category: Medical Plan Arturo comes in today for a follow-up visit after being seen a few days ago for his cervical spine concerns. After some discussion with his they decided that his leg pain on the left side was much more significant than his neck pain. They wished to discuss potentially having this addressed. When describing the pain he said is well localized to his left posterior calf. He can feel it shooting down from the lateral / top of the gastrocnemius into the calf, and states that it also wraps around the top / lateral side of his left foot. He endorses burning and numbness that will accompany the pain during flare ups. We again reviewed and discussed his lumbar MRI completed at [facility] in 2022. He has compression on the left hand side at L2-3, L3-4, L5-S1. He also has a lateral lithesis of L3, but he reports little to no back pain. If you would like instead to address his lumbar spine concerns, I believe a good place to start would be evaluation for left-sided transforaminal epidural steroid injection at L5-S1, as the compression seen here best matches the dermatomal distribution of his pain. I recommend he see our colleagues in pain management for this and obtain a full therapeutic dose if possible. If the injection is helpful he may be able to refrain from surgical intervention. We are more than happy to see him back in the clinic if he continues to have pain despite injections. (-) Perla's sign. No palpable venous structures. No pain to palpation of calf. No edema or erythema of left posterior calf. Bubba Mcdowell MD,PhD [facility] Coding Level of Care Code Est Pt Level 2 (47348) Diagnoses Pain of left calf M79.662
--- OUTSIDE RECORDS SUMMARY | 2024-10-05 11:28 | XMS_ITS | Encounter Summary ---
Author Organization [facility] Address [address] [place] [address] Care Team Providers Care Conditioning Room Worker Name Role Phone Ramesh Salvador MD Primary Care Provider [phone] Ramesh Salvador MD Primary Care Provider [phone] [facility], Pcp Primary Care Provider Unavailabl e Encounter Details Date Type Department Care Team Description 04/04/2010 Utility Arborist Report Medical Records [address] [place] [address] Rasheed Martínez MD Social History Tobacco Use [...] on filedocumented in this encounter Care Teams Conditioning Room Worker Relationship Specialty Start Date End Date Ramesh Salvador MD [address] [place] [address] PCP - General 07/23/99 04/13/11 Ramesh Salvador MD [address] [place] [address] PCP - General Internal Medicine 04/14/11 04/09/22 [facility], [address] [address] PCP - General Internal Medicine 04/10/22 documented as of this encounter
--- OUTSIDE RECORDS SUMMARY | 2024-10-05 11:28 | XMS_ITS | Encounter Summary ---
Author Organization [facility] Address [address] [place] [address] Care Team Providers Care Performance Engineer Name Role Phone Ramesh Salvador MD Primary Care Provider [phone] [facility], Pcp Primary Care Provider Unavailabl e Reason for Visit * Reason Onset Date Comments Special Procedure 05/11/2016 Encounter Details Date Type Department Care Team Description 05/11/2016 Telephone Gastroenterology - [address] [address] Kaiser Russo MD Special Procedure Social History [...] on filedocumented in this encounter Care Teams Performance Engineer Relationship Specialty Start Date End Date Ramesh Salvador MD [address] [place] [address] PCP - General Internal Medicine 04/14/11 04/09/22 [facility], Pcp [address] [place] [address] PCP - General Internal Medicine 04/10/22 documented as of this encounter
--- OUTSIDE RECORDS SUMMARY | 2024-10-05 11:28 | XMS_ITS | Encounter Summary ---
Author Organization [facility] Address [address] [place] [address] Care Team Providers Care Stem Teacher Name Role Phone Ramesh Salvador MD Primary Care Provider [phone] [facility], Pcp Primary Care Provider Unavailabl e Encounter Details Date Type Department Care Team Description 11/20/2011 Preschool Associate Teacher Report Medical Records [address] [place] [address] Ami Alejandra MD [address] [place] [address] [address] [place] [address] Social History Tobacco Use Types Packs/Day Years [...] on filedocumented in this encounter Care Teams Stem Teacher Relationship Specialty Start Date End Date Ramesh Salvador MD [address] [place] [address] PCP - General Internal Medicine 04/14/11 04/09/22 [facility], Pcp [address] [place] [address] PCP - General Internal Medicine 04/10/22 documented as of this encounter
--- OUTSIDE RECORDS SUMMARY | 2024-10-05 11:28 | XMS_ITS | Encounter Summary ---
Author Organization [facility] Address [address] [place] [address] Care Team Providers Care Manager Customer Name Role Phone Ramesh Salvador MD Primary Care Provider [phone] [facility], Pcp Primary Care [facility] Encounter Details Date Type Department Care Team Description 08/26/2011 Release of Information Medical Records [address] [place] [address] Abstract, Provider Social History Tobacco Use Types [...] filedocumented in this encounter Care Teams Manager Customer Relationship Specialty Start Date End Date Ramesh Salvador MD [address] [place] [address] PCP - General Internal Medicine 04/14/11 04/09/22 [facility], Pcp [address] [place] [address] PCP - General Internal Medicine 04/10/22 documented as of this encounter
--- OUTSIDE RECORDS SUMMARY | 2024-10-05 11:28 | XMS_ITS | Encounter Summary ---
Author Organization [facility] Address [address] [place] [address] Care Team Providers Care Telecommunications Field Engineer Name Role Phone Ramesh Salvador MD Primary Care Provider [phone] [facility], Pcp Primary Care Provider Unavailabl e Reason for Visit * Reason Onset Date Comments Appointment-Internal Referral 03/04/2017 Encounter Details Date Type Department Care Team Description 03/04/2017 Telephone General Surgery [address] [place] [address] Tavares Valadez MD [address] [place] [address] Appointment-Internal Referral Social History Tobacco Use Types [...] on filedocumented in this encounter Care Teams Telecommunications Field Engineer Relationship Specialty Start Date End Date Ramesh Salvador MD [address] [place] [address] PCP - General Internal Medicine 04/14/11 04/09/[address] [address] PCP - General Internal Medicine 04/10/22 documented as of this encounter
--- OUTSIDE RECORDS SUMMARY | 2024-10-05 11:28 | XMS_ITS | Encounter Summary ---
Author Organization [facility] Address [address] [place] [address] Care Team Providers Care Biomedical Equipment Technician Name Role Phone Ramesh Salvador MD Primary Care Provider [phone] [facility], Pcp Primary Care Provider Unavailabl e Reason for Visit * Reason Comments E-prescribe Rx Request Encounter Details Date Type Department Care Team Description 09/04/2012 Refill Adult Medicine [address] [phone] Ramesh Salvador MD [address] [place] [address] [phone] E-prescribe Rx Request Social History Tobacco Use [...] encounter Miscellaneous Notes * Telephone Encounter - Jesika Cohen - 09/06/2012 8:43 AM EDT msg left * Telephone Encounter - Mary Schultz M.A. - 09/05/2012 4:30 PM EDT Pt has not had this Since 2006. Pt will need to Be seen. * Telephone Encounter - Tamra Woods - 09/05/2012 8:54 AM EDT WHEN WAS THE PATIENT'S LAST APPOINTMENT IN ADULT MEDICINE? 09/02/2012 WHEN WAS THE LAST TIME THE PATIENT SAW THEIR PCP? Same as above Does patient have an upcoming appointment? Yes 02/03/2013 (THE MEDICATION REQUESTED IS ON THE MED LIST ABOVE) All of the medications requested were on the CURRENT MEDS list Did you check the Pharmacy information above?: YES Patient wants: 30 -day supply Patient would like script to be: E-PRESCRIBED/FAXED TO PHARMACY Is this a mail order prescription request ? NO Indicate how soon the patient needs the script: BY THE END OF THE DAY Patients current insurance carrier is: Payor: -VIK/PPO POS Plan: PPO $20 [place] [id number] Product Type: PPO [id number] documented in this encounter Plan of Treatment Not on file documented as of this encounter Visit Diagnoses Not on filedocumented in this encounter Care Teams Biomedical Equipment Technician Relationship Specialty Start Date End Date Ramesh Salvador MD [address] [place] [address] PCP - General Internal Medicine 04/14/11 04/09/22 Ana Ayala [address] [place] [address] PCP - General Internal Medicine 04/10/22 documented as of this encounter
--- OUTSIDE RECORDS SUMMARY | 2024-10-05 11:28 | XMS_ITS | Encounter Summary ---
Author Organization [facility] Address [address] [place] [address] Care Team Providers Care Police Specialist Name Role Phone Ramesh Salvador MD Primary Care Provider [phone] [facility], Pcp Primary Care Provider Unavailabl e Encounter Details Date Type Department Care Team Description 02/09/2012 Checkroom Chief Report Medical Records [address] [place] [address] Ami Alejandra MD [address] [place] [address] [address] [place] [address] Social History Tobacco Use Types Packs/Day Years [...] on filedocumented in this encounter Care Teams Police Specialist Relationship Specialty Start Date End Date Ramesh Salvador MD [address] [place] [address] PCP - General Internal Medicine 04/14/11 04/09/22 [facility], Pcp [address] [place] [address] PCP - General Internal Medicine 04/10/22 documented as of this encounter
--- OUTSIDE RECORDS SUMMARY | 2024-10-05 11:28 | XMS_ITS | Encounter Summary ---
Author Organization [facility] Address [address] [place] [address] Care Team Providers Care Hollow Core Door Frame Assembler Name Role Phone Ramesh Salvador MD Primary Care Provider [phone] [facility], Pcp Primary Care Provider Unavailabl e Encounter Details Date Type Department Care Team Description 03/20/2020 Pt. Non Urgent Medical Question Adult Medicine [address] [phone] Ramesh Salvador MD [address] [place] [address] [phone] Social History Tobacco Use Types Packs/Day Years [...] Telephone Encounter - Sussy Son M.A. - 03/21/2020 9:07 AM EDTFrom: Arturo Gibbs To: Ramesh Salvador MD Sent: 03/20/2020 5:43 PM EDT Subject: blood test could you please add to the blood test next month for test to see if i am low on any type of vitamins.Thank You Arturo Gibbs documented in this encounter Plan of Treatment Not on file documented as of this encounter Visit Diagnoses Not on filedocumented in this encounter Care Teams Hollow Core Door Frame Assembler Relationship Specialty Start Date End Date Ramesh Salvador MD [address] [place] [address] PCP - General Internal Medicine 04/14/11 04/09/22 [facility], [address] [address] PCP - General Internal Medicine 04/10/22 documented as of this encounter
--- OUTSIDE RECORDS SUMMARY | 2024-10-05 11:28 | XMS_ITS | Encounter Summary ---
Author Organization [facility] Address [address] [place] [address] Care Team Providers Care Dog Or Horse Racing Official Name Role Phone Ramesh Salvador MD Primary Care Provider [phone] Ramesh Salvador MD Primary Care Provider [phone] [facility], Pcp Primary Care Provider Unavailabl e Reason for Visit * Reason Onset Date Comments Dietetic Aide Feedback 08/20/2006 REQUEST FOR AUTH ORIZATION FOR CT SCANS Encounter Details Date Type Department Care Team Description 08/20/2006 Telephone Adult [address] [phone] Kacy Zheng PA-C Dietetic Aide Feedback (REQUEST FOR AUTHORIZATION FOR CT SCANS) [...] ABD/PEL WAS DENIED BY MEDICAL REVIEW AT [facility] BY DR JACKELIN CARLOS .THE [...] on filedocumented in this encounter Care Teams Dog Or Horse Racing Official Relationship Specialty Start Date End Date Ramesh Salvador MD [address] [place] [address] PCP - General 07/23/99 04/13/11 Ramesh Salvador MD [address] [place] [address] PCP - General Internal Medicine 04/14/11 04/09/[address] [address] PCP - General Internal Medicine 04/10/22 documented as of this encounter
--- OUTSIDE RECORDS SUMMARY | 2024-10-05 11:28 | XMS_ITS | Encounter Summary ---
Author Organization [facility] Address [address] [place] [address] Care Team Providers Care Tank Car Repairer Name Role Phone Ramesh Salvador MD Primary Care Provider [phone] Ramesh Salvador MD Primary Care Provider [phone] [facility], Pcp Primary Care Provider Unavailabl e Encounter Details Date Type Department Care Team Description 03/09/2005 Orders Only Medical [address] [place], [place] [phone] Narcisa Huggins, BIT TRIPOLER [address] [place], [place] [phone] ABDOMINAL PAIN, UNSPECIFIED SITE (Primary Dx) Social [...] (AUTO DIFF PLATELET) (03/09/2005 2:19 PM EDT) [facility] WHITE BLOOD COUNT 8.8 4.8 - 10.8 x10-3 [facility] RED BLOOD COUNT 5.1 4.5 - 5.5 x10-6 [facility] Hemoglobin 16.0 13.0 - 17.0 g/dL [facility] Hematocrit 46.3 40 - 51 % [facility] MEAN CORPUSCULAR VOLUME 90.1 79 - 98 fl [facility] MEAN CORPUSCULAR HEMOGLOBIN 31.1 27 - 32 pg [facility] MEAN CORPUSCULAR HGB CONC 34.6 32 - 37 g/dl [facility] RED CELL DISTRIBUTION WIDTH 13.0 11 - 15 % [facility] PLT COUNT 252 130 - 400 x10-3 [facility] NEUTROPHILS % 68 41 - 85 % [facility] LYMPH % 23 15 - 48 % [facility] 03/09/2005 2:19 PM EDT 03/09/2005 2:21 PM EDT Narcisa Huggins BIT TRIPOLER LAB [facility] * COMPREHENSIVE METABOLIC PANEL (03/09/2005 2:19 PM EDT) [facility] GLUCOSE 106 70 - 110 mg/dL [facility] Blood Urea Nitrogen 16 5 - 25 mg/dL [facility] creatinine 0.9 0.7 - 1.5 mg/dL [facility] BUN/CREATININE RATIO 17.8 6.0 - 20.0 G/dL [facility] Sodium 142 133 - 145 mEq/L [facility] Potassium 4.6 3.5 - 5.2 mEq/L [facility] Chloride 104 96 - 108 mEq/L [facility] CARBON DIOXIDE (CO2) 29.2 21.0 - 32.0 mEq/L [facility] CALCIUM 10.1 8.5 - 10.5 mg/dL [facility] TOTAL PROTEIN (TP) 6.8 6.0 - 8.0 G/dL [facility] Albumin 4.5 3.2 - 5.6 G/dL [facility] GLOBULIN 2.3 1.9 - 4.4 [...] EDT 03/09/2005 2:21 PM EDT Narcisa Huggins BIT TRIPOLER LAB [facility] documented in this encounter Visit Diagnoses Diagnosis Abdominal pain, unspecified site- Primary documented in this encounter Care Teams Tank Car Repairer Relationship Specialty Start Date End Date Ramesh Salvador MD [address] [place] [address] PCP - General 07/23/99 04/13/11 Ramesh Salvador MD [address] [place] [address] PCP - General Internal Medicine 04/14/11 04/09/22 [facility], Pcp [address] [place] [address] PCP - General Internal Medicine 04/10/22 documented as of this encounter
--- OUTSIDE RECORDS SUMMARY | 2024-10-05 11:28 | XMS_ITS | Encounter Summary ---
Author Organization [facility] Address [address] [place] [address] Care Team Providers Care Dean Name Role Phone Ramesh Salvador MD Primary Care Provider [phone] [facility], Pcp Primary Care Provider Unavailabl e Encounter Details Date Type Department Care Team Description 07/13/2017 Orders Only Adult Medicine [address] [phone] Eboni King, PRAMOD Social History Tobacco Use [...] on filedocumented in this encounter Care Teams Dean Relationship Specialty Start Date End Date Ramesh Salvador MD [address] [place] [address] [phone] PCP - General Internal Medicine 04/14/11 04/09/22 [facility], [place] [address] [place] [address] PCP - General Internal Medicine 04/10/22 documented as of this encounter
--- OUTSIDE RECORDS SUMMARY | 2024-10-05 11:28 | XMS_ITS | Encounter Summary ---
Author Organization [facility] Address [address] [place] [address] Care Team Providers Care Child Care Lead Teacher Name Role Phone Ramesh Salvador MD Primary Care Provider [phone] [facility], Pcp [facility] Encounter Details Date Type Department Care Team Description 01/12/2012 Release of Information Medical Records [address] [place] [address] Abstract, Provider Social History Tobacco Use Types [...] on filedocumented in this encounter Care Teams Child Care Lead Teacher Relationship Specialty Start Date End Date Ramesh Salvador MD [address] [place] [address] PCP - General Internal Medicine 04/14/11 04/09/22 [facility], Pcp [address] [place] [address] PCP - General Internal Medicine 04/10/22 documented as of this encounter
--- OUTSIDE RECORDS SUMMARY | 2024-10-05 11:28 | XMS_ITS | Encounter Summary ---
Author Organization [facility] Address [address] [place] [address] Care Team Providers Care Trim Line Worker Name Role Phone Ramesh Salvador MD Primary Care Provider [phone] [facility], Pcp Primary Care Provider Unavailabl e Reason for Visit * Reason Onset Date Comments Pre-op Needed 11/18/2021 Encounter Details Date Type Department Care Team Description 11/18/2021 Telephone Adult Medicine [address] [phone] Ramesh Salvador MD [address] [place] [address] [phone] Pre-op Needed Social History Tobacco Use Types Packs/Day Years [...] file Not on file Not on file COVID-19 Exposure Response Date Recorded In the last 10 days, have yo u been in contact with someone who was confirmed or suspected to have Coronavirus/COVID-19? No / Unsure 10/30/2021 10:52 AM EDT documented as of this encounter Miscellaneous Notes * Telephone Encounter - Nithyaelvin Lee - 11/18/2021 4:33 PM EDT Pre op appt booked and letter sent to pt to confirm * Telephone Encounter - Malgorzata Bower - 11/18/2021 11:50 AM EDT Date of surgery:01/14/22 What surgery is patient having (gall bladder, cataract, appendix, etc...)?: Mohs on his nose removing cnacer Surgeon's name: Dr sina harvey Office phone number of surgeon: [phone] Fax # for surgeons office: [phone] (Required) Where is surgery being performed? [facility] Diagnosis/problem for surgery: Is an EKG required for the pre-op workup? YES PCP: Ramesh Salvador Did you verify that the insurance below is correct? YES Patients insurance: [place] / Plan: MEDICARE-[employer] / Product Type: MEDICARE [id number] documented in this encounter Plan of Treatment Not on file documented as of this encounter Visit Diagnoses Not on filedocumented in this encounter Care Teams Trim Line Worker Relationship Specialty Start Date End Date Ramesh Salvador MD [address] [place] [address] PCP - General Internal Medicine 04/14/11 04/09/22 [facility], [address] [address] PCP - General Internal Medicine 04/10/22 documented as of this encounter
--- OUTSIDE RECORDS SUMMARY | 2024-10-05 11:28 | XMS_ITS | Encounter Summary ---
Author Organization [facility] Address [address] [place] [address] Care Team Providers Care Electrical Logging Engineer Name Role Phone Ramesh Salvador MD Primary Care Provider [phone] [facility], Pcp Primary Care Provider Unavailabl e Encounter Details Date Type Department Care Team Description 01/29/2018 Orders Only Adult Medicine [facility] [address] [place] [address] [phone] Ramesh Salvador MD [address] [place] [address] [phone] Hyperglycemia (Primary Dx) Social History Tobacco Use [...] AM EDT Ramesh Salvador MD LAB [facility] documented in this encounter Visit Diagnoses Diagnosis Hyperglycemia- Primary Other abnormal glucose documented in this encounter Care Teams Electrical Logging Engineer Relationship Specialty Start Date End Date Ramesh Salvador MD [address] [place] [address] PCP - General Internal Medicine 04/14/11 04/09/22 [facility], [address] [address] PCP - General Internal Medicine 04/10/22 documented as of this encounter
--- OUTSIDE RECORDS SUMMARY | 2024-10-05 11:28 | XMS_ITS | Encounter Summary ---
Author Organization [facility] Address [address] [place] [address] Care Team Providers Care Aircraft Engine Mechanic Overhaul Name Role Phone Ramesh Salvador MD Primary Care Provider [phone] [facility], Pcp Primary Care Provider Unavailabl e Encounter Details Date Type Department Care Team Description 01/05/2017 Enterprise Data Architect Report Medical Records [address] [place] [address] Dept., [facility] Occupational & Pt Social History Tobacco [...] on filedocumented in this encounter Care Teams Aircraft Engine Mechanic Overhaul Relationship Specialty Start Date End Date Ramesh Salvador MD [address] [place] [address] [phone] PCP - General Internal Medicine 04/14/11 04/09/22 Jamie Pcp [address] [place] [address] PCP - General Internal Medicine 04/10/22 documented as of this encounter
--- OUTSIDE RECORDS SUMMARY | 2024-10-05 11:28 | XMS_ITS | Encounter Summary ---
Author Organization [facility] Address [address] [place] [address] Care Team Providers Care Caser Shoe [employer] Name Role Phone Ramesh Salvador MD Primary Care Provider [phone] [facility], Pcp Primary Care Provider Unavailabl e Encounter Details Date Type Department Care Team Description 12/18/2015 Wellness Visit Medical Records [address] [place] [address] Ramesh Salvador MD [address] [place] [address] [phone] Social History Tobacco Use Types Packs/Day Years [...] on filedocumented in this encounter Care Teams [employer] Relationship Specialty Start Date End Date Ramesh Salvador MD [address] [place] [address] [phone] PCP - General Internal Medicine 04/14/11 04/09/22 [facility], Pcp [address] [place] [address] PCP - General Internal Medicine 04/10/22 documented as of this encounter
--- OUTSIDE RECORDS SUMMARY | 2024-10-05 11:28 | XMS_ITS | Clinical Summary ---
Author Organization [facility] Address [address] [place] [address] Care Team Providers Care Residential Support Specialist Name Role Phone Community, Pcp Primary Care [...] Father Cancer, Other Maternal Grandfather STOMAC H [place] Mother s/p [id number] 2010 Relation Name Status [...] Effective Dates Phone Address Type MEDICARE-[place] MEDICARE-[place] [id number] 2014-Prese [address] [place] [address] MEDICARE [id number] ICE [place]/INDEM NITY MEDEX (MCARE SUPP) [place] [id number] 2014-Prese nt [address] [place] [address] MEDICARE [id number] ICE BC-[place]/PPO POS CH/BC-[place]/$0/ 20%/F/PPO [id number] 2010-Prese nt [address] [place] [address] PPO [id number]-[id number] ice BCBSMA PPO $40 [place] [id number] 2013-Pre sent [address] [place] [address] PPO [id number] ice Advance Directives For more information, please contact: [phone] Documents on File Type Date Recorded Patient Reference Library Assistant [facility] Proxy 11/10/2016 11:17 AM [facility] Care Proxy Care Teams Residential Support Specialist Relationship Specialty Start Date End Date Community, Pcp PCP - General Internal Medicine 04/10/22
--- OUTSIDE RECORDS SUMMARY | 2024-10-05 11:28 | XMS_ITS | Encounter Summary ---
Author Organization [facility] Address [address] [place] [address] Care Team Providers Care Assistant Store Manager Trainee Name Role Phone Ramesh Salvador MD Primary Care Provider [phone] Community, Pcp Primary Care Provider Unavailabl e Encounter Details Date Type Department Care Team Description 04/19/2019 Pt. Non Urgent Medical Question Adult Urgent Care - [address] [address] Citlaly Urbano APRN [address] [place] [address] Social History Tobacco Use Types Packs/Day Years [...] on filedocumented in this encounter Care Teams Assistant Store Manager Trainee Relationship Specialty Start Date End Date Ramesh Salvador MD [address] [place] [address] PCP - General Internal Medicine 04/14/11 [facility] [address] [place] [address] PCP - General Internal Medicine 04/10/22 documented as of this encounter
--- OUTSIDE RECORDS SUMMARY | 2024-10-05 11:28 | XMS_ITS | Encounter Summary ---
Author Organization [facility] Address [address] [place] [address] Care Team Providers Care Natural Foods Clerk Name Role Phone Ramesh Salvador MD Primary Care Provider [phone] Community, Pcp Primary Care Provider [facility] Encounter Details Date Type Department Care Team Description 10/13/2016 Business Doc Medical Records [address] [place] [address] Abstract, Provider Social History Tobacco Use Types [...] on filedocumented in this encounter Care Teams Natural Foods Clerk Relationship Specialty Start Date End Date Ramesh Salvador MD [address] [place] [address] [phone] PCP - General Internal Medicine 04/14/11 04/09/22 [facility], Pcp [address] [place] [address] PCP - General Internal Medicine 04/10/22 documented as of this encounter
--- OUTSIDE RECORDS SUMMARY | 2024-10-05 11:28 | XMS_ITS | Encounter Summary ---
Author Organization [facility] Address [address] [place] [address] Care Team Providers Care Driver'S Education Instructor Name Role Phone Ramesh Salvador MD Primary Care Provider [phone] Community, Pcp Primary Care Provider Unavailabl e Encounter Details Date Type Department Care Team Description 10/02/2014 PRIMER BOXER/[facility] Report Medical Records [address] [place] [address] Abstract, Provider Social History Tobacco Use Types [...] on filedocumented in this encounter Care Teams Driver'S Education Instructor Relationship Specialty Start Date End Date Ramesh Salvador MD [address] [place] [address] [phone] PCP - General Internal Medicine 04/14/11 04/09/22 [facility], Pcp [address] [place] [address] PCP - General Internal Medicine 04/10/22 documented as of this encounter
--- OUTSIDE RECORDS SUMMARY | 2024-10-05 11:28 | XMS_ITS | Encounter Summary ---
Author Organization [facility] Address [address] [place] [address] Care Team Providers Care Credit Coordinator Name Role Phone Ramesh Salvador MD Primary Care Provider [phone] Community, Pcp Primary Care Provider [facility] Encounter Details Date Type Department Care Team Description 09/01/2013 Night Triage Doc Medical Records [address] [place] [address] Abstract, Provider Social History Tobacco Use Types [...] on filedocumented in this encounter Care Teams Credit Coordinator Relationship Specialty Start Date End Date Ramesh Salvador MD [address] [place] [address] [phone] PCP - General Internal Medicine 04/14/11 04/09/22 [facility], Pcp [address] [place] [address] PCP - General Internal Medicine 04/10/22 documented as of this encounter
== END 2024-10-05 11:20 | disposition home or self-care (01) ==
LOC: HO.HNS 09:57
PROVIDERS: PCP Nurse Practitioner Family; Visit Provider Physician Assistant
DX: M79.662 Pain in left lower leg (principal)
CPT/HCPCS: 99212

== ENCOUNTER → 2024-10-05 09:56 | Outpatient (BNVA) | payer MEDICARE, SELFPAY | PROVIDERS: PCP Nurse Practitioner Family; Visit Provider Physician Assistant | DX: M79.662 Pain in left lower leg (principal) | CPT/HCPCS: 99212 ==

== ENCOUNTER 2024-10-23 14:18 | Outpatient (AMB) | payer MEDICARE, SELFPAY ==
--- NOTE | 2024-10-23 14:26 | MHC.OFFVIS ---
Vital Signs 10/23/24 14:28 Height 5 ft 10 in Weight 205 lb BMI 29.4 BP 133/72 Blood Pressure Location Lt brachial Position Sitting Respiration 16 Pulse 101 H Pulse Source Pulse Oximeter Pulse Oximetry (%) 96 Oxygen Delivery Method Room Air Intake Visit Reasons: Cervicalgia Subscription Agent Required: No Allergies amoxicillin [From AUGMENTIN] Allergy (Intermediate, Verified 10/23/24 14:29) RASH clavulanic acid [From AUGMENTIN] Allergy (Intermediate, Verified 10/23/24 14:29) RASH losartan Adverse Reaction (Severe, Verified 10/23/24 14:29) Shortness of Breath Sulfa (Sulfonamide Antibiotics) Adverse Reaction (Intermediate, Verified 10/23/24 14:29) Rash Medication List - Last Reconciled 10/23/24 by Yen Petit LPN albuterol sulfate 90 mcg/actuation 1 inh inhalation QID amlodipine 5 mg PO DAILY 90 days aspirin 81 mg PO DAILY blood pressure monitor As directed clotrimazole-betamethasone 1-0.05 % 1 appl topical BID 2 weeks gabapentin 200mg BID and 300mg qhs orally 90 days hydroxyzine HCl 12.5 mg (1/2 x 25 mg) PO QID PRN levothyroxine 125 mcg PO DAILY magnesium oxide 400 mg PO BEDTIME 30 days nystatin (Nystop) 1 appl topical BID nystatin 1 appl topical TID 30 days omeprazole 40 mg PO DAILY HPI Comments Details: Arturo is back in my office after 18 months of absence. I saw him in June of 2023, at that time he complained on pain on the right side of the lower back without radiation. Today he presented in my office with new complains on pain in the back with radiation down to the left lower extremity and burning sensation in the left calf. He was examined by a neurosurgeon and recommendation was to perform diagnostic L5-S1 transforaminal epidural steroid injection. I will schedule him for this procedure. He exhausted conservative measures. He tried NSAIDs. He tried gabapentin and NSAIDs for his pain with no significant results. He tried physical therapy and received significant alleviation of his pain. He had x-rays and MRIs of the lumbar spine as well as EMG by Neurology office who referred patient to us. [facility] Medical History Neurogenic claudication Pericarditis Hypothyroid Anxiety Surgical History Hx of cholecystectomy Family History Father No problems noted. Social History Housing: House Unable to assess alcohol history related to: Unknown Alcohol intake: former Patient Tobacco Use Status: Former Tobacco user e-Cigarette/Vaping Use: Never Used Second Hand Smoke Exposure: No service: Yes Current occupational status: retired Current occupational exposures/hazards: No Cognitive needs: No Hearing needs: No Vision needs: No Review of Systems Const All systems reviewed & are unremarkable except as noted in HPI and below ENT Reports Normal hearing present Neuro Reports Normal hearing present, Denies Abnormal speech present and Denies Sensory deficit (Neuro) Physical Exam Vital Signs: Last Vital Signs Pulse 101 H 10/23/24 14:28 Resp 16 10/23/24 14:28 BP 133/72 10/23/24 14:28 Pulse Ox 96 10/23/24 14:28 Oxygen Delivery Method Room Air 10/23/24 14:28 BMI result Body Mass Index 29.4 Const General: no acute distress Orientation/consciousness: patient oriented x3 Eyes General: appearance normal, both eyes and all related structures Pupils: Equal, round and reactive pupils present EOM: EOMs intact bilaterally Neck Neck: Yes full ROM Chest Chest palpation & inspection: normal inspection of the chest Resp Effort & Inspection: normal respiratory effort, able to speak in complete sentences, normal respiratory pattern, no audible wheezes and no cough Cardio Jugular venous distension: no JVD GI Inspection: Yes normal to inspection Back/Spine/Pelvis Other: Able to stand on bilateral tiptoes and bilateral heels without difficulty. Able to lift the great toe bilaterally in separation of the rest of the toes however with significant difficulty. This may point out on to bilateral L4 radiculopathy. Pedro Pablo test, Gaenslen test negative bilaterally. Stinchfield test is negative bilaterally. SLR test is negative bilaterally. Lassegue is negative bilaterally. Loading test is positive on the left. There is tenderness on palpation in paraspinal region of the left lumbar spine. Flexing forward and flexing backwards aggravate pain minimally but flexing backwards aggravate pain more than flexing forward. Neuro Other: Bilateral posterior cervical tightness. Cervical ROM: limited Left Spurling: normal- however ROM limited Right Spurling: normal- however ROM limited BUE and BLE MS 10/30 General: patient oriented x3 and gait normal Cranial nerves: Yes CN's II-XII intact bilaterally, Yes Equal, round and reactive pupils present, Yes Normal hearing present and Yes Ability to bilaterally elevate shoulders present Cognition (Neuro): normal cognition Speech: No Abnormal speech present Gait exam (Neuro): Normal gait present Motor exam (neuro): 10/30 motor strength present throughout Sensory Exam: No Sensory deficit (Neuro) Deep tendon reflexes (DTR's): Right triceps reflex intensity grade: 2+, Left triceps reflex intensity grade: 2+, Rt Biceps (C5, C6): 2+, Left biceps reflex intensity grade: 2+, Right brachioradialis reflex intensity grade: 2+, Left brachioradialis reflex intensity grade: 2+, Right patellar reflex intensity grade: 2+ and Left patellar reflex intensity grade: 2+ Extrem Other: On the examination of the left lower extremity I detected very strong and distinctive popliteal pulse however dorsalis pedis and posterior tibial pulses a hardly palpable at all. General: No pedal edema Psych Appearance: grossly normal Mental Status: mental status grossly normal Speech and movement: Normal speech and movement present Affect: normal affect Attitude: cooperative Thought process: Normal thought process present Thought content: Normal thought content present Insight: Good insight present (Psych) Judgement: Good judgement present (Psych) Assessment & Plan Assessment & Plan (1) Spondylosis of lumbar region without myelopathy or radiculopathy: Code(s): M47.816 - Spondylosis without myelopathy or radiculopathy, lumbar region Category: Medical (2) Arterial insufficiency of lower extremity: Code(s): I73.9 - Peripheral vascular disease, unspecified Category: Medical Plan: (3) Lumbar radiculopathy: Code(s): M54.16 - Radiculopathy, lumbar region Category: Medical Plan In the past when pattern of his pain was different I was considering medial branch blocks to alleviate his pain. At this time patient presents with different pattern of pain which was considered by Neurosurgery radiation to the left lower extremity. They recommended to perform diagnostic transforaminal epidural steroid injection L5-S1 on the left. I will perform as they requested. Patient will be scheduled for the procedure as soon as possible and he will be seen after the procedure in the office. Coding Level of Care Code Est Pt Level 3 (02581) Diagnoses Spondylosis of lumbar region without myelopathy or radiculopathy M47.816 Arterial insufficiency of lower extremity I73.9 Lumbar radiculopathy M54.16
[2024-10-23 14:28] VITALS: BP 133/72; PULSE 101; RESP 16; O2SAT 96; BMI 29.4
== END 2024-10-23 14:42 | disposition home or self-care (01) ==
LOC: HO.PMC 14:19
PROVIDERS: PCP Nurse Practitioner Family; Referring Provider Physician Assistant; Visit Provider Anesthesiology
DX: M47.816 Spondylosis without myelopathy or radiculopathy, lumbar region (principal); I73.9 Peripheral vascular disease, unspecified; M54.16 Radiculopathy, lumbar region
CPT/HCPCS: 99213

== ENCOUNTER → 2024-10-23 14:18 | Outpatient (BNVA) | payer MEDICARE, SELFPAY | PROVIDERS: PCP Nurse Practitioner Family; Referring Provider Physician Assistant; Visit Provider Anesthesiology | DX: M47.26 Other spondylosis with radiculopathy, lumbar region (principal); I73.9 Peripheral vascular disease, unspecified | CPT/HCPCS: 99212 ==

== ENCOUNTER 2024-10-24 13:23 | Outpatient (REF) | payer MEDICARE, SELFPAY ==
--- NOTE | ~2024-10-24 | US_ITS ---
EXAMINATION: US TRIPLEX LOWER EXTREMITY, LEFT CLINICAL INFORMATION: Pain, left lower extremity. COMPARISON: None available. TECHNIQUE: Color-flow triplex imaging with spectral analysis and compression Doppler were performed on the left lower extremity. FINDINGS: Respiratory variation, normal compression and augmented flow are noted throughout the interrogated common femoral vein, superficial femoral vein, profunda femoral vein, popliteal vein and midcalf peroneal and posterior tibial venous segments . There is no White's cyst. US/US venous duplex LE LT IMPRESSION: No acute deep venous thrombosis involving the left lower extremity. Negative for DVT. Electronically signed by: Angel Paredes MD 10/25/2024 03:26 PM EDT
--- NOTE | ~2024-10-24 | US_ITS ---
EXAMINATION: US NONINVASIVE ASSESSMENT OF THE LEFT LOWER EXTREMITY WITH ARTERIAL DUPLEX . CLINICAL INFORMATION: Pain in the left lower extremity. COMPARISON: None available. TECHNIQUE: Duplex Doppler techniques with waveform analysis and measurement of velocities in the left common femoral, profunda femoris, superficial femoral, popliteal and tibial arteries were performed.. The study was performed only at rest. FINDINGS: Episodes of arrhythmia. NONINVASIVE ASSESSMENT OF THE ARTERIES OF LEFT LOWER EXTREMITY: LEFT LOWER EXTREMITY DUPLEX ULTRASOUND: Common femoral artery: 111 cm/s. Triphasic waveform. Profunda femoris artery: 104 cm/s. Triphasic waveform. Superficial femoral artery (proximal): 108 cm/s. Triphasic waveform. Superficial femoral artery (mid): 83 cm/s. Triphasic waveform. Superficial femoral artery (distal): 69 cm/s. Triphasic waveform. Popliteal artery: 81 cm/s . Triphasic waveform. Posterior tibial artery: 113 cm/s. Triphasic waveform. Anterior tibialis artery: 47 cm/s. Triphasic waveform. Reversal flow. Dorsalis base artery: 50 cm/s. Biphasic waveform. Reversal flow. 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 Arrhythmia episodes. Electronically signed by: Angel Paredes MD 10/26/2024 12:49 PM EDT
== END 2024-10-24 13:24 | disposition home or self-care (01) ==
LOC: HO.US 13:23
PROVIDERS: PCP Nurse Practitioner Family; Visit Provider Nurse Practitioner Family
DX: M79.662 Pain in left lower leg (principal)
CPT/HCPCS: 93926; 93971

== ENCOUNTER → 2024-10-24 13:29 | Outpatient (BNV) | payer MEDICARE, SELFPAY | PROVIDERS: PCP Nurse Practitioner Family; Visit Provider Radiology Diagnostic Radiology | DX: M79.662 Pain in left lower leg (principal) | CPT/HCPCS: 93926; 93971 ==

== ENCOUNTER 2024-10-26 07:56 | Outpatient (REF) | payer MEDICARE, SELFPAY ==
[2024-10-26 08:14] LABS: MANUAL DIFF FLAG NO
[2024-10-26 08:51] LABS: Basophils Absolute Auto 0.1 X10*3/uL (0.0-0.2); Basophils Percent Auto 1.1 % (0-2); Eosinophils Absolute Auto 0.2 X10*3/uL (0.0-0.4); Eosinophils Percent Auto 2.2 % (0-4); Hematocrit 45.7 % (42.0-52.0); Hemoglobin 15.3 g/dl (14.0-18.0); Imm Gran Abs Auto 0.01 X10*3/uL (0.00-0.03); Imm Gran Pct Auto 0.1 % (0.0-0.4); Lymphocytes Absolute Auto 2.3 X10*3/uL (1.2-4.9); Mean Corpuscular HGB Conc 33.5 g/dl (31.0-36.0); Mean Corpuscular Hemoglobin 30.7 pg (27.0-33.0); Mean Corpuscular Volume 91.6 fL (80.0-98.0); Mean Platelet Volume 8.8 fL (9.4-12.4); Monocytes Absolute Auto 0.6 X10*3/uL (0.1-1.2); Neutrophils Absolute Auto 4.2 x10*3/uL (2.0-8.3); Neutrophils Percent Auto 57.6 % (45-73); Platelet Count 298 X10*3/uL (160-400); Red Blood Count 4.99 X10*6/uL (4.60-5.80); Red Cell Distribution Width 13.5 % (11.0-16.0); White Blood Count 7.3 X10*3/uL (4.8-10.8)
[2024-10-26 09:17] LABS: Alanine Aminotransferase 35 U/L (0-40); Albumin Level 4.3 g/dL (3.5-5.0); Alkaline Phosphatase 96 U/L (39-117); Anion Gap 13 (12-20); Aspartate Amino Transferase 29 U/L (5-37); Bilirubin Total 1.4 mg/dL (0.0-1.0); Blood Urea Nitrogen 12 mg/dL (9-16); Calcium 9.3 mg/dL (8.4-10.2); Carbon Dioxide 28 mmol/L (22-29); Chloride 106 mmol/L (96-108); Cholesterol 209 mg/dL (<200); Estimated Glomerular Filt Rate > 60; Glucose Fasting 131 mg/dL (60-99); HDL Cholesterol 50 mg/dL (>40); LDL Cholesterol Calculated 136 mg/dL (<100); Potassium 4.5 mmol/L (3.3-5.1); Sodium 142 mmol/L (135-145); Total Protein 7.1 g/dL (6.5-8.0); Triglycerides 118 mg/dL (<150)
[2024-10-26 09:34] LABS: TSH reflex Free T4 3.53 uIU/mL (0.32-4.0)
[2024-10-26 09:35] LABS: Prostate Specific Antigen Scr 0.42 ng/mL (<0.05-4.0)
== END 2024-10-26 07:57 | disposition home or self-care (01) ==
LOC: HO.LAB 07:56
PROVIDERS: PCP Nurse Practitioner Family; Visit Provider Nurse Practitioner Family
DX: R74.8 Abnormal levels of other serum enzymes (principal); I10 Essential (primary) hypertension; Z12.5 Encounter for screening for malignant neoplasm of prostate
CPT/HCPCS: 36415; 80053; 80061; 81003; 84153; 84443; 85025

== ENCOUNTER 2024-10-28 09:05 | Outpatient (AMB) | payer MEDICARE, SELFPAY ==
--- OUTSIDE RECORDS SUMMARY | 2024-10-28 09:06 | XMS_ITS | Clinical Summary ---
Author Organization [facility] Address [address] [place] [address] Care Team Providers Care Egg Pasteurizer Name Role Phone Community, Pcp Primary Care [...] Father Cancer, Other Maternal Grandfather STOMAC H [place] Mother s/p [id number] 2010 Relation Name Status [...] Effective Dates Phone Address Type MEDICARE-[place] MEDICARE-[place] [id number] 2014-Prese [address] [place] [address] MEDICARE [id number] ICE BC-[place]/INDEM NITY MEDEX (MCARE SUPP) [place] [id number] 2014-Prese nt [address] [place] [address] MEDICARE [id number] ICE BC-[place]/PPO POS CH/BC-[place]/$0/ 20%/F/PPO [id number] 2010-Prese nt [address] [place] [address] PPO [id number] ice BCBSMA PPO $40 [place] [id number] 2013-Pre sent [address] [place] [address] PPO Mqk-owm-Dsku ice Advance Directives For more information, please contact: [phone] Documents on File Type Date Recorded Patient Fiberglass Roving Winder [facility] Pro[facility] 11/10/2016 11:17 AM [facility] Care Proxy Care Teams Egg Pasteurizer Relationship Specialty Start Date End Date Community, Pcp PCP - General Internal Medicine 04/10/22
--- OUTSIDE RECORDS SUMMARY | 2024-10-28 09:06 | XMS_ITS | Encounter Summary ---
Author Organization [facility] Address [address] [place] [address] Care Team Providers Care Fabrication Inspector Name Role Phone Ramesh Salvador MD Primary Care Provider [phone] [facility], Pcp Primary Care Provider Unavailabl e Reason for Visit * Reason Onset Date Comments pain, stomach 07/23/2016 Encounter Details Date Type Department Care Team Description 07/23/2016 Telephone Adult Medicine [address] [phone] Ramesh Salvador MD [address] [place] [address] [phone] pain, stomach Social History Tobacco Use Types [...] on filedocumented in this encounter Care Teams Fabrication Inspector Relationship Specialty Start Date End Date Ramesh Salvador MD [address] [place] [address] PCP - General Internal Medicine 04/14/11 04/09/22 [facility], Pcp [address] [place] [id number] PCP - General Internal Medicine 04/10/22 documented as of this encounter
--- OUTSIDE RECORDS SUMMARY | 2024-10-28 09:06 | XMS_ITS | Encounter Summary ---
Author Organization [facility] Address [address] [place] [address] Care Team Providers Care Plywood Matcher Name Role Phone Ramesh Salvador MD Primary Care Provider [phone] [facility], Pcp Primary Care Provider Unavailabl e Encounter Details Date Type Department Care Team Description 01/29/2018 Orders Only Adult Medicine [facility] [address] [place], [place] [phone] Ramesh Salvador MD [address] [place] [address] [phone] Hyperglycemia (Primary Dx) Social History Tobacco Use [...] AM EDT Ramesh Salvador MD LAB [facility]. documented in this encounter Visit Diagnoses Diagnosis Hyperglycemia- Primary Other abnormal glucose documented in this encounter Care Teams Plywood Matcher Relationship Specialty Start Date End Date Ramesh Salvador MD [address] [place] [address] PCP - General Internal Medicine 04/14/11 04/09/22 [facility], [address] [address] PCP - General Internal Medicine 04/10/22 documented as of this encounter
--- OUTSIDE RECORDS SUMMARY | 2024-10-28 09:06 | XMS_ITS | Encounter Summary ---
Author Organization [facility] Address [address] [place] [address] Care Team Providers Care Building Construction Ironworker Name Role Phone Ramesh Salvador MD Primary Care Provider [phone] [facility], Pcp Primary Care Provider Unavailabl e Reason for Visit * Reason Onset Date Comments er follow up 02/07/2018 Encounter Details Date Type Department Care Team Description 02/07/2018 Telephone Adult Medicine [address] [phone] Ramesh Salvador MD [address] [place] [address] [phone] er follow up Social History Tobacco Use [...] MD Hospital/ center patient was treated at: [facility] Date of visit: 02/06/18 Was this only [...] on filedocumented in this encounter Care Teams Building Construction Ironworker Relationship Specialty Start Date End Date Ramesh Salvador MD [address] [place] [address] PCP - General Internal Medicine 04/14/11 04/09/22 [facility] [address] [place] [address] PCP - General Internal Medicine 04/10/22 documented as of this encounter
--- OUTSIDE RECORDS SUMMARY | 2024-10-28 09:06 | XMS_ITS | Encounter Summary ---
Author Organization [facility] Address [address] [place] [address] Care Team Providers Care Shearing Machine Tender Name Role Phone Ramesh Salvador MD Primary Care Provider [phone] Community, Pcp Primary Care Provider Unavailabl e Encounter Details Date Type Department Care Team Description 11/20/2011 Plaster Foreman Report Medical Records [address] [place] [address] Ami Alejandra MD [address] [place] [address] [address] [place] [address] Social History Tobacco Use Types Packs/Day Years [...] on filedocumented in this encounter Care Teams Shearing Machine Tender Relationship Specialty Start Date End Date Ramesh Salvador MD [address] [place] [address] PCP - General Internal Medicine 04/14/11 04/09/22 [facility], Pcp [address] [place] [address] PCP - General Internal Medicine 04/10/22 documented as of this encounter
--- OUTSIDE RECORDS SUMMARY | 2024-10-28 09:06 | XMS_ITS | Encounter Summary ---
Author Organization [facility] Address [address] [place] [address] Care Team Providers Care Recycling Or Rubbish Collector Name Role Phone Ramesh Salvador MD Primary Care Provider [phone] Community, Pcp Primary Care Provider Unavailabl e Reason for Visit * Reason Onset Date Comments Appointment-Internal Referral 03/04/2017 Encounter Details Date Type Department Care Team Description 03/04/2017 Telephone General Surgery [address] [place] [address] Tavares Valadez MD [address] [place] [address] Appointment-Internal Referral Social History Tobacco Use Types [...] on filedocumented in this encounter Care Teams Recycling Or Rubbish Collector Relationship Specialty Start Date End Date Ramesh Salvador MD [address] [place] [address] PCP - General Internal Medicine 04/14/11 04/09/[address] [address] PCP - General Internal Medicine 04/10/22 documented as of this encounter
--- OUTSIDE RECORDS SUMMARY | 2024-10-28 09:06 | XMS_ITS | Encounter Summary ---
Author Organization [facility] Address [address] [place] [address] Care Team Providers Care Catering Attendant Name Role Phone Ramesh Salvador MD Primary Care Provider [phone] [facility], Pcp Primary Care Provider Unavailabl e Encounter Details Date Type Department Care Team Description 04/01/2014 Pt. Non Urgent Medical Question Adult Medicine [address] [phone] Ramesh Salvador MD [address] [place] [address] [phone] Social History Tobacco Use Types Packs/Day Years [...] on filedocumented in this encounter Care Teams Catering Attendant Relationship Specialty Start Date End Date Ramesh Salvador MD [address] [place] [address] PCP - General Internal Medicine 04/14/11 04/09/22 [facility], [address] [address] PCP - General Internal Medicine 04/10/22 documented as of this encounter
--- OUTSIDE RECORDS SUMMARY | 2024-10-28 09:06 | XMS_ITS | Encounter Summary ---
Author Organization [facility] Address [address] [place] [address] Care Team Providers Care Mold Parter Name Role Phone Ramesh Salvador MD Primary Care Provider [phone] [facility], Pcp Primary Care Provider Unavailabl e Encounter Details Date Type Department Care Team Description 03/05/2019 Refill Adult Medicine [address] [address] Eboni King NP Social History Tobacco Use [...] - 03/06/2019 7:35 AM EDTFrom: Arturo Rosendo Lopez[place] To: Eboni King NP Sent: 03/05/2019 11:15 AM EDT Subject: Medication Renewal Request Original authorizing provider: Eboni King NP Arturo Gibbs would like a refill of the following medications: ranitidine (ZANTAC) 150 MG tablet [Eboni King NP] Preferred pharmacy: [facility] [place] [address] [place] [address] Comment: Medication renewals requested in this message routed to other providers: levothyroxine (SYNTRHOID, LEVOTHROID) 137 MCG tablet [Ramesh Salvador MD] documented in this encounter Plan of Treatment Not on file documented as of this encounter Visit Diagnoses Not on filedocumented in this encounter Care Teams Mold Parter Relationship Specialty Start Date End Date Ramesh Salvador MD [address] [place] [address] PCP - General Internal Medicine 04/14/11 04/09/22 [facility], [address] [address] PCP - General Internal Medicine 04/10/22 documented as of this encounter
--- OUTSIDE RECORDS SUMMARY | 2024-10-28 09:06 | XMS_ITS | Encounter Summary ---
Author Organization Formerly [facility] Address [address] [place] [address] Care Team Providers Care Frog Shaker Name Role Phone Ramesh Salvador MD Primary Care Provider [phone] Community, Pcp Primary Care Provider Unavaillegacy health e Encounter Details Date Type Department Care Team Description 12/02/2011 Helicopter Specialist Report Medical Records [address] [place] [address] Social History Tobacco Use Types Packs/Day Years [...] on filedocumented in this encounter Care Teams Frog Shaker Relationship Specialty Start Date End Date Ramesh Salvador MD [address] [place] [address] [phone] PCP - General Internal Medicine 04/14/11 04/09/22 [facility], Pcp [address] [place] [address] PCP - General Internal Medicine 04/10/22 documented as of this encounter
--- OUTSIDE RECORDS SUMMARY | 2024-10-28 09:07 | XMS_ITS | Encounter Summary ---
Author Organization [facility] Address [address] [place] [address] Care Team Providers Care Iron Miner Blasting Name Role Phone Ramesh Salvador MD Primary Care Provider [phone] Ramesh Salvador MD Primary Care Provider [phone] [facility], Pcp Primary Care Provider Unavailabl e Encounter Details Date Type Department Care Team Description 03/09/2005 Orders Only Medical [address] [place], [place] [phone] Narcisa Huggins, BLASTER HELPER [address] [place], [place] [phone] ABDOMINAL PAIN, UNSPECIFIED SITE (Primary Dx) Social [...] (AUTO DIFF PLATELET) (03/09/2005 2:19 PM EDT) [facility] WHITE BLOOD COUNT 8.8 4.8 - 10.8 x10-3 [facility] RED BLOOD COUNT 5.1 4.5 - 5.5 x10-6 [facility] Hemoglobin 16.0 13.0 - 17.0 g/dL [facility] Hematocrit 46.3 40 - 51 % [facility] MEAN CORPUSCULAR VOLUME 90.1 79 - 98 fl [facility] MEAN CORPUSCULAR HEMOGLOBIN 31.1 27 - 32 pg [facility] MEAN CORPUSCULAR HGB CONC 34.6 32 - 37 g/dl [facility] RED CELL DISTRIBUTION WIDTH 13.0 11 - 15 % [facility] PLT COUNT 252 130 - 400 x10-3 [facility] NEUTROPHILS % 68 41 - 85 % [facility] LYMPH % 23 15 - 48 % [facility] 03/09/2005 2:19 PM EDT 03/09/2005 2:21 PM EDT Narcisa Huggins BLASTER HELPER LAB [facility] * COMPREHENSIVE METABOLIC PANEL (03/09/2005 2:19 PM EDT) [facility] GLUCOSE 106 70 - 110 mg/dL [facility] Blood Urea Nitrogen 16 5 - 25 mg/dL [facility] creatinine 0.9 0.7 - 1.5 mg/dL [facility] BUN/CREATININE RATIO 17.8 6.0 - 20.0 G/dL [facility] Sodium 142 133 - 145 mEq/L [facility] Potassium 4.6 3.5 - 5.2 mEq/L [facility] Chloride 104 96 - 108 mEq/L [facility] CARBON DIOXIDE (CO2) 29.2 21.0 - 32.0 mEq/L [facility] CALCIUM 10.1 8.5 - 10.5 mg/dL [facility] TOTAL PROTEIN (TP) 6.8 6.0 - 8.0 G/dL [facility] Albumin 4.5 3.2 - 5.6 G/dL [facility] GLOBULIN 2.3 1.9 - 4.4 G/dL [...] EDT 03/09/2005 2:21 PM EDT Narcisa Huggins BLASTER HELPER LAB [facility] documented in this encounter Visit Diagnoses Diagnosis Abdominal pain, unspecified site- Primary documented in this encounter Care Teams Iron Miner Blasting Relationship Specialty Start Date End Date Ramesh Salvador MD [address] [place] [address]07 PCP - General 07/23/99 04/13/11 Ramesh Salvador MD [address] [place] [address] 44177 PCP - General Internal Medicine 04/14/11 04/09/22 [facility], Pcp [address] [place] [address] 35484 PCP - General Internal Medicine 04/10/22 documented as of this encounter
--- OUTSIDE RECORDS SUMMARY | 2024-10-28 09:07 | XMS_ITS | Encounter Summary ---
Author Organization [facility] Address [address] [place] [address] Care Team Providers Care Interior Block Wirer Name Role Phone Ramesh Salvador MD Primary Care Provider [phone] [facility], Pcp Primary Care Provider Unavailabl e Encounter Details Date Type Department Care Team Description 12/30/2016 Pt. Non Urgent Medic al Question Adult Medicine [address] [address] Margie Simms PA-C Social History Tobacco Use [...] date for p.t on january 05 at [facility] if you could please send over the information that they need.Thank You documented in this encounter Plan of Treatment Not on file documented as of this encounter Visit Diagnoses Not on filedocumented in this encounter Care Teams Interior Block Wirer Relationship Specialty Start Date End Date Ramesh Salvador MD [address] [place] [address] PCP - General Internal Medicine 04/14/11 04/09/22 [facility], Pcp [address] [place] [address] PCP - General Internal Medicine 04/10/22 documented as of this encounter
--- OUTSIDE RECORDS SUMMARY | 2024-10-28 09:07 | XMS_ITS | Encounter Summary ---
Author Organization [facility] Address [address] [place] [address] Care Team Providers Care Technical Report Writer Name Role Phone Ramesh Salvador MD Primary Care Provider [phone] Ramesh Salvador MD Primary Care Provider [phone] [facility], Pcp Primary Care Provider Unavailabl e Reason for Visit * Reason Onset Date Comments Transportation Technician Feedback 08/20/2006 REQUEST FOR AUTH ORIZATION FOR CT SCANS Encounter Details Date Type Department Care Team Description 08/20/2006 Telephone Adult [address] [phone] Kacy Zheng PA-C Transportation Technician Feedback (REQUEST FOR AUTHORIZATION FOR CT SCANS) [...] ABD/PEL WAS DENIED BY MEDICAL REVIEW AT [facility] BY DR JACKELIN CARLOS .THE RECOMMENDATION [...] on filedocumented in this encounter Care Teams Technical Report Writer Relationship Specialty Start Date End Date Ramesh Salvador MD [address] [place] [address] PCP - General 07/23/99 04/13/11 Ramesh Salvador MD [address] [place] [address] 96646 PCP - General Internal Medicine 04/14/11 04/09/[address] [address] PCP - General Internal Medicine 04/10/22 documented as of this encounter
--- OUTSIDE RECORDS SUMMARY | 2024-10-28 09:07 | XMS_ITS | Encounter Summary ---
Author Organization [facility] Address [address] [place] [address] Care Team Providers Care Sand And Gravel Plant Operator Name Role Phone Ramesh Salvador MD Primary Care Provider [phone] Community, Pcp Primary Care Provider Unavailabl e Encounter Details Date Type Department Care Team Description 02/09/2012 Lead Front Desk Agent Report Medical Records [address] [place] [address] Ami Alejandra MD [address] [place] [address] [address] [place] [address] Social History Tobacco Use Types Packs/Day Years [...] on filedocumented in this encounter Care Teams Sand And Gravel Plant Operator Relationship Specialty Start Date End Date Ramesh Salvador MD [address] [place] [address] PCP - General Internal Medicine 04/14/11 04/09/22 [facility], Pcp [address] [place] [address] PCP - General Internal Medicine 04/10/22 documented as of this encounter
--- OUTSIDE RECORDS SUMMARY | 2024-10-28 09:07 | XMS_ITS | Encounter Summary ---
Author Organization [facility] Address [address] [place] [address] Care Team Providers Care Finishing Trimmer Name Role Phone Ramesh Salvador MD Primary Care Provider [phone] Ramesh Salvador MD Primary Care Provider [phone] [facility] [place], Pcp Primary Care Provider Unavailabl e Encounter Details Date Type Department Care Team Description 04/04/2010 It Sales Executive Report Medical Records [address] [place] [address] Rasheed Martínez MD Social History Tobacco Use [...] on filedocumented in this encounter Care Teams Finishing Trimmer Relationship Specialty Start Date End Date Ramesh Salvador MD [address] [place] [address] PCP - General 07/23/99 04/13/11 Ramesh Salvador MD [address] [place] [address] 7[address] PCP - General Internal Medicine 04/14/11 04/09/22 [facility] [place], [address] [address] PCP - General Internal Medicine 04/10/22 documented as of this encounter
--- OUTSIDE RECORDS SUMMARY | 2024-10-28 09:07 | XMS_ITS | Encounter Summary ---
Author Organization [facility] Address [address] [place] [address] Care Team Providers Care Emergency Planner Name Role Phone Ramesh Salvador MD Primary Care Provider [phone] Ramesh Salvador MD Primary Care Provider [facility], Pcp Primary Care Provider Unavailabl e Reason for Visit * Reason Comments medication problems [facility] Encounter Details Date Type Department Care Team Description 11/19/2003 Telephone Adult Medicine [address] [phone] Ramesh Salvador MD [address] [place] [address] [phone] medication problems ([facility] ) Social History [...] - 11/19/2003 4:16 PM EDTCALL RECEIVED. Contact: [phone] GIVEN VIOXX TODAY NOT COVERED THRU [facility] INF //NEEDS PRIOR AUTH OR SUB CALL [facility] [phone] PATIENT HAS SAVI INS documented in this encounter Plan of Treatment Not on file documented as of this encounter Visit Diagnoses Not on filedocumented in this encounter Care Teams Emergency Planner Relationship Specialty Start Date End Date Ramesh Salvador MD [address] [place] [address] PCP - General 07/23/99 04/13/11 Ramesh Salvador MD [address] [place] [address] 47021 PCP - General Internal Medicine 04/14/11 04/09/[address] [address] PCP - General Internal Medicine 04/10/22 documented as of this encounter
--- OUTSIDE RECORDS SUMMARY | 2024-10-28 09:07 | XMS_ITS | Encounter Summary ---
Author Organization [facility] Address [address] [place] [address] Care Team Providers Care Human Development Professor Name Role Phone Ramesh Salvador MD Primary Care Provider [phone] Community, Pcp Primary Care Provider [facility] Encounter Details Date Type Department Care Team Description 06/11/2015 Business Doc Medical Records [address] [place] [address] Abstract, Provider Social History Tobacco Use Types [...] on filedocumented in this encounter Care Teams Human Development Professor Relationship Specialty Start Date End Date Ramesh Salvador MD [address] [place] [address] [phone] PCP - General Internal Medicine 04/14/11 04/09/22 [facility], Pcp [address] [place] [address] 27261 PCP - General Internal Medicine 04/10/22 documented as of this encounter
--- OUTSIDE RECORDS SUMMARY | 2024-10-28 09:07 | XMS_ITS | Encounter Summary ---
Author Organization [facility] Address [address] [place] [address] Care Team Providers Care Overnight Stocker Name Role Phone Ramesh Salvador MD Primary Care Provider [phone] Community, Pcp Primary Care Provider Unavailabl e Reason for Visit * Reason Onset Date Comments REFERRAL 09/06/2019 Encounter Details Date Type Department Care Team Description 09/06/2019 Telephone [facility] [address] [place] [address] [facility] [address] [place] [address] REFERRAL Social History Tobacco Use Types Packs/Day [...] on filedocumented in this encounter Care Teams Overnight Stocker Relationship Specialty Start Date End Date Ramesh Salvador MD [address] [place] [address] PCP - General Internal Medicine 04/14/11 04/09/[address] [address] PCP - General Internal Medicine 04/10/22 documented as of this encounter
--- OUTSIDE RECORDS SUMMARY | 2024-10-28 09:07 | XMS_ITS | Encounter Summary ---
Author Organization [facility] Address [address] [place] [address] Care Team Providers Care Steel Detailer Name Role Phone Ramesh Salvador MD Primary Care Provider [phone] Ramesh Salvador MD Primary Care Provider [phone] [facility], Pcp Primary Care Provider Unavailabl e Reason for Visit * Reason Comments REFERRAL DR SALVADOR - PHYSICAL THE RAPY Entertainment Manager Feedback Encounter Details Date Type Department Care Team Description 08/30/2001 Telephone Adult Medicine [address] [phone] Ramesh Salvador MD [address] [place] [address] [phone] REFERRAL (DR SALVADOR - PHYSICAL THERAPY); Entertainment Manager Feedback Social History Tobacco Use Types Packs/Day [...] [facility]Pt [facility] he has script for the therapy from Dr Wyatt for neck pain/numbness-will bring this with him please process [facility] approved by Dr Salvador this note sent to Kamila Haddad in referrals- * Telephone Encounter - 09/01/2001 12:15 PM ESTSIGNED BY PCP WITH A NOTE SAYING HE CAN GO TO [facility]. GAVE TO CAMPBELL GIBSON RN COVERING FOR AMY. * Telephone Encounter - 08/30/2001 12:57 PM ESTFORWARDED TO PCP -WITH ADDENDUM- FOR SIGNATURE * Telephone Encounter - 08/30/2001 11:36 AM ESTCALL RECEIVED. Contact: [phone] PLEASE SEE ATTACHED ... We referred pt to [facility] for numbness on side of his head. [facility] , referred him for pysical therapy. documented in this encounter Plan of Treatment Not on file documented as of this encounter Visit Diagnoses Not on filedocumented in this encounter Care Teams Steel Detailer Relationship Specialty Start Date End Date Ramesh Salvador MD [address] [place] [address]52 PCP - General 07/23/99 04/13/11 Ramesh Salvador MD [address] [place] [address] PCP - General Internal Medicine 04/14/11 04/09/22 [facility], [address] [address] PCP - General Internal Medicine 04/10/22 documented as of this encounter
--- OUTSIDE RECORDS SUMMARY | 2024-10-28 09:07 | XMS_ITS | Encounter Summary ---
Author Organization [facility] Address [address] [place] [address] Care Team Providers Care Slurry Blender Name Role Phone Ramesh Salvador MD Primary Care Provider [phone] Ramesh Salvador MD Primary Care Provider [phone] [facility], Pcp Primary Care Provider Unavailabl e Encounter Details Date Type Department Care Team Description 04/15/2005 Orders Only Medical [address] [place], [place] [phone] Narcisa Huggins, [facility] [address] [place], [place] [phone] PURE HYPERCHOLESTEROLEMIA; NODULAR PROSTATE Social History Tobacco [...] CASCADE 1.34 0.70 - 1.80 ng/dL [facility] 04/15/2005 10:2 0 AM EDT 04/15/2005 10:21 AM EDT Narcisa [facility] Performing Organization Address [facility]/ZIP Co de Phone Number [facility] * PROSTATE SPEC. AG, SCREEN (04/15/2005 10:20 AM EDT) PROSTATIC SPECIFIC ANTIGEN SCR 0.4 0.0 - 4.0 ng/mL [facility] 04/15/2005 10:2 0 AM EDT 04/15/2005 10:21 AM EDT Narcisa [facility]LL[facility] Performing Organization Address [facility]/ZIP Co de Phone Number [facility] * (ABNORMAL) THYROID PROFILE W/TSH (04/15/2005 10:20 AM EDT) TSH CASCADE 5.12(H) 0.40 - 4.00 uIU/ml [facility] 04/15/2005 10:2 0 AM EDT 04/15/2005 10:21 AM EDT Narcisa BELL[facility] * (ABNORMAL) LIPID PROFILE (04/15/2005 10:20 AM EDT) Cholesterol 195 0 - 200 mg/dL [facility] TRIGLYCERIDES 143 0 - 150 mg/dL [facility] HDL CHOLESTEROL 54 >40 mg/dL [facility] LDL CALCULATED 113(H) 0 - 100 mg/dL [facility] TC-HDLC RATIO 3.6 0 - 4.4 mg/dL [facility] 04/15/2005 10:2 0 AM EDT 04/15/2005 10:21 AM EDT Narcisa Huggins CUFF SLITTER LAB [facility] * COMPREHENSIVE METABOLIC PANEL (04/15/2005 10:20 AM EDT) GLUCOSE 102 70 - 110 mg/dL [facility] Blood Urea Nitrogen 15 5 - 25 mg/dL [facility] CREAT 0.9 0.7 - 1.5 mg/dL [facility] GLOMERULAR FILTRATION RATE > 60 [facility] Comment: If patient is -[place], multiply result by 1.21 Chronic Kidney Disease: < 60 ml/min/1.73 square meters Kidney Failure: < 15 ml/min/1.73 square meters BUN/CREAT RATIO 16.7 6.0 - 20.0 G/dL [facility] NA 140 133 - 145 mEq/L [facility] K 4.6 3.5 - 5.2 mEq/L [facility] CL 105 96 - 108 mEq/L [facility] CARBON DIOXIDE (CO2) 28.6 21.0 - 32.0 mEq/L [facility] CALCIUM 9.7 8.5 - 10.5 mg/dL [facility] TOTAL PROTEIN (TP) 6.9 6.0 - 8.0 G/dL [facility] Albumin 4.6 3.2 - 5.6 G/dL [facility] GLOBULIN 2.3 1.9 - 4.4 G/dL [facility] A/G RATIO 2.0 1.1 - 2.3 [facility] BILIRUBIN TOTAL 1.1 0.0 - 1.4 mg/dL [facility] SGOT 27 10 - 42 U/L [facility] SGPT 32 10 - 60 U/L [facility] ALK PHOS 86 42 - 121 U/L [facility] 04/15/2005 10:2 0 AM EDT 04/15/2005 10:21 AM EDT Narcisa Huggins CUFF SLITTER LAB [facility] documented in this encounter Visit Diagnoses Diagnosis Pure hypercholesterolemia Nodular prostate documented in this encounter Care Teams Slurry Blender Relationship Specialty Start Date End Date Ramesh Salvador MD [address] [place] [address] PCP - General 07/23/99 04/13/11 Ramesh Salvador MD [address] [place] [address] PCP - General Internal Medicine 04/14/11 04/09/22 [facility], [address] [address] PCP - General Internal Medicine 04/10/22 documented as of this encounter
--- OUTSIDE RECORDS SUMMARY | 2024-10-28 09:07 | XMS_ITS | Encounter Summary ---
Author Organization [facility] Address [address] [place] [address] Care Team Providers Care Test Technician Name Role Phone Ramesh Salvador MD Primary Care Provider [phone] Community, Pcp Primary Care Provider [facility] Encounter Details Date Type Department Care Team Description 01/12/2012 Release of Information Medical Records [address] [place] [address] Abstract, Provider Social History Tobacco Use Types [...] on filedocumented in this encounter Care Teams Test Technician Relationship Specialty Start Date End Date Ramesh Salvador MD [address] [place] [address] PCP - General Internal Medicine 04/14/11 04/09/22 [facility], Pcp [address] [place] [address] PCP - General Internal Medicine 04/10/22 documented as of this encounter
--- NOTE | 2024-10-28 09:10 | MHC.OFFWIV ---
Intake Vital Signs 10/28/24 09:13 Height 5 ft 10 in Weight 205 lb BMI 29.4 BP 132/70 Blood Pressure Location Rt brachial Position Sitting Pulse 86 Pulse Source Pulse Oximeter Pulse Oximetry (%) 98 Oxygen Delivery Method Room Air Intake Visit Reasons: EP Ankles bright red/rahs? Patient Tobacco Use Status: Former Tobacco user Allergies amoxicillin (From AUGMENTIN) Allergy (Intermediate, Verified 01/17/25 13:11) RASH clavulanic acid (From AUGMENTIN) Allergy (Intermediate, Verified 01/17/25 13:11) RASH losartan Adverse Reaction (Severe, Verified 01/17/25 13:11) Shortness of Breath Sulfa (Sulfonamide Antibiotics) Adverse Reaction (Intermediate, Verified 01/17/25 13:11) Rash Do you need a note to return to daycare/school/sports/work: No HPI EP Ankles bright red/rahs? HPI Details Patient is a 74-year-old male with extensive underlying history, who comes to the walk-in clinic complaining of red ankles bilaterally. He reports that he had just started PFSH Medical History Neurogenic claudication Pericarditis Hypothyroid Anxiety Surgical History Hx of cholecystectomy Family History Father No problems noted. Social History Housing: House Unable to assess alcohol history related to: Unknown Alcohol intake: former Patient Tobacco Use Status: Former Tobacco user e-Cigarette/Vaping Use: Never Used Second Hand Smoke Exposure: No service: Yes Current occupational status: retired Current occupational exposures/hazards: No Cognitive needs: No Hearing needs: No Vision needs: No Review of Systems Const All systems reviewed & are unremarkable except as noted in HPI and below Physical Exam Vital Signs: Last Vital Signs Pulse 86 10/28/24 09:13 BP 132/70 10/28/24 09:13 Pulse Ox 98 10/28/24 09:13 Oxygen Delivery Method Room Air 10/28/24 09:13 BMI result Body Mass Index 29.4 Skin Other: Petechial nonblanching rash to the bilateral ankles, which dissipates mostly over the feet. Baseline neurovascularly intact distally. Assessment & Plan Assessment & Plan (1) Dental infection: Code(s): K04.7 - Periapical abscess without sinus Plan: Patient is a 74-year-old male with extensive past medical history that does include arterial insufficiency of the lower extremities, and who has to discontinue Augmentin for his tooth infection due to a med reaction/allergy. He is also listed as having an allergy for cefuroxime, which would be the next best regimen in combination with metronidazole. Therefore I will start him on doxycycline, but I advised that he follow up with his dentist as soon as possible when the office reopens, or if he can reach out to them on-call. He knows to continue monitoring the rash on his lower extremities, and follow up if it is worsening. He does have history of arterial insufficiency, and neurogenic claudication. If he develops any worsening symptoms, he should go to the emergency department as above. (2) Medication reaction: Code(s): T50.905A - Adverse effect of unspecified drugs, medicaments and biological substances, initial encounter Qualifiers: Encounter type: initial encounter Qualified Code(s): T50.905A - Adverse effect of unspecified drugs, medicaments and biological substances, initial encounter Plan: Patient has apparent med reaction-developed rash after starting augmentin for a tooth infection. No WOB/cough/audible wheezing, difficulty swallowing, dizziness or weakness suggestive of systemic anaphylaxis. Will change medication as above and will monitor for changes. He knows to go to the emergency department with worrisome symptoms. Plan Medications: New doxycycline hyclate 100 mg PO BID 20 caps 0RF 10 days Coding Level of Care Code Est Pt Level 4 (85064) Diagnoses Dental infection K04.7 Adverse effect of drug, initial encounter T50.905A Encounter type: initial encounter
[2024-10-28 09:13] VITALS: BP 132/70; PULSE 86; O2SAT 98; BMI 29.4
== END 2024-10-28 10:43 | disposition home or self-care (01) ==
PROVIDERS: PCP Nurse Practitioner Family; Visit Provider Physician Assistant Medical
DX: K04.7 Periapical abscess without sinus (principal); T50.905A Adverse effect of unspecified drugs, medicaments and biological substances, initial encounter

== ENCOUNTER → 2024-10-28 09:05 | Outpatient (BNVA) | payer MEDICARE, SELFPAY | PROVIDERS: PCP Nurse Practitioner Family; Visit Provider Physician Assistant Medical | DX: T50.905A Adverse effect of unspecified drugs, medicaments and biological substances, initial encounter (principal); K04.7 Periapical abscess without sinus | CPT/HCPCS: 99212 ==

== ENCOUNTER 2024-11-10 06:11 | Outpatient (REF) | payer MEDICARE, SELFPAY ==
[2024-11-10 06:38] LABS: MANUAL DIFF FLAG NO
[2024-11-10 07:46] LABS: Appearance Urine Clear; Color Urine Yellow; Glucose Urine UA Negative (Negative); Leukocyte Esterase Urine Negative (Negative); Nitrite Urine Negative (Negative); PH 6.5 (5.0-9.0); Urine Blood Negative (Negative); Urine Ketones Negative (Negative); Urine Protein Negative (Neg-Trace)
[2024-11-10 07:47] LABS: Basophils Absolute Auto 0.1 X10*3/uL (0.0-0.2); Eosinophils Absolute Auto 0.2 X10*3/uL (0.0-0.4); Eosinophils Percent Auto 2.4 % (0-4); Hematocrit 45.9 % (42.0-52.0); Hemoglobin 15.6 g/dl (14.0-18.0); Imm Gran Abs Auto 0.03 X10*3/uL (0.00-0.03); Imm Gran Pct Auto 0.4 % (0.0-0.4); Lymphocytes Absolute Auto 3.1 X10*3/uL (1.2-4.9); Lymphocytes Percent Auto 37.6 % (20-40); Mean Corpuscular Hemoglobin 30.9 pg (27.0-33.0); Mean Corpuscular Volume 90.9 fL (80.0-98.0); Monocytes Absolute Auto 0.6 X10*3/uL (0.1-1.2); Monocytes Percent Auto 7.4 % (2-11); Neutrophils Absolute Auto 4.3 x10*3/uL (2.0-8.3); Neutrophils Percent Auto 51.2 % (45-73); Platelet Count 289 X10*3/uL (160-400); Red Blood Count 5.05 X10*6/uL (4.60-5.80); Red Cell Distribution Width 13.7 % (11.0-16.0); White Blood Count 8.3 X10*3/uL (4.8-10.8)
[2024-11-10 08:06] LABS: Alanine Aminotransferase 30 U/L (0-40); Albumin Level 4.3 g/dL (3.5-5.0); Alkaline Phosphatase 90 U/L (39-117); Anion Gap 13 (12-20); Aspartate Amino Transferase 35 U/L (5-37); Bilirubin Total 1.3 mg/dL (0.0-1.0); Blood Urea Nitrogen 14 mg/dL (9-16); Calcium 9.2 mg/dL (8.4-10.2); Carbon Dioxide 24 mmol/L (22-29); Chloride 107 mmol/L (96-108); Estimated Glomerular Filt Rate > 60; Glucose Fasting 124 mg/dL (60-99); Sodium 140 mmol/L (135-145)
[2024-11-10 08:25] LABS: TSH reflex Free T4 8.31 uIU/mL (0.32-4.0)
[2024-11-10 09:09] LABS: Free T4 (Free Thyroxine) 1.16 ng/dL (0.71-1.85)
== END 2024-11-10 06:12 | disposition home or self-care (01) ==
LOC: HO.LAB 06:11
PROVIDERS: PCP Nurse Practitioner Family; Visit Provider Nurse Practitioner Family
DX: R74.8 Abnormal levels of other serum enzymes (principal); R73.01 Impaired fasting glucose; I10 Essential (primary) hypertension
CPT/HCPCS: 36415; 80053; 81003; 84439; 84443; 85025

== ENCOUNTER 2024-11-15 07:57 | Outpatient (REF) | payer MEDICARE, SELFPAY ==
--- NOTE | 2024-11-15 08:04 | ECG_ITS ---
Test Reason : arrhythmia Blood Pressure : */* mmHG Vent. Rate : 81 BPM Atrial Rate : 81 BPM P-R Int : 198 ms QRS Dur : 80 ms QT Int : 372 ms P-R-T Axes : 54 21 40 degrees QTcB Int : 432 ms Sinus rhythm with marked sinus arrhythmia Otherwise normal ECG When compared with ECG of 25-Mar-2024 12:38, Criteria for Inferior infarct are no longer Present Referred By: Sergei Lu Electronically Signed By: Baron Conway
== END 2024-11-15 07:58 | disposition home or self-care (01) ==
LOC: HO.LAB 07:57
PROVIDERS: PCP Nurse Practitioner Family; Visit Provider Nurse Practitioner Family
DX: I49.9 Cardiac arrhythmia, unspecified (principal); E78.5 Hyperlipidemia, unspecified; E03.9 Hypothyroidism, unspecified; I73.9 Peripheral vascular disease, unspecified; Z79.899 Other long term (current) drug therapy
CPT/HCPCS: 93005

== ENCOUNTER → 2024-11-15 08:04 | Outpatient (BNV) | payer MEDICARE, SELFPAY | PROVIDERS: PCP Nurse Practitioner Family; Visit Provider Internal Medicine Cardiovascular Disease | DX: I49.9 Cardiac arrhythmia, unspecified (principal) | CPT/HCPCS: 93010 ==

== ENCOUNTER 2024-11-15 08:26 | Outpatient (AMB) | payer MEDICARE, SELFPAY ==
--- NOTE | 2024-11-15 07:32 | MHC.PC.OV ---
Intake Visit Reasons: discuss with PCP Allergies amoxicillin [From AUGMENTIN] Allergy (Intermediate, Verified 11/15/24 07:34) RASH clavulanic acid [From AUGMENTIN] Allergy (Intermediate, Verified 11/15/24 07:34) RASH losartan Adverse Reaction (Severe, Verified 11/15/24 07:34) Shortness of Breath Sulfa (Sulfonamide Antibiotics) Adverse Reaction (Intermediate, Verified 11/15/24 07:34) Rash Medication List - Last Reconciled 11/15/24 by LAURYN Muñiz- albuterol sulfate 90 mcg/actuation 1 inh inhalation QID amlodipine 5 mg PO DAILY 90 days aspirin 81 mg PO DAILY atorvastatin 20 mg PO BEDTIME 90 days blood pressure monitor As directed clotrimazole-betamethasone 1-0.05 % 1 appl topical BID 2 weeks doxycycline hyclate 100 mg PO BID 10 days gabapentin 200mg BID and 300mg qhs orally 90 days hydroxyzine HCl 12.5 mg (1/2 x 25 mg) PO QID PRN levothyroxine 137 mcg PO DAILY 90 days magnesium oxide 400 mg PO BEDTIME 30 days nystatin (Nystop) 1 appl topical BID nystatin 1 appl topical TID 30 days omeprazole 40 mg PO DAILY Tobacco use date assessed: 07/29/23 Dental Screening Dental Screen Date: 07/29/23 HPI discuss with PCP HPI Details History of Present Illness The patient is a 74-year-old male presenting for a follow-up telehealth visit to review recent lab results and imaging studies. Recent neuroimaging has detected peripheral artery disease involving the left dorsalis pedis artery and likely anterior tibialis artery. The imaging also indicated the presence of arrhythmia episodes. Although he has consulted with a bearing inspector about a year ago and was initially cleared after a previous myocardial perfusion study, he reports no current symptoms such as shortness of breath or chest pain. Furthermore, the patient has been diagnosed with hypothyroidism and elevated thyroid-stimulating hormone (TSH) levels were noted. He has been on levothyroxine 125 micrograms, with plans to increase the dose due to elevated TSH levels. Elevated cholesterol has also been identified, which has not been previously treated with medication. Review of Systems - Cardiovascular: Denies shortness of breath, chest pain. - Neurological: Denies dizziness, blurred vision, headaches. Plan I will conduct an electrocardiogram today to further investigate the arrhythmia shown in recent imaging. I have increased the levothyroxine dose from 125 mcg to 137 mcg due to elevated TSH levels with follow-up thyroid testing scheduled in two months. Initiation of statin therapy has been recommended due to elevated cholesterol, with lipid levels to be rechecked in two months. I emphasized the importance of medication adherence and lifestyle modifications. No current symptoms of concern like chest pain or shortness of breath were reported. Discussion Notes In today's visit, I discussed with the patient the identified peripheral artery disease seen on imaging and the arrhythmia episodes. We talked about repeating an electrocardiogram to further evaluate the cardiac arrhythmia. The significance of adjusting his levothyroxine dose in light of elevated TSH levels was explained, as well as the need for retesting in two months. The initiation of statin therapy for hyperlipidemia was advised due to elevated cholesterol levels, and we reviewed the expected benefits and potential side effects of the medication. We agreed on the importance of consistent monitoring of these conditions and scheduled follow-up lab tests. Follow-up appointments were suggested PRN if new symptoms develop, considering his previous bearing inspector clearance. Patient Instructions - Take your new levothyroxine dose of 137 mcg daily. - Start the prescribed statin medication for high cholesterol. - Return for repeat thyroid testing and cholesterol levels in two months. - Monitor for any new symptoms like chest pain or shortness of breath and seek care if they occur. - Follow lifestyle and dietary recommendations to aid in managing cholesterol levels. - Attend all follow-up appointments as scheduled. [facility] Medical History Neurogenic claudication Pericarditis Hypothyroid Anxiety Surgical History Hx of cholecystectomy Family History Father No problems noted. Social History Housing: House Unable to assess alcohol history related to: Unknown Alcohol intake: former Patient Tobacco Use Status: Former Tobacco user e-Cigarette/Vaping Use: Never Used Second Hand Smoke Exposure: No service: Yes Current occupational status: retired Current occupational exposures/hazards: No Cognitive needs: No Hearing needs: No Vision needs: No Questionnaire Thrive Questionnaire Date Thrive assessed: 09/26/24 DOMINGO-7 AMB Questionnaire DOMINGO-7 Date DOMINGO - 7 assessed: 09/26/24 Source: Developed by Drs. Danis Witt, Mavis Emanuel, Mike Nelson and colleagues, with an educational paolo from [employer] Physical exam (Primary Care) Tobacco/Smoking Status: Tobacco use Status Tobacco use date assessed 07/29/23 10/28/24 09:04 Patient Tobacco Use Status Former Tobacco user 10/28/24 09:11 e-Cigarette/Vaping Use Never Used 10/28/24 09:04 Thrive Assessment: Date of Thrive Assessment Date Thrive assessed 09/26/24 10/28/24 09:04 Telehealth Telehealth Telehealth Platform: Telephone Location of provider rendering services: practice address Location of patient: address on file Patient Identification confirmed using: Name, : Yes Telehealth method: voice only Patient verbally consented to treatment: Yes Patient verbally consented to billing insurance company: Yes Patient informed of any privacy concerns related to visit: Yes Minutes spent on Phone/Video with Pt.: 15 Coding Level of Care Code Tele Est Pt Level 3 (16283) Diagnoses Dyslipidemia E78.5 Arrhythmia I49.9 Hypothyroid E03.9 Assessment & Plan Assessment & Plan (1) Dyslipidemia: Code(s): E78.5 - Hyperlipidemia, unspecified Category: Medical (2) Arrhythmia: Code(s): I49.9 - Cardiac arrhythmia, unspecified Category: Medical (3) Hypothyroid: Code(s): E03.9 - Hypothyroidism, unspecified Category: Medical Plan . Orders: Orders ECG 12 lead EKG Today I49.9 - Cardiac arrhythmia, unspecified TSH reflex Free T4 2 Months E03.9 - Hypothyroidism, unspecified Comprehensive [place]. Panel Fast 2 Months E78.5 - Hyperlipidemia, unspecified, I73.9 - Peripheral vascular disease, unspecified Lipid Panel 2 Months E78.5 - Hyperlipidemia, unspecified, I73.9 - Peripheral vascular disease, unspecified Medications: New atorvastatin 20 mg PO BEDTIME 90 tabs 0RF 90 days Changed From levothyroxine 125 mcg PO DAILY 90 tabs 1RF To levothyroxine 137 mcg PO DAILY 90 tabs 1RF 90 days
--- OUTSIDE RECORDS SUMMARY | 2024-11-15 09:40 | XMS_ITS | Clinical Summary ---
Author Organization [facility] Address [address] [place] [address] Care Team Providers Care Compound Filler Name Role Phone Community, Pcp Primary Care [...] Father Cancer, Other Maternal Grandfather STOMAC H CO Mother s/p [id number] 2010 Relation Name Status [...] Effective Dates Phone Address Type [place]ICARE-[place] MED[place] [id number] 2014-Prese [address] [place] [address] MEDICARE [id number] ICE BC-[place]/INDEM NITY MEDEX (MCARE SUPP) ESCONDIDO [id number] 2014-Prese nt [address] [place] [address] MEDICARE [id number] ICE BC-[place]/PPO POS CH/BC-[place]/$0/ 20%/F/PPO [id number] 2010-Prese nt [address] [place] [address] PPO [id number] BCBSMA PPO $40 ESCONDIDO [id number] 2013-Pre sent [phone] [address] [place] [address] PPO [id number] ice Advance Directives For more information, please contact: [phone] Documents on File Type Date Recorded Patient Tour Director [email or web address] Proxy 11/10/2016 11:17 AM [facility] Care Proxy Care Teams Compound Filler Relationship Specialty Start Date End Date Community, Pcp PCP - General Internal Medicine 04/10/22
--- OUTSIDE RECORDS SUMMARY | 2024-11-15 09:40 | XMS_ITS | Encounter Summary ---
Author Organization [facility] Address [address] [place] [address] Care Team Providers Care Social Media Sr Strategy Manager Name Role Phone Ramesh Salvador MD Primary Care Provider [facility], Pcp Primary Care Provider Unavailabl e Encounter Details Date Type Department Care Team Description 03/05/2019 Refill Adult Medicine [facility] [address] [place] [address] [phone] Ramesh Salvador MD [address] [place] [address] [phone] Social History Tobacco Use Types Packs/Day Years [...] Salvador MD] Preferred pharmacy: [facility] Comment: Medication renewals requested in this message routed to other providers: ranitidine (ZANTAC) 150 MG tablet [Eboni King NP] documented in this encounter Plan of Treatment Not on file documented as of this encounter Visit Diagnoses Not on filedocumented in this encounter Care Teams Social Media Sr Strategy Manager Relationship Specialty Start Date End Date Ramesh Salvador MD [address] [place] [address] PCP - General Internal Medicine 04/14/11 04/09/22 [facility], Pcp [address] [place] [address] PCP - General Internal Medicine 04/10/22 documented as of this encounter
--- OUTSIDE RECORDS SUMMARY | 2024-11-15 09:41 | XMS_ITS | Encounter Summary ---
Author Organization [facility] Address [address] [place] [address] Care Team Providers Care Elementary Reading Specialist Name Role Phone Ramesh Salvador MD Primary Care Provider [phone] [facility], Pcp Primary Care Provider Unavailabl e Reason for Visit * Reason Comments E-prescribe Rx Request Encounter Details Date Type Department Care Team Description 08/18/2014 Refill Adult Medicine [address] [address] Willie Puentes PA-C E-prescribe Rx Request Social [...] NO Patients current insurance carrier is: Payor: [facility]/INDEMNITY / Plan: MEDEX ([facility] / Product Type: MEDICARE [id number] documented in this encounter Plan of Treatment Not on file documented as of this encounter Visit Diagnoses Not on filedocumented in this encounter Care Teams Elementary Reading Specialist Relationship Specialty Start Date End Date Ramesh Salvador MD [address] [place] [address] PCP - General Internal Medicine 04/14/11 04/09/[address] [address] PCP - General Internal Medicine 04/10/22 documented as of this encounter
--- OUTSIDE RECORDS SUMMARY | 2024-11-15 09:42 | XMS_ITS | Encounter Summary ---
Author Organization [facility] Address [address] [place] [address] Care Team Providers Care Wastewater Analyst Lab Analyst Name Role Phone Ramesh Salvador MD Primary Care Provider Community, Pcp Primary Care Provider Unavailabl e Encounter Details Date Type Department Care Team Description 07/13/2017 Orders Only Adult Medicine [address] [phone] Eboni King, PRAMOD Social History Tobacco Use [...] on filedocumented in this encounter Care Teams Wastewater Analyst Lab Analyst Relationship Specialty Start Date End Date Ramesh Salvador MD [address] [place] [address] [phone] PCP - General Internal Medicine 04/14/11 04/09/22 [facility], Ana [address] [place] [address] PCP - General Internal Medicine 04/10/22 documented as of this encounter
--- OUTSIDE RECORDS SUMMARY | 2024-11-15 09:42 | XMS_ITS | Encounter Summary ---
Author Organization [facility] Address [address] [place] [address] Care Team Providers Care Reel Operator Name Role Phone Ramesh Salvador MD Primary Care Provider [phone] Community, Pcp Primary Care Provider [facility] Encounter Details Date Type Department Care Team Description 08/10/2017 Business Doc Medical Records [address] [place] [address] Abstract, Provider Social History Tobacco Use Types [...] on filedocumented in this encounter Care Teams Reel Operator Relationship Specialty Start Date End Date Ramesh Salvador MD [address] [place] [address] [phone] PCP - General Internal Medicine 04/14/11 04/09/22 [facility], Pcp [address] [place] [address] PCP - General Internal Medicine 04/10/22 documented as of this encounter
--- OUTSIDE RECORDS SUMMARY | 2024-11-15 09:43 | XMS_ITS | Encounter Summary ---
Author Organization [facility] Address [address] [place] [address] Care Team Providers Care Storage Battery Inspector Name Role Phone Ramesh Salvador MD Primary Care Provider [phone] [facility], Pcp Primary Care Provider Unavailabl e Reason for Visit * Reason Onset Date Comments Special Procedure 05/11/2016 Encounter Details Date Type Department Care Team Description 05/11/2016 Telephone Gastroenterology - [address] [address] Kaiser Russo MD Special Procedure Social History [...] on filedocumented in this encounter Care Teams Storage Battery Inspector Relationship Specialty Start Date End Date Ramesh Salvador MD [address] [place] [address] PCP - General Internal Medicine 04/14/11 04/09/22 [facility], Pcp [address] [place] [address] PCP - General Internal Medicine 04/10/22 documented as of this encounter
--- OUTSIDE RECORDS SUMMARY | 2024-11-15 09:44 | XMS_ITS | Encounter Summary ---
Author Organization [facility] Address [address] [place] [address] Care Team Providers Care Pbx Repairer Name Role Phone Ramesh Salvador MD Primary Care Provider [phone] Community, Pcp Primary Care Provider Unavailabl e Encounter Details Date Type Department Care Team Description 11/20/2011 Academic Assistant Report Medical Records [address] [place] [address] Ami Alejandra MD [address] [place] [address] [address] [place] [address] Social History Tobacco Use Types Packs/Day Years [...] on filedocumented in this encounter Care Teams Pbx Repairer Relationship Specialty Start Date End Date Ramesh Salvador MD [address] [place] [address] PCP - General Internal Medicine 04/14/11 04/09/22 [facility], Pcp [address] [place] [address] PCP - General Internal Medicine 04/10/22 documented as of this encounter
--- OUTSIDE RECORDS SUMMARY | 2024-11-15 09:44 | XMS_ITS | Encounter Summary ---
Author Organization [facility] Address [address] [place] [address] Care Team Providers Care Supervisor Corduroy Cutting Name Role Phone Ramesh Salvador MD Primary Care Provider [phone] Community, Pcp Primary Care Provider [facility] Encounter Details Date Type Department Care Team Description 12/02/2011 Rotary Cutter Feeder Report Medical Records [address] [place] [address] Social History Tobacco Use Types Packs/Day Years [...] on filedocumented in this encounter Care Teams Supervisor Corduroy Cutting Relationship Specialty Start Date End Date Ramesh Salvador MD [address] [place] [address] [phone] PCP - General Internal Medicine 04/14/11 04/09/22 [facility], Pcp [address] [place] [address] PCP - General Internal Medicine 04/10/22 documented as of this encounter
--- OUTSIDE RECORDS SUMMARY | 2024-11-15 09:45 | XMS_ITS | Encounter Summary ---
Author Organization [facility] Address [address] [place] [address] Care Team Providers Care Gear Straightener Name Role Phone Ramesh Salvador MD Primary Care Provider [phone] Community, Pcp Primary Care Provider Unavailabl e Encounter Details Date Type Department Care Team Description 10/02/2014 MEDICAL APPOINTMENT SCHEDULER/Mass[place] Report Medical Records [address] [place] [address] Abstract, Provider Social History Tobacco Use Types [...] on filedocumented in this encounter Care Teams Gear Straightener Relationship Specialty Start Date End Date Ramesh Salvador MD [address] [place] [address] [phone] PCP - General Internal Medicine 04/14/11 04/09/22 [facility], Pcp [address] [place] [address] PCP - General Internal Medicine 04/10/22 documented as of this encounter
--- OUTSIDE RECORDS SUMMARY | 2024-11-15 09:45 | XMS_ITS | Encounter Summary ---
Author Organization [facility] Address [address] [place] [address] Care Team Providers Care Recovery Coordinator Name Role Phone Ramesh Salvador MD Primary Care Provider [phone] Community, Pcp Primary Care Provider Unavailabl e Encounter Details Date Type Department Care Team Description 12/18/2015 Wellness Visit Medical Records [address] [place] [address] Ramesh Salvador MD [address] [place] [address] [phone] Social History Tobacco Use Types Packs/Day Years [...] on filedocumented in this encounter Care Teams Recovery Coordinator Relationship Specialty Start Date End Date Ramesh Salvador MD [address] [place] [address] [phone] PCP - General Internal Medicine 04/14/11 04/09/22 Jamie, Pcp [address] [place] [address] PCP - General Internal Medicine 04/10/22 documented as of this encounter
--- OUTSIDE RECORDS SUMMARY | 2024-11-15 09:45 | XMS_ITS | Encounter Summary ---
Author Organization [facility] Address [address] [place] [address] Care Team Providers Care Laborer Rags Name Role Phone Ramesh Salvador MD Primary Care Provider [phone] Community, Pcp Primary Care Provider [facility] e Encounter Details Date Type Department Care Team Description 10/26/2016 Hospital Medical Records [address] [place] [address] Willem Sullivan MD Social History Tobacco Use [...] on filedocumented in this encounter Care Teams Laborer Rags Relationship Specialty Start Date End Date Ramesh Salvador MD [address] [place] [address] [phone] PCP - General Internal Medicine 04/14/11 04/09/22 [facility], Pcp [address] [place] [address] PCP - General Internal Medicine 04/10/22 documented as of this encounter
--- OUTSIDE RECORDS SUMMARY | 2024-11-15 09:45 | XMS_ITS | Encounter Summary ---
Author Organization [facility] Address [address] [place] [address] Care Team Providers Care Angio Technologist Name Role Phone Ramesh Salvador MD Primary Care Provider [phone] Community, Pcp Primary Care Provider Unavailabl e Encounter Details Date Type Department Care Team Description 05/15/2019 Orders Only Adult Medicine [address] [phone] Ramesh Salvador MD [address] [place] [address] [phone] Social History Tobacco Use Types Packs/Day Years [...] on filedocumented in this encounter Care Teams Angio Technologist Relationship Specialty Start Date End Date Ramesh Salvador MD [address] [place] [address] [phone] PCP - General Internal Medicine 04/14/11 04/09/22 [facility], [address] [address] PCP - General Internal Medicine 04/10/22 documented as of this encounter
--- OUTSIDE RECORDS SUMMARY | 2024-11-15 09:45 | XMS_ITS | Encounter Summary ---
Author Organization [facility] Address [address] [place] [address] Care Team Providers Care Stone Dresser Name Role Phone Ramesh Salvador MD Primary Care Provider [phone] [facility], Pcp Primary Care Provider Unavailabl e Reason for Visit * Reason Comments E-prescribe Rx Request Encounter Details Date Type Department Care Team Description 09/04/2012 Refill Adult Medicine [address] [phone] Ramesh Salvador MD [address] [place] [address] [phone] E-prescribe Rx Request Social History Tobacco Use [...] is: Payor: -VIK/PPO POS Plan: PPO $20 [id number] Product Type: PPO [id number] documented in this encounter Plan of Treatment Not on file documented as of this encounter Visit Diagnoses Not on filedocumented in this encounter Care Teams Stone Dresser Relationship Specialty Start Date End Date Ramesh Salvador MD [address] [place] [address] PCP - General Internal Medicine 04/14/11 04/09/22 Ana Ayala [address] [place] [address] PCP - General Internal Medicine 04/10/22 documented as of this encounter
--- OUTSIDE RECORDS SUMMARY | 2024-11-15 09:45 | XMS_ITS | Encounter Summary ---
Author Organization [facility] Address [address] [place] [address] Care Team Providers Care Microstrategy Reports Developer Name Role Phone Ramesh Salvador MD Primary Care Provider [phone] [facility], Pcp Primary Care Provider Unavailabl e Encounter Details Date Type Department Care Team Description 03/20/2020 Pt. Non Urgent Medical Question Adult Medicine [address] [phone] Ramesh Salvador MD [address] [place] [address] [phone] Social History Tobacco Use Types Packs/Day Years [...] on filedocumented in this encounter Care Teams Microstrategy Reports Developer Relationship Specialty Start Date End Date Ramesh Salvador MD [address] [place] [address] PCP - General Internal Medicine 04/14/11 04/09/22 [facility], [address] [address] PCP - General Internal Medicine 04/10/22 documented as of this encounter
--- OUTSIDE RECORDS SUMMARY | 2024-11-15 09:45 | XMS_ITS | Encounter Summary ---
Author Organization [facility] Address [address] [place] [address] Care Team Providers Care Computer Systems Software Architect Name Role Phone Ramesh Salvador MD Primary Care Provider [phone] [facility], Pcp Primary Care Provider Unavailabl e Encounter Details Date Type Department Care Team Description 06/17/2020 Refill Adult Medicine [address] [phone] Julia Bolton, PRAMOD Social History Tobacco Use Types Packs/Day [...] Telephone Encounter - Sussy Son M.A. - 06/17/2020 11:55 AM EST Last office visit 03/11/20 Lab Results Component Value Date TSH 0.73 04/12/2020 documented in this encounter Plan of Treatment Not on file documented as of this encounter Visit Diagnoses Not on filedocumented in this encounter Care Teams Computer Systems Software Architect Relationship Specialty Start Date End Date Ramesh Salvador MD [address] [place] [address] PCP - General Internal Medicine 04/14/11 04/09/22 [facility], Pcp [address] [place] [address] PCP - General Internal Medicine 04/10/22 documented as of this encounter
--- OUTSIDE RECORDS SUMMARY | 2024-11-15 09:47 | XMS_ITS | Encounter Summary ---
Author Organization [facility] Address [address] [place] [address] Care Team Providers Care Purse Maker Name Role Phone Ramesh Salvador MD Primary Care Provider [phone] Community, Pcp Primary Care Provider Unavailabl e Encounter Details Date Type Department Care Team Description 01/05/2017 Technical Support Assistant Report Medical Records [address] [place] [address] Dept., [facility] Occupational & Pt Social History Tobacco [...] on filedocumented in this encounter Care Teams Purse Maker Relationship Specialty Start Date End Date Ramesh Salvador MD [address] [place] [address] [phone] PCP - General Internal Medicine 04/14/11 04/09/22 Jamie Pcp [address] [place] [address] PCP - General Internal Medicine 04/10/22 documented as of this encounter
--- OUTSIDE RECORDS SUMMARY | 2024-11-15 09:47 | XMS_ITS | Encounter Summary ---
Author Organization [facility] Address [address] [place] [address] Care Team Providers Care Grocery Store Associate Name Role Phone Ramesh Salvador MD Primary Care Provider [phone] Community, Pcp Primary Care Provider [facility] Encounter Details Date Type Department Care Team Description 09/01/2013 Night Triage Doc Medical Records [address] [place] [id number] Abstract, Provider Social History Tobacco Use Types [...] on filedocumented in this encounter Care Teams Grocery Store Associate Relationship Specialty Start Date End Date Ramesh Salvador MD [address] [place] [address] [phone] PCP - General Internal Medicine 04/14/11 04/09/22 [facility], Pcp [address] [place] [id number] PCP - General Internal Medicine 04/10/22 documented as of this encounter
--- OUTSIDE RECORDS SUMMARY | 2024-11-15 09:47 | XMS_ITS | Encounter Summary ---
Author Organization [facility] Address [address] [place] [address] Care Team Providers Care Transition Social Worker Name Role Phone Ramesh Salvador MD Primary Care Provider [phone] [facility], [facility], Pcp Primary Care Provider Unavailabl e Reason for Visit * Reason Onset Date Comments Pre-op Needed 11/18/2021 Encounter Details Date Type Department Care Team Description 11/18/2021 Telephone Adult Medicine [address] [phone] Ramesh Salvador MD [address] [place] [address] [phone] Pre-op Needed Social History Tobacco Use Types [...] sina harvey Office phone number of surgeon: [phone] Fax # for surgeons office: [phone] (Required) Where is surgery being performed? [facility] Diagnosis/problem for surgery: Is an EKG required for the pre-op workup? YES PCP: Ramesh Salvador Did you verify that the insurance below is correct? YES Patients insurance: [place] / Plan: MED[place]ARE-[place] / Product Type: MEDICARE [id number] documented in this encounter Plan of Treatment Not on file documented as of this encounter Visit Diagnoses Not on filedocumented in this encounter Care Teams Transition Social Worker Relationship Specialty Start Date End Date Ramesh Salvador MD [address] [place] [phone] PCP - General Internal Medicine 04/14/11 04/09/22 [facility], [address] [address] PCP - General Internal Medicine 04/10/22 documented as of this encounter
--- OUTSIDE RECORDS SUMMARY | 2024-11-15 09:47 | XMS_ITS | Encounter Summary ---
Author Organization [facility] Address [address] [place] [address] Care Team Providers Care Customer Care Professional Name Role Phone Ramesh Salvador MD Primary Care Provider [phone] Community, Pcp Primary Care Provider Unavailabl e Encounter Details Date Type Department Care Team Description 02/09/2012 Mechanic Report Medical Records [address] [place] [address] Ami Alejandra MD [address] [place] [address] [address] [place] [address] Social History Tobacco Use Types Packs/Day Years [...] on filedocumented in this encounter Care Teams Customer Care Professional Relationship Specialty Start Date End Date Ramesh Salvador MD [address] [place] [phone] PCP - General Internal Medicine 04/14/11 04/09/22 [facility], Pcp [address] [place] [phone] PCP - General Internal Medicine 04/10/22 documented as of this encounter
--- OUTSIDE RECORDS SUMMARY | 2024-11-15 09:48 | XMS_ITS | Encounter Summary ---
Author Organization [facility] Address [address] [place] [address] Care Team Providers Care Ferry Engineer Name Role Phone Ramesh Salvador MD Primary Care Provider [phone] Ramesh Salvador MD Primary Care Provider [phone] [facility], Pcp Primary Care Provider Unavailabl e Encounter Details Date Type Department Care Team Description 09/01/2001 Telephone Adult Medicine [address] [phone] Ramesh Salvador MD [address] [place] [address] [phone] Social History Tobacco Use Types Packs/Day Years Used Date Smoking Tobacco: Never Assessed Sex Assigned at Date Recorded Not on file Job Start Date Occupation Industry Not on file Not on file Not on file documented as of this encounter Plan of Treatment Not on file documented as of this encounter Visit Diagnoses Not on filedocumented in this encounter Care Teams Ferry Engineer Relationship Specialty Start Date End Date Ramesh Salvador MD [address] [place] [address] [phone] PCP - General 07/23/99 04/13/11 Ramesh Salvador MD [address] [place] [phone] PCP - General Internal Medicine 04/14/11 04/09/22 [facility], [address] [address] PCP - General Internal Medicine 04/10/22 documented as of this encounter
== END 2024-11-15 10:28 | disposition home or self-care (01) ==
LOC: HO.HMCC 08:26
PROVIDERS: PCP Nurse Practitioner Family; Visit Provider Nurse Practitioner Family
DX: E78.5 Hyperlipidemia, unspecified (principal); I49.9 Cardiac arrhythmia, unspecified; E03.9 Hypothyroidism, unspecified

== ENCOUNTER 2024-11-28 06:09 | Outpatient (REF) | payer MEDICARE, SELFPAY ==
--- NOTE | ~2024-11-28 | FL_ITS ---
EXAMINATION: FL GUIDANCE ONLY HISTORY: M54.16 - Radiculopathy, lumbar region COMPARISON: None available. TECHNIQUE: Fluoroscopy time: 0.2 minutes. Cumulative Dose: 4.90 mGy. DAP: 0.0824 mGym2 Images: 3. FINDINGS: Fluoroscopic spot films of the lumbar spine demonstrate a needle and contrast material in the region of the left L5-S1 facet joint. FL/FL guidance in treatment room IMPRESSION: Fluoroscopy during procedure. Please see procedure report for additional information. Electronically signed by: Danis Isaac MD 11/28/2024 09:42 AM EDT
== END 2024-11-28 06:10 | disposition home or self-care (01) ==
LOC: CF 06:09
PROVIDERS: Visit Provider Anesthesiology
DX: M54.16 Radiculopathy, lumbar region (principal)
CPT/HCPCS: 64483; J2003; J2795; J3301; Q9967

== ENCOUNTER 2024-11-28 08:14 | Outpatient (AMB) | payer MEDICARE, SELFPAY ==
[2024-11-28 08:21] VITALS: BP 154/80; PULSE 98; RESP 18; O2SAT 98
--- NOTE | 2024-11-28 08:21 | MHC.OFFVIS ---
Vital Signs 11/28/24 08:21 11/28/24 08:52 Weight 205 lb BP 154/80 H 166/80 H Blood Pressure Location Lt brachial Lt brachial Position Sitting Sitting Respiration 18 20 Pulse 98 110 H Pulse Source Pulse Oximeter Pulse Oximeter Pulse Oximetry (%) 98 96 Oxygen Delivery Method Room Air Room Air Intake Visit Reasons: LEFT L5, S1 TFESI Farm Equipment Maintenance Supervisor Required: No Allergies amoxicillin [From AUGMENTIN] Allergy (Intermediate, Verified 11/28/24 08:22) RASH clavulanic acid [From AUGMENTIN] Allergy (Intermediate, Verified 11/28/24 08:22) RASH losartan Adverse Reaction (Severe, Verified 11/28/24 08:22) Shortness of Breath Sulfa (Sulfonamide Antibiotics) Adverse Reaction (Intermediate, Verified 11/28/24 08:22) Rash PFSH Medical History Neurogenic claudication Pericarditis Hypothyroid Anxiety Surgical History Hx of cholecystectomy Family History Father No problems noted. Social History Housing: House Unable to assess alcohol history related to: Unknown Alcohol intake: former Patient Tobacco Use Status: Former Tobacco user e-Cigarette/Vaping Use: Never Used Second Hand Smoke Exposure: No service: Yes Current occupational status: retired Current occupational exposures/hazards: No Cognitive needs: No Hearing needs: No Vision needs: No Physical Exam Vital Signs: Last Vital Signs Pulse 110 H 11/28/24 08:52 Resp 20 11/28/24 08:52 BP 166/80 H 11/28/24 08:52 Pulse Ox 96 11/28/24 08:52 Oxygen Delivery Method Room Air 11/28/24 08:52 Assessment & Plan Assessment & Plan (1) Lumbar radiculopathy: Code(s): M54.16 - Radiculopathy, lumbar region Category: Medical Plan Transforaminabilateral L5-S1 epidural steroid injection Informed consent was thoroughly explained to the patient before the procedure.? The patient came to the operating room.? He was positioned prone on operating table with a pillow under his abdomen.? Time-out was performed delineating correct site and side of the procedure, nature of the injection, name and date of of the patient. The lower back of the patient was prepped with ChloraPrep and draped with sterile utility towels.? C-arm was brought over the operating field and sq picture of L5 vertebra was demonstrated on the screen.? The left sidewas chosen as the side of the injection.? Tilting machine ipsilateral to the left at the level of L5 the most prominent picture of the right pedicle was obtained on the screen.? 3 mm below the level of the lowest point of the pedicle projection to the skin small amount of lidocaine 1% 3-4 cc was injected to anesthetize the skin.? After that 5 in 22 gauge Quincke point needle was inserted through the skin wheal and was advanced to were the L5-S1 foramina on anterior posterior , lateral and oblique views intermittently.? Injection of the contrast was performed demonstrating epidural and perineural spread of the contrast. No intravascular nor intrathecal spread of the contrast was noted. After that preservative-free lidocaine 1% 4 mL mixed with Kenalog 40 mg was injected into the needle. The procedure was technically difficult due to severe spondylotic deformities and tall iliac crest. Upon completion of the injection needle was withdrawn sterile Band-Aid was applied. Patient tolerated procedure well he was taken outside of the operating room where he recovered uneventfully.? He went home without immediate complications. Orders: Orders FL guidance in treatment room Today M54.16 - Radiculopathy, lumbar region Coding Level of Care Code Procedure Only Diagnoses Lumbar radiculopathy M54.16
[2024-11-28 08:52] VITALS: BP 166/80; PULSE 110; RESP 20; O2SAT 96
== END 2024-11-28 08:54 | disposition home or self-care (01) ==
LOC: HO.PMCPRC 08:14
PROVIDERS: PCP Nurse Practitioner Family; Visit Provider Anesthesiology
DX: M54.16 Radiculopathy, lumbar region (principal)
CPT/HCPCS: 64483

== ENCOUNTER 2024-12-02 09:08 | Outpatient (REF) | payer MEDICARE, SELFPAY ==
[2024-12-02 11:56] LABS: Influenza A PCR NEGATIVE (Negative); Influenza B PCR NEGATIVE (Negative); Resp Syncy Virus RNA Qual PCR NEGATIVE (Negative); SARS COV2 PCR INHOUSE NEGATIVE (Negative)
== END 2024-12-02 09:09 | disposition home or self-care (01) ==
LOC: HO.LNP 09:08
PROVIDERS: PCP Nurse Practitioner Family; Visit Provider Physician Assistant Medical
DX: J06.9 Acute upper respiratory infection, unspecified (principal)
CPT/HCPCS: 0241U; 87880

== ENCOUNTER 2024-12-02 09:08 | Outpatient (AMB) | payer MEDICARE, SELFPAY ==
--- OUTSIDE RECORDS SUMMARY | 2024-12-02 09:10 | XMS_ITS | Clinical Summary ---
Author Organization [facility] Address [address] [place] [address] Care Team Providers Care Chef Kitchen Manager Name Role Phone Community, Pcp Primary Care [...] Father Cancer, Other Maternal Grandfather STOMAC H SC Mother s/p [id number] 2010 Relation Name Status [...] Effective Dates Phone Address Type [place] [id number] 2014-Prese [address] [place] [address] MEDICARE TPO-[id number] ICE BC-[place]/INDEM NITY MEDEX (MCARE SUPP) HIGBEE [id number] 2014-Prese nt [address] [place] [address] MEDICARE [id number] ICE BC-[place]/PPO POS CH/BC-[place]/$0/ 20%/F/PPO [id number] 2010-Prese nt [address] [place] [address] PPO Esw-luh-Rgdi ice BCBSMA PPO $40 HIGBEE [id number] 2013-Pre sent [address] [place] [address] PPO Gxp-gtd-Gnbp ice Advance Directives For more information, please contact: [phone] Documents on File Type Date Recorded Patient Mattress Specialist Expl [facility] Proxy 11/10/2016 11:17 AM [facility] Care Proxy Care Teams Chef Kitchen Manager Relationship Specialty Start Date End Date Community, Pcp PCP - General Internal Medicine 04/10/22
[2024-12-02 09:11] VITALS: BP 132/72; PULSE 82; RESP 15; TEMP 36.8; O2SAT 98; BMI 28.7
--- NOTE | 2024-12-02 09:11 | MHC.OFFWIV ---
Intake Vital Signs 12/02/24 09:11 Height 5 ft 10 in Weight 200 lb BMI 28.7 BP 132/72 Blood Pressure Location Rt brachial Position Sitting Respiration 15 Pulse 82 Pulse Source Pulse Oximeter Temp 98.2 F Temp Source Oral Pulse Oximetry (%) 98 Oxygen Delivery Method Room Air Intake Visit Reasons: EP-Sore throat Intake Note: Pt is here today c/o sore throat and a cough started last night Patient Tobacco Use Status: Former Tobacco user Allergies amoxicillin [From AUGMENTIN] Allergy (Intermediate, Verified 12/02/24 09:12) RASH clavulanic acid [From AUGMENTIN] Allergy (Intermediate, Verified 12/02/24 09:12) RASH losartan Adverse Reaction (Severe, Verified 12/02/24 09:12) Shortness of Breath Sulfa (Sulfonamide Antibiotics) Adverse Reaction (Intermediate, Verified 12/02/24 09:12) Rash HPI EP-Sore throat HPI Details Walk-in clinic complaining of acute onset of cough, postnasal drip, and sore throat that started last night. He presents with his . He PFSH Medical History Neurogenic claudication Pericarditis Hypothyroid Anxiety Surgical History Hx of cholecystectomy Family History Father No problems noted. Social History Housing: House Unable to assess alcohol history related to: Unknown Alcohol intake: former Patient Tobacco Use Status: Former Tobacco user e-Cigarette/Vaping Use: Never Used Second Hand Smoke Exposure: No service: Yes Current occupational status: retired Current occupational exposures/hazards: No Cognitive needs: No Hearing needs: No Vision needs: No Review of Systems Const All systems reviewed & are unremarkable except as noted in HPI and below Physical Exam Vital Signs: Last Vital Signs Temp 98.2 F 12/02/24 09:11 Pulse 82 12/02/24 09:11 Resp 15 12/02/24 09:11 BP 132/72 12/02/24 09:11 Pulse Ox 98 12/02/24 09:11 Oxygen Delivery Method Room Air 12/02/24 09:11 BMI result Body Mass Index 28.7 Results AMB Rapid Strep AMB Rapid Strep Negative Last Edit by Deborah Banda CMA on 12/02/24 09:27 Results Reviewed Results Reviewed: Laboratory Last Values Strep Scn Rapid Clinic Negative 12/02/24 09:12 Assessment & Plan Assessment & Plan (1) Upper respiratory infection: Code(s): J06.9 - Acute upper respiratory infection, unspecified Qualifiers: URI type: unspecified viral URI Qualified Code(s): J06.9 - Acute upper respiratory infection, unspecified Plan: Patient is a 74-year-old male with history of reactive airway with allergies and infections. Refilled albuterol, wrote him for Tessalon Perles. Mucinex as needed with adequate water intake. Pending flu COVID and RSV results. He should follow up if symptoms persist or worsen, especially if he develops any worsening chest congestion or shortness of breath symptoms, and he agreed to that. Emergency department evaluation as needed for worrisome symptoms. Orders: Orders AMB Rapid Strep Screen Today Z13.9 - Encounter for screening, unspecified SARS-CoV2/FLU/RSV Today J06.9 - Acute upper respiratory infection, unspecified Medications: New benzonatate 200 mg PO BID-TID PRN 20 caps 0RF cough albuterol sulfate 90 mcg/actuation 1 inh inhalation QID PRN 8.5 grams 0RF shortness of breath or wheezing Coding Level of Care Code Est Pt Level 4 (10333) Diagnoses Viral upper respiratory tract infection J06.9 URI type: unspecified viral URI
== END 2024-12-02 10:39 | disposition home or self-care (01) ==
LOC: HO.HMCWIC 09:08
PROVIDERS: PCP Nurse Practitioner Family; Visit Provider Physician Assistant Medical
DX: Z13.9 Encounter for screening, unspecified (principal)

== ENCOUNTER 2024-12-26 09:25 | Outpatient (AMB) | payer MEDICARE, SELFPAY ==
--- NOTE | 2024-12-26 09:28 | MHC.OFFVIS ---
Intake Visit Reasons: COMPENSATION INTERN/referral for PVD/LLE pain s/p US 10/24/24 Intake Note: Burning left leg. Had a cortisone injection a month ago. Injection did not help. 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 He was referred by Neurology due to concerns about his legs, particularly the left leg, following an ultrasound of the arteries and veins. The patient has a history of smoking, having quit over 50 years ago, and describes himself as a light smoker during his 20s. He is considered prediabetic, as he describes himself as borderline diabetic. The patient experiences burning pain in the back of his leg after walking approximately two blocks, which he associates with a sciatic nerve injury. He received a cortisone injection in his lower back a month ago, which provided no relief. An MRI indicated a possible nerve impingement in the spine, for which he is following pain management for. He now presents to us for vascular evaluation. [facility] Medical History Neurogenic claudication Pericarditis Hypothyroid Anxiety Surgical History Hx of cholecystectomy Family History Father No problems noted. Social History Housing: House Unable to assess alcohol history related to: Unknown Alcohol intake: former Patient Tobacco Use Status: Former Tobacco user e-Cigarette/Vaping Use: Never Used Second Hand Smoke Exposure: No service: Yes Current occupational status: retired Current occupational exposures/hazards: No Cognitive needs: No Hearing needs: No Vision needs: No Review of Systems Const All systems reviewed & are unremarkable except as noted in HPI and below Reports no additional complaints ENT Reports Normal hearing present Card Denies chest pain, Denies chest pain at rest, Denies chest pain with activity and Denies pedal edema Resp Denies cough GI Denies abdominal pain Musc Denies abnormal gait, Denies muscle cramps and Denies radiating pain into limb Skin/Breast Denies skin ulcer and Denies wounds Neuro Reports Normal hearing present and Denies abnormal gait Psych Reports no additional complaints Physical Exam Const General: cooperative, healthy appearing and comfortable Orientation/consciousness: oriented to person, oriented to place and oriented to time HEENT Head: Yes normal to inspection Neck Neck: Yes normal visual inspection Carotids: no bruits Chest Chest palpation & inspection: normal inspection of the chest Resp Effort & Inspection: normal respiratory effort and able to speak in complete sentences Auscultation: clear to auscultation bilaterally, no crackles, no rales, no rhonchi and no wheezes Cardio Other: Palpable bilateral dorsalis pedis and posterior tibial pulses. Rate: regular rate Rhythm: regular rhythm Heart sounds: S1 normal heart sound present and S2 normal heart sound present Bruits: no carotid bruits Peripheral pulses: Peripheral pulses 2+ throughout GI Inspection: Yes normal to inspection Skin Wounds: no wounds Hair: normal Neuro General: oriented to person, oriented to place and oriented to time Cranial nerves: Yes CN's II-XII intact bilaterally and Yes Normal hearing present Cognition (Neuro): normal cognition Motor exam (neuro): 5/5 motor strength present throughout Extrem Other: venous exam: No significant superficial varicosities or spider telangiectasias, minimal edema General: No clubbing, No cyanosis and No edema Psych Appearance: grossly normal Mental Status: mental status grossly normal Speech and movement: Normal speech and movement present Results Reviewed Results Reviewed: Arterial testing dated 10/24/2024 and DVT study dated 10/24/2024 were reviewed in both within normal limits Assessment & Plan Assessment & Plan (1) Low back pain: Code(s): M54.50 - Low back pain, unspecified Category: Medical Qualifiers: Chronicity: acute Back pain laterality: right Sciatica presence: without sciatica Qualified Code(s): M54.50 - Low back pain, unspecified Plan: The evaluation ruled out vascular causes for the patient's leg pain, as the ultrasound showed good arterial and venous flow, and pulses in the feet were strong. The focus shifted to a possible nerve-related issue, given the burning sensation and lack of relief from a cortisone injection. The patient was advised to follow up with a neurosurgeon to further investigate the sciatic nerve injury and consider surgical options if necessary. Dr. Mcdowell, a neurosurgeon, was recommended for re-evaluation. He has seen them in the past and it may be beneficial as he has not experienced much relief from the pain management team. Once again I do not believe he has any vascular issues. He will follow up with us on an as-needed basis. Patient was informed and verbally consented to the use of an ambient scribe for clinic note documentation during this visit. Coding Level of Care Code Est Pt Level 4 (58737) Complex EM visit Add On G2211 Diagnoses Acute right-sided low back pain without sciatica M54.50 Chronicity: acute Back pain laterality: right Sciatica presence: without sciatica
== END 2024-12-26 10:04 | disposition home or self-care (01) ==
LOC: HO.HVS 09:25
PROVIDERS: PCP Nurse Practitioner Family; Visit Provider Surgery Vascular Surgery
DX: M54.50 Low back pain, unspecified (principal)
CPT/HCPCS: 99214; G2211

== ENCOUNTER → 2024-12-26 09:25 | Outpatient (BNVA) | payer MEDICARE, SELFPAY | PROVIDERS: PCP Nurse Practitioner Family; Visit Provider Surgery Vascular Surgery | DX: M79.605 Pain in left leg (principal); R20.8 Other disturbances of skin sensation; R73.03 Prediabetes; Z87.891 Personal history of nicotine dependence | CPT/HCPCS: 99212 ==

== ENCOUNTER 2024-12-27 08:21 | Outpatient (AMB) | payer MEDICARE, SELFPAY ==
--- NOTE | 2024-12-27 08:28 | A.OFFVIS_ITS ---
Vital Signs 12/27/24 08:29 Height 5 ft 9 in Weight 195 lb 6 oz BMI 28.8 BP 144/80 H Blood Pressure Location Lt brachial Position Sitting Respiration 18 Pulse 87 Pulse Source Pulse Oximeter Pulse Oximetry (%) 98 Oxygen Delivery Method Room Air Intake Visit Reasons: LEFT L5, S1 TFESI Log Check Scaler Required: No Allergies amoxicillin (From AUGMENTIN) Allergy (Intermediate, Verified 12/27/24 08:27) RASH clavulanic acid (From AUGMENTIN) Allergy (Intermediate, Verified 12/27/24 08:27) RASH losartan Adverse Reaction (Severe, Verified 12/27/24 08:27) Shortness of Breath Sulfa (Sulfonamide Antibiotics) Adverse Reaction (Intermediate, Verified 12/27/24 08:27) Rash HPI Comments Details: Arturo is back in my office after diagnostic L5-S1 left epidural steroid injection. He denies help from the injection. Most of the pain is in the left calf and lower leg. He reports no pain in the lower back. he reports very rare intermittent pain on the right which in his opinion is not related to the pain in the left lower extremity. He went to vascular surgeon. Vascular surgeon denied any serious vascular problem which could explain his pain. Considering that patient reports burning sensation the conclusion of vascular surgeon was that it is neuropathic pain. However unfortunately this patient is denying help from injection as above. I told him to go back to the office of Dr. Mcdowell and discuss the situation at hands. If nothing can be done to help his pain from neurosurgical standpoint. We can try spinal cord stimulator. Brochure was given to the patient. Psychological evaluation brochure also was given to the patient. I also offered the patient to go for EMG with Dr. Thomas however patient said that he wants to see neurosurgeon 1st. We agreed that if he wants to go Dr. Thomas he would need to give me a call and I will refer him to EMG And nerve conduction study. No new appointment at this time. I will see him as needed he will call and schedule appointment with me. Prior :1st appointment was at June of 2023, at that time he complained on pain on the right side of the lower back without radiation. Today he presented in my office with new complains on pain in the back with radiation down to the left lower extremity and burning sensation in the left calf. He was examined by a neurosurgeon and recommendation was to perform diagnostic L5-S1 transforaminal epidural steroid injection. I will schedule him for this procedure. He exhausted conservative measures. He tried NSAIDs. He tried gabapentin with escalation and NSAIDs for his pain with no significant results. He tried physical therapy and received significant alleviation of his pain. He had x- rays and MRIs of the lumbar spine as well as EMG by Neurology office who referred patient to us. [facility] Medical History Neurogenic claudication Pericarditis Hypothyroid Anxiety Surgical History Hx of cholecystectomy Family History Father No problems noted. Social History Housing: House Unable to assess alcohol history related to: Unknown Alcohol intake: former Patient Tobacco Use Status: Former Tobacco user e-Cigarette/Vaping Use: Never Used Second Hand Smoke Exposure: No service: Yes Current occupational status: retired Current occupational exposures/hazards: No Cognitive needs: No Hearing needs: No Vision needs: No Review of Systems Const All systems reviewed & are unremarkable except as noted in HPI and below ENT Reports Normal hearing present Neuro Reports Normal hearing present, Denies Abnormal speech present and Denies Sensory deficit (Neuro) Physical Exam Vital Signs: Last Vital Signs Pulse 87 12/27/24 08:29 Resp 18 12/27/24 08:29 BP 144/80 H 12/27/24 08:29 Pulse Ox 98 12/27/24 08:29 Oxygen Delivery Method Room Air 12/27/24 08:29 BMI result Body Mass Index 28.8 Const General: no acute distress Orientation/consciousness: patient oriented x3 Eyes General: appearance normal, both eyes and all related structures Pupils: Equal, round and reactive pupils present EOM: EOMs intact bilaterally Neck Neck: Yes full ROM Chest Chest palpation & inspection: normal inspection of the chest Resp Effort & Inspection: normal respiratory effort, able to speak in complete sentences, normal respiratory pattern, no audible wheezes and no cough Cardio Jugular venous distension: no JVD GI Inspection: Yes normal to inspection Back/Spine/Pelvis Other: Able to stand on bilateral tiptoes and bilateral heels without difficulty. Able to lift the great toe bilaterally in separation of the rest of the toes however with significant difficulty. This may point out on to bilateral L4 radiculopathy. Pedro Pablo test, Gaenslen test negative bilaterally. Stinchfield test is negative bilaterally. SLR test is negative bilaterally. Lassegue is negative bilaterally. Loading test is positive on the left. There is tenderness on palpation in paraspinal region of the left lumbar spine. Flexing forward and flexing backwards aggravate pain minimally but flexing backwards aggravate pain more than flexing forward. Neuro Other: Bilateral posterior cervical tightness. Cervical ROM: limited Left Spurling: normal- however ROM limited Right Spurling: normal- however ROM limited BUE and BLE MS 5 General: patient oriented x3 and gait normal Cranial nerves: Yes CN's II-XII intact bilaterally, Yes Equal, round and reactive pupils present, Yes Normal hearing present and Yes Ability to bilaterally elevate shoulders present Cognition (Neuro): normal cognition Speech: No Abnormal speech present Gait exam (Neuro): Normal gait present Motor exam (neuro): 55 motor strength present throughout Sensory Exam: No Sensory deficit (Neuro) Deep tendon reflexes (DTR's): Right triceps reflex intensity grade: 2+, Left triceps reflex intensity grade: 2+, Rt Biceps (C5, C6): 2+, Left biceps reflex intensity grade: 2+, Right brachioradialis reflex intensity grade: 2+, Left brachioradialis reflex intensity grade: 2+, Right patellar reflex intensity grade: 2+ and Left patellar reflex intensity grade: 2+ Extrem Other: On the examination of the left lower extremity I detected very strong and distinctive popliteal pulse however dorsalis pedis and posterior tibial pulses a hardly palpable at all. General: No pedal edema Psych Appearance: grossly normal Mental Status: mental status grossly normal Speech and movement: Normal speech and movement present Affect: normal affect Attitude: cooperative Thought process: Normal thought process present Thought content: Normal thought content present Insight: Good insight present (Psych) Judgement: Good judgement present (Psych) Assessment & Plan Assessment & Plan (1) Spondylosis of lumbar region without myelopathy or radiculopathy: Code(s): M47.816 - Spondylosis without myelopathy or radiculopathy, lumbar region Category: Medical (2) Arterial insufficiency of lower extremity: Code(s): I73.9 - Peripheral vascular disease, unspecified Category: Medical Plan: (3) Lumbar radiculopathy: Code(s): M54.16 - Radiculopathy, lumbar region Category: Medical Plan negative results of L5-S1 left-sided transforaminal epidural steroid injection. Anterior epidurogram was demonstrated on the images. Therefore pain generators is unlikely compression of the L5 exiting or S1 passing nerve roots. I offered him to go back to a neurosurgeon. I also offered him to consider spinal cord stimulator. [employer] Brochure was given for the patient to read. also brochure about psychological evaluation was given to the patient. I offered EMG and nerve conduction test to the patient but he wants to see neurosurgeon 1st. He will give us a call and schedule appointment with me. Patient Instructions: I here by testify that I spent 30 minutes in conversation with this patient as well as re-evaluating my diagnostic images as well as planning his care and organizing this note. Coding Level of Care Code Est Pt Level 4 (58530) Diagnoses Spondylosis of lumbar region without myelopathy or radiculopathy M47.816 Arterial insufficiency of lower extremity I73.9 Lumbar radiculopathy M54.16
[2024-12-27 08:29] VITALS: BP 144/80; PULSE 87; RESP 18; O2SAT 98; BMI 28.8
== END 2024-12-27 08:45 | disposition home or self-care (01) ==
LOC: HO.PMC 08:22
PROVIDERS: PCP Nurse Practitioner Family; Visit Provider Anesthesiology
DX: M47.816 Spondylosis without myelopathy or radiculopathy, lumbar region (principal); I73.9 Peripheral vascular disease, unspecified; M54.16 Radiculopathy, lumbar region
CPT/HCPCS: 99214

== ENCOUNTER → 2024-12-27 08:21 | Outpatient (BNVA) | payer MEDICARE, SELFPAY | PROVIDERS: PCP Nurse Practitioner Family; Visit Provider Anesthesiology | DX: M47.816 Spondylosis without myelopathy or radiculopathy, lumbar region (principal); M54.16 Radiculopathy, lumbar region; I73.9 Peripheral vascular disease, unspecified | CPT/HCPCS: 99212 ==

== ENCOUNTER 2025-01-01 08:52 | Outpatient (REF) | payer MEDICARE, SELFPAY ==
--- NOTE | ~2025-01-01 | XR_ITS ---
CLINICAL HISTORY: M54.16 - Radiculopathy, lumbar region --- Additional Notes or Special Instructions: AP LAT FLEX EX 4 views lumbar spine Comparison: None Findings: No fractures or dislocations. Normal vertebral body alignment. There is mild scoliosis with secondary degenerative disc space narrowing of all lumbar disc spaces. Hypertrophic osteophytes and facet hypertrophy is present anteriorly and laterally throughout the lumbar spine. Sacroiliac joints unremarkable. Sacral neural foramina are symmetric. Impression: Degenerative disc space narrowing and facet hypertrophy suggestive of canal stenosis at the mid and lower lumbar disc space levels. No subluxation on lateral flexion and extension views. This document has been electronically signed by: Ike Platt MD on 01/01/2025 22:04:15
== END 2025-01-01 08:53 | disposition home or self-care (01) ==
LOC: HO.HOSX 08:52
PROVIDERS: PCP Nurse Practitioner Family; Visit Provider Physician Assistant
DX: M54.16 Radiculopathy, lumbar region (principal)
CPT/HCPCS: 72110; 99212

== ENCOUNTER 2025-01-01 08:52 | Outpatient (AMB) | payer MEDICARE, SELFPAY ==
--- NOTE | 2025-01-01 08:55 | A.SPINEOV_ITS ---
Intake Visit Reasons: f/up after injections Intake Note: Mr. 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 Required: No Allergies amoxicillin (From AUGMENTIN) Allergy (Intermediate, Verified 12/27/24 08:27) RASH clavulanic acid (From AUGMENTIN) Allergy (Intermediate, Verified 12/27/24 08:27) RASH losartan Adverse Reaction (Severe, Verified 12/27/24 08:27) Shortness of Breath Sulfa (Sulfonamide Antibiotics) Adverse Reaction (Intermediate, Verified 12/27/24 08:27) Rash Assessment & Plan Assessment & Plan (1) Lumbar radiculopathy: Code(s): M54.16 - Radiculopathy, lumbar region Category: Medical Plan HPI: Arturo is a pleasant 74 year old male who comes in today for subsequent evaluation after having a left L5-S1 TFESI completed by our colleagues in pain management. Arturo is known to our office and was previously evaluated cervical spine complaints. He has moderate-severe bilateral foraminal stenosis at C5-6, but denied radicular complaints or weakness. No myelopathy on exam. He self reported his neck pain as about a 2/10 throughout the day. He was referred to pain management for workup re: his low grade posterior neck pain. He then reached out to our clinic requesting evaluation for his left posterior calf cramping with prolonged ambulation. He denied any pain at rest, and reported that his posterior left calf cramping occurs only after fairly significant prolonged ambulation. When describing the pain he reports it is a burning / cramping feeling. He is able to induce this by walking two full laps around the [employer]. He denied any significant back pain or radicular symptoms at rest. He was sent for a diagnostic left L5-S1 TFESI to see if this was the causative segment for his current pain, given the multi-level left sided foraminal stenosis seen on MRI throughout the lumbar spine. Unfortunately he obtained no significant relief from this injection. Our colleagues in vascular surgery also evalauted him and reported this is likely neurogenic and is not being caused by venous occlusion. I additionally reviewed the patients EMG completed in 2022 by our colleagues in neurology, which shows sensorimotor polyneuropathy and chronic L5-S1 radiculopathy. Imaging: MRI lumbar completed at [facility] 03/25/23 shows moderate left sided foraminal stenosis L2-3, severe left sided foraminal stenosis L3-4, moderate bilateral foraminal stenosis L4-5, and severe right moderate left foraminal stenosis L5-S1. He also has a right lateral lithesis of L3, with a notable degenerative dextroscoliosis forming with the apex noted at the L3 lithesis. Diagnostics: EMG completed 07/23/23 (can find under workload results to Rosemary Moulton) shows evidence for chronic L5-S1 radiculopathy and sensorimotor polyneuropathy. Exam: The patient is well appearing in no acute distress. He ambulates with a non-antalgic non-spastic gait. He uses no assistive devices to ambulate. He is able to rise from a seated position without difficulty and has no notable strength deficits in his lower extremities. Impression / Plan: Arturo is a pleasant 74 year old male who comes in today for subsequent evaluation of his left posterior calf cramping with prolonged ambulation. The patient seems to be suffering from a chronic L5-S1 radiculopathy with neurogenic claudication. He recently had no relief from diagnostic left sided L5-S1 injection. Before attempting to make any surgical recommendations, I believe this patient would most benefit from evaluation by my attending neurosurgeon Dr. Mcdowell. In the context of a degenerative scoliosis, lumbar decompression becomes more problematic given the possibility of worsening lithesis if we were to address the left sided compression seen on MRI imaging. I will send the patient for a set of dynamic lumbar spine X-rays, and have him follow up with Dr. Mcdowell regarding potential surgical recommendations for this issue. Bubba Mcdowell MD,PhD [facility] Orders: Orders XR lumbar spine 4V min Today M54.16 - Radiculopathy, lumbar region Coding Level of Care Code Est Pt Level 2 (48433) Diagnoses Lumbar radiculopathy M54.16
== END 2025-01-01 09:42 | disposition home or self-care (01) ==
LOC: HO.HNS 08:53
PROVIDERS: PCP Nurse Practitioner Family; Visit Provider Physician Assistant
DX: M54.16 Radiculopathy, lumbar region (principal)
CPT/HCPCS: 99212

== ENCOUNTER → 2025-01-01 09:41 | Outpatient (BNV) | payer MEDICARE, SELFPAY | PROVIDERS: PCP Nurse Practitioner Family; Visit Provider Radiology Diagnostic Radiology | DX: M51.369 Other intervertebral disc degeneration, lumbar region without mention of lumbar back pain or lower extremity pain (principal) | CPT/HCPCS: 72110 ==

== ENCOUNTER 2025-01-11 12:45 | Outpatient (AMB) | payer MEDICARE, SELFPAY ==
[2025-01-11 12:52] VITALS: BP 146/88; PULSE 102; TEMP 36.9; O2SAT 97; BMI 28.2
--- NOTE | 2025-01-11 12:52 | AM.OFFWIN_ITS ---
Intake Vital Signs 01/11/25 12:52 Height 5 ft 9 in Weight 191 lb BMI 28.2 BP 146/88 H Blood Pressure Location Lt brachial Position Sitting Pulse 102 H Pulse Source Pulse Oximeter Temp 98.5 F Temp Source Oral Pulse Oximetry (%) 97 Oxygen Delivery Method Room Air Intake Visit Reasons: EP SOB Patient Tobacco Use Status: Former Tobacco user Allergies amoxicillin (From AUGMENTIN) Allergy (Intermediate, Verified 01/11/25 13:00) RASH clavulanic acid (From AUGMENTIN) Allergy (Intermediate, Verified 01/11/25 13:00) RASH losartan Adverse Reaction (Severe, Verified 01/11/25 13:00) Shortness of Breath Sulfa (Sulfonamide Antibiotics) Adverse Reaction (Intermediate, Verified 01/11/25 13:00) Rash Do you need a note to return to daycare/school/sports/work: No HPI HPI Comments History of Present Illness Details Patient is a 74-year-old male with a past medical history of HTN, HLD, Anxiety, asthma, hypothyroidism, GERD, first-degree heart block, peripheral artery disease, prediabetes, neuropathic pain of both legs presenting with heart palpitations and shortness of breaths since doing some yd work yesterday. He has seen Cardiology in 2023 but was cleared after finding the following: EKG from May 2023 with sinus rhythm at 90/Min; MA prolongation 214 millisecond; normal corrected QT. cannot exclude old inferior infarct. However, that change has been present for many years. Possible left atrial enlargement. On review of many EKGs from the last 10 years or so, no major changes. Echocardiogram from 2016-LVEF of 60-65%. No wall motion abnormalities and otherwise unremarkable. Last myocardial perfusion imaging study from 2016 showed normal perfusion. He did have an elevated TSH of 8.31 in October 2024 so his PCP increased his levothyroxine from 125 mcg to 137 mcg and he was supposed to have this lab rechecked in 2 months. Two months would be next week so he has not had the lab done yet. This morning, he was woken up by his heavy breathing at 3am, took anti-anxiety meds, felt a little better but still breathing heavy, took inhaler, felt a little better but not back to normal. House is air conditioned. Was mowing the lawn in the heat yesterday and he felt wiped out. Has been hydrating. Now, he feels a little short of breath, with some palpitations, however he denie s chest pain, dizziness, headaches, nausea or vomiting, or episodes. [facility] Medical History Neurogenic claudication Pericarditis Hypothyroid Anxiety Surgical History Hx of cholecystectomy Family History Father No problems noted. Social History Housing: House Unable to assess alcohol history related to: Unknown Alcohol intake: former Patient Tobacco Use Status: Former Tobacco user e-Cigarette/Vaping Use: Never Used Second Hand Smoke Exposure: No service: Yes Current occupational status: retired Current occupational exposures/hazards: No Cognitive needs: No Hearing needs: No Vision needs: No Review of Systems Const All systems reviewed & are unremarkable except as noted in HPI and below Physical Exam Const General: cooperative, healthy appearing, comfortable, no acute distress and well developed Orientation/consciousness: patient oriented x3 Limitations: no limitations HEENT Head: Yes normal to inspection Ears: hearing grossly normal bilaterally General nose exam: Normal external nose present Face and sinus: Yes normal facial exam Eyes General: appearance normal, both eyes and all related structures Neck Neck: Yes normal visual inspection and Yes full ROM Resp Effort & Inspection: normal respiratory effort and able to speak in complete sentences Auscultation: clear to auscultation bilaterally Cardio Rate: tachycardic Rhythm: regular rhythm Heart sounds: normal S1 and S2 Skin General skin exam: no rashes or lesions noted Neuro General: patient oriented x3 Extrem General: Yes normal to inspection Office Procedures EKG Details: NSR 102BPM, inferior infarct, age undetermined, has shown on previous EKGs. No ST or T-wave abnormalities/acute changes. [id number], Complete Assessment & Plan Assessment & Plan (1) Shortness of breath: Code(s): R06.02 - Shortness of breath Plan: VSS except heart rate is slightly tachycardic at 102 beats per minute. EKG is sinus tachycardia at 102BPM with no acute changes, patient does have some shortness of breath and some palpitations. Lungs clear and O2 sat 97%. Last TSH in October was elevated at 8.31 and he did have an increase in medication but we will repeat the TSH today and increase his dose if needed. Also with all the heat and humidity in the fact that he was outside mowing the lawn yesterday and did not feel good after that, he is likely a little bit dehydrated so we talked about pushing fluids and monitoring his heart rate. Any worsening of symptoms, he should go to the emergency department. (2) Palpitations: Code(s): R00.2 - Palpitations Plan: as above Orders: Orders AMB EKG-In Office Today R06.02 - Shortness of breath Coding Level of Care Code Est Pt Level 4 (40492) Diagnoses Shortness of breath R06.02 Palpitations R00.2 CPT Codes EKG - CPT: 48725-[id number], Complete ([id number])
== END 2025-01-11 14:08 | disposition home or self-care (01) ==
PROVIDERS: PCP Nurse Practitioner Family; Visit Provider Physician Assistant
DX: R06.02 Shortness of breath (principal); R00.2 Palpitations

== ENCOUNTER 2025-01-11 12:45 | Outpatient (REF) | payer MEDICARE, SELFPAY | END 2025-01-11 12:46 | disposition home or self-care (01) | LOC: HO.HMGCLDS 12:45 | PROVIDERS: PCP Nurse Practitioner Family; Visit Provider Nurse Practitioner Family | DX: R06.02 Shortness of breath (principal); R00.2 Palpitations; E03.9 Hypothyroidism, unspecified | CPT/HCPCS: 36415; 84443; 93005; 99212 ==

== ENCOUNTER 2025-01-15 06:11 | Outpatient (REF) | payer MEDICARE, SELFPAY ==
[2025-01-15 08:26] LABS: Alanine Aminotransferase 39 U/L (0-40); Albumin Level 4.5 g/dL (3.5-5.0); Alkaline Phosphatase 92 U/L (39-117); Anion Gap 13 (12-20); Aspartate Amino Transferase 27 U/L (5-37); Blood Urea Nitrogen 11 mg/dL (9-16); Calcium 9.1 mg/dL (8.4-10.2); Carbon Dioxide 25 mmol/L (22-29); Chloride 109 mmol/L (96-108); Cholesterol 130 mg/dL (<200); Estimated Glomerular Filt Rate > 60; HDL Cholesterol 52 mg/dL (>40); Potassium 4.6 mmol/L (3.3-5.1); Sodium 142 mmol/L (135-145); Total Protein 7.2 g/dL (6.5-8.0); Triglycerides 100 mg/dL (<150)
== END 2025-01-15 06:12 | disposition home or self-care (01) ==
LOC: HO.LAB 06:11
PROVIDERS: PCP Nurse Practitioner Family; Visit Provider Nurse Practitioner Family
DX: E78.5 Hyperlipidemia, unspecified (principal); I73.9 Peripheral vascular disease, unspecified
CPT/HCPCS: 36415; 80053; 80061

== ENCOUNTER 2025-01-17 12:49 | Outpatient (REF) | payer MEDICARE, SELFPAY ==
--- OUTSIDE RECORDS SUMMARY | 2025-01-17 14:53 | XMS_ITS | Clinical Summary ---
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 Role Phone Community, Pcp Primary Care [...] Father Cancer, Other Maternal Grandfather STOMAC H NH Mother s/p [id number] 2010 Relation Name Status [...] 94 12/31/2021 10:07 AM EDT Temperature 36 C (96.8 F) 12/31/2021 10:07 AM EDT Respiratory Rate 18 [...] ASSESSMENT 09/01/2022 09/01/2021, 02/08/2018, 12/18/2015 Covid-19 Vaccine (3 2022-2 4 season) 2024 09/28/2020, 09/07/2020 BMI CHECK/ADVISE 06/28/2024 12/31/2021, 12/2020, 04/22/2021, Additional history exists INFLUENZA (#1) 2025 02/19/2020, 02/26, 03/08/2017, Additional history exists CHOLESTEROL SCREENING 09/19/2025 09/19/2020 , 10/19/2018, 03/03/2017, Additional history exists HEPATITIS C SCREENING Completed 08/09/2014 PNEUMOCOCCAL VACCINE Completed 08/09/2017, 06/07/20 15 Insurance Payer Benefit Plan / Group Subscriber ID Effective Dates Phone Address Type [place] MED[place] [id number] 2014-Prese [address] [place] [address] MEDICARE [id number] ICE [place]/INDEM NITY MEDEX (MCARE SUPP) REEDER [id number] 2014-Prese nt [address] [place] [address] MEDICARE [id number] ICE [place]/PPO POS CH/BC-[place]/$0/ 20%/F/PPO [id number] 2010-Prese nt [address] [place] [address] PPO [id number] ice BCBSMA PPO $40 [place] [id number] 2013-Pre sent [phone] 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
[2025-01-17 17:14] LABS: D Dimer High Sensitivity < 150 NG/ML
== END 2025-01-17 12:50 | disposition home or self-care (01) ==
LOC: HO.HMGCLDS 12:49
PROVIDERS: PCP Nurse Practitioner Family; Visit Provider Physician Assistant
DX: R06.02 Shortness of breath (principal); R00.0 Tachycardia, unspecified; R00.2 Palpitations; R05.9 Cough, unspecified; R94.6 Abnormal results of thyroid function studies
CPT/HCPCS: 36415; 85379; 99212

== ENCOUNTER 2025-01-17 12:49 | Outpatient (AMB) | payer MEDICARE, SELFPAY ==
[2025-01-17 13:07] VITALS: BP 118/70; PULSE 100; TEMP 36.7; O2SAT 96; BMI 28.8
--- NOTE | 2025-01-17 13:07 | AM.OFFWIN_ITS ---
Intake Vital Signs 01/17/25 13:07 Height 5 ft 9 in Weight 195 lb BMI 28.8 BP 118/70 Blood Pressure Location Lt brachial Pulse 100 Pulse Source Palpation Temp 98.0 F Temp Source Oral Pulse Oximetry (%) 96 Oxygen Delivery Method Room Air Intake Visit Reasons: EP-SOB Intake Note: presents with recurring SOB, inhaler unhelpful Patient Tobacco Use Status: Former Tobacco user Allergies amoxicillin (From AUGMENTIN) Allergy (Intermediate, Verified 01/17/25 13:11) RASH clavulanic acid (From AUGMENTIN) Allergy (Intermediate, Verified 01/17/25 13:11) RASH losartan Adverse Reaction (Severe, Verified 01/17/25 13:11) Shortness of Breath Sulfa (Sulfonamide Antibiotics) Adverse Reaction (Intermediate, Verified 01/17/25 13:11) Rash Do you need a note to return to daycare/school/sports/work: No HPI HPI Comments History of Present Illness Details History - The patient is a 74-year-old male pres enting with breathing difficulties and tachycardia. - The patient has a history of hypothyro idism and was recently found to have a borderline low TSH level at 0.46 last week, indicating a shift towards hy perthyroidism. - The patient reports episodes of tachyc ardia, particularly at night, which have been severe enough to wake him from sleep. - He has experienced shortness of breath and a cough, with no associated fever or wheezing. - A recent emergency department visit in uded a complete blood workup, which was unremarkable. - Admits to a slight on/off cough, no co ughing up blood. Denies any other URI symptoms. Physical Exam General: Cooperative, healthy appearing, comfortable, no acute distress and well developed Orientation: Patient oriented x3 Limitations: No limitations Head: Normal to inspection Ears: Hearing grossly normal bilaterally Nose: Normal External nose present Face and sinus: Normal facial exam Mouth: normal, moist oral mucosa Eyes: Appearance normal, both eyes and all related structures Neck: Normal visual inspection and Yes full ROM Respiratory: Normal respiratory effort and able to speak in complete sentences. Clear to auscultation Cardiac: Regular rate and rhythm, normal S1 and S2, no murmurs rubs or gallops Skin: no rashes or lesions noted Neuro: Patient oriented x3 Extremities: moving all extremities normally [facility] Medical History Neurogenic claudication Pericarditis Hypothyroid Anxiety Surgical History Hx of cholecystectomy Family History Father No problems noted. Social History Housing: House Unable to assess alcohol history related to: Unknown Alcohol intake: former Patient Tobacco Use Status: Former Tobacco user e-Cigarette/Vaping Use: Never Used Second Hand Smoke Exposure: No service: Yes Current occupational status: retired Current occupational exposures/hazards: No Cognitive needs: No Hearing needs: No Vision needs: No Review of Systems Const All systems reviewed & are unremarkable except as noted in HPI and below Physical Exam Vital Signs: Last Vital Signs Temp 98.0 F 01/17/25 13:07 Pulse 100 01/17/25 13:07 BP 118/70 01/17/25 13:07 Pulse Ox 96 01/17/25 13:07 Oxygen Delivery Method Room Air 01/17/25 13:07 BMI result Body Mass Index 28.8 Assessment & Plan Assessment & Plan (1) Tachycardia: Code(s): R00.0 - Tachycardia, unspecified Plan: Plan Patient was informed and verbally consented to the use of an ambient scribe for clinic note documentation during this visit Borderline low TSH at 0.46 last week, indicating a shift towards hyperthyroidism and could be the cause of his tachycardia. - Adjust thyroid medication to 125 mcg to manage hyperthyroidism and prevent tachycardia. - Follow-up lab tests in 6 weeks to assess thyroid function. - Ordered a 7 day Holter monitor to evaluate heart rate over a week. - Ordered D-dimer test to rule out pulmonary embolism - if positive, pt understands he will need to go to the ED to rule out PE with CTA. - Monitor symptoms and consider further evaluation if symptoms worsen, go to the ED if they worsen. (2) Palpitations: Code(s): R00.2 - Palpitations Plan: as above (3) Low TSH level: Code(s): R79.89 - Other specified abnormal findings of blood chemistry Plan: as above (4) Shortness of breath: Code(s): R06.02 - Shortness of breath Plan: as above Orders: Orders TSH reflex Free T4 6 Weeks R00.0 - Tachycardia, unspecified, R00.2 - Palpitations, R79.89 - Other specified abnormal findings of blood chemistry ECG 7 day holter monitor Today R00.0 - Tachycardia, unspecified, R00.2 - Palpitations, R06.02 - Shortness of breath D Dimer High Sensitivity Today R00.0 - Tachycardia, unspecified Medications: New levothyroxine 125 mcg PO DAILY 60 caps 0RF Discontinued levothyroxine Discontinued Reason: Doctor's Order 137 mcg PO DAILY 90 days 90 tabs 1RF Coding Level of Care Code Est Pt Level 4 (64511) Diagnoses Tachycardia R00.0 Palpitations R00.2 Low TSH level R79.89 Shortness of breath R06.02
--- OUTSIDE RECORDS SUMMARY | 2025-01-17 13:10 | XMS_ITS ---
Author Name [facility] Organization Unknown Care Team Organization Name Specialty Phone Email Start Date End Da te [facility] Termed, PROVIDER Primary Care 11/02/202201/26 [facility] Narcisa Huggins Primary Care 07/06/2022 02/14/2024
== END 2025-01-17 14:21 | disposition home or self-care (01) ==
PROVIDERS: PCP Nurse Practitioner Family; Visit Provider Physician Assistant
DX: R00.0 Tachycardia, unspecified (principal); R00.2 Palpitations; R79.89 Other specified abnormal findings of blood chemistry; R06.02 Shortness of breath

== ENCOUNTER → 2025-01-19 07:58 | Outpatient (REF) | payer MEDICARE, SELFPAY ==
--- NOTE | 2025-02-07 11:47 | HM_ITS ---
* Total monitoring time 6 days and 5 hours. * Underlying rhythm is sinus with an average rate of 86/Min. * Frequent supraventricular ectopy with a burden of 12%. Very short runs, up to 19 beats. * Rare ventricular ectopy. One triplet. * No significant pauses or high-grade AV blocks. * Symptoms of pain, difficulty breathing correlate with sinus rhythm and supraventricular ectopy. MTDD
== END ==
LOC: HO.CARD 07:58
PROVIDERS: PCP Nurse Practitioner Family; Visit Provider Physician Assistant
DX: R00.2 Palpitations (principal); R06.02 Shortness of breath; R00.0 Tachycardia, unspecified
CPT/HCPCS: 93242

== ENCOUNTER 2025-01-24 14:17 | Outpatient (AMB) | payer MEDICARE, SELFPAY ==
--- NOTE | 2025-01-24 14:51 | HO.SPINEOV ---
Intake Visit Reasons: discuss surgery Intake Note: Mr. Gibbs is here today to Discuss Surgery. Police Booking Officer Required: No Allergies amoxicillin (From AUGMENTIN) Allergy (Intermediate, Verified 01/17/25 13:11) RASH clavulanic acid (From AUGMENTIN) Allergy (Intermediate, Verified 01/17/25 13:11) RASH losartan Adverse Reaction (Severe, Verified 01/17/25 13:11) Shortness of Breath Sulfa (Sulfonamide Antibiotics) Adverse Reaction (Intermediate, Verified 01/17/25 13:11) Rash Assessment & Plan Assessment & Plan (1) Lumbar stenosis with neurogenic claudication: Code(s): M48.062 - Spinal stenosis, lumbar region with neurogenic claudication Category: Medical Plan Dear colleague, On 01/24/2025, I saw for follow-up Arturo Cordero. For detailed history and physical exam I refer to the note of GRACY Crews. in summary, this 74-year-old male is suffering from a left-sided pain, predominantly in his calf with walking and standing. Laying down resolve the symptoms. A vascular cause was excluded. An injection was not successful. The MRI shows severe left L5 foraminal stenosis and lateral recess stenosis for the S1 nerve root. Clinically, he suffering from neurogenic claudication therefore I offered him a decompression L5-S1 to decompress the L5 and S1 nerve roots. I described the procedure and expected outcome. He is scheduled for 03/08/2025. I spent 25 minutes in his consult to discuss the MRI findings and surgery. Selvin Mcdoewll MD, PhD Spine Fellowship Trained Neurosurgeon Director, [facility] Coding Level of Care Code Est Pt Level 3 (88238) Diagnoses Lumbar stenosis with neurogenic claudication M48.062
== END 2025-01-24 15:30 | disposition home or self-care (01) ==
LOC: HO.HNS 14:18
PROVIDERS: PCP Nurse Practitioner Family; Visit Provider Neurological Surgery
DX: M48.062 Spinal stenosis, lumbar region with neurogenic claudication (principal)
CPT/HCPCS: 99213

== ENCOUNTER → 2025-01-24 14:17 | Outpatient (BNVA) | payer MEDICARE, SELFPAY | PROVIDERS: PCP Nurse Practitioner Family; Visit Provider Neurological Surgery | DX: M48.062 Spinal stenosis, lumbar region with neurogenic claudication (principal) | CPT/HCPCS: 99212 ==

== ENCOUNTER → 2025-02-07 11:47 | Outpatient (BNV) | payer MEDICARE, SELFPAY | PROVIDERS: PCP Nurse Practitioner Family; Visit Provider Internal Medicine | DX: I47.10 Supraventricular tachycardia, unspecified (principal); I49.3 Ventricular premature depolarization | CPT/HCPCS: 93244 ==

== ENCOUNTER 2025-02-14 10:46 | Outpatient (REF) | payer MEDICARE, SELFPAY ==
--- NOTE | ~2025-02-14 | XR_ITS ---
EXAMINATION: XR CHEST CLINICAL INFORMATION: R06.00 - Dyspnea, unspecified COMPARISON: June 12, 2023 TECHNIQUE: 2 views of the chest were obtained. FINDINGS: No significant abnormality is noted involving the heart, lungs, mediastinum, or soft tissues. Flowing osteophytes or syndesmophytes are seen anteriorly in the thoracic spine XR/XR chest 2V IMPRESSION: No acute disease Changes of ankylosing spondylolysis versus less likely diffuse idiopathic skeletal hyperostosis (DISH) Electronically signed by: Wilbur Whaley MD 02/14/2025 11:20 AM EDT
== END 2025-02-14 10:47 | disposition home or self-care (01) ==
LOC: HO.HMGCX 10:46
PROVIDERS: PCP Nurse Practitioner Family; Visit Provider Nurse Practitioner Family
DX: R06.00 Dyspnea, unspecified (principal)
CPT/HCPCS: 71046

== ENCOUNTER → 2025-02-14 10:59 | Outpatient (BNV) | payer MEDICARE, SELFPAY | PROVIDERS: PCP Nurse Practitioner Family; Visit Provider Radiology Diagnostic Radiology | DX: M47.814 Spondylosis without myelopathy or radiculopathy, thoracic region (principal) | CPT/HCPCS: 71046 ==

== ENCOUNTER 2025-02-27 10:50 | Outpatient (REF) | payer MEDICARE, SELFPAY | END 2025-02-27 10:51 | disposition home or self-care (01) | LOC: HO.LAB 10:50 | PROVIDERS: PCP Nurse Practitioner Family; Visit Provider Physician Assistant | DX: R00.2 Palpitations (principal); R00.0 Tachycardia, unspecified; R79.89 Other specified abnormal findings of blood chemistry | CPT/HCPCS: 36415; 84443 ==

== ENCOUNTER 2025-03-08 05:56 | Day surgery (SDC) | payer MEDICARE, SELFPAY ==
[2025-03-01 10:26] VITALS: BP 131/64; PULSE 91; RESP 20; O2SAT 97; BMI 28.5
--- NOTE | 2025-03-01 10:36 | HO.ANESPROP2 ---
Documented by User: Radha Cisneros NP 03/01/25 10:59 HPI - Anesthesia Eval Consult details Narrative: 75yo M for LEFT and RIGHT L5-S1 Decompression, 03/08/25 No recent illness No CP/SOB with walking ~ 1 hour daily 12/2024 walk-in visit for palps and SOB (long hx r/t anxiety). Holter shows Frequent supraventricular ectopy with a burden of 12%. Very short runs, up to 19 beats otherwise OK - CXR done and nml - no further f/u with PCP - Symptoms have resolved at PAT Hx palps with negative w/[place] 20[place] [facility] PRN f/u only. Asthma: stable with albuterol use ~ 1 x weekly GERD: ppi prn - rare need PMFSH Active Problems Active Problems: All Active Problems Lumbar stenosis with neurogenic claudication (Acute) Low TSH level (Acute) Dyslipidemia (Acute) Arrhythmia (Acute) Elevated fasting blood sugar (Acute) Pain of left calf (Acute) Encounter for annual wellness visit (AWV) in Medicare patient (Acute) URI, acute (Acute) Acute neck pain (Acute) Chronic neck pain (Acute) Gastroesophageal reflux disease (Acute) Low back pain (Acute) Nail avulsion of toe (Acute) Elevated liver enzymes (Acute) Screening PSA (prostate specific antigen) (Acute) Tinea cruris (Acute) Abnormal EKG (Acute) First degree heart block (Acute) Strain of right groin (Acute) Arterial insufficiency of lower extremity (Acute) Spondylosis of lumbar region without myelopathy or radiculopathy (Acute) Palpitations (Acute) Lumbar radiculopathy (Acute) Acute sinusitis (Acute) Upper respiratory infection (Acute) Vaccine counseling (Acute) Cough (Acute) Laboratory tests ordered as part of a complete physical exam (CPE) (Acute) Elevated alanine aminotransferase (ALT) level (Acute) Hypercalcemia (Acute) Prediabetes (Acute) Neuropathic pain of both legs (Acute) Diabetic neuropathy (Acute) Difficulty breathing (Acute) Tachycardia (Acute) Dyspnea (Acute) Laceration of left thumb (Acute) Acute allergic reaction (Acute) Cervicalgia (Acute) Headache (Acute) Due for screening (Acute) Normal physical exam (Acute) HTN (hypertension) (Acute) Hx of smoking (Acute) Shortness of breath (Acute) Anxiety (Acute) Neurogenic claudication (Acute) Hypothyroid (Acute) Past Medical History Medical History Skin cancer Arthritis Asthma Palpitations First degree heart block Arterial insufficiency of lower extremity GERD (gastroesophageal reflux disease) Lumbar stenosis Dyslipidemia Neurogenic claudication Pericarditis Hypothyroid Anxiety Family History Family History Father No problems noted. Family history of problems with anesthesia: No Surgical History Surgical History H/O colonoscopy Hx of skin graft Hx of cholecystectomy History of Problems with Anesthesia: No Social History Social History Housing: House Unable to assess alcohol history related to: Unknown Alcohol intake: former Patient Tobacco Use Status: Former Tobacco user e-Cigarette/Vaping Use: Never Used Second Hand Smoke Exposure: No Use of substances other than those prescribed or required for medical reasons: No Have you been hit, kicked, punched, or otherwise hurt by someone within the past year? If so, by whom?: No Spiritual Healthcare Practices: no Anglican Healthcare Practices: no Cultural Healthcare Practices: no Are you DNR?: No Advance Directives: Yes (states is HCP) Advance Directives Information Provided: Yes Advance Directives on File: Yes Poor oral hygiene: No service: Yes Current occupational status: retired Current occupational exposures/hazards: No Cognitive needs: No Hearing needs: No Vision needs: No Meds Allergies Allergy/AdvReac Type Severity Reaction Status Date / Time losartan Allergy Severe Shortness Verified 03/08/25 06:17 of Breath amoxicillin (From AUGMENTIN) Allergy Intermediate RASH Verified 03/08/25 06:17 clavulanic acid (From Allergy Intermediate RASH Verified 03/08/25 06:17 AUGMENTIN) Sulfa (Sulfonamide Allergy Intermediate Rash Verified 03/08/25 06:17 Antibiotics) Home Medications ?Medication ?Instructions ?Recorded ?Confirmed ?Last Taken ?Type aspirin 81 mg tablet,delayed 81 mg PO QAM 10/15/22 03/01/25 02/15/25 History release Held on 03/06/25. Instructions: Resume on 03/15/25. You may resume aspirin 1 week after surgery magnesium oxide 400 mg (241.3 mg 400 mg PO BEDTIME 02/28/25 02/28/25 Unknown History magnesium) tablet omeprazole 40 mg capsule,delayed 40 mg PO DAILY PRN gerd 02/28/25 02/28/25 Unknown History release amlodipine 5 mg tablet 5 mg PO QAM 03/01/25 03/01/25 03/08/25 History atorvastatin 20 mg tablet 20 mg PO BEDTIME PRN Rash 03/01/25 02/28/25 Unknown History hydroxyzine HCl 25 mg tablet 12.5 mg PO QID PRN itching/anxiety 03/01/25 02/28/25 Unknown History levothyroxine 125 mcg capsule 125 mcg PO QAM 03/01/25 03/01/25 03/08/25 History Exam Height,Weight and Vital Signs: Height 5 ft 10 in Weight 90.2 kg Last Vital Signs Pulse 91 03/01/25 10:26 Resp 20 03/01/25 10:26 BP 131/64 03/01/25 10:26 Pulse Ox 97 03/01/25 10:26 O2 Del Method Room Air 03/01/25 10:26 Pertinent Lab Results Pertinent Lab Results: Laboratory Tests 11/10/24 01/15/25 06:36 06:27 WBC 8.3 Hgb 15.6 Hct 45.9 Plt Count 289 Sodium 142 Potassium 4.6 Chloride 109 H Carbon Dioxide 25 BUN 11 Creatinine 0.86 Narrative Narrative: Holter 01/2025 Total monitoring time 6 days and 5 hours. Underlying rhythm is sinus with an average rate of 86/Min. Frequent supraventricular ectopy with a burden of 12%. Very short runs, up to 19 beats. Rare ventricular ectopy. One triplet. No significant pauses or high-grade AV blocks. Symptoms of pain, difficulty breathing correlate with sinus rhythm and supraventricular ectopy. CXR 01/2025 XR chest 2V IMPRESSION: No acute disease Changes of ankylosing spondylolysis versus less likely diffuse idiopathic skeletal hyperostosis (DISH) EKG 12/2024 ST @ 102 Old inferior infarct Per 2023 Cardiac office visit: EKG from May with sinus rhythm at 90/Min; NM prolongation 214 millisecond; normal corrected QT. cannot exclude old inferior infarct. However, that change has been present for many years. Possible left atrial enlargement. On review of many EKGs from the last 10 years or so, no major changes. Echocardiogram from 2017-LVEF of 60-65%. No wall motion abnormalities and otherwise unremarkable. Last myocardial perfusion imaging study from 2017 showed normal perfusion. Clinically, he has got absolutely no symptoms. Overall, in the absence of symptoms, stable EKG findings for many years, can follow clinically. Airway Mallampati Class: I TM Dist: >3cm Neck ROM: Full (some OA) Heart: RRR Lungs: CTAB Assessment and Plan Assessment Anesthesia Assessment: Anesthesia Plan Discussed and PAT Visit Final Anesthetic Review Family History of Problems with Anesthesia: No History of Problems with Anesthesia: No Documented by User: Sailaja Caldera MD 03/08/25 08:24 PMFSH Past Medical History Medical History Skin cancer Arthritis Asthma Palpitations First degree heart block Arterial insufficiency of lower extremity GERD (gastroesophageal reflux disease) Lumbar stenosis Dyslipidemia Neurogenic claudication Pericarditis Hypothyroid Anxiety Family History Family History Father No problems noted. Surgical History Surgical History H/O colonoscopy Hx of skin graft Hx of cholecystectomy Social History Social History Housing: House Unable to assess alcohol history related to: Unknown Alcohol intake: former Patient Tobacco Use Status: Former Tobacco user e-Cigarette/Vaping Use: Never Used Second Hand Smoke Exposure: No Use of substances other than those prescribed or required for medical reasons: No Have you been hit, kicked, punched, or otherwise hurt by someone within the past year? If so, by whom?: No Spiritual Healthcare Practices: no Anglican Healthcare Practices: no Cultural Healthcare Practices: no Are you DNR?: No Advance Directives: Yes (states is HCP) Advance Directives Information Provided: Yes Advance Directives on File: Yes Poor oral hygiene: No service: Yes Current occupational status: retired Current occupational exposures/hazards: No Cognitive needs: No Hearing needs: No Vision needs: No Meds Allergies Allergy/AdvReac Type Severity Reaction Status Date / Time losartan Allergy Severe Shortness Verified 03/08/25 06:17 of Breath amoxicillin (From AUGMENTIN) Allergy Intermediate RASH Verified 03/08/25 06:17 clavulanic acid (From Allergy Intermediate RASH Verified 03/08/25 06:17 AUGMENTIN) Sulfa (Sulfonamide Allergy Intermediate Rash Verified 03/08/25 06:17 Antibiotics) Home Medications ?Medication ?Instructions ?Recorded ?Confirmed ?Last Taken ?Type aspirin 81 mg tablet,delayed 81 mg PO QAM 10/15/22 03/01/25 02/15/25 History release Held on 03/06/25. Instructions: Resume on 03/15/25. You may resume aspirin 1 week after surgery magnesium oxide 400 mg (241.3 mg 400 mg PO BEDTIME 02/28/25 02/28/25 Unknown History magnesium) tablet omeprazole 40 mg capsule,delayed 40 mg PO DAILY PRN gerd 02/28/25 02/28/25 Unknown History release amlodipine 5 mg tablet 5 mg PO QAM 03/01/25 03/01/25 03/08/25 History atorvastatin 20 mg tablet 20 mg PO BEDTIME PRN Rash 03/01/25 02/28/25 Unknown History hydroxyzine HCl 25 mg tablet 12.5 mg PO QID PRN itching/anxiety 03/01/25 02/28/25 Unknown History levothyroxine 125 mcg capsule 125 mcg PO QAM 03/01/25 03/01/25 03/08/25 History Assessment and Plan Assessment Anesthesia Assessment: Chart Reviewed Final Anesthetic Review NPO: Yes ASA Class: III Final Preanesthetic Review: No Changes in Pt Med Stat, Meds/Allgs Chart Reviewed, Consent Obtained/Reviewed and Anes Risks/Benef Reviewed Patient Risk: Intermediate Procedure Risk: Intermediate Anesthetic Plan Anesthetic Plan: GA and Agree w/ Assess. and Plan Disposition: Standard PACU
--- NOTE | 2025-03-06 15:35 | PM.DS ---
DS: Providers Provider Date of Service: 03/08/25 Date of discharge: 03/08/25 Primary care physician: JACE Rodriguez Admitting clinician: Selvin Mcdowell DS: Diagnosis Discharge Diagnosis (1) Lumbar radiculopathy: Status: Acute DS: Summary Time Attestation Discharge Coordination Time (in mins): 5 Quality: Safe Use of Opioids Does Pt have an Active Cancer Diagnosis on the Problem List?: No Quality: Stroke Does the patient have a stroke diagnosis?: No Physical Exam Vital Signs: Vital Signs: Last Vital Signs Pulse 91 03/01/25 10:26 Resp 20 03/01/25 10:26 BP 131/64 03/01/25 10:26 Pulse Ox 97 03/01/25 10:26 O2 Del Method Room Air 03/01/25 10:26 BMI result Body Mass Index 28.5 Discharge Plan Discharge Patient Disposition: Home, Self-Care Referrals: Sergei Lu FNP-BC [Primary Care Provider, Internal Medicine] - 1 Week Discharge Medications: New oxycodone 5 mg tablet 5 mg PO Q4H PRN (Reason: pain) Qty: 20 0RF Rx Instructions: Partial Fill upon patient request. docusate sodium [Colace] 100 mg capsule 100 mg PO BID Qty: 20 0RF Continued albuterol sulfate 90 mcg/actuation HFA aerosol inhaler 1 inh inhalation QID PRN (Reason: shortness of breath or wheezing) Qty: 8.5 0RF omeprazole 40 mg capsule,delayed release(DR/EC) 40 mg PO DAILY PRN (Reason: gerd) magnesium oxide 400 mg (241.3 mg magnesium) tablet 400 mg PO BEDTIME atorvastatin 20 mg tablet 20 mg PO BEDTIME PRN (Reason: Rash) amlodipine 5 mg tablet 5 mg PO QAM Rx Instructions: hold for bp of less than 100/50 hydroxyzine HCl 25 mg tablet 12.5 mg PO QID PRN (Reason: itching/anxiety) levothyroxine 125 mcg capsule 125 mcg PO QAM (DME) blood pressure monitor Kit See Rx Instructions .Route Qty: 1 0RF Rx Instructions: As directed clotrimazole-betamethasone 1-0.05 % cream 1 appl topical BID 14 Days Qty: 45 0RF Held aspirin 81 mg tablet,delayed release (DR/EC) 81 mg PO QAM Hold Instructions: Resume on 03/15/25. You may resume aspirin 1 week after surgery Discharge Orders: Discharge Order (Routine); Ordered 03/08/25 Ordered By: Anton Soni Diet: Advance to usual diet Activity on Discharge: As tolerated Activity Restrictions/Additional Instructions: After your spinal surgery we ask you to observe the following restrictions/guidelines: Activity: It is normal to feel some discomfort as you increase your activity, but that will improve with time. We ask you avoid heavy lifting or acitivities that cause pain. As a general rule, 8lbs is a safe limit for lifting right after surgery. Walk as much as you feel comfortable but not to exhaustion. You will feel extra tired the first few days after surgery. Stay well hydrated. It is OK to walk up and down stairs You may return to driving when you are off narcotics (such as vicodin, oxycodone, dilaudid, etc), and you are back to normal functional capacity. If you have any concerns please check with office before driving. Return to work is specific to each patient and each surgery, so please speak with your doctor/PA at first follow up. Please bring paperwork such as FMLA at that time if you need it filled out. Medications: You can resume aspirin 1 week after surgery For optimum pain control, it is best to start with a combination of 500 mg of Tylenol every 4 hours with 600 mg of Motrin every 8 hours, and use narcotics as needed in between for breakthrough pain. We will give you a short supply of narcotics after surgery (usually one weeks worth). If you need more please call the office but do not use more than prescribed. You will need to give our office 48 hours notice if you need narcotics refilled and we do not fill narcotics on weekends or evenings. If you are on a narcotic, it is a good idea to take a stool softener such as colace or senna to avoid constipation If you take blood thinner such as aspirin, Plavix, Coumadin, Effient, Eliquis etc for conditions such as Afib, DVT, Pulmonary embolus, coronary disease, stents etc please speak with your surgeon about specific details as to when you can resume these medications. Follow up: Please call the office, , after surgery to arrange a 3 week follow up for wound check. Wound Care: You may remove your dressing on the first day after surgery. ?You may ?leave open to air. Please do not remove the steri strips underneath. they will fall off on their own in one week. IT IS NORMAL FOR THE WOUND TO OOZE OR BE BLOODY FOR A FEW DAYS AFTER SURGERY. ?IF THIS HAPPENS JUST PLACE NEW DRESSING OVER IT TO AVOID STAINING CLOTHES. You may shower on post op day # 1 We ask that you do not let the water soak the wound. If it does get wet, just towel dry lightly. Please do not scrub your incision or place any type of chemical/ointment on the wound. No tub baths, pools or jacuzzis for one month. If you have any leaking or redness from your wound, or fevers, please call office Print Language: Romansh
--- NOTE | ~2025-03-08 | FL_ITS ---
EXAMINATION: FL GUIDANCE ONLY HISTORY: left l5-s1 decompression COMPARISON: Correlation is made to plain films of the lumbar spine dated 01/01/2025. TECHNIQUE: Fluoroscopy time: 6 seconds. Cumulative Dose: 6.1005 mGy. DAP: 1.7891 mGym2 Images: 2. FINDINGS: Fluoroscopic spot films of the lumbar spine in the lateral projection demonstrate a probe directed toward the L4-5 intervertebral disc space from a posterior approach. FL/FL guidance in OR IMPRESSION: Fluoroscopy during procedure. Please see procedure report for additional information. Electronically signed by: Danis Isaac MD 03/08/2025 09:02 AM EDT
[2025-03-08 06:16] VITALS: BMI 27.9
[2025-03-08] MEDS: Lactated Ringers 1,000 ML 100 ML IVCONT (06:25)
[2025-03-08 06:37] VITALS: BP 142/80; PULSE 86; RESP 18; TEMP 36.6; O2SAT 97
--- NOTE | 2025-03-08 07:04 | MHC.SHP ---
Pre-Procedural Eval Section A - 24 Hr Update-Section A only Date of Service: 03/08/25 The patient is an INPATIENT: No Changes since office visit: No Cold of Flu in the past 2 weeks, No New Medical Problems, No Changes in Medication and No Patient answered all questions The patient has been examined within 24 hours of the surgical procedure. The History & Physical has been completed within 30 days and I have reviewed it.: No Section B - Complete if H&P > 30 days Chief Complaint: Spinal stenosis, lumbar region with neurogenic Allergies: Allergies Allergy/AdvReac Type Severity Reaction Status Date / Time losartan Allergy Severe Shortness Verified 03/08/25 06:17 of Breath amoxicillin (From AUGMENTIN) Allergy Intermediate RASH Verified 03/08/25 06:17 clavulanic acid (From Allergy Intermediate RASH Verified 03/08/25 06:17 AUGMENTIN) Sulfa (Sulfonamide Allergy Intermediate Rash Verified 03/08/25 06:17 Antibiotics) Review of Systems Sugical H&P ROS: Negative: Constitution, Cardiovascular, Respiratory, Neurological, Psychiatric, Hem-Onc, Allergic/Immunologic, Gastrointestinal, Genitourinary, Musculoskeletal, Integumentary, Endocrine and Eyes/Ears/Nose/Throat Exam Surgical H&P Exam: Normal: HEENT, Normal: Heart, Normal: Lungs, Normal: Extremities, Normal: Abdomen, Normal: Skin and Normal: Neurological (awake, alert,oriented x 3 ) Plan Diagnosis/Plan: Unchanged left L5-s1 decompression, left L5 foraminotomy Time Spent With Patient Time: Total time managing care of this patient today __5__ minutes.
--- NOTE | 2025-03-08 08:38 | P.OP_ITS ---
Operative Note Operative Note Date of Service: 03/08/25 Narrative: Preoperative Diagnosis: Spinal stenosis/lateral recess stenosis/neural foraminal stenosis Operation: Left L5 Laminotomy, Partial facetectomy and foraminotomy with use of microscope Consent Informed Consent was obtained for this operation. I have explained the nature, purpose and benefits of the operation. I have discussed the risks and benefit of the operation including possible complications or adverse events with patient/family. Alternative(s) were discussed with the patient with their relative benefits and risks as well as the consequences of not accepting the operation were included in obtaining consent. Surgeon: CARY MILES MD, PHD Procedure Assisted By: GRACY Sanchez Description of Procedure This patient is suffering from left-sided leg pain due to L5 and S1 nerve root compression. The patient was offered a decompression of the nervous structures. The procedure complications were explained. The patient was consented. The patient was brought to the operating room and endotracheally intubated. The patient was turned in prone position on the Kevin frame. Prep and drape was done followed by timeout. Physician warehouse administrative assistant provided access. A mid lumbar incision was made followed by release of the paravertebral muscle on the left side to expose the left L5 lamina and facet joint. An intraoperative x-ray was obtained to confirm the correct level. The microscope was brought in. I took over the procedure. The high-speed drill was used to do a L5 laminotomy. #2 Kerrison was used to further remove the lamina towards the L5 foramen. With a nerve hook the medial wall of the L5 pedicle was palpated as well as the beginning of the L5 foramen. The facet joint was partially drilled down after which with a #2 Kerrison a foraminotomy was done. Significant compression was present. Finally a foraminotomy Kerrison was used to complete the foraminotomy. A long nerve hook could be easily passed lateral and dorsally from the nerve root, a sign of relief of the neuroforaminal stenosis and decompression of the nerve root . Then I identified the S1 nerve root and decompressed it over its trajectory. The microscope was removed. Hemostasis was done. Incision was closed in 2 layers. Steri-Strips were used to approximate incision. An OpSite with Tegaderm was used to cover the incision. All sponge needle counts were correct. Patient was extubated and transported in stable is to recovery room. Anesthesia: General Estimated Blood Loss (ml): Minimal Duration of Surgery: Under 60 Minutes Postoperative Plan: Discharge to home
[2025-03-08 08:55] VITALS: BP 117/79; PULSE 80; RESP 12; TEMP 36.1; O2SAT 97
[2025-03-08 09:10] VITALS: BP 136/81; PULSE 84; RESP 12; O2SAT 98
[2025-03-08 09:25] VITALS: BP 141/90; PULSE 81; RESP 14; O2SAT 96
[2025-03-08 09:39] VITALS: BP 128/80; PULSE 81; RESP 16; O2SAT 96
[2025-03-08 09:55] VITALS: BP 130/79; PULSE 77; RESP 16; TEMP 36.2; O2SAT 96
== END 2025-03-08 10:56 | disposition home or self-care (01) ==
LOC: HO.SSS 05:56
PROVIDERS: PCP Nurse Practitioner Family; Visit Provider Neurological Surgery
PROC: (CPT 63047; principal; 2025-03-08 07:30)
DX: M48.062 Spinal stenosis, lumbar region with neurogenic claudication (principal); M79.662 Pain in left lower leg; R73.01 Impaired fasting glucose; E78.5 Hyperlipidemia, unspecified; I10 Essential (primary) hypertension; Z79.82 Long term (current) use of aspirin; Z79.899 Other long term (current) drug therapy; Z88.1 Allergy status to other antibiotic agents; Z88.2 Allergy status to sulfonamides; Z88.8 Allergy status to other drugs, medicaments and biological substances; Z87.891 Personal history of nicotine dependence; Z90.49 Acquired absence of other specified parts of digestive tract
CPT/HCPCS: 63047; J0131; J0690; J1100; J1885; J2003; J2250; J2405; J2704; J3010

== ENCOUNTER → 2025-03-08 05:56 | Outpatient (BNV) | payer MEDICARE, SELFPAY | PROVIDERS: PCP Nurse Practitioner Family; Visit Provider Neurological Surgery | DX: M48.062 Spinal stenosis, lumbar region with neurogenic claudication (principal) | CPT/HCPCS: 63047; 99499 ==

== ENCOUNTER 2025-03-09 16:09 | Outpatient (AMB) | payer MEDICARE, SELFPAY ==
[2025-03-09 16:20] VITALS: BP 120/60; PULSE 94; TEMP 36.6; O2SAT 95; BMI 28.7
--- NOTE | 2025-03-09 16:20 | AM.OFFWIN_ITS ---
Intake Vital Signs 03/09/25 16:20 Height 5 ft 10 in Weight 200 lb BMI 28.7 BP 120/60 Blood Pressure Location Lt brachial Position Sitting Pulse 94 Pulse Source Pulse Oximeter Temp 97.9 F Temp Source Oral Pulse Oximetry (%) 95 Oxygen Delivery Method Room Air Intake Visit Reasons: EP surgery yesterday, constant hiccups Intake Note: pt presents with hiccup episodes lasting about 20 min starting this morning when he woke up after having back surgery with general anesthesia, BM okay Patient Tobacco Use Status: Former Tobacco user Allergies losartan Allergy (Severe, Verified 03/09/25 16:23) Shortness of Breath amoxicillin (From AUGMENTIN) Allergy (Intermediate, Verified 03/09/25 16:23) RASH clavulanic acid (From AUGMENTIN) Allergy (Intermediate, Verified 03/09/25 16:23) RASH Sulfa (Sulfonamide Antibiotics) Allergy (Intermediate, Verified 03/09/25 16:23) Rash Do you need a note to return to daycare/school/sports/work: No HPI HPI Comments History of Present Illness Details This is a 75-year-old male presenting for evaluation of hiccups that occurred this morning after having a Left L5 laminotomy, Partial facetectomy and foraminotomy with Dr. Mcdowell yesterday at [facility]. Patient states that he woke up this morning and has been having intermittent hiccups that will last up to 20 minutes at a time. Patient denies having any nausea, vomiting, hemoptysis, dark or bloody stools and has been able to eat today without any concerns or limitation. Patient states that his postsurgical pain is minimal and he has not had to use any of the narcotic medications prescribed by his surgeon. Patient has not called his surgeon today for consultation.. [facility] Medical History Skin cancer Arthritis Asthma Palpitations First degree heart block Arterial insufficiency of lower extremity GERD (gastroesophageal reflux disease) Lumbar stenosis Dyslipidemia Neurogenic claudication Pericarditis Hypothyroid Anxiety Surgical History H/O colonoscopy Hx of skin graft Hx of cholecystectomy Family History Father No problems noted. Social History Housing: House Are you a primary assurance services manager health care to a significant other at home: No Do you presently have visiting nurse or other home services: No Unable to assess alcohol history related to: Unknown Alcohol intake: former Patient Tobacco Use Status: Former Tobacco user Tobacco use type: Cigarette Years Smoked: 2 e-Cigarette/Vaping Use: Never Used Second Hand Smoke Exposure: No Advance Directives Date on File: 10/27/16 service: Yes Current occupational status: retired Current occupational exposures/hazards: No Cognitive needs: No Hearing needs: No Vision needs: No Review of Systems Const All systems reviewed & are unremarkable except as noted in HPI and below Reports no additional complaints, Denies body aches, Denies chills and Denies fever(s) Eyes Reports no additional complaints ENT Reports no additional complaints Card Reports no additional complaints Resp Reports no additional complaints GI Reports as per HPI (Intermittent hiccups) Reports no additional complaints Musc Reports no additional complaints Skin/Breast Reports system reviewed and no additional complaints, except as documented Neuro Reports no additional complaints Psych Reports no additional complaints Endo Reports no additional complaints Physical Exam Vital Signs: Last Vital Signs Temp 97.9 F 03/09/25 16:20 Pulse 94 03/09/25 16:20 BP 120/60 03/09/25 16:20 Pulse Ox 95 03/09/25 16:20 Oxygen Delivery Method Room Air 03/09/25 16:20 BMI result Body Mass Index 28.7 Const Other: Patient is not actively hiccuping throughout interview or examination. General: cooperative, healthy appearing, comfortable, no acute distress, well developed, alert, awake and Physically active; No acute distress or ill appearing Nutritional Appearance: well nourished Orientation/consciousness: patient oriented x3 Limitations: no limitations Resp Effort & Inspection: normal respiratory effort, not labored, no stridor and not tachypneic Auscultation: clear to auscultation bilaterally Cardio Rate: regular rate Rhythm: regular rhythm GI Palpation (GI): Soft to palpation, not firm, nontender, no guarding and not rigid Percussion: Yes normal to percussion Auscultation: normal bowel sounds Neuro General: patient oriented x3 Psych Appearance: grossly normal Mental Status: mental status grossly normal Insight: Good insight present (Psych) Judgement: Good judgement present (Psych) Assessment & Plan Assessment & Plan (1) Hiccups: Comment: Patient is not actively hiccuping at this time. Patient is in no acute distress and has no abdominal tenderness on examination. Code(s): R06.6 - Hiccough Plan: Patient will be discharged home and he is instructed to follow up with his surgeon for any further concerns or continued symptoms. The patient and his are in agreement with this plan of care. Coding Level of Care Code Est Pt Level 3 (46863) Diagnoses Hiccups R06.6 Time Spent (min) 20
== END 2025-03-09 16:51 | disposition home or self-care (01) ==
PROVIDERS: PCP Nurse Practitioner Family; Visit Provider Physician Assistant
DX: R06.6 Hiccough (principal)

== ENCOUNTER → 2025-03-09 16:09 | Outpatient (BNVA) | payer MEDICARE, SELFPAY | PROVIDERS: PCP Nurse Practitioner Family; Visit Provider Physician Assistant | DX: R06.6 Hiccough (principal) | CPT/HCPCS: 99212 ==

== ENCOUNTER 2025-03-29 09:22 | Outpatient (AMB) | payer MEDICARE, SELFPAY ==
--- NOTE | 2025-03-29 09:33 | A.SPINEOV_ITS ---
Intake Visit Reasons: 1st post op Intake Note: Mr. Gibbs is here today for his 1st post op. 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 Required: No Allergies losartan Allergy (Severe, Verified 03/29/25 12:16) Shortness of Breath amoxicillin (From AUGMENTIN) Allergy (Intermediate, Verified 03/29/25 12:16) RASH clavulanic acid (From AUGMENTIN) Allergy (Intermediate, Verified 03/29/25 12:16) RASH Sulfa (Sulfonamide Antibiotics) Allergy (Intermediate, Verified 03/29/25 12:16) Rash Results AMB Hemoglobin A1c AMB Hemoglobin A1c 6.4 % Last Edit by Elsa Mahajan MA on 03/29/25 1 5 :20 Assessment & Plan Assessment & Plan (1) Status post lumbar spine surgery for decompression of spinal cord: Code(s): Z98.890 - Other specified postprocedural states Category: Medical Plan Operation: Left L5 Laminotomy Arturo is a pleasant 75-year-old male who underwent left-sided L5 laminotomy with Dr. Mcdowlel a few weeks ago. To recap preoperatively he was primarily suffering from left-sided calf pain. Today, he reports that his pain has largely persisted since surgery. He did have a period of moderate left leg pain relief directly after surgery, but his pain returned about a week later. His did accompany him to this visit today, and expressed concerns regarding his activity. He has essentially been back to regular activity since his surgery. She cited several examples including fairly extensive yd work, and lifting heavy objects. She is concerned that this may be protracted he is healing course. We discussed his current postoperative healing recommendations, including an 8-12 l b weight restriction, and limiting lifting, bending, twisting. I answered all questions they had related to the postoperative healing course. No new neurological deficits. The patient ambulates well and rises from seated position without difficulty. His posterior incision site is closed and well healing, however does have some edema/ inflammation noted underneath the incision site. I would like Arturo to try and practice the recommended postoperative healing course activity guidelines that we discussed today. I will refill his Oxycodone for a final refill. He will follow up with us again in 6 weeks for his 2nd postoperative visit. Bubba Mcdowell MD,PhD [facility] Medications: New oxycodone Partial Fill upon patient request. 5 mg PO Q6-8H PRN 20 tabs 0RF pain Changed From oxycodone Partial Fill upon patient request. 5 mg PO Q4H PRN 20 tabs 0RF pain To oxycodone Partial Fill upon patient request. 5 mg PO Q6-8H PRN 20 tabs 0RF pain Refilled docusate sodium (Colace) 100 mg PO BID 20 caps 0RF Coding Level of Care Code Global (21400) Diagnoses Status post lumbar spine surgery for decompression of spinal cord Z98.890
== END 2025-03-29 09:54 | disposition home or self-care (01) ==
LOC: HO.HNS 09:22
PROVIDERS: PCP Nurse Practitioner Family; Visit Provider Physician Assistant
DX: Z98.890 Other specified postprocedural states (principal)
CPT/HCPCS: 99024

== ENCOUNTER → 2025-03-29 09:22 | Outpatient (BNVA) | payer MEDICARE, SELFPAY | PROVIDERS: PCP Nurse Practitioner Family; Visit Provider Physician Assistant | DX: E11.9 Type 2 diabetes mellitus without complications (principal); Z13.31 Encounter for screening for depression; Z13.39 Encounter for screening examination for other mental health and behavioral disorders; Z48.89 Encounter for other specified surgical aftercare; M79.662 Pain in left lower leg | CPT/HCPCS: 83036; 96127; 99212 ==

== ENCOUNTER 2025-03-29 11:27 | Outpatient (AMB) | payer MEDICARE, SELFPAY ==
[2025-03-29 11:35] VITALS: BP 124/64; PULSE 80; TEMP 36.5; O2SAT 97; BMI 27.8
--- NOTE | 2025-03-29 11:35 | A.OFFPC_ITS ---
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 Instructions: Resume on 03/15/25. You may resume aspirin 1 week after surgery atorvastatin 20 mg PO BEDTIME PRN blood pressure monitor As directed clotrimazole-betamethasone 1-0.05 % 1 appl topical BID 2 weeks docusate sodium (Colace) 100 mg PO BID hydroxyzine HCl 12.5 mg PO QID PRN levothyroxine 125 mcg PO QAM magnesium oxide 400 mg PO BEDTIME omeprazole 40 mg PO DAILY PRN oxycodone 5 mg PO Q6-8H PRN Tobacco use date assessed: 03/29/25 Fall risk assessment: No Falls in past year Last assessed Fall Risk: 03/29/25 Dental Screening Dental Screen Date: 07/29/23 HPI 6m follow up -a1c HPI Details Chief Complaint The patient presents for a follow-up visit for diabetes management. History of Present Illness The patient is a 75-year-old male presenting with a follow-up for diabetes management. He has diabetic neuropathy to his bilateral lower extremities. His hemoglobin A1c is 6.4%, reflecting effective diabetes control. The patient maintains up-to-date eye examinations and is on a statin. pt had recent surgery performed on his lower back, still has inflammation reported to lower back (followed up with neuro surg this am) Social History Health Maintenance - Eye examination is up to date Review of Systems - Neurological: Reports no sensation in bilateral extremities -denies any cp, sob, n/v, abd pains Physical Exam General: Cooperative, healthy appearing, comfortable, no acute distress and well developed Orientation: Patient oriented x3 Head: Normal to inspection Ears: Hearing grossly normal bilaterally Nose: Normal external nose present Face and sinus: Normal facial exam Eyes: Appearance normal, both eyes and all related structures Neck: Normal visual inspection and Yes full ROM Respiratory: Normal respiratory effort and able to speak in complete sentences. Clear to auscultation bilaterally Cardiovascular: Regular rate and rhythm. Normal S1 and S2 GI: Normal to inspection. Soft to palpation and nontender Neuro: Patient oriented x3 Extremities: Neuropathy in bilateral extremities, no sensation with use of monofilament and though sensation noted with direct palpation Results - Labs: Hemoglobin A1c 6.4% Plan 1. Diabetes Mellitus The patient's diabetes is well-controlled with a hemoglobin A1c of 6.4%. Future lab tests have been ordered, and the patient understands the need for fasting prior to these tests. Discussion Notes During the visit, we discussed the patient's current diabetes management, noting the impressive control reflected by a hemoglobin A1c of 6.4%. I emphasized the importance of continuing regular monitoring and the need for fasting before upcoming lab tests. Patient Instructions - Continue current diabetes management p jayne. - Schedule and complete lab tests as ord ered, ensuring to fast beforehand. [facility] Medical History Skin cancer Arthritis Asthma Palpitations First degree heart block Arterial insufficiency of lower extremity GERD (gastroesophageal reflux disease) Lumbar stenosis Dyslipidemia Neurogenic claudication Pericarditis Hypothyroid Anxiety Surgical History H/O colonoscopy Hx of skin graft Hx of cholecystectomy Family History Father No problems noted. Social History Housing: House Are you a primary nursing care attendant to a significant other at home: No Do you presently have visiting nurse or other home services: No Unable to assess alcohol history related to: Unknown Alcohol intake: former Patient Tobacco Use Status: Former Tobacco user Tobacco use type: Cigarette Years Smoked: 2 e-Cigarette/Vaping Use: Never Used Second Hand Smoke Exposure: No Advance Directives Date on File: 10/27/16 service: Yes Current occupational status: retired Current occupational exposures/hazards: No Cognitive needs: No Hearing needs: No Vision needs: No Questionnaire PHQ-9 Over the last 2 weeks, how often have you been bothered by any of the following problems? 1. Little interest or pleasure in doing things: not at all 2. Feeling down, depressed, or hopeless: not at all 3. Trouble falling or staying asleep, or sleeping too much: not at all 4. Feeling tired or having little energy: not at all 5. Poor appetite or overeating: not at all 6. Feeling bad about yourself - or that you are a failure or have let yourself or your family down: not at all 7. Trouble concentrating on things, such as reading the newspaper or watching television: not at all 8. Moving or speaking so slowly that other people could have noticed. Or the opposite - being so fidgety or restless that you have been moving around a lot more than usual: not at all 9. Thoughts that you would be better off or of hurting yourself in some way: not at all Total score: 0 Depression Screening Interpretation: Negative Depression Screening Done: Yes 12427 - PHQ-9 Billing: Yes Source: Developed by Drs. Danis Witt, Mavis Emanuel, Mike Nelson and colleagues, with an educational paolo from [employer]. Thrive Questionnaire Date Thrive assessed: 03/22/25 I am a: Patient What is your living situation today?: I have a steady place to live Within the past 12 months, did the food you bought not last and you didn't have the money to get more?: Never true Within the past 12 months, did you worry whether your food would run out before you got money to buy more?: Never true Do you have trouble paying for medicines?: No Do you have trouble getting transportation to medical appointments?: No Do you have trouble paying your heating and electricity bill?: No Do you have trouble taking care of your child, family member or friend?: No Do you have trouble with day-to-day activities such as bathing, preparing meals, shopping, managing finances, etc.?: No Are you currently unemployed and looking for a job?: No Are you interested in more education?: No Please select the resources that you would like help with: None Currently or been in a relationship where the following occur: No concerns reported THRIVE Score: 0 AUDIT C Alcohol Use Questionnaire (AUDIT-C) 1. How often do you have a drink containing alcohol?: Never 3. How often do you have six or more drinks on one occasion?: Never Total Score: 0 Score Reviewed/Action Taken: No DOMINGO-7 AMB Questionnaire DOMINGO-7 Date DOMINGO - 7 assessed: 03/29/25 Feeling nervous, anxious, or on edge: 0 = Not at all Not being able to stop or control worryin = Not at all Worrying too much about different things: 0 = Not at all Trouble relaxin = Not at all Being so restless that it is hard to sit still: 0 = Not at all Becoming easily annoyed or irritable: 0 = Not at all Feeling afraid as if something awful might happen: 0 = Not at all Total DOMINGO-7 score (0-4 normal; 5-9 mild; 10-14 moderate; 15-21 severe): 0 Source: Developed by Drs. Danis Witt, Mavis Emanuel, Mike Nelson and colleagues, with an educational paolo from [employer]. Physical exam (Primary Care) Vital Signs: Last Vital Signs Temp 97.7 F 03/29/25 11:35 Pulse 80 03/29/25 11:35 BP 124/64 03/29/25 11:35 Pulse Ox 97 03/29/25 11:35 Oxygen Delivery Method Room Air 03/29/25 11:35 BMI result Body Mass Index 27.8 Tobacco/Smoking Status: Tobacco use Status Tobacco use date assessed 03/29/25 03/29/25 11:41 Patient Tobacco Use Status Former Tobacco user 03/29/25 11:41 Tobacco use type Cigarette 03/29/25 11:41 e-Cigarette/Vaping Use Never Used 03/29/25 11:41 PHQ-9: PHQ-9 Score PHQ-9: Total score 0 03/29/25 11:47 Depression Screening Interpretation: Negative Thrive Assessment: Date of Thrive Assessment Date Thrive assessed 03/22/25 03/29/25 11:41 Currently or been in a relationship where the following occur: No concerns reported Coding Level of Care Code Est Pt Level 3 (30471) Diagnoses Diabetes E11.9 Additional Codes PHQ-9 - 88999 - PHQ-9 Billing: Yes ([id number]) Assessment & Plan Assessment & Plan (1) Diabetes: Code(s): E11.9 - Type 2 diabetes mellitus without complications Category: Medical Plan . Orders: Orders TSH reflex Free T4 Today E11.9 - Type 2 diabetes mellitus without complications UA CC w/rflx Micro + Cult Today E11.9 - Type 2 diabetes mellitus without complications Lipid Panel Today E11.9 - Type 2 diabetes mellitus without complications Microalbumin, Random (w Creat) Today E11.9 - Type 2 diabetes mellitus without complications Complete Blood Count Auto Diff Today E11.9 - Type 2 diabetes mellitus without complications Comprehensive [place]. Panel Fast Today E11.9 - Type 2 diabetes mellitus without complications
== END 2025-03-29 12:32 | disposition home or self-care (01) ==
LOC: HO.HMCC 11:28
PROVIDERS: PCP Nurse Practitioner Family; Visit Provider Nurse Practitioner Family
DX: E11.9 Type 2 diabetes mellitus without complications (principal); Z13.9 Encounter for screening, unspecified

== ENCOUNTER 2025-05-09 08:06 | Outpatient (AMB) | payer MEDICARE, SELFPAY ==
--- NOTE | 2025-05-09 08:11 | MHC.OFFWIV ---
Intake Vital Signs 05/09/25 08:13 Height 5 ft 10 in Weight 194 lb BMI 27.8 BP 130/80 Blood Pressure Location Lt brachial Position Sitting Pulse 102 H Pulse Source Pulse Oximeter Pulse Oximetry (%) 97 Oxygen Delivery Method Room Air Intake Visit Reasons: EP SOB Intake Note: Patient presents c/o having a hard time breathing last night. Patient thinks it is related to the amount of food he ate at dinner & that he ate too much. Patient denies any SOB or difficulty breathing currently. Patient Tobacco Use Status: Former Tobacco user Allergies losartan Allergy (Severe, Verified 05/09/25 08:13) Shortness of Breath amoxicillin (From AUGMENTIN) Allergy (Intermediate, Verified 05/09/25 08:13) RASH clavulanic acid (From AUGMENTIN) Allergy (Intermediate, Verified 05/09/25 08:13) RASH Sulfa (Sulfonamide Antibiotics) Allergy (Intermediate, Verified 05/09/25 08:13) Rash Do you need a note to return to daycare/school/sports/work: No HPI HPI Comments History of Present Illness Details Patient is a 75yo M with hx of pre-diabetes and asthma who presents to office with SOB He said since last night breathing has felt heavy Woke him up a few times; 3 times and lastes approx 1-2 minutes per pt Last episode was early this morning; unsure of time but was able to go back to sleep Since waking this morning he has had no recurrent episodes of heaviness/difficulty breathing No current symptoms He said he had a large meal at [employer] and ate later than usual He denies chest pain but said heavy feeling in chest during episodes [place] like not getting enough air No cough No cardiac issues per patient Normal energy level No nausea/vomiting/abdominal pain Denies similar symptoms in the past [facility] Medical History Skin cancer Arthritis Asthma Palpitations First degree heart block Arterial insufficiency of lower extremity GERD (gastroesophageal reflux disease) Lumbar stenosis Dyslipidemia Neurogenic claudication Pericarditis Hypothyroid Anxiety Surgical History H/O colonoscopy Hx of skin graft Hx of cholecystectomy Family History Father No problems noted. Social History Housing: House Are you a primary care professionals to a significant other at home: No Do you presently have visiting nurse or other home services: No Alcohol intake: former Patient Tobacco Use Status: Former Tobacco user Tobacco use type: Cigarette Years Smoked: 2 e-Cigarette/Vaping Use: Never Used Second Hand Smoke Exposure: No Advance Directives Date on File: 10/27/16 service: Yes Current occupational status: retired Current occupational exposures/hazards: No Cognitive needs: No Hearing needs: No Vision needs: No Review of Systems Const Denies chills, Denies fever(s), Denies malaise and Denies weakness ENT Denies nasal discharge and Denies sore throat Card Reports chest pain ( heaviness ), Denies syncope and Reports dyspnea Resp Denies chest congestion, Denies cough, Reports dyspnea and Denies wheezing GI Denies abdominal pain, Denies diarrhea and Denies vomiting Neuro Denies syncope and Denies weakness Aller/Immun Denies wheezing Physical Exam Exam Exam: General: Non-toxic, NAD. Speaking full sentences. Skin: Warm dry throughout. Eye: EOMI HENT: Airway patent. Uvula midline. No pharyngeal erythema or edema. 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 Bilateral canals clear. TM non-erythematous, non-bulging. No TM perforation or hemotympanum noted. Respiratory: CTA bilaterally. No wheezes, rales or rhonchi Cardiac: RRR. No murmur. No leg edema; no pitting noted. Legs equal in size and shape bilaterally MSK: Full ROM extremities. Neurology: Alert. No aphasia or facial droop. Gait without abnormality Psych: Good mood and affect Vital Signs: Last Vital Signs Pulse 102 H 05/09/25 08:13 BP 130/80 05/09/25 08:13 Pulse Ox 97 05/09/25 08:13 Oxygen Delivery Method Room Air 05/09/25 08:13 BMI result Body Mass Index 27.8 Assessment & Plan Assessment & Plan (1) Chest heaviness: Code(s): R07.89 - Other chest pain Plan: Patient seen and evaluated. His symptoms are concerning for cardiac abnormality as his lungs are CTA and he had 2-3 episodes that woke him from his sleep EKG will be obtained in office; 84bpm NSR no STEMI Due to patient's age, moderate suspicious hx of events, and 2 risk factors of HTN and HLD with normal EKG will recommend troponin workup in ER. Discussed with pt and he is okay with going to [facility] for trop rule out. All questions answered Expect give to [facility] Patient gave verbal understanding and had no additional questions or concerns at time of discharge All questions answered Orders: Orders AMB EKG-In Office Today R07.89 - Other chest pain Coding Level of Care Code Est Pt Level 4 (21755) Diagnoses Chest heaviness R07.89
[2025-05-09 08:13] VITALS: BP 130/80; PULSE 102; O2SAT 97; BMI 27.8
== END 2025-05-09 09:07 | disposition home or self-care (01) ==
PROVIDERS: PCP Nurse Practitioner Family; Visit Provider Physician Assistant
DX: R07.89 Other chest pain (principal)

== ENCOUNTER 2025-05-09 09:16 | Emergency (ER) | payer MEDICARE, SELFPAY ==
--- NOTE | ~2025-05-09 | XR_ITS ---
EXAMINATION: XR CHEST CLINICAL INFORMATION: chest pressure COMPARISON: Previous chest CT January 2023 and chest x-rays most recent January 2025 TECHNIQUE: 2 views of the chest were obtained. FINDINGS: There are nodular densities at both lung bases measuring up to 9 mm on the right seen on the PA view only. These may represent nipple shadows. Lungs are otherwise clear. No consolidation or pulmonary edema. No pleural effusion or pneumothorax. Cardiac and mediastinal contours are stable. Degenerative changes of the spine and mild curvature of the lower thoracic spine to the left. XR/XR chest 2V IMPRESSION: Nodular densities at both lung bases. These may represent nipple shadows. Follow-up chest x-ray with nipple markers recommended. Electronically signed by: Heather Duran MD 05/09/2025 10:22 AM MANUEL
--- NOTE | 2025-05-09 09:17 | ECG_ITS ---
Test Reason : CP Blood Pressure : */* mmHG Vent. Rate : 91 BPM Atrial Rate : 91 BPM P-R Int : 182 ms QRS Dur : 82 ms QT Int : 346 ms P-R-T Axes : 62 7 48 degrees QTcB Int : 425 ms Normal sinus rhythm Possible Inferior infarct , age undetermined Abnormal ECG When compared with ECG of 15-Nov-2024 08:10, Borderline criteria for Inferior infarct are now Present Referred By: Generic ED Physician Electronically Signed By: JASON OLVERA MD
[2025-05-09 09:35] VITALS: BP 154/88; PULSE 95; RESP 16; TEMP 36.3; O2SAT 96; BMI 28.6
[2025-05-09 09:41] LABS: MANUAL DIFF FLAG NO
[2025-05-09 09:46] LABS: Hematocrit 49.2 % (42.0-52.0); Hemoglobin 16.6 g/dl (14.0-18.0); Imm Gran Abs Auto 0.03 X10*3/uL (0.00-0.03); Imm Gran Pct Auto 0.3 % (0.0-0.4); Lymphocytes Absolute Auto 2.4 X10*3/uL (1.2-4.9); Mean Corpuscular HGB Conc 33.7 g/dl (31.0-36.0); Mean Corpuscular Hemoglobin 31.1 pg (27.0-33.0); Mean Corpuscular Volume 92.1 fL (80.0-98.0); NRBC Abs Auto 0.000 X10*3/uL (0.0-0.012); NRBC Pct Auto 0.0 /100WBC (0.0-0.2); Platelet Count 294 X10*3/uL (160-400); Red Blood Count 5.34 X10*6/uL (4.60-5.80); White Blood Count 9.4 X10*3/uL (4.8-10.8)
[2025-05-09 09:50] LABS: INTERNATIONAL NORM RATIO 1.0 (0.9-1.1); Prothrombin Time 11.9 SEC (11.2-13.5)
[2025-05-09 09:53] LABS: Partial Thromboplastin Time 29.3 SEC (26.7-34.1)
--- NOTE | 2025-05-09 09:59 | ED.CHESTPAIN ---
HPI - Chest Pain General Chief Complaint: Chest Pain Stated Complaint: abnormal ekg? sent from urgent care Time Seen by Provider: 05/09/25 09:29 Source: patient Mode of arrival: ambulatory Limitations: no limitations History of Present Illness ED Provider: HPI narrative: 75-year-old male with no history of CAD, I do not elicit history of hypotension, smoking or any other cardiac risk factors presenting with 2 episodes of chest pressure overnight, he went to urgent care and was sent to the ER for further evaluation, has had no dyspnea no fevers or chills no pleurisy. Related Data Home Medications ?Medication ?Instructions ?Recorded ?Confirmed aspirin 81 mg tablet,delayed 81 mg PO QAM 10/15/22 03/29/25 release Held on 03/06/25. Instructions: Resume on 03/15/25. You may resume aspirin 1 week after surgery magnesium oxide 400 mg (241.3 mg 400 mg PO BEDTIME 02/28/25 03/29/25 magnesium) tablet omeprazole 40 mg capsule,delayed 40 mg PO DAILY PRN gerd 02/28/25 03/29/25 release atorvastatin 20 mg tablet 20 mg PO BEDTIME PRN Rash 03/01/25 03/29/25 hydroxyzine HCl 25 mg tablet 12.5 mg PO QID PRN itching/anxiety 03/01/25 03/29/25 Previous Rx's ?Medication ?Instructions ?Recorded blood pressure monitor #1 ea 12/10/21 clotrimazole-betamethasone 1 1 appl topical BID 2 weeks #45 11/23/ %-0.05 % topical cream grams albuterol sulfate 90 mcg/actuation 1 inh inhalation QID PRN shortness 12/02/24 aerosol inhaler of breath or wheezing #8.5 grams levothyroxine 125 mcg capsule 125 mcg PO QAM #90 caps 03/16/25 docusate sodium 100 mg capsule 100 mg PO BID #20 caps 03/29/25 (Colace) oxycodone 5 mg tablet 5 mg PO Q6-8H PRN pain #20 tabs 03/29/25 amlodipine 5 mg tablet 5 mg PO DAILY for blood pressure 05/06/25 #90 tabs Allergies Allergy/AdvReac Type Severity Reaction Status Date / Time losartan Allergy Severe Shortness Verified 05/09/25 09:36 of Breath amoxicillin (From AUGMENTIN) Allergy Intermediate RASH Verified 05/09/25 09:36 clavulanic acid (From Allergy Intermediate RASH Verified 05/09/25 09:36 AUGMENTIN) Sulfa (Sulfonamide Allergy Intermediate Rash Verified 05/09/25 09:36 Antibiotics) Review of Systems Constitutional: Constitutional: Reports as per HPI [facility] Past Medical History Medical History Skin cancer Arthritis Asthma Palpitations First degree heart block Arterial insufficiency of lower extremity GERD (gastroesophageal reflux disease) Lumbar stenosis Dyslipidemia Neurogenic claudication Pericarditis Hypothyroid Anxiety Surgical History H/O colonoscopy Hx of skin graft Hx of cholecystectomy Family History Family History Father No problems noted. Social History Social History Housing: House Are you a primary emergency care tech to a significant other at home: No Do you presently have visiting nurse or other home services: No Alcohol intake: former Patient Tobacco Use Status: Former Tobacco user Tobacco use type: Cigarette Years Smoked: 2 Smoked in Last 30 Days: No e-Cigarette/Vaping Use: Never Used Second Hand Smoke Exposure: No Use of substances other than those prescribed or required for medical reasons: No Advance Directives: Yes Advance Directives on File: Yes Advance Directives Date on File: 10/27/16 service: Yes Current occupational status: retired Current occupational exposures/hazards: No Cognitive needs: No Hearing needs: No Vision needs: No Physical Exam Exam: Exam: General: ?Appears of stated age ? ?PERRLA, EOMI, MMM, ? Neck: Supple, no LAD ? ?CV: RRR, no obvious murmurs appreciated ? ?Resp: ?No wheezing rales rhonchi no stridor moving air well ? Abd: ?Bowel sounds are present, no tenderness no rebound no rigidity ? ?MSK: FROM, strength 5/5 all extremities ? Skin: Warm, dry, intact, ? ?Neuro: ?Alert and oriented x3, moving upper and lower extremities symmetrically, no obvious facial asymmetry noted, cranial nerves 2-12 intact Vital Signs: Vital Signs: Last Vital Signs Temp 97.4 F 05/09/25 09:35 Pulse 95 05/09/25 09:35 Resp 16 05/09/25 09:35 BP 154/88 H 05/09/25 09:35 Pulse Ox 96 05/09/25 09:35 O2 Del Method Room Air 05/09/25 09:35 BMI result Body Mass Index 28.6 Medical Decision Making Medical Decision Making [facility] Narrative: 10:01 AM 05/09/2025 (Dr. Oziel Durant): ECG obtained in urgent care and emergency department is reassuring, he has had slightly elevated heart rate as I was speaking with the patient, 2 weeks ago he had minimally invasive back surgery, no lower extremity edema but given his chest pain and recent procedure we will obtain D-dimer as well he has low risk for PE however I am that is why I am obtain a D-dimer, we will check his troponin, he is otherwise chest pain-free. Differential Diagnosis Differential Diagnoses: The differential diagnosis associated with the presentation includes (ACS, pneumothorax, aortic dissection, PE, Boerhaave syndrome) Admission/Observation Consideration of admission/observation: Escalation of care including admission/observation considered Lab Data [facility] Lab Attestation statement: I reviewed the patient's lab results. 05/09/25 09:33 05/09/25 09:33 Labs: Lab Results 05/09/25 05/09/25 Range/Units 09:29 09:33 WBC 9.4 (4.8-10.8) X10*3/uL RBC 5.34 (4.60-5.80) X10*6/uL Hgb 16.6 (14.0-18.0) g/dl Hct 49.2 (42.0-52.0) % MCV 92.1 (80.0-98.0) fL MCH 31.1 (27.0-33.0) pg MCHC 33.7 (31.0-36.0) g/dl RDW 13.2 (11.0-16.0) % Plt Count 294 (160-400) X10*3/uL MPV 8.8 L (9.4-12.4) fL Immature Gran % (Auto) 0.3 (0.0-0.4) % Neut % (Auto) 66.0 (45-73) % Lymph % (Auto) 25.7 (20-40) % Collier % (Auto) 6.3 (2-11) % Eos % (Auto) 1.1 (0-4) % Baso % (Auto) 0.6 (0-2) % Lymph # (Auto) 2.4 (1.2-4.9) X10*3/uL Collier # (Auto) 0.6 (0.1-1.2) X10*3/uL Eos # (Auto) 0.1 (0.0-0.4) X10*3/uL Baso # (Auto) 0.1 (0.0-0.2) X10*3/uL Abs Immat Gran (auto) 0.03 (0.00-0.03) X10*3/uL Absolute Neuts (auto) 6.2 (2.0-8.3) x10*3/uL Absolute Nucleated RBC 0.000 (0.0-0.012) X10*3/uL Nucleated RBC % (auto) 0.0 (0.0-0.2) /100WBC PT 11.9 (11.2-13.5) SEC INR 1.0 (0.9-1.1) APTT 29.3 (26.7-34.1) SEC Sodium 146 H (135-145) mmol/L Potassium 4.5 (3.3-5.1) mmol/L Chloride 108 (96-108) mmol/L Carbon Dioxide 29 (22-29) mmol/L Anion Gap 14 (12-20) BUN 12 (9-16) mg/dL Creatinine 0.91 (0.5-1.4) mg/dL Estim Creat Clear Calc 78.1 Estimated GFR > 60 Random Glucose 156 H (60-115) mg/dL Calcium 9.9 D (8.4-10.2) mg/dL Magnesium 2.4 (1.6-2.6) mg/dL Total Bilirubin 1.7 H (0.0-1.0) mg/dL Direct Bilirubin 0.6 H (0.0-0.5) mg/dL AST 31 (5-37) U/L ALT 39 (0-40) U/L Alkaline Phosphatase 122 H (39-117) U/L Troponin I High Sens < 2.7 (<3.5-35.0) ng/L NT-Pro-B Natriuret Pep 20.2 (<300) pg/mL Total Protein 7.8 (6.5-8.0) g/dL Albumin 5.0 (3.5-5.0) g/dL Influenza Type A (PCR) NEGATIVE (Negative) Influenza Type B (PCR) NEGATIVE (Negative) RSV RNA Qual (PCR) NEGATIVE (Negative) SARS-CoV-2 RNA (RT-PCR) NEGATIVE (Negative) Independent Interpretation I performed an independent interpretation of an: EKG (91 beats per minute otherwise normal ECG without dysrhythmia, AV lonny blocks or ST-T changes to suspect underlying ACS, my independent interpretation) and Plain X-Ray (My independent chest xray interpretation: Lungs: Lungs are clear bilaterally without evidence of focal consolidation, pleural effusion, or pneumothorax. Cardiac silhouette is unremarkable, no obvious mediastinal widening, no obvious bony abnormalities such as fractures. Impression: Normal chest X-r) Radiology Impression Discussion of test interpretation with radiology: I have reviewed the radiologist's reading. Radiologist Impression: IMPRESSION: Nodular densities at both lung bases. These may represent nipple shadows. Follow-up chest x-ray with nipple markers recommended. External Record Review External record reviewed: Outpatient record Discharge Plan Discharge Clinical Impression: Chest pain, precordial Instructions: Chest Pain (ED) Additional Instructions: Diagnosis and Initial Evaluation: You have been evaluated in the Emergency Department (ED) for chest pain. Based on your clinical assessment, electrocardiogram (ECG), and high-sensitivity cardiac troponin (hs-cTn) levels, you have been classified as low-risk for acute coronary syndrome (ACS) and myocardial infarction (FL). This means that your likelihood of having a heart attack or other serious heart condition in the next 30 days is very low. Follow-Up Care: ? Primary Care Provider (PCP) or Cross Country Coach: It is important to follow up with your primary care provider or landing gear mechanic within the next 14 to 30 days. This follow-up is crucial to ensure that any underlying conditions are managed appropriately and to discuss any further testing that may be needed. ? Notification: If you have an established PCP or landing gear mechanic, they have been notified of your ED visit to facilitate continuity of care. Self-Care and Monitoring: ? Medications: Continue taking any prescribed medications as directed. If you have been given new medications, ensure you understand how and when to take them. ? Activity: Resume normal activities as tolerated. Avoid strenuous activities until you have discussed them with your healthcare provider. ? Diet: Maintain a heart-healthy diet, low in saturated fats, cholesterol, and sodium. Red Flags: Seek immediate medical attention if you experience any of the following: ? New or worsening chest pain ? Shortness of breath ? Dizziness or fainting ? Pain radiating to your arm, neck, or jaw ? Sweating, nausea, or vomiting Additional Testing: In some cases, outpatient testing such as a stress test or imaging may be recommended to further evaluate your heart health. Your follow-up provider will discuss this with you if necessary. Mental Health: Anxiety and stress can contribute to chest pain. Consider discussing any concerns with your healthcare provider, who may recommend screening for anxiety or depression and appropriate management strategies. Contact Information: If you have any questions or concerns before your follow-up appointment, please contact your healthcare provider or the ED where you were evaluated. Summary: You have been discharged from the ED with a low risk of serious heart conditions. Follow the instructions above, attend your follow-up appointments, and seek immediate care if you experience any red flags. Prescriptions: No Action albuterol sulfate 90 mcg/actuation HFA aerosol inhaler 1 inh inhalation QID PRN (Reason: shortness of breath or wheezing) Qty: 8.5 0RF levothyroxine 125 mcg capsule 125 mcg PO QAM Qty: 90 1RF amlodipine 5 mg tablet 5 mg PO DAILY Qty: 90 1RF omeprazole 40 mg capsule,delayed release(DR/EC) 40 mg PO DAILY PRN (Reason: gerd) magnesium oxide 400 mg (241.3 mg magnesium) tablet 400 mg PO BEDTIME atorvastatin 20 mg tablet 20 mg PO BEDTIME PRN (Reason: Rash) hydroxyzine HCl 25 mg tablet 12.5 mg PO QID PRN (Reason: itching/anxiety) aspirin 81 mg tablet,delayed release (DR/EC) 81 mg PO QAM (DME) blood pressure monitor Kit See Rx Instructions .Route Qty: 1 0RF Rx Instructions: As directed clotrimazole-betamethasone 1-0.05 % cream 1 appl topical BID 14 Days Qty: 45 0RF docusate sodium [Colace] 100 mg capsule 100 mg PO BID Qty: 20 0RF oxycodone 5 mg tablet 5 mg PO Q6-8H PRN (Reason: pain) Qty: 20 0RF Rx Instructions: Partial Fill upon patient request. Print Language: Burmese
[2025-05-09 10:18] LABS: Alanine Aminotransferase 39 U/L (0-40); Albumin Level 5.0 g/dL (3.5-5.0); Alkaline Phosphatase 122 U/L (39-117); Anion Gap 14 (12-20); Aspartate Amino Transferase 31 U/L (5-37); Blood Urea Nitrogen 12 mg/dL (9-16); Calcium 9.9 mg/dL (8.4-10.2); Carbon Dioxide 29 mmol/L (22-29); Chloride 108 mmol/L (96-108); Creatinine Clr Calc Pharmacy 78.1; Estimated Glomerular Filt Rate > 60; Magnesium 2.4 mg/dL (1.6-2.6); Potassium 4.5 mmol/L (3.3-5.1); Sodium 146 mmol/L (135-145); Total Protein 7.8 g/dL (6.5-8.0)
[2025-05-09 10:19] LABS: Resp Syncy Virus RNA Qual PCR NEGATIVE (Negative); SARS COV2 PCR INHOUSE NEGATIVE (Negative)
[2025-05-09 10:27] LABS: NT Pro B Type Natriuretic Pept 20.2 pg/mL (<300)
[2025-05-09 10:28] LABS: Troponin-I High Sensitivity < 2.7 ng/L (<3.5-35.0)
[2025-05-09 11:27] VITALS: BP 135/80; PULSE 73; RESP 15; TEMP 36.6; O2SAT 98
[2025-05-09 11:41] LABS: D Dimer High Sensitivity < 150 NG/ML
[2025-05-09 12:26] VITALS: BP 135/80; PULSE 73; RESP 15; TEMP 36.6; O2SAT 98
== END 2025-05-09 12:30 | disposition home or self-care (01) ==
PROVIDERS: Emergency Provider Emergency Medicine; PCP Nurse Practitioner Family
DX: R07.2 Precordial pain (principal); J45.909 Unspecified asthma, uncomplicated; Z03.818 Encounter for observation for suspected exposure to other biological agents ruled out; Z88.0 Allergy status to penicillin; Z88.2 Allergy status to sulfonamides
CPT/HCPCS: 36415; 71046; 80048; 80076; 83735; 83880; 84484; 85025; 85379; 85610; 85730; 87637; 93005; 99212; 99283; 99285

== ENCOUNTER → 2025-05-09 09:17 | Outpatient (BNV) | payer MEDICARE, SELFPAY | PROVIDERS: Emergency Provider Emergency Medicine; PCP Nurse Practitioner Family; Visit Provider Internal Medicine Cardiovascular Disease | DX: R94.31 Abnormal electrocardiogram [ECG] [EKG] (principal); R07.9 Chest pain, unspecified | CPT/HCPCS: 93010 ==

== ENCOUNTER → 2025-05-09 10:02 | Outpatient (BNV) | payer MEDICARE, SELFPAY | PROVIDERS: Emergency Provider Emergency Medicine; PCP Nurse Practitioner Family; Visit Provider Radiology Diagnostic Radiology | DX: R07.89 Other chest pain (principal) | CPT/HCPCS: 71046 ==

== ENCOUNTER 2025-05-10 09:44 | Outpatient (AMB) | payer MEDICARE, SELFPAY ==
--- NOTE | 2025-05-10 09:54 | A.SPINEOV_ITS ---
Intake Visit Reasons: 2nd post op Intake Note: Mr. Gibbs is here today for his 2nd post op. Quarry Extraction Worker Required: No Allergies losartan Allergy (Severe, Verified 05/09/25 09:36) Shortness of Breath amoxicillin (From AUGMENTIN) Allergy (Intermediate, Verified 05/09/25 09:36) RASH clavulanic acid (From AUGMENTIN) Allergy (Intermediate, Verified 05/09/25 09:36) RASH Sulfa (Sulfonamide Antibiotics) Allergy (Intermediate, Verified 05/09/25 09:36) Rash Assessment & Plan Assessment & Plan (1) Status post lumbar spine surgery for decompression of spinal cord: Code(s): Z98.890 - Other specified postprocedural states Category: Surgical Plan Operation: Left L5 Laminotomy Arturo is a pleasant 75-year-old male who underwent left-sided L5 laminotomy with Dr. Mcdowell on 03/08/25. Comes in today for his 2nd postoperative visit. He reports that in his low back pain is significantly improved, however he is concerned that he still has burning and cramping from his gastrocnemius down into his feet in his bilateral lower extremities, much worse on the left-hand side. He has reduced his overall activity since seeing me last, however states this does not seem to have helped. He primarily gets the burning sensation and cramping pain with prolonged ambulation. We discussed how this may be related to continued nerve compression versus peripheral neuropathy. We discussed potentially sending him for a course of physical therapy to see if they can help work out some of this residual pain that he continues to have. He is agreeable to this. No new neurological deficits. The patient ambulates well and rises from seated position without difficulty. I would like Arturo to attempt a course of physical therapy. He should call the office after physical therapy to follow up with us. If his symptoms persist we may need to consider ordering a repeat lumbar MRI. Bubba Mcdowell MD,PhD [facility] Orders: Orders PT Evaluation and Treatment Today Z98.890 - Other specified postprocedural states Coding Level of Care Code Global (25217) Diagnoses Status post lumbar spine surgery for decompression of spinal cord Z98.890
== END 2025-05-10 11:08 | disposition home or self-care (01) ==
LOC: HO.HNS 09:45
PROVIDERS: PCP Nurse Practitioner Family; Visit Provider Physician Assistant
DX: Z98.890 Other specified postprocedural states (principal)
CPT/HCPCS: 99024

== ENCOUNTER → 2025-05-10 09:44 | Outpatient (BNVA) | payer MEDICARE, SELFPAY | PROVIDERS: PCP Nurse Practitioner Family; Visit Provider Physician Assistant | DX: M54.50 Low back pain, unspecified (principal); Z98.890 Other specified postprocedural states | CPT/HCPCS: 99212 ==

== ENCOUNTER 2025-05-17 06:06 | Outpatient (REF) | payer MEDICARE, SELFPAY ==
[2025-05-17 06:27] LABS: MANUAL DIFF FLAG NO
[2025-05-17 07:26] LABS: Hematocrit 47.2 % (42.0-52.0); Hemoglobin 15.9 g/dl (14.0-18.0); Imm Gran Abs Auto 0.02 X10*3/uL (0.00-0.03); Imm Gran Pct Auto 0.2 % (0.0-0.4); Lymphocytes Absolute Auto 3.7 X10*3/uL (1.2-4.9); Mean Corpuscular HGB Conc 33.7 g/dl (31.0-36.0); Mean Corpuscular Hemoglobin 31.2 pg (27.0-33.0); Mean Corpuscular Volume 92.7 fL (80.0-98.0); NRBC Abs Auto 0.000 X10*3/uL (0.0-0.012); NRBC Pct Auto 0.0 /100WBC (0.0-0.2); Platelet Count 285 X10*3/uL (160-400); Red Blood Count 5.09 X10*6/uL (4.60-5.80); White Blood Count 10.9 X10*3/uL (4.8-10.8)
[2025-05-17 07:38] LABS: Appearance Urine Clear; Glucose Urine UA 500 mg/dL (Negative); PH 5.5 (5.0-9.0); Specific Gravity - Urine 1.020 (1.005-1.025)
[2025-05-17 07:57] LABS: Alanine Aminotransferase 59 U/L (0-40); Albumin Level 4.8 g/dL (3.5-5.0); Alkaline Phosphatase 109 U/L (39-117); Anion Gap 14 (12-20); Aspartate Amino Transferase 40 U/L (5-37); Blood Urea Nitrogen 13 mg/dL (9-16); Calcium 9.4 mg/dL (8.4-10.2); Carbon Dioxide 27 mmol/L (22-29); Chloride 107 mmol/L (96-108); Cholesterol 140 mg/dL (<200); Estimated Glomerular Filt Rate > 60; HDL Cholesterol 56 mg/dL (>40); Potassium 4.9 mmol/L (3.3-5.1); Sodium 143 mmol/L (135-145); Total Protein 7.4 g/dL (6.5-8.0); Triglycerides 183 mg/dL (<150)
[2025-05-17 08:11] LABS: Microalbum/Creatinine Ratio Ur 4.2 ug/mg cr (<30)
[2025-05-17 09:14] LABS: Free T4 (Free Thyroxine) 1.20 ng/dL (0.71-1.85)
== END 2025-05-17 06:07 | disposition home or self-care (01) ==
LOC: HO.LAB 06:06
PROVIDERS: PCP Nurse Practitioner Family; Visit Provider Nurse Practitioner Family
DX: E11.9 Type 2 diabetes mellitus without complications (principal)
CPT/HCPCS: 36415; 80053; 80061; 81003; 82043; 82570; 84439; 84443; 85025

== ENCOUNTER 2025-06-14 07:51 | Outpatient (RCR) | payer MEDICARE, SELFPAY ==
--- NOTE | 2025-05-17 15:00 | MHC.PT.EP ---
[facility] [place] Office [place] Office [place] Office [address] Leila Valadez [address] [phone] F: [phone] F: [phone] F: [phone] F: [phone] Physical Therapy Plan of Care Date of Evaluation: 05/17/25 Date of Surgery: 03/08/25 Diagnosis: S/P LUMBAR SPINE SURGERY FOR DECOMPRESSION OF SPINAL CORD, S/P LEFT L5 LUMBAR DECOMPRESSION-> POST OP BILT LEs CRAMPING W AMB Assessment: 75 YO MALE REF TO PT S/P LEFT L5 DECOMPRESSION W DR MILES ON 03/08/25. HE HAS RESIDUAL Lt > Rt CALF PAIN/ SXS EXACERBATED W AMBULATION. OBJECTIVE FINDINGS: ALTERED GAIT MECH ; DECR LEs/ TRUNK AROM-FLEXIB; STRENGTH DEFICITS IN MERI CALVES/ FEET/ PROX LEs; INEFFICIENT FUNCT SQUAT, SLS 2 SEC, AND MERI CALF PAIN. HE HAS DECR GALLITO TO HIS DAILY FITNESS WALKING. THE Pt IS MOTIVATED TO TRIAL PT AND REDUCE HIS SXS/ IMPROVE FUNCT MOB GALLITO. Frequency and Duration: The patient will be seen 2 x WK x 5 WKS Short Term Goals: DECR Lt > Rt CALF PAIN TO 2-3/10 Pt INDEP W SELF CORRECTION POSTURE INITIATE HEP-> LEs FLEXIB Pt DEMON WFL/ EFFICIENT GAIT AND SQUATTING Overlock Sleeve Setter Goals: Pt INDEP W HEP AND SELF SX MGMT TECHN IMPROVED OSWESTRY, AT EVAL 8/50 Pt DEMON WFL FLEXIB/ AROM IN HIS HIPS/ KNEES/ ANKLES INCRESED STRENGTH IN MERI LEs-> HEEL RAISES x 15R/ 2 SETS Pt DEMON SLS x 5-10 SEC EACH Treatment Plan: Modalities to reduce pain, spasms and effusion. Manual therapy to restore motion and function. Therapeutic exercise to improve strength and flexibility. Neuromuscular re-education for posture and balance. Therapeutic activities to return to functional activities of daily living. Electronically signed by: BURT MOHAN, PT Please sign and return to therapist. Thank you for your referral.
--- NOTE | 2025-06-14 13:15 | MHC.PT.DC ---
[facility] [place] Office [place] Office [place] Office [address] Leila Valadez [address] [phone] F: [phone] F: [phone] F: [phone] F: [phone] Physical Therapy Discharge Report Diagnosis: S/P LUMBAR SPINE SURGERY FOR DECOMPRESSION OF SPINAL CORD, S/P LEFT L5 LUMBAR DECOMPRESSION-> POST OP BILT LEs CRAMPING W AMB Date of Surgery: 03/08/25 Date of Evaluation: 05/17/25 Date of Discharge: 06/14/25 Treatments to Date: 6 Cancellations to Date: 0 No Shows to Date: 0 Discharge Status: Improved Function Patient Elected to Stop Discharge Summary: Overall pt reports minimal-no change with therapy and he would like to return to the surgeon for f/u and potential second surgery. States he still cannot walk prolonged distances d/t burning pain in leg and sore low back. Oswestry remains 8/50. We reviewed his thorough HEP, continuing with ROM and strength exercises for max gains, pacing, and shoewear considerations. At this time, he will be d/c from PT secondary to Patient's wishes and no progress. Electronically signed by: BURT MOHAN,PT Please sign and return to therapist. Thank you for your referral.
== END 2025-06-14 13:26 | disposition home or self-care (01) ==
LOC: HO.PT 07:51
PROVIDERS: PCP Nurse Practitioner Family; Visit Provider Physician Assistant
DX: R25.2 Cramp and spasm (principal); M79.605 Pain in left leg; M79.604 Pain in right leg; Z98.890 Other specified postprocedural states
CPT/HCPCS: 97110; 97112; 97140; 97162

== ENCOUNTER 2025-06-19 13:37 | Outpatient (AMB) | payer MEDICARE, SELFPAY ==
--- NOTE | 2025-06-19 13:20 | HO.SPINEOV ---
Intake Visit Reasons: f/up after PT Intake Note: Mr. Gibbs is here today to F/u after PT. Long Term Acute Care Registered Nurse Required: No Allergies losartan Allergy (Severe, Verified 06/19/25 13:40) Shortness of Breath amoxicillin (From AUGMENTIN) Allergy (Intermediate, Verified 06/19/25 13:40) RASH clavulanic acid (From AUGMENTIN) Allergy (Intermediate, Verified 06/19/25 13:40) RASH Sulfa (Sulfonamide Antibiotics) Allergy (Intermediate, Verified 06/19/25 13:40) Rash Assessment & Plan Assessment & Plan (1) Status post lumbar spine surgery for decompression of spinal cord: Code(s): Z98.890 - Other specified postprocedural states Category: Surgical Plan Operation: Left L5 Laminotomy Arturo is a pleasant 75-year-old male who underwent left-sided L5 laminotomy with Dr. Mcdowell on 03/08/25. He comes in today for a subsequent follow up after being sent for a course of physical therapy to see if it can work out some of the lower extremity pain he is still reporting after surgery. To recap during his last office visit he reported that his low back pain had significantly improved, however continued to report burning and cramping from his gastrocnemius down into his feet, much worse on the left-hand side, but present bilaterally. We discussed the possibility of ordering an EMG to r/o alternate diagnosis of peripheral / polyneuropathy, however the patient reported that he had one completed back in 2022. He reports that he does not remember getting any updates / results from this test, but was told at some point that he had neuropathic pain, which he reported at initial clinic visit. Upon review of his EMG imaging the report states he had both L5-S1 radiculopathy and polyneuropathy. It is very possible that his leg pain has persisted as a result of his polyneuropathy despite relief of L5 nerve compression via surgery. No new neurological deficits. The patient ambulates independently. He rises from a seated position without issue. His gait is non-antalgic and non-spastic. His lower extremity strength remains full. I would like to send Arturo for a repeat EMG of the lower extremities to identify if he does in fact have a continued radiculopathy shown on EMG imaging. If he only has continued polyneuropathy then his leg symptoms will not improve with surgery and additional imaging will not be helpful. I will call him with the results of the EMG when it is completed and read by Radiology. Bubba Mcdowell MD,PhD [facility] Coding Level of Care Code Global (23456) Diagnoses Status post lumbar spine surgery for decompression of spinal cord Z98.890
--- OUTSIDE RECORDS SUMMARY | 2025-06-19 14:46 | XMS_ITS | Encounter Summary ---
Author Organization [employer] [facility] Prior to 04/28/2024 Address [address] [place] [address] Care Team Providers Care Compensation Programs Manager Name Role Phone Ramesh Salvador MD Primary Care Provider [phone] Community, Pcp Primary Care Provider Unavailabl e Encounter Details Date Type Department Care Team Description 06/11/2015 Business Doc Medical Records [address] [place] [id number] Abstract, Provider Social History Tobacco Use Types [...] on filedocumented in this encounter Care Teams Compensation Programs Manager Relationship Specialty Start Date End Date Ramesh Salvador MD [address] [place] [id number] PCP - General Internal Medicine 04/14/11 04/09/22 [facility], Pcp [address] [place] [id number] PCP - General Internal Medicine 04/10/22 documented as of this encounter
--- OUTSIDE RECORDS SUMMARY | 2025-06-19 14:46 | XMS_ITS | Encounter Summary ---
Author Organization [email or web address] [facility] Prior to 04/28/2024 Address [address] [place] [address] Care Team Providers Care Field Talent Qualification Specialist Name Role Phone Ramesh Salvador MD Primary Care Provider [facility], Pcp Primary Care Provider Unavailabl e Reason for Visit * Reason Onset Date Comments er follow up 02/07/2018 Encounter Details Date Type Department Care Team Description 02/07/2018 Telephone Adult Medicine [address] [phone] Ramesh Salvador MD [address] [place] [address] [phone] er follow up Social History Tobacco Use [...] Miscellaneous Notes * Telephone Encounter - Franchesca Efrain - 02/07/2018 8:49 AM EDT ER follow-up appointment booked YES 02/06/18 If ER or UC follow up, can be booked with APC or MD. If hospital admission follow up MUST be booked with a physician Appointment time: 2:45AM Provider visit is scheduled with: Ramesh Salvador MD Hospital/ center patient was treated at: [facility] Date of visit: 02/06/18 Was this [...] on filedocumented in this encounter Care Teams Field Talent Qualification Specialist Relationship Specialty Start Date End Date Ramesh Salvador MD [address] [place], [place] [phone] PCP - General Internal Medicine 04/14/11 04/09/22 [facility] [address] [address] PCP - General Internal Medicine 04/10/22 documented as of this encounter
--- OUTSIDE RECORDS SUMMARY | 2025-06-19 14:46 | XMS_ITS | Encounter Summary ---
Author Organization [employer] [facility] Prior to 04/28/2024 Address [address] [place] [address] Care Team Providers Care Screen Printing Supervisor Name Role Phone Ramesh Salvador MD Primary Care Provider [phone] [facility], Pcp Primary Care Provider Unavailabl e Reason for Visit * Reason Comments E-prescribe Rx Request Encounter Details Date Type Department Care Team Description 08/18/2014 Refill Adult Medicine [address] [address] Willie Puentes PA-C E-prescribe Rx Request Social [...] NO Patients current insurance carrier is: Payor: [facility]/INDEMNITY / Plan: [facility] / Product Type: MEDICARE [id number] documented in this encounter Plan of Treatment Not on file documented as of this encounter Visit Diagnoses Not on filedocumented in this encounter Care Teams Screen Printing Supervisor Relationship Specialty Start Date End Date Ramesh Salvador MD [address] [place] [phone] PCP - General Internal Medicine 04/14/11 04/09/22 [facility], [address] [address] PCP - General Internal Medicine 04/10/22 documented as of this encounter
--- OUTSIDE RECORDS SUMMARY | 2025-06-19 14:46 | XMS_ITS | Encounter Summary ---
Author Organization [facility] Prior to 04/28/2024 Address [address] [place] [address] Care Team Providers Care Ferryboat Deckhand Name Role Phone Ramesh Salvador MD Primary Care Provider [phone] Community, Pcp Primary Care Provider Unavailabl e Encounter Details Date Type Department Care Team Description 12/02/2011 Rehabilitation Director Report Medical Records [address] [place] [address] 26782 Social History Tobacco Use Types Packs/Day Years [...] on filedocumented in this encounter Care Teams Ferryboat Deckhand Relationship Specialty Start Date End Date Ramesh Salvador MD [address] [place] [address] [phone] PCP - General Internal Medicine 04/14/11 04/09/22 [facility], Pcp [address] [place] [address] 85389 PCP - General Internal Medicine 04/10/22 documented as of this encounter
--- OUTSIDE RECORDS SUMMARY | 2025-06-19 14:46 | XMS_ITS | Encounter Summary ---
Author Organization [facility] Prior to 04/28/2024 Address [address] [place] [address] Care Team Providers Care Shipping Weigher Name Role Phone Ramesh Salvador MD Primary Care Provider [phone] [facility], Pcp Primary Care Provider Unavailabl e Encounter Details Date Type Department Care Team Description 04/01/2014 Pt. Non Urgent Medical Question Adult Medicine [address] [phone] Ramesh Salvador MD [address] [place] [address] [phone] Social History Tobacco Use Types Packs/Day Years [...] only have two pills left.Thank You Arturo Bernie documented in this encounter Plan of Treatment Not on file documented as of this encounter Visit Diagnoses Not on filedocumented in this encounter Care Teams Shipping Weigher Relationship Specialty Start Date End Date Ramesh Salvador MD [address] [place] [address] PCP - General Internal Medicine 04/14/11 04/09/22 [facility], Ana [address] [place] [address] 08108 PCP - General Internal Medicine 04/10/22 documented as of this encounter
--- OUTSIDE RECORDS SUMMARY | 2025-06-19 14:46 | XMS_ITS | Encounter Summary ---
Author Organization [facility] Prior to 04/28/2024 Address [address] [place] [address] Care Team Providers Care Project Hire Name Role Phone Ramesh Salvador MD Primary Care Provider [phone] Ramesh Salvador MD Primary Care Provider [phone] [facility], Pcp Primary Care Provider Unavailabl e Encounter Details Date Type Department Care Team Description 03/09/2005 Orders Only Medical [address] [place], [place] [phone] Narcisa Huggins, [facility] [address] [place], [place] [phone] ABDOMINAL PAIN, UNSPECIFIED SITE (Primary Dx) Social [...] (AUTO DIFF PLATELET) (03/09/2005 2:19 PM EDT) Pathologist [facility] WHITE BLOOD COUNT 8.8 4.8 - 10.8 x10-3 [facility] RED BLOOD COUNT 5.1 4.5 - 5.5 x10-6 [facility] Hemoglobin 16.0 13.0 - 17.0 g/dL [facility] Hematocrit 46.3 40 - 51 % [facility] MEAN CORPUSCULAR VOLUME 90.1 79 - [address] [facility] MEAN CORPUSCULAR HEMOGLOBIN 31.1 27 - [address] [facility] MEAN CORPUSCULAR HGB CONC 34.6 32 - 37 g/dl [facility] RED CELL DISTRIBUTION WIDTH 13.0 11 - 15 % [facility] PLT COUNT 252 130 - 400 x10-3 [facility] NEUTROPHILS % 68 41 - 85 % [facility] LYMPH % 23 15 - 48 % [facility] 03/09/2005 2:19 PM EDT 03/09/2005 2:21 PM EDT Narcisa Huggins CORPORATE LEGAL ASSISTANT LAB [facility] * COMPREHENSIVE METABOLIC PANEL (03/09/2005 2:19 PM EDT) [facility] GLUCOSE 106 70 - 110 mg/dL [facility] Blood Urea Nitrogen 16 5 - 25 mg/dL [facility] creatinine 0.9 0.7 - 1.5 mg/dL [facility] BUN/CREATININE RATIO 17.8 6.0 - 20.0 G/dL [facility] Sodium 142 133 - 145 mEq/L [facility] Potassium 4.6 3.5 - 5.2 mEq/L [facility] Chloride 104 96 - 108 mEq/L [facility] CARBON DIOXIDE (CO2) 29.2 21.0 - 32.0 mEq/L [facility] CALCIUM 10.1 8.5 - 10.5 mg/dL [facility] TOTAL PROTEIN (TP) 6.8 6.0 - 8.0 G/dL [facility] Albumin 4.5 3.2 - 5.6 G/dL [facility] GLOBULIN 2.3 1.9 - 4.4 G/dL [facility] ALBUMIN/GLOBULI N RATIO 2.0 1.1 - 2.3 [facility] BILIRUBIN TOTAL 0.9 0.0 - 1.4 mg/dL [facility] AST (SGOT) 24 10 - 42 U/L [facility] ALT (SGPT) 32 10 - 60 U/L [facility] Alk Phos 83 42 - 121 U/L [facility] 03/09/2005 2:1 9 PM EDT 03/09/2005 2:21 PM EDT Narcisa Huggins [facility] LAB [facility] documented in this encounter Visit Diagnoses Diagnosis Abdominal pain, unspecified site- Primary documented in this encounter Care Teams Project Hire Relationship Specialty Start Date End Date Ramesh Salvador MD [address] [place] [address] 59[address] PCP - General 07/23/99 04/13/11 Ramesh Salvador MD [address] [place] [address] 77554 PCP - General Internal Medicine 04/14/11 04/09/22 [facility], [address] [address] PCP - General Internal Medicine 04/10/22 documented as of this encounter
--- OUTSIDE RECORDS SUMMARY | 2025-06-19 14:46 | XMS_ITS | Encounter Summary ---
Author Organization [facility] [facility] Prior to 04/28/2024 Address [address] [place] [address] Care Team Providers Care Children'S Attendant Name Role Phone Ramesh Salvador MD Primary Care Provider [phone] [facility], Pcp Primary Care Provider Unavailabl e Encounter Details Date Type Department Care Team Description 08/10/2017 Business Doc Medical Records [address] [place] [address]645 Abstract, Provider Social History Tobacco Use Types [...] on filedocumented in this encounter Care Teams Children'S Attendant Relationship Specialty Start Date End Date Ramesh Salvador MD [address] [place] [address] 27464 PCP - General Internal Medicine 04/14/11 04/09/22 [facility], Pcp [address] [place] [address]84 PCP - General Internal Medicine 04/10/22 documented as of this encounter
--- OUTSIDE RECORDS SUMMARY | 2025-06-19 14:46 | XMS_ITS | Encounter Summary ---
Author Organization [facility] Prior to 04/28/2024 Address [address] [place] [address] Care Team Providers Care Data Operations Leader Name Role Phone Ramesh Salvador MD Primary Care Provider [phone] Replaced By [facility], Pcp Primary Care Provider Unavailabl e Encounter Details Date Type Department Care Team Description 01/29/2018 Orders Only Adult Medicine [address] [phone] Ramesh Salvador MD [address] [place] [address] [phone] Hyperglycemia (Primary Dx) Social History Tobacco Use [...] AM EDT Ramesh Salvador MD LAB [facility] documented in this encounter Visit Diagnoses Diagnosis Hyperglycemia- Primary Other abnormal glucose documented in this encounter Care Teams Data Operations Leader Relationship Specialty Start Date End Date Ramesh Salvador MD [address] [place] [address] 23305 PCP - General Internal Medicine 04/14/11 04/09/[address] [address] PCP - General Internal Medicine 04/10/22 documented as of this encounter
--- OUTSIDE RECORDS SUMMARY | 2025-06-19 14:46 | XMS_ITS | Encounter Summary ---
Author Organization [facility] Prior to 04/28/2024 Address [address] [place] [address] Care Team Providers Care Windmill Mechanic Name Role Phone Ramesh Salvador MD Primary Care Provider [phone] [facility], Pcp Primary Care Provider Unavailabl e Encounter Details Date Type Department Care Team Description 04/19/2019 Pt. Non Urgent Medical Question Adult Urgent Care - [address] [address] Citlaly Urbano APRN [address] [place] [address] Social History Tobacco Use Types Packs/Day Years [...] on filedocumented in this encounter Care Teams Windmill Mechanic Relationship Specialty Start Date End Date Ramesh Salvador MD [address] [place] [address] PCP - General Internal Medicine 04/14/11 04/09/22 [facility], [address] [address] PCP - General Internal Medicine 04/10/22 documented as of this encounter
--- OUTSIDE RECORDS SUMMARY | 2025-06-19 14:46 | XMS_ITS | Encounter Summary ---
Author Organization [facility] Prior to 04/28/2024 Address [address] [place] [address] Care Team Providers Care Mail Machine Operator Name Role Phone Ramesh Salvador MD Primary Care Provider [phone] Ramesh Salvador MD Primary Care Provider [phone] [facility], Pcp Primary Care Provider Unavailabl e Encounter Details Date Type Department Care Team Description 04/04/2010 Wireless Communications Engineer Report Medical Records [address] [place] [address] Rasheed Martínez MD Social History Tobacco Use [...] on filedocumented in this encounter Care Teams Mail Machine Operator Relationship Specialty Start Date End Date Ramesh Salvador MD [address] [place] [address] [phone] PCP - General 07/23/99 04/13/11 Ramesh Salvador MD [address] [place] [address] [phone] PCP - General Internal Medicine 04/14/11 04/09/22 [facility] [address] [address] PCP - General Internal Medicine 04/10/22 documented as of this encounter
--- OUTSIDE RECORDS SUMMARY | 2025-06-19 14:46 | XMS_ITS | Encounter Summary ---
Author Organization [facility] Prior to 04/28/2024 Address [address] [place] [address] Care Team Providers Care Hoisting Engine Operator Name Role Phone Ramesh Salvador MD Primary Care Provider [phone] [facility], Pcp Primary Care Provider Unavailabl e Reason for Visit * Reason Onset Date Comments pain, stomach 07/23/2016 Encounter Details Date Type Department Care Team Description 07/23/2016 Telephone Adult Medicine [address] [phone] Ramesh Salvador MD [address] [place] [address] [phone] pain, stomach Social History Tobacco Use Types [...] on filedocumented in this encounter Care Teams Hoisting Engine Operator Relationship Specialty Start Date End Date Ramesh Salvador MD [address] [place] [address] 00522 PCP - General Internal Medicine 04/14/11 04/09/22 [facility], [address] [address] PCP - General Internal Medicine 04/10/22 documented as of this encounter
--- OUTSIDE RECORDS SUMMARY | 2025-06-19 14:46 | XMS_ITS | Encounter Summary ---
Author Organization [facility] Prior to 04/28/2024 Address [address] [place] [address] Care Team Providers Care Education Program Manager Name Role Phone Ramesh Salvador MD Primary Care Provider [phone] Ramesh Salvador MD Primary Care Provider [phone] [facility], Pcp Primary Care Provider Unavailabl e Reason for Visit * Reason Comments medication problems [facility] Encounter Details Date Type Department Care Team Description 11/19/2003 Telephone Adult Medicine [address] [phone] Ramesh Salvador MD [address] [place] [address] [phone] medication problems ([facility] MATT ) Social History [...] - 11/19/2003 4:16 PM EDTCALL RECEIVED. Contact: [phone] GIVEN VIOXX TODAY NOT COVERED THRU [facility] //NEEDS PRIOR AUTH OR SUB CALL [facility] [phone] PATIENT HAS SAVI INS documented in this encounter Plan of Treatment Not on file documented as of this encounter Visit Diagnoses Not on filedocumented in this encounter Care Teams Education Program Manager Relationship Specialty Start Date End Date Ramesh Salvador MD [address] [place] [address] 18769 PCP - General 07/23/99 04/13/11 Ramesh Salvador MD [address] [place] [address] PCP - General Internal Medicine 04/14/11 04/09/[address] [address] PCP - General Internal Medicine 04/10/22 documented as of this encounter
--- OUTSIDE RECORDS SUMMARY | 2025-06-19 14:46 | XMS_ITS | Encounter Summary ---
Author Organization [facility] Prior to 04/28/2024 Address [address] [place] [address] Care Team Providers Care Production Maintenance Mechanic Name Role Phone Ramesh Salvador MD Primary Care Provider [phone] [facility], Pcp Primary Care Provider Unavailabl e Reason for Visit * Reason Onset Date Comments Appointment-Internal Referral 03/04/2017 Encounter Details Date Type Department Care Team Description 03/04/2017 Telephone General Surgery [address] [place] [address] Tavares Valadez MD [address] [place] [address] Appointment-Internal Referral Social History Tobacco Use Types [...] on filedocumented in this encounter Care Teams Production Maintenance Mechanic Relationship Specialty Start Date End Date Ramesh Salvador MD [address] [place] [address] PCP - General Internal Medicine 04/14/11 04/09/22 [facility], [address] [address] PCP - General Internal Medicine 04/10/22 documented as of this encounter
--- OUTSIDE RECORDS SUMMARY | 2025-06-19 14:46 | XMS_ITS | Encounter Summary ---
Author Organization [facility] Prior to 04/28/2024 Address [address] [place] [address] Care Team Providers Care Carpet Inspector Name Role Phone Ramesh Salvador MD Primary Care Provider [phone] Ramesh Salvador MD Primary Care Provider [phone] [facility], Pcp Primary Care Provider Unavailabl e Reason for Visit * Reason Onset Date Comments Director Safety Council Feedback 08/20/2006 REQUEST FOR AUTH ORIZATION FOR CT SCANS Encounter Details Date Type Department Care Team Description 08/20/2006 Telephone Adult [address] [address] Kacy Zheng PA-C Director Safety Council Feedback (REQUEST FOR AUTHORIZATION FOR CT SCANS) [...] Miscellaneous Notes * Telephone Encounter - Evelina Radha Kendall - 08/20/2006 2:59 PM EST FYI YOUR REQUEST FOR AUTHORIZATION FOR CT SCANS OF ABD/PEL WAS DENIED BY MEDICAL REVIEW AT [facility] BY DR JACKELIN CARLOS [...] on filedocumented in this encounter Care Teams Carpet Inspector Relationship Specialty Start Date End Date Ramesh Salvador MD [address] [place] [address] PCP - General 07/23/99 04/13/11 Ramesh Salvador MD [address] [place] [address] PCP - General Internal Medicine 04/14/11 04/09/[address] [address] PCP - General Internal Medicine 04/10/22 documented as of this encounter
--- OUTSIDE RECORDS SUMMARY | 2025-06-19 14:46 | XMS_ITS | Encounter Summary ---
Author Organization [facility] Prior to 04/28/2024 Address [address] [place] [address] Care Team Providers Care Aquatic Scientist Name Role Phone Ramesh Salvador MD Primary Care Provider [phone] [facility], Pcp Primary Care Provider Unavailabl e Encounter Details Date Type Department Care Team Description 03/05/2019 Refill Adult Medicine [address] [phone] Ramesh Salvador MD [address] [place] [address] [phone] Social History Tobacco Use Types Packs/Day Years [...] Salvador MD] Preferred pharmacy: [facility] [address] Comment: Medication renewals requested in this message routed to other providers: ranitidine (ZANTAC) 150 MG tablet [Eboni King NP] documented in this encounter Plan of Treatment Not on file documented as of this encounter Visit Diagnoses Not on filedocumented in this encounter Care Teams Aquatic Scientist Relationship Specialty Start Date End Date Ramesh Salvador MD [address] [place] [address] PCP - General Internal Medicine 04/14/11 04/09/22 [facility], Pcp [address] [place] [address] PCP - General Internal Medicine 04/10/22 documented as of this encounter
--- OUTSIDE RECORDS SUMMARY | 2025-06-19 14:46 | XMS_ITS | Encounter Summary ---
Author Organization [facility] [employer] [facility] Prior to 04/28/2024 Address [address] [place] [address] Care Team Providers Care Director Of Special Services Name Role Phone Ramesh Salvador MD Primary Care Provider [phone] [facility], Pcp Primary Care Provider Unavailabl e Encounter Details Date Type Department Care Team Description 10/26/2016 Hospital Medical Records [address] [place] [address] Willem Sullivan MD Social History Tobacco Use [...] on filedocumented in this encounter Care Teams Director Of Special Services Relationship Specialty Start Date End Date Ramesh Salvador MD [address] [place] [address] [phone] PCP - General Internal Medicine 04/14/11 04/09/22 [facility], Pcp [address] [place] [address] PCP - General Internal Medicine 04/10/22 documented as of this encounter
--- OUTSIDE RECORDS SUMMARY | 2025-06-19 14:46 | XMS_ITS | Encounter Summary ---
Author Organization [facility] Prior to 04/28/2024 Address [address] [place] [address] Care Team Providers Care Public Health Director Name Role Phone Ramesh Salvador MD Primary Care Provider [phone] [facility], Pcp Primary Care Provider Unavailabl e Encounter Details Date Type Department Care Team Description 03/20/2020 Pt. Non Urgent Medical Question Adult Medicine [address] [phone] Ramesh Salvador MD [address] [place] [address] [phone] Social History Tobacco Use Types Packs/Day Years [...] on filedocumented in this encounter Care Teams Public Health Director Relationship Specialty Start Date End Date Ramesh Salvador MD [address] [place] [address] PCP - General Internal Medicine 04/14/11 04/09/22 [facility], [address] [address] PCP - General Internal Medicine 04/10/22 documented as of this encounter
--- OUTSIDE RECORDS SUMMARY | 2025-06-19 14:46 | XMS_ITS | Encounter Summary ---
Author Organization [facility] Prior to 04/28/2024 Address [address] [place] [address] Care Team Providers Care Director Of Player Personnel Name Role Phone Ramesh Salvador MD Primary Care Provider [phone] Ramesh Salvador MD Primary Care Provider [phone] [facility], Pcp Primary Care Provider Unavailabl e Reason for Visit * Reason Comments REFERRAL DR SALVADOR - PHYSICAL THE RAPY Officer Captain Feedback Encounter Details Date Type Department Care Team Description 08/30/2001 Telephone Adult Medicine [address] [phone] Ramesh Salvador MD [address] [place] [address] [phone] REFERRAL (DR SALVADOR - PHYSICAL THERAPY); Officer Captain Feedback Social History Tobacco Use Types Packs/Day [...] ESTPt [facility]- he has script for the therapy from Dr Wyatt for neck pain/numbness-will bring this with him please process [facility] Dr Salvador this note sent to Kamila Haddad in referrals- * Telephone Encounter - 09/01/2001 12:15 PM ESTSIGNED BY PCP WITH A NOTE SAYING HE CAN GO TO [facility]. GAVE TO CAMPBELL GIBSON RN COVERING FOR AMY. * Telephone Encounter - 08/30/2001 12:57 PM ESTFORWARDED TO PCP -WITH ADDENDUM- FOR SIGNATURE * Telephone Encounter - 08/30/2001 11:36 AM ESTCALL RECEIVED. Contact: [phone] PLEASE SEE ATTACHED ... We referred pt to [facility] for numbness on side of his head. [facility] , referred him for pysical therapy. documented in this encounter Plan of Treatment Not on file documented as of this encounter Visit Diagnoses Not on filedocumented in this encounter Care Teams Director Of Player Personnel Relationship Specialty Start Date End Date Ramesh Salvador MD [address] [place] [address] PCP - General 07/23/99 04/13/11 Ramesh Salvador MD [address] [place] [address] PCP - General Internal Medicine 04/14/11 04/09/22 [facility], [address] [address] PCP - General Internal Medicine 04/10/22 documented as of this encounter
--- OUTSIDE RECORDS SUMMARY | 2025-06-19 14:46 | XMS_ITS | Encounter Summary ---
Author Organization [facility] Prior to 04/28/2024 Address [address] [place] [address] Care Team Providers Care Seismic Plotter Name Role Phone Ramesh Salvador MD Primary Care Provider [phone] [facility], [facility], Pcp Primary Care Provider Unavailabl e Reason for Visit * Reason Comments E-prescribe Rx Request Encounter Details Date Type Department Care Team Description 09/04/2012 Refill Adult Medicine [address] [phone] Ramesh Salvador MD [address] [place] [address] [phone] E-prescribe Rx Request Social History Tobacco Use [...] Be seen. * Telephone Encounter - Tamra Chuck - 09/05/2012 8:54 AM EDT WHEN WAS [...] DAY Patients current insurance carrier is: [place]: [place] POS Plan: PPO $20 [id number] Product Type: PPO [id number] documented in this encounter Plan of Treatment Not on file documented as of this encounter Visit Diagnoses Not on filedocumented in this encounter Care Teams Seismic Plotter Relationship Specialty Start Date End Date Ramesh Salvador MD [address] [place] [address] [phone] PCP - General Internal Medicine 04/14/11 04/09/22 Ana Ayala [address] [place] [address] PCP - General Internal Medicine 04/10/22 documented as of this encounter
--- OUTSIDE RECORDS SUMMARY | 2025-06-19 14:46 | XMS_ITS | Encounter Summary ---
Author Organization [facility] Prior to 04/28/2024 Address [address] [place] [address] Care Team Providers Care Residential Program Manager Name Role Phone Ramesh Salvador MD Primary Care Provider [facility], Pcp Primary Care Provider Unavailabl e Encounter Details Date Type Department Care Team Description 01/05/2017 Research Management Associate Report Medical Records [address] [place] [address] Dept., [facility] Occupational & Pt Social History Tobacco Use [...] on filedocumented in this encounter Care Teams Residential Program Manager Relationship Specialty Start Date End Date Ramesh Salvador MD [address] [place] [address] [phone] PCP - General Internal Medicine 04/14/11 04/09/22 [facility], Pcp [address] [place] [address] PCP - General Internal Medicine 04/10/22 documented as of this encounter
--- OUTSIDE RECORDS SUMMARY | 2025-06-19 14:46 | XMS_ITS | Encounter Summary ---
Author Organization [email or web address] [facility] Prior to 04/28/2024 Address [address] [place] [address] Care Team Providers Care Account Support Analyst Name Role Phone Ramesh Salvador MD Primary Care Provider [phone] Ramesh Salvador MD Primary Care Provider [phone] [facility], Pcp Primary Care Provider Unavailabl e Encounter Details Date Type Department Care Team Description 04/15/2005 Orders Only Medical [address] [place], [place] [id number] Narcisa Huggins, [facility] [address] [place], [place] [id number] PURE HYPERCHOLESTEROLEMIA; NODULAR PROSTATE Social History Tobacco [...] CASCADE 1.34 0.70 - 1.80 ng/dL [facility] 04/15/2005 10:2 0 AM EDT 04/15/2005 10:21 AM EDT Narcisa Huggins [facility] Performing Organization Address City/[facility]/ZIP Co de Phone Number [facility] * PROSTATE SPEC. AG, SCREEN (04/15/2005 10:20 AM EDT) PROSTATIC SPECIFIC ANTIGEN SCR 0.4 0.0 - 4.0 ng/mL [facility] 04/15/2005 10:2 0 AM EDT 04/15/2005 10:21 AM EDT Narcisa Huggins [facility] Performing Organization Address [facility]/ZIP Co de Phone Number [facility] * (ABNORMAL) THYROID PROFILE W/TSH (04/15/2005 10:20 AM EDT) TSH CASCADE 5.12(H) 0.40 - 4.00 uIU/ml [facility] 04/15/2005 10:2 0 AM EDT 04/15/2005 10:21 AM EDT Narcisa Huggins [facility] * (ABNORMAL) LIPID PROFILE (04/15/2005 10:20 AM EDT) Cholesterol 195 0 - 200 mg/dL [facility] TRIGLYCERIDES 143 0 - 150 mg/dL [facility] HDL CHOLESTEROL 54 >40 mg/dL [facility] LDL CALCULATED 113(H) 0 - 100 mg/dL [facility] TC-HDLC RATIO 3.6 0 - 4.4 mg/dL [facility] 04/15/2005 10:2 0 AM EDT 04/15/2005 10:21 AM EDT Narcisa Huggins [facility] * COMPREHENSIVE METABOLIC PANEL (04/15/2005 10:20 AM EDT) GLUCOSE 102 70 - 110 mg/dL [facility] Blood Urea Nitrogen 15 5 - 25 mg/dL [facility] CREAT 0.9 0.7 - 1.5 mg/dL [facility] GLOMERULAR FILTRATION RATE > 60 [facility] Comment: If patient is -Faroese, multiply result by 1.21 Chronic Kidney Disease: < 60 ml/min/1.73 square meters Kidney Failure: < 15 ml/min/1.73 square meters BUN/CREAT RATIO 16.7 6.0 - 20.0 G/dL [facility] NA 140 133 - 145 mEq/L [facility] K 4.6 3.5 - 5.2 mEq/L [facility] CL 105 96 - 108 mEq/L [facility] CARBON DIOXIDE (CO2) 28.6 21.0 - 32.0 mEq/L [facility] CALCIUM 9.7 8.5 - 10.5 mg/dL [facility] TOTAL PROTEIN (TP) 6.9 6.0 - 8.0 G/dL [facility] Albumin 4.6 3.2 - 5.6 G/dL [facility] GLOBULIN 2.3 1.9 - 4.4 G/dL [facility] A/G RATIO 2.0 1.1 - 2.3 [facility] BILIRUBIN TOTAL 1.1 0.0 - 1.4 mg/dL [facility] SGOT 27 10 - 42 U/L [facility] SGPT 32 10 - 60 U/L [facility] ALK PHOS 86 42 - 121 U/L [facility] 04/15/2005 10:2 0 AM EDT 04/15/2005 10:21 AM EDT Narcisa Huggins [facility] documented in this encounter Visit Diagnoses Diagnosis Pure hypercholesterolemia Nodular prostate documented in this encounter Care Teams Account Support Analyst Relationship Specialty Start Date End Date Ramesh Salvador MD [address] [place] [id number] PCP - General 07/23/99 04/13/11 Ramesh Salvador MD [address] [place] [id number] PCP - General Internal Medicine 04/14/11 04/09/22 [facility], [address] [address] PCP - General Internal Medicine 04/10/22 documented as of this encounter
--- OUTSIDE RECORDS SUMMARY | 2025-06-19 14:46 | XMS_ITS | Encounter Summary ---
Author Organization [employer] [facility] Prior to 04/28/2024 Address [address] [place] [address] Care Team Providers Care X Ray Service Engineer Name Role Phone Ramesh Salvador MD Primary Care Provider [facility], Pcp Primary Care Provider Unavailabl e Encounter Details Date Type Department Care Team Description 03/05/2019 Refill Adult Medicine [address] [address] Eboni King NP Social History Tobacco Use [...] - 03/06/2019 7:35 AM EDTFrom: Arturo Rosendo Bernie To: Eboni King NP Sent: 03/05/2019 11:15 AM EDT Subject: Medication Renewal Request Original authorizing provider: Eboni King NP Arturo Gibbs would like a refill of the following medications: ranitidine (ZANTAC) 150 MG tablet [Eboni King NP] Preferred pharmacy: [id number] [address] [facility] Comment: Medication renewals requested in this message routed to other providers: levothyroxine (SYNTRHOID, LEVOTHROID) 137 MCG tablet [Ramesh Salvador MD] documented in this encounter Plan of Treatment Not on file documented as of this encounter Visit Diagnoses Not on filedocumented in this encounter Care Teams X Ray Service Engineer Relationship Specialty Start Date End Date Ramesh Salvador MD [address] [place] [id number] PCP - General Internal Medicine 04/14/11 04/09/22 [place] [address] PCP - General Internal Medicine 04/10/22 documented as of this encounter
--- OUTSIDE RECORDS SUMMARY | 2025-06-19 14:46 | XMS_ITS | Encounter Summary ---
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
--- OUTSIDE RECORDS SUMMARY | 2025-06-19 14:46 | XMS_ITS | Encounter Summary ---
Author Organization [employer] [facility] Prior to 04/28/2024 Address [address] [place] [address] Care Team Providers Care Carpenter Refrigerator Name Role Phone Ramesh Salvador MD Primary Care Provider [phone] [facility], Pcp Primary Care Provider Unavailabl e Encounter Details Date Type Department Care Team Description 06/17/2020 Refill Adult Medicine [address] [phone] Julia Bolton, PRAMOD Social History Tobacco Use [...] on filedocumented in this encounter Care Teams Carpenter Refrigerator Relationship Specialty Start Date End Date Ramesh Salvador MD [address] [place] [address] [phone] PCP - General Internal Medicine 04/14/11 04/09/22 [facility], [address] [place] [address] PCP - General Internal Medicine 04/10/22 documented as of this encounter
== END 2025-06-19 14:14 | disposition home or self-care (01) ==
LOC: HO.HNS 13:37
PROVIDERS: PCP Nurse Practitioner Family; Visit Provider Physician Assistant
DX: Z98.890 Other specified postprocedural states (principal)
CPT/HCPCS: 99214

== ENCOUNTER → 2025-06-19 13:37 | Outpatient (BNVA) | payer MEDICARE, SELFPAY | PROVIDERS: PCP Nurse Practitioner Family; Visit Provider Physician Assistant | DX: Z98.890 Other specified postprocedural states (principal) | CPT/HCPCS: 99212 ==